=== PATIENT | male | born 1955 | race Caucasian/White ===

== ENCOUNTER 2017-03-23 17:24 | Emergency (ER) | payer MEDICARE, OTHER ==
[~2017-03-23] VITALS: Ht 172.7 cm; Wt 86.2 kg
[~2017-03-23 17:24] MED LIST: ACETAMINOPHEN-1 EAC1 PO; ASPIRIN EC325 MG PO; ASPIRIN EC81 MG; BENADRYL25 MG; CLONAZEPAM0.25 MG; CLONAZEPAM2 MG PO; ENOXAPARIN100 MG/1 M SUB-Q; FOLIC ACID1 MG PO; FUROSEMIDE40 MG PO; FUROSEMIDE40 MG/5 ML PO; GABAPENTIN300 MG PO; IBUPROFEN800 MG PO; KLOR-CON 1010 MEQ PO; LISINOPRIL10 MG PO; LISINOPRIL20 MG PO; LISINOPRIL40 MG PO; LISINOPRIL5 MG; NICORETTE2 MG MM; NICOTINE PATCH1 EAC1 TD; NORCO 5-325 TA1 EACH PO; OS CAL PO; OXYCODONE HCL15 MG PO; OXYCODONE HCL5 MG PO; POTASSIUM CHLO20 ME1 PO; PREDNISONE20 MG PO; PSEUDOEPHEDRIN120 MG; SENNA PLUS TAB1 EACH PO; TRAMADOL HCL50 MG PO; TYLENOL325 MG PO; VITAMIN B-1100 MG PO; VITAMIN D1000 UNI1 PO; WARFARIN SODIUM5 MG PO; XARELTO10 MG PO; [UNRECOGNIZED DRUG - OTHER] PO
== END 2017-03-23 20:15 | disposition home or self-care (01) ==
LOC: ED 17:24
DX: M54.5 Low back pain (principal); G89.29 Other chronic pain; M17.0 Bilateral primary osteoarthritis of knee; I10 Essential (primary) hypertension; F17.200 Nicotine dependence, unspecified, uncomplicated; Z79.899 Other long term (current) drug therapy
CPT/HCPCS: 99283

== ENCOUNTER → 2017-08-01 | Emergency (ER) | payer MEDICARE, OTHER ==
[~2017-08-01] VITALS: Ht 172.7 cm; Wt 86.1 kg
[~2017-08-01] MED LIST changes: +BACLOFEN10 MG PO; +LASIX40 MG PO; +METHYLPREDNISOLO4 M1 PO
--- OUTSIDE RECORDS SUMMARY | 2017-08-01 23:47 | XMS | Clinical Summary ---
Demographics + + + | Address | [address] | | | [place] [address] | + + + | Home Phone | | + + + | Preferred Language | Unknown | + + + | Marital Status | | + + + | Shinto Affiliation | PRO | + + + | Race | White | + + + | Ethnic Group | Not or | + + + Author + + + | Author | [facility] | + + + | Organization | [facility] | + + + | Address | Unknown | + + + | Phone | Unavailable | + + + Support + + + + + | Name | Relationship | Address | Phone | + + + + + | CARMELO MCINTOSH | ECON | [address] | | | | | [place] | | | | | [address] | | + + + + + Care Team Providers + +------+ + | Care Remelt Operator Name | Role | Phone | + +------+ + PP | Unavailable | + +------+ + Source Comments JOAO is fully live on both [facility] Ambulatory and [facility] InPatient.[facility] Allergies No Known Allergies Current Medications + + +---------+---------+------+------+-------+ | Prescription | Sig. | Disp. | Refills | Star | End | Statu | | | | | | t | Date | s | | | | | | Date | | | + + +---------+---------+------+------+-------+ | TRIAMCINOLONE | apply a thin film to | 1 lb | 1 | 01/0 | | Activ | | ACETONIDE 0.1 % | the affected skin | jar | | 5/20 | | e | | OINTMENT | areas by topical | | | 07 | | | | | route 2 timesper day | | | | | | + + +---------+---------+------+------+-------+ | acitretin 25 mg | Please have pt get | 0 | 0 | 05/0 | | Activ | | Oral Capsule | RX for acitretin | | | 5/20 | | e | | | through primary or | | | 08 | | | | | pt can schedule f/u | | | | | | | | appt with Dr. Vuong | | | | | | | | for refill | | | | | | + + +---------+---------+------+------+-------+ | rivaroxaban 10 mg | Take 10 mg by mouth | | | | | Activ | | oral tablet | once daily. | | | | | e | + + +---------+---------+------+------+-------+ | cyanocobalamin | Take 1,000 mcg by | | | | | Activ | | 1,000 mcg oral | mouth once daily. | | | | | e | | tablet | | | | | | | + + +---------+---------+------+------+-------+ | lisinopril 20 mg | Take 20 mg by mouth | | | | | Activ | | oral tablet | once daily. | | | | | e | + + +---------+---------+------+------+-------+ | clonazePAM 2 mg | Take 2 mg by mouth | | | | | Activ | | oral tablet | every six hours as | | | | | e | | | needed. | | | | | | + + +---------+---------+------+------+-------+ | folic acid 1 mg | Take 1 mg by mouth | | | | | Activ | | oral tablet | once daily. | | | | | e | + + +---------+---------+------+------+-------+ | OXYCODONE HCL | Take 1 tablet by | | | | | Activ | | (OXYCONTIN ORAL) | mouth every six | | | | | e | | | hours as needed. | | | | | | + + +---------+---------+------+------+-------+ Active Problems Not on file Social History + + + +--------+------+ | Tobacco Use | Types | Packs/Day | Years | Date | | | | | Used | | + + + +--------+------+ | Current Every Day | Cigarettes | 1 | | | | Smoker | | | | | + + + +--------+------+ + + + | Sex Assigned at | Date Recorded | | | | + + + | Not on file | | + + + Last Filed Vital Signs + + + + | Vital Sign | Reading | Time Taken | + + + + | Blood Pressure | 152/77 | 02/20/2015 10:40 AM PDT | + + + + | Pulse | 56 | 02/20/2015 10:40 AM PDT | + + + + | Temperature | - | - | + + + + | Respiratory Rate | 16 | 06/03/2006 10:01 AM PST | + + + + | Oxygen Saturation | - | - | + + + + | Inhaled Oxygen | - | - | | Concentration | | | + + + + | Weight | 74.8 kg (165 lb) | 02/20/2015 10:40 AM PDT | + + + + | Height | 170.2 cm (5' 7") | 02/20/2015 10:40 AM PDT | + + + + | Body Mass Index | 25.84 | 02/20/2015 10:40 AM PDT | + + + + Plan of Treatment + + + + + | Health Maintenance | Due Date | Last Done | Comments | + + + + + | INFLUENZA VACCINE | | | | | (FLU SHOT) | 7 | | | + + + + + Results Not on filefrom Last 3 Months
--- OUTSIDE RECORDS SUMMARY | 2017-08-01 23:47 | XMS | Clinical Summary ---
Demographics + + + | Address | [address] | | | [place] [address] | + + + | Home Phone | | + + + | Preferred Language | Unknown | + + + | Marital Status | | + + + | Latter-Day Affiliation | PRO | + + + [...] + | CARMELO MCINTOSH | ECON | [address] | | | | | [place] | | | | | [address] | | + + + + + Care Team Providers + +------+ + | Care Hoseman Name | Role | Phone | + +------+ + PP | Unavailable | + +------+ + Source Comments JOAO is fully live on both [facility] Amb[facility] and [facility] InPatient.[facility] [place] [facility] Allergies No Known Allergies Current Medications + [...]
== END ==
LOC: ED 22:36
DX: M54.6 Pain in thoracic spine (principal); M54.5 Low back pain; G89.29 Other chronic pain; I10 Essential (primary) hypertension; F17.200 Nicotine dependence, unspecified, uncomplicated; Z79.899 Other long term (current) drug therapy
CPT/HCPCS: 72070; 96372; 99283; J1885

== ENCOUNTER 2017-08-03 07:07 | Emergency (ER) | payer MEDICARE, OTHER ==
[~2017-08-03] VITALS: Ht 172.7 cm; Wt 86.2 kg
--- OUTSIDE RECORDS SUMMARY | ~2017-08-03 | XMS | Clinical Summary ---
Demographics + + + | Address | [address] | | | [place] [address] | + + + | Home Phone [...] + | CARMELO MCINTOSH | ECON | [address] | | | | | [place] | | | | | [phone] | | + + + + + Care Team Providers + +------+ + | Care Blind Teacher Name | Role | Phone | + +------+ + PP | Unavailable | + +------+ + Source Comments JOAO is fully live on both [facility] Ambulatory and [facility] InPatient.[facility] Allergies No Known Allergies Current Medications + [...]
--- OUTSIDE RECORDS SUMMARY | ~2017-08-03 | XMS | Clinical Summary ---
Demographics + + + | Address | [address] | | | [place] [address] | + + + | Home Phone [...] + | CARMELO MCINTOSH | ECON | [address] | | | | | [place] | | | | | [address] | | + + + + + Care Team Providers + +------+ + | Care Chief Building Inspector Name | Role | Phone | + +------+ + PP | Unavailable | + +------+ + Source Comments JOAO is fully live on both [facility] Ambulatory and [facility] InPatient.[facility] Allergies No Known Allergies Current Medications + [...]
[~2017-08-03 07:07] MED LIST changes: -BACLOFEN10 MG PO; -METHYLPREDNISOLO4 M1 PO
[2017-08-03] MEDS ORDERED: BACLOFEN10 MG PO (07:26)
[2017-08-03] MEDS ORDERED: METHYLPREDNISOLO4 M1 PO (07:26)
[2017-08-03] MEDS ORDERED: OXYCODONE HCL5 MG PO (07:39)
== END 2017-08-03 07:52 | disposition home or self-care (01) ==
LOC: ED 07:07
DX: G89.29 Other chronic pain (principal); M94.0 Chondrocostal junction syndrome [Tietze]; I10 Essential (primary) hypertension; F17.200 Nicotine dependence, unspecified, uncomplicated; Z79.899 Other long term (current) drug therapy
CPT/HCPCS: 96372; 99283; J1885

== ENCOUNTER 2017-09-30 18:20 | Emergency (ER) | payer MEDICARE ==
[~2017-09-30] VITALS: Ht 172.7 cm; Wt 86.1 kg
--- OUTSIDE RECORDS SUMMARY | ~2017-09-30 | XMS | Clinical Summary ---
Demographics + + + | Address | [address] | | | [place] [address] | + + + | Home Phone | | + + + | Preferred Language | Unknown | + + + | Marital Status | | + + + | Mu-Ism Affiliation | PRO | + + + [...] + | CARMELO MCINTOSH | ECON | [address] | | | | | [place] | | | | | [address] | | + + + + + Care Team Providers + +------+ + | Care Operator Maintainer Name | Role | Phone | + +------+ + PP | Unavailable | + +------+ + Source Comments JOAO is fully live on both [facility] Ambulatory and [facility] InPatient.[facility] Allergies No Known Allergies Current Medications [...] | | | | (FLU SHOT) | 8 | | | + + + + + Results Not on filefrom Last 3 Months
--- OUTSIDE RECORDS SUMMARY | ~2017-09-30 | XMS | Clinical Summary ---
Demographics + + + | Address | [address] | | | [place] [address] | + + + | Home Phone | | + + + | Preferred Language | Unknown | + + + | Marital Status | | + + + | Bahai Affiliation | 1013 | + + + | Race | Unknown | + + + | Ethnic Group | Unknown | + + + Author + + + | Author | [facility] | + + + | Organization | [facility] | + + + | Address | Unknown | + + + | Phone | Unavailable | + + + Support + + + + + | Name | Relationship | Address | Phone | + + + + + | Message,Detailed | ECON | Unknown | | + + + + + | Anika Mcintosh | ECON | [address] | | | | [place] | | | | | [phone] | | + + + + + | Hugo Mcintosh | ECON | Unknown | | + + + + + | Patricia Dailey | ECON | Unknown | | + + + + + Care Team Providers + +------+ + | Care Telephone Service Representative Name | Role | Phone | [...] | 2/20 | | e | | | | [...] Vaccine: | | | | | Pneumococcal 19-64 | 4 | | | | (PPSV23 only) Medium | | | | | Risk (1 of 1 - | | | | | PPSV23) | | | | + + + + + | Colon Cancer | | | | | Screening | 5 | | | | (Colonoscopy) | | | | + + + + + | Vaccine: Influenza | | | | | (Season Ended) | 8 | | | + + [...] +------+-------+ + | MEDICARE | MEDICA | xxxxxxxxxx | | | [address] | | | RE | | | | [place] [address] | | | IP-OP | | | | | + +--------+ +------+-------+ + | MEDICAID | [place]ER | xxxxxxxx | | | [address] | | | N | | | | [place], [place] | | | [place] | | | | [address] | | | MODELING DIRECTOR | | | | | + +--------+ [...] Self | [birth year] Home: | [address] | | [address] | al/Fam | | [phone] | [phone] | [place] | | | kim | | | [phone] | [phone] | + +--------+ +--------+ + +
--- OUTSIDE RECORDS SUMMARY | ~2017-09-30 | XMS | Clinical Summary ---
Demographics + + + | Address | [address] | | | [place] [address] | + + + | Home Phone | | + + + | Preferred Language | Unknown | + + + | Marital Status | | + + + | Mandaen Affiliation | 1013 | + + + | Race | Unknown | + + + | Ethnic Group | Unknown | + + + Author + + + | Author | [facility] | + + + | Organization | [facility] [employer] [employer] [facility] | + + + | Address [...] [place] | | | | | [address] | | + + + + + | Hugo Mcintosh | ECON | Unknown | | + + + + + | Patricia Dailey | ECON | Unknown | | + + + + + Care Team Providers + +------+ + | Care Medical Psychotherapist Name | Role | Phone | + [...] | xxxxxxxxxx | | | [address] | | | RE | | | | [place] [address] | | | IP-OP | | | | | + +--------+ +------+-------+ + | MEDICAID | [place]ER | xxxxxxxx | | | [address] | | | N | | | | [place], [place] | | | [place] | | | | [phone] | | | CHAIN LINK FENCE INSTALLER | | | | | + +--------+ [...] | [address] | | | [phone] | [phone] | + +--------+ +--------+ + +
--- OUTSIDE RECORDS SUMMARY | ~2017-09-30 | XMS | Clinical Summary ---
Demographics + + + | Address | [address] | | | [place] [address] | + + + | Home Phone [...] + | CARMELO MCINTOSH | ECON | [address] | | | | | [place] | | | | | [address] | | + + + + + Care Team Providers + +------+ + | Care Supplier Quality Name | Role | Phone | + +------+ + PP | Unavailable | + +------+ + Source Comments JOAO is fully live on both [facility] Ambulatory and [facility] InPatient.[facility] Allergies No Known Allergies Current Medications [...]
[~2017-09-30 18:20] MED LIST changes: +BACLOFEN10 MG PO; +METHYLPREDNISOLO4 M1 PO
== END 2017-09-30 19:52 | disposition home or self-care (01) ==
LOC: ED 18:20
DX: L40.9 Psoriasis, unspecified (principal); I10 Essential (primary) hypertension; F17.200 Nicotine dependence, unspecified, uncomplicated; Z79.899 Other long term (current) drug therapy
CPT/HCPCS: 99282

== ENCOUNTER 2017-12-22 17:59 | Emergency (ER) | payer MEDICARE ==
[~2017-12-22] VITALS: Ht 172.7 cm; Wt 86.1 kg
[2017-12-22] MEDS ORDERED: METHOTREXATE2.5 MG PO (18:40)
[2017-12-22] MEDS ORDERED: BACLOFEN10 MG PO (18:43)
[2017-12-22] MEDS ORDERED: METHYLPREDNISOLO4 M1 PO (18:43)
== END 2017-12-22 18:47 | disposition home or self-care (01) ==
LOC: ED 17:59
DX: G89.29 Other chronic pain (principal); M54.9 Dorsalgia, unspecified; I10 Essential (primary) hypertension; F17.200 Nicotine dependence, unspecified, uncomplicated; Z79.899 Other long term (current) drug therapy
CPT/HCPCS: 99283

== ENCOUNTER 2018-02-08 08:03 | Emergency (ER) | payer MEDICARE ==
[~2018-02-08] VITALS: Ht 172.7 cm; Wt 83.9 kg
[~2018-02-08 08:03] MED LIST changes: +METHOTREXATE2.5 MG PO
[2018-02-08] MEDS ORDERED: BACLOFEN10 MG PO (08:20)
[2018-02-08] MEDS ORDERED: METHYLPREDNISOLO4 M1 PO (08:20)
== END 2018-02-08 08:30 | disposition home or self-care (01) ==
LOC: ED 08:03
DX: M54.5 Low back pain (principal); I10 Essential (primary) hypertension; F17.200 Nicotine dependence, unspecified, uncomplicated; Z79.899 Other long term (current) drug therapy
CPT/HCPCS: 99283

== ENCOUNTER 2018-08-01 05:21 | Emergency (ER) | payer MEDICARE ==
[~2018-08-01] VITALS: Ht 172.7 cm; Wt 81.6 kg
--- OUTSIDE RECORDS SUMMARY | 2018-08-01 05:24 | XMS ---
PreManage Notification: ROBERTO MCINTOSH Security Learning And Development Manager Events No recent Security Events currently on file CRITERIA MET - Group Notification - [facility] - Has Care Guidelines - PDMP CARE PROVIDERS LOVELY RIVAS [facility] 02/09/2018-Current PHONE: Unknown Kale Alonso Current [place] PHONE: Unknown DR ADRIANE RIVAS Primary Care 08/06/2016-Current PHONE: [phone] Miryam has no Care Guidelines for this patient. Care History Substance Use/Overdose 12/29/2017 [facility] Patient PCP, Dr. Lovely Rivas, is no longer rx\T\#39;ing any opiate/ opioids or benzodiazepines for patient. 12/24/2017 [facility] PATIENT CAME TO ED FOR PAIN MEDS FOR BACK PAIN 12/22/17.\T\nbsp; STATED HE HAS RUN OUT OF PAIN MEDICATIONS.\T\nbsp; HE HAD FILLED SCRIPT FOR 185 OXYCODONE ON 12/05/17.\T\nbsp; PRIMARY CARE PHYSICIAN DR RIVAS WAS NOTIFIED.\T\nbsp; PLEASE USE CAUTION WITH PRESCRIBING ANY NARCOTICS WITHOUT CHECKING WITH PRIMARY CARE AT [phone]. Medical/Surgical 12/29/2017 [facility] Patient PCP, Dr. Lovely Rivas, is no longer rx\T\#39;ing any opiate/ opioids or benzodiazepines for patient. E.D. VISIT COUNT (12 MO.) 6 [facility]. TOTAL 6 NOTE: Visits indicate total known visits. ED/UCC VISIT TRACKING (12 MO.) 08/01/2018 05:22 [facility] [place] TYPE: Emergency COMPLAINT: - VOMITING, PAIN 02/08/2018 08:03 [facility] [place] TYPE: Emergency COMPLAINT: - BACK PAIN/INJURY DIAGNOSES: - Essential (primary) hypertension - Other superintendent marine oil terminal (current) drug therapy - Low back pain - Nicotine dependence, unspecified, uncomplicated 12/22/2017 18:[facility] [place] [place] TYPE: Emergency COMPLAINT: - BACK PAIN/NO INJURY DIAGNOSES: - Other custodial (current) drug therapy - Other chronic pain - Essential (primary) hypertension - Nicotine dependence, unspecified, uncomplicated - Dorsalgia, unspecified 09/30/2017 18:20 [facility] [place] TYPE: Emergency COMPLAINT: - ALTERED MENTAL DIAGNOSES: - Essential (primary) hypertension - Other custodial (current) drug therapy - Psoriasis, unspecified - Nicotine dependence, unspecified, uncomplicated 08/03/2017 07:07 [facility] [place] TYPE: Emergency COMPLAINT: - RIB PAIN DIAGNOSES: - Nicotine dependence, unspecified, uncomplicated - Pleurodynia - Other superintendent marine oil terminal (current) drug therapy - Essential (primary) hypertension - Chondrocostal junction syndrome [Tietze] - Other chronic pain 08/01/2017 22:36 [facility] [place] TYPE: Emergency COMPLAINT: - L AND R RIB PAIN DIAGNOSES: - Other chronic pain - Low back pain - Nicotine dependence, unspecified, uncomplicated - Essential (primary) hypertension - Other custodial (current) drug therapy - Dorsalgia, unspecified - Pain in thoracic spine INPATIENT VISIT TRACKING (12 MO.) No inpatient visits to display in this time frame [email or web address]
[2018-08-01] MEDS ORDERED: ETODOLAC500 MG PO (05:32)
[2018-08-01] MEDS ORDERED: BUSPIRONE HCL30 MG PO (05:33)
[2018-08-01] MEDS ORDERED: METHOTREXATE2.5 MG PO (05:33)
[2018-08-01] MEDS ORDERED: NORCO 5-325 TA1 EACH PO (06:20)
== END 2018-08-01 06:43 | disposition home or self-care (01) ==
LOC: ED 05:21
DX: L40.50 Arthropathic psoriasis, unspecified (principal); I10 Essential (primary) hypertension; F17.200 Nicotine dependence, unspecified, uncomplicated; Z79.899 Other long term (current) drug therapy
CPT/HCPCS: 99282

== ENCOUNTER 2019-02-07 07:45 | Emergency (ER) | payer MEDICARE ==
[~2019-02-07] VITALS: Ht 172.7 cm; Wt 82.0 kg
[~2019-02-07 07:45] MED LIST changes: +BUSPIRONE HCL30 MG PO; +ETODOLAC500 MG PO
--- OUTSIDE RECORDS SUMMARY | 2019-02-07 07:48 | XMS ---
PreManage Notification: ROBERTO MCINTOSH Security Manager Icu Events No recent Security Events currently on file CRITERIA MET - Group Notification - [facility] Care Guidelines CARE PROVIDERS LOVELY RIVAS [facility] 02/09/2018-Current PHONE: Unknown Kale Alonso Current [place] PHONE: Unknown DR ADRIANE RIVAS Primary Care 08/06/2016-Current PHONE: [phone] Miryam has no Care Guidelines for this patient. Care History Medical/Surgical 12/29/2017 [facility] Patient PCP, Dr. Lovely Rivas, is no longer rx\T\#39;ing any opiate/ opioids or benzodiazepines for patient. Substance Use/Overdose 12/29/2017 [facility] Patient PCP, Dr. Lovely Rivas, is no longer rx\T\#39;ing any opiate/ opioids or benzodiazepines for patient. 12/24/2017 [facility] PATIENT CAME TO ED FOR PAIN MEDS FOR BACK PAIN 12/22/17.\T\nbsp; STATED HE HAS RUN OUT OF PAIN MEDICATIONS.\T\nbsp; HE HAD FILLED SCRIPT FOR 185 OXYCODONE ON 12/05/17.\T\nbsp; PRIMARY CARE PHYSICIAN DR RIVAS WAS NOTIFIED.\T\nbsp; PLEASE USE CAUTION WITH PRESCRIBING ANY NARCOTICS WITHOUT CHECKING WITH PRIMARY CARE AT [phone]. E.D. VISIT COUNT (12 MO.) 3 [facility]. TOTAL 3 NOTE: Visits indicate total known visits. ED/UCC VISIT TRACKING (12 MO.) 02/07/2019 07:45 [facility] [place] TYPE: Emergency COMPLAINT: - SKIN PROBLEM 08/01/2018 05:22 [facility] [place] TYPE: Emergency COMPLAINT: - VOMITING, PAIN DIAGNOSES: - Arthropathic psoriasis, unspecified - Nicotine dependence, unspecified, uncomplicated - Other protection manager (current) drug therapy - Psoriasis, unspecified - Essential (primary) hypertension 02/08/2018 08:03 [facility] [place] TYPE: Emergency COMPLAINT: - BACK PAIN/INJURY DIAGNOSES: - Essential (primary) hypertension - Other protection manager (current) drug therapy - Low back pain - Nicotine dependence, unspecified, uncomplicated INPATIENT VISIT TRACKING (12 MO.) No inpatient visits to display in this time frame [email or web address]
[2019-02-07] MEDS ORDERED: BUSPIRONE HCL30 MG PO (08:14)
[2019-02-07] MEDS ORDERED: METHYLPREDNISOLO4 MG PO (08:15)
[2019-02-07] MEDS ORDERED: PREDNISONE20 MG PO (08:39)
== END 2019-02-07 08:55 | disposition home or self-care (01) ==
LOC: ED 07:45
DX: L40.9 Psoriasis, unspecified (principal); I10 Essential (primary) hypertension; F17.200 Nicotine dependence, unspecified, uncomplicated; Z79.899 Other long term (current) drug therapy; Z79.52 Long term (current) use of systemic steroids
CPT/HCPCS: 99282

== ENCOUNTER 2019-06-27 16:43 | Emergency (ER) | payer SELFPAY ==
[~2019-06-27] VITALS: Ht 172.7 cm; Wt 82.0 kg
[~2019-06-27 16:43] MED LIST changes: +METHYLPREDNISOLO4 MG PO
--- OUTSIDE RECORDS SUMMARY | 2019-06-27 16:46 | XMS ---
PreManage Notification: ROBERTO MCINTOSH Security Cutter Inspector Events No recent Security Events currently on file CRITERIA MET - Group Notification - [facility] Care Guidelines CARE PROVIDERS LOVELY RIVAS [facility] 02/09/2018-Current PHONE: [phone] Kale Alonso Current PHONE: Unknown DR ADRIANE RIVAS Primary Care 08/06/2016-Current PHONE: [phone] Miryam has no Care Guidelines for this patient. Care History Substance Use/Overdose 12/29/2017 [facility] Patient PCP, Dr. Lovely Rivas, is no longer rx\T\#39;ing any opiate/ opioids or benzodiazepines for patient. 12/24/2017 [facility] PATIENT CAME TO ED FOR PAIN MEDS FOR BACK PAIN 12/22/17.\T\nbsp; STATED HE HAS RUN OUT OF PAIN MEDICATIONS.\T\nbsp; HE HAD FILLED SCRIPT FOR 185 OXYCODONE ON 12/05/17.\T\nbsp; PRIMARY CARE PHYSICIAN DR RIVAS WAS NOTIFIED.\T\nbsp; PLEASE USE CAUTION WITH PRESCRIBING ANY NARCOTICS WITHOUT CHECKING WITH PRIMARY CARE AT [phone]. Medical/Surgical 12/29/2017 [facility] Patient PCP, Dr. Lovely Rivas, is no longer rx\T\#39;ing any opiate/ opioids or benzodiazepines for patient. E.D. VISIT COUNT (12 MO.) 3 [facility]. TOTAL 3 NOTE: Visits indicate total known visits. ED/UCC VISIT TRACKING (12 MO.) 06/27/2019 16:44 [facility] [place] TYPE: Emergency COMPLAINT: - SWOLLEN EXTREMETIES 02/07/2019 07:45 [facility] [place] TYPE: Emergency COMPLAINT: - SKIN PROBLEM DIAGNOSES: - Essential (primary) hypertension - Nicotine dependence, unspecified, uncomplicated - Psoriasis, unspecified - assisted (current) use of systemic steroids - Other senior care (current) drug therapy 08/01/2018 05:22 [facility] [place] TYPE: Emergency COMPLAINT: - VOMITING, PAIN DIAGNOSES: - Arthropathic psoriasis, unspecified - Nicotine dependence, unspecified, uncomplicated - Other senior care (current) drug therapy - Psoriasis, unspecified - Essential (primary) hypertension INPATIENT VISIT TRACKING (12 MO.) No inpatient visits to display in this time frame [id number]
[2019-06-27] MEDS ORDERED: PREDNISONE50 MG PO (18:29)
--- NOTE | 2019-06-28 13:03 | EKG ---
[facility] [address] [place], [place] [address] Signed Sinus tachycardia with occasional premature ventricular complexes and fusion complexes Nonspecific ST abnormality Abnormal ECG No previous ECGs available Confirmed by YONY VELIZ DO ([id number]) on 06/28/2019 1:03:04 PM Electronically Signed By: YONY VELIZ DO 06/28/19 1303 PATIENT NAME: ROBERTO MCINTOSH Electrocardiogram DATE OF : 53 PHYSICIAN: YONY VELIZ DO REPORT #: [id number] REPORT IS CONFIDENTIAL AND NOT TO BE RELEASED WITHOUT AUTHORIZATION
== END 2019-06-27 18:39 | disposition home or self-care (01) ==
LOC: ED 16:43
DX: L40.9 Psoriasis, unspecified (principal); I10 Essential (primary) hypertension; Z87.891 Personal history of nicotine dependence; Z79.52 Long term (current) use of systemic steroids; Z79.899 Other long term (current) drug therapy
CPT/HCPCS: 80048; 93005; 93010; 96372; 99283; J1885; J7512

== ENCOUNTER 2019-09-27 15:12 | Emergency (ER) | payer MEDICARE, OTHER ==
[~2019-09-27] VITALS: Ht 172.7 cm; Wt 105.6 kg
[~2019-09-27 15:12] MED LIST changes: +PREDNISONE50 MG PO
--- OUTSIDE RECORDS SUMMARY | 2019-09-27 15:14 | XMS ---
PreManage Notification: ROBERTO MCINTOSH Security Dry Cell Assembly Supervisor Events No recent Security Events currently on file CRITERIA MET - Group Notification CARE PROVIDERS LOVELY RIVAS [facility] 02/09/2018-Current PHONE: [phone] Miryam has no Care Guidelines for this patient. Care History Substance Use/Overdose 12/29/2017 [facility] Patient PCP, Dr. Lovely Rivas, is no longer rx\T\#39;ing any opiate/ opioids or benzodiazepines for patient. 12/24/2017 [facility] PATIENT CAME TO ED FOR PAIN MEDS FOR BACK PAIN 12/22/17.\T\nbsp; STATED HE HAS RUN OUT OF PAIN MEDICATIONS.\T\nbsp; HE HAD FILLED SCRIPT FOR 185 OXYCODONE ON 12/05/17.\T\nbsp; PRIMARY CARE PHYSICIAN DR RIVAS WAS NOTIFIED.\T\nbsp; PLEASE USE CAUTION WITH PRESCRIBING ANY NARCOTICS WITHOUT CHECKING WITH PRIMARY CARE AT [phone]. Medical/Surgical 12/29/2017 [facility] Patient PCP, Dr. Lovely Rivas, is no longer rx\T\#39;ing any opiate/ opioids or benzodiazepines for patient. E.D. VISIT COUNT (12 MO.) 3 [facility] TOTAL 3 NOTE: Visits indicate total known visits. ED/UCC VISIT TRACKING (12 MO.) 09/27/2019 15:12 [facility] [place] TYPE: Emergency COMPLAINT: - BLOATING 06/27/2019 16:44 [facility] [place] TYPE: Emergency COMPLAINT: - SWOLLEN EXTREMETIES DIAGNOSES: - Personal history of nicotine dependence - group home (current) use of systemic steroids - Other retirement (current) drug therapy - Psoriasis, unspecified - Essential (primary) hypertension 02/07/2019 07:[address] [facility] [place] TYPE: Emergency COMPLAINT: - SKIN PROBLEM DIAGNOSES: - Essential (primary) hypertension - Nicotine dependence, unspecified, uncomplicated - Psoriasis, unspecified - intermediate project manager (current) use of systemic steroids - Other lobsterman (current) drug therapy INPATIENT VISIT TRACKING (12 MO.) No inpatient visits to display in this time frame [email or web address]
== END 2019-09-27 18:32 | disposition home or self-care (01) ==
LOC: ED 15:12
DX: R14.0 Abdominal distension (gaseous) (principal); I10 Essential (primary) hypertension; F17.200 Nicotine dependence, unspecified, uncomplicated; Z79.899 Other long term (current) drug therapy
CPT/HCPCS: 74022; 99284-25

== ENCOUNTER 2019-10-12 12:53 | Emergency (ER) | payer MEDICARE ==
[~2019-10-12] VITALS: Ht 172.7 cm; Wt 105.2 kg
--- OUTSIDE RECORDS SUMMARY | ~2019-10-12 | XMS | Encounter Summary ---
Demographics + + + | Address | [address] | | | [place] [address] | + + + | Home Phone | | + + + | Preferred Language | Unknown | + + + | Marital Status | | + + + | Synagogue Affiliation | PRO | + + + | Race | White | + + + | Ethnic Group | Not or | + + + Author + + + | Author | [facility] | + + + | Organization | [facility] | + + + | Address | Unknown | + + + | Phone | Unavailable | + + + Support + + + + + | Name | Relationship | Address | Phone | + + + + + | Marnie Payne | ECON | [address] | | | | | [place] | | | | | [address] | | + + + + + Care Team Providers + +------+ + | Care Keno Writer / Runner Name | Role | Phone | + +------+ + | Julio Cesar Davis MD | PCP | | + +------+ + Encounter Details +--------+ + + + + | Date | Type | Department | Care Team | Description | +--------+ + + + + | 06/03/ | Orders Only | Dermatology | Ashia Vuong, | Other Psoriasis and | | 2005 | | Medical at [facility] [address] | MD | Similar Disorders; | | | | [address] | | Erythroderma | | | | Mailcode: CH16D | | | | | | [facility] | | | | | | and Healing, | | | | | | | | | | | | [place], [place] | | | | | | [address] | | | | | | [phone] | | | +--------+ + + + + Social History + +-------+ +--------+------+ | Tobacco Use | Types | Packs/Day | Years | Date | | | | | Used | | + +-------+ +--------+------+ | Never Assessed | | | | | + +-------+ +--------+------+ + + + | Sex Assigned at | Date Recorded | | | | + + + | Not on file | | + + + + + + + | Job Start Date | Occupation | Industry | + + + + | Not on file | Not on file | Not on file | + + + + + + + + | Travel History | Travel Start | Travel End | + + + + + + | No recent travel history available. | + + documented as of this encounter Plan of Treatment + +------+--------+ + + | Name | Type | Priori | Associated Diagnoses | Order Schedule | | | | ty | | | + +------+--------+ + + | [facility] - SPECIMEN | Lab | Routin | Other Psoriasis | Ordered: 06/03/2006 | | COLLECT, | | e | and Similar | | | VENIPUNCTURE | | | Disorders | | + +------+--------+ + + documented as of this encounter Procedures + +--------+ + + + | Procedure Name | Priori | Date/Time | Associated Diagnosis | Comments | | | ty | | | | + +--------+ + + + | DIFFERENTIAL | Routin | 06/03/2006 | | Results for this | | | e | 11:48 AM | | procedure are in the | | | | PST | | results section. | + +--------+ + + + | CBC, WITH | Routin | 06/03/2006 | Other Psoriasis | Results for this | | DIFFERENTIAL | e | 11:48 AM | and Similar | procedure are in the | | | | PST | Disorders | results section. | | | | | Erythroderma | | + +--------+ + + + | ALT, PLASMA | Routin | 06/03/2006 | Other Psoriasis | Results for this | | | e | 11:48 AM | and Similar | procedure are in the | | | | PST | Disorders | results section. | | | | | Erythroderma | | + +--------+ + + + | COMPLETE METABOLIC | Routin | 06/03/2006 | Other Psoriasis | Results for this | | SET | e | 11:48 AM | and Similar | procedure are in the | | (NA,K,CL,CO2,BUN,CRE | | PST | Disorders | results section. | | AT,GLUC,CA,AST,ALT,B | | | Erythroderma | | | YONATHAN TOTAL,ALK | | | | | | PHOS,ALB,PROT TOTAL) | | | | | + +--------+ + + + | AST, PLASMA | Routin | 06/03/2006 | Other Psoriasis | Results for this | | | e | 11:48 AM | and Similar | procedure are in the | | | | PST | Disorders | results section. | | | | | Erythroderma | | + +--------+ + + + | HEPATITIS B SURFACE | Routin | 06/03/2006 | Other Psoriasis | Results for this | | AB QUAL, SERUM | e | 11:48 AM | and Similar | procedure are in the | | | | PST | Disorders | results section. | | | | | Erythroderma | | + +--------+ + + + | HEPATITIS B SURFACE | Routin | 06/03/2006 | Other Psoriasis | Results for this | | AG, SERUM | e | 11:48 AM | and Similar | procedure are in the | | | | PST | Disorders | results section. | | | | | Erythroderma | | + +--------+ + + + | HEPATITIS B CORE AB, | Routin | 06/03/2006 | Other Psoriasis | Results for this | | SERUM | e | 11:48 AM | and Similar | procedure are in the | | | | PST | Disorders | results section. | | | | | Erythroderma | | + +--------+ + + + | HEPATITIS C VIRUS | Routin | 06/03/2006 | Other Psoriasis | Results for this | | W/CONFIRMATION | e | 11:48 AM | and Similar | procedure are in the | | | | PST | Disorders | results section. | | | | | Erythroderma | | + +--------+ + + + | LIPID SET (TRIG, T | Routin | 06/03/2006 | Other Psoriasis | Results for this | | CHOL, HDL, CALC LDL) | e | 11:48 AM | and Similar | procedure are in the | | | | PST | Disorders | results section. | | | | | Erythroderma | | + +--------+ + + + | URIC ACID, PLASMA | Routin | 06/03/2006 | Other Psoriasis | Results for this | | | e | 11:48 AM | and Similar | procedure are in the | | | | PST | Disorders | results section. | | | | | Erythroderma | | + +--------+ + + + | UREA NITROGEN, | Routin | 06/03/2006 | Other Psoriasis | Results for this | | PLASMA | e | 11:48 AM | and Similar | procedure are in the | | | | PST | Disorders | results section. | | | | | Erythroderma | | + +--------+ + + + | ALKALINE | Routin | 06/03/2006 | Other Psoriasis | Results for this | | PHOSPHATASE, PLASMA | e | 11:48 AM | and Similar | procedure are in the | | | | PST | Disorders | results section. | | | | | Erythroderma | | + +--------+ + + + | MAGNESIUM, PLASMA | Routin | 06/03/2006 | Other Psoriasis | Results for this | | | e | 11:48 AM | and Similar | procedure are in the | | | | PST | Disorders | results section. | | | | | Erythroderma | | + +--------+ + + + | CREATININE, PLASMA | Routin | 06/03/2006 | Other Psoriasis | Results for this | | | e | 11:48 AM | and Similar | procedure are in the | | | | PST | Disorders | results section. | | | | | Erythroderma | | + +--------+ + + + documented in this encounter Results DIFFERENTIAL (06/03/2006 11:48 AM PST) + +---------+ + + + | Component | Value | Ref Range | Performed | Pathologist | | | | | At | Signature | + +---------+ + + + | NEUTROPHIL | 66 | 50 - 70 % | [facility] | | | % | | | DEPARTMENT | | | | | | OF | | | | | | PATHOLOGY | | + +---------+ + + + | LYMPHOCYTE | 17 (L) | 18 - 42 % | [facility] | | | % | | | DEPARTMENT | | | | | | OF | | | | | | PATHOLOGY | | + +---------+ + + + | MONOCYTE % | 13 (H) | 2 - 8 % | [facility] | | | | | | DEPARTMENT | | | | | | OF | | | | | | PATHOLOGY | | + +---------+ + + + | EOS % | 3 | 1 - 3 % | [facility] | | | | | | DEPARTMENT | | | | | | OF | | | | | | PATHOLOGY | | + +---------+ + + + | BASO % | 1 | <3 % | [facility] | | | | | | DEPARTMENT | | | | | | OF | | | | | | PATHOLOGY | | + +---------+ + + + | NEUTROPHIL | 4.6 | 1.8 - 7.7 K/cu | [facility] | | | # | | mm | DEPARTMENT | | | | | | OF | | | | | | PATHOLOGY | | + +---------+ + + + | LYMPHOCYTE | 1.2 | 1.0 - 4.8 K/cu | [facility] | | | # | | mm | DEPARTMENT | | | | | | OF | | | | | | PATHOLOGY | | + +---------+ + + + | MONOCYTE # | 0.9 (H) | 0.1 - 0.6 K/cu | [facility] | | | | | mm | DEPARTMENT | | | | | | OF | | | | | | PATHOLOGY | | + +---------+ + + + | EOS # | 0.2 | <0.6 K/cu mm | [facility] | | | | | | DEPARTMENT | | | | | | OF | | | | | | PATHOLOGY | | + +---------+ + + + | BASO # | 0.1 | <0.2 | [facility] | | | | | | DEPARTMENT | | | | | | OF | | | | | | PATHOLOGY | | + +---------+ + + + + + | Specimen | + + | | + + + + + + + | Performing | Address | City/State/Zipcode | Phone Number | | Organization | | | | + + + + + | [facility] | [address] | [place] [address] | | | PATHOLOGY | [address] | | | + + + + + | [facility] | [address] | [place] [address] | | | PATHOLOGY | [address] | | | + + + + + URIC ACID, PLASMA (06/03/2006 11:48 AM PST) + +-------+ + + + | Component | Value | Ref Range | Performed | Pathologist | | | | | At | Signature | + +-------+ + + + | URIC ACID, | 5.9 | 3.7 - 8.0 mg/dL | [facility] | | | PLASMA | | | DEPARTMENT | | | (LAB) | | | OF | | | | | | PATHOLOGY | | + +-------+ + + + + + | Specimen | + + | | + + + + + | Narrative | Performed At | + + + | [id number] Estimated GFR > 60 mL/min/1.73 sq m if non- | [facility] | | [id number] Estimated GFR > 60 mL/min/1.73 sq m if GFR | DEPARTMENT OF | | is estimated using the MDRD equation recommended by the National | PATHOLOGY | | Kidney Disease Education Program. Estimated GFR Interpretive | | | Information: <60 mL/min/1.73 sq m Chronic Kidney Disease <15 | | | mL/mon/1.73 sq m Kidney Failure Estimated GFR greater than | | | 60mL/min/1.73 is of limited clinical Value. The MDRD equation is | | | not valid in the following situations: - Patients under 18 years of | | | age - Severe malnutrition or obesity - Vegetarian diet - Rapidly | | | changing kidney function | | + + + + + + + + | Performing | Address | City/State/[facility] | Phone Number | | Organization | | | | + + + + + | [facility] | [address] | [place] [address] | | | PATHOLOGY | [address] | | | + + + + + | [facility] DEPARTMENT OF | [address] | [place] [address] | | | PATHOLOGY | [address] | | | + + + + + MAGNESIUM, PLASMA (06/03/2006 11:48 AM PST) + +-------+ + + + | Component | Value | Ref Range | Performed | Pathologist | | | | | At | Signature | + +-------+ + + + | MAGNESIUM,P | 2.3 | 1.8 - 2.5 mg/dL | [facility] | | | LASMA | | | DEPARTMENT | | | | | | OF | | | | | | PATHOLOGY | | + +-------+ + + + + + | Specimen | + + | | + + + + + | Narrative | Performed At | + + + | [id number] Estimated GFR > 60 mL/min/1.73 sq m if non- | [facility] | | [id number] Estimated GFR > 60 mL/min/1.73 sq m if GFR | DEPARTMENT OF | | is estimated using the MDRD equation recommended by the National | PATHOLOGY | | Kidney Disease Education Program. Estimated GFR Interpretive | | | Information: <60 mL/min/1.73 sq m Chronic Kidney Disease <15 | | | mL/mon/1.73 sq m Kidney Failure Estimated GFR greater than | | | 60mL/min/1.73 is of limited clinical Value. The MDRD equation is | | | not valid in the following situations: - Patients under 18 years of | | | age - Severe malnutrition or obesity - Vegetarian diet - Rapidly | | | changing kidney function | | + + + + + + + + | Performing | Address | City/State/Zipcode | Phone Number | | Organization | | | | + + + + + | [facility] DEPARTMENT | [address] | [place] [address] | | | PATHOLOGY | [address] | | | + + + + + | [facility] | [address] | [place] [address] | | | PATHOLOGY | [address] | | | + + + + + LIPID SET (06/03/2006 11:48 AM PST) + + + + + + | Component | Value | Ref Range | Performed | Pathologist | | | | | At | Signature | + + + + + + | CHOLESTEROL | 187Comment: | <200 mg/dL | [facility] | | | (LAB) | Cholesterol Reference | | DEPARTMENT | | | | Range: | | OF | | | | Desirable: <200 | | PATHOLOGY | | | | Borderline | | | | | | High: 200 - 239 | | | | | | | | | | | | High: >=240 | | | | | | LDL Cholesterol | | | | | | Reference Range: | | | | | | | | | | | | Optimal: <100 | | | | | | Near Optimal: | | | | | | 100 - 129 | | | | | | Borderline High: | | | | | | 130 - 159 | | | | | | High: | | | | | | 160 - 189 | | | | | | Very High: | | | | | | >=190 | | | | + + + + + + | TRIGLYCERID | 169Comment: | <200 mg/dL | [facility] | | | ES | Triglyceride Reference | | DEPARTMENT | | | | Range: | | OF | | | | Normal: <150 | | PATHOLOGY | | | | Borderline | | | | | | High: 150 - 199 | | | | | | | | | | | | High: 200 - 499 | | | | | | | | | | | | Very High: >=500 | | | | + + + + + + | HDL | 47Comment: HDL | >40 mg/dL | [facility] | | | CHOLESTEROL | Reference Range: | | DEPARTMENT | | | | High | | OF | | | | Risk: <40 | | PATHOLOGY | | | | Desirable: | | | | | | >=60 | | | | + + + + + + | LDL | 106 | <130 mg/dL | [facility] | | | CHOLESTEROL | | | DEPARTMENT | | | , | | | OF | | | CALCULATED | | | PATHOLOGY | | + + + + + + | VLDL | 34 (H) | <31 mg/dL | [facility] | | | CHOLESTEROL | | | DEPARTMENT | | | , | | | OF | | | CALCULATED | | | PATHOLOGY | | + + + + + + + + | Specimen | + + | | + + + + + | Narrative | Performed At | + + + | [id number] Estimated GFR > 60 mL/min/1.73 sq m if non- | [facility] | | [id number] Estimated GFR > 60 mL/min/1.73 sq m if GFR | DEPARTMENT OF | | is estimated using the MDRD equation recommended by the National | PATHOLOGY | | Kidney Disease Education Program. Estimated GFR Interpretive | | | Information: <60 mL/min/1.73 sq m Chronic Kidney Disease <15 | | | mL/mon/1.73 sq m Kidney Failure Estimated GFR greater than | | | 60mL/min/1.73 is of limited clinical Value. The MDRD equation is | | | not valid in the following situations: - Patients under 18 years of | | | age - Severe malnutrition or obesity - Vegetarian diet - Rapidly | | | changing kidney function | | + + + + + + + + | Performing | Address | City/State/Zipcode | Phone Number | | Organization | | | | + + + + + | [facility] | [address] | [place] [address] | | | PATHOLOGY | [address] | | | + + + + + | [facility] | [address] | [place] [address] | | | PATHOLOGY | [address] | | | + + + + + COMP METABOLIC SET (06/03/2006 11:48 AM PST) + +--------+ + + + | Component | Value | Ref Range | Performed | Pathologist | | | | | At | Signature | + +--------+ + + + | GLUCOSE, | 95 | 65 - 110 mg/dL | [facility] | | | PLASMA | | | DEPARTMENT | | | (LAB) | | | OF | | | | | | PATHOLOGY | | + +--------+ + + + | BUN, PLASMA | 9 | 6 - 20 mg/dL | [facility] | | | (LAB) | | | DEPARTMENT | | | | | | OF | | | | | | PATHOLOGY | | + +--------+ + + + | CREATININE | 0.9 | 0.7 - 1.3 mg/dL | [facility] | | | PLASMA | | | DEPARTMENT | | | (LAB) | | | OF | | | | | | PATHOLOGY | | + +--------+ + + + | TOTAL | 7.0 | 6.1 - 7.9 g/dL | [facility] | | | PROTEIN, | | | DEPARTMENT | | | PLASMA | | | OF | | | (LAB) | | | PATHOLOGY | | + +--------+ + + + | ALBUMIN, | 3.5 | 3.5 - 4.7 g/dL | [facility] | | | PLASMA | | | DEPARTMENT | | | (LAB) | | | OF | | | | | | PATHOLOGY | | + +--------+ + + + | CALCIUM, | 9.1 | 8.5 - 10.5 | [facility] | | | PLASMA | | mg/dL | DEPARTMENT | | | (LAB) | | | OF | | | | | | PATHOLOGY | | + +--------+ + + + | BILIRUBIN | 0.6 | 0.3 - 1.2 mg/dL | [facility] | | | TOTAL | | | DEPARTMENT | | | | | | OF | | | | | | PATHOLOGY | | + +--------+ + + + | ALK PHOS | 73 | 53 - 128 U/L | [facility] | | | | | | DEPARTMENT | | | | | | OF | | | | | | PATHOLOGY | | + +--------+ + + + | AST(SGOT) | 28 | 15 - 41 U/L | [facility] | | | | | | DEPARTMENT | | | | | | OF | | | | | | PATHOLOGY | | + +--------+ + + + | SODIUM, | 141 | 136 - 145 | [facility] | | | PLASMA | | mmol/L | DEPARTMENT | | | (LAB) | | | OF | | | | | | PATHOLOGY | | + +--------+ + + + | POTASSIUM, | 3.5 | 3.5 - 5.1 | [facility] | | | PLASMA | | mmol/L | DEPARTMENT | | | (LAB) | | | OF | | | | | | PATHOLOGY | | + +--------+ + + + | CHLORIDE, | 100 | 98 - 107 mmol/L | [facility] | | | PLASMA | | | DEPARTMENT | | | (LAB) | | | OF | | | | | | PATHOLOGY | | + +--------+ + + + | TOTAL CO2, | 30 (H) | 23 - 29 mmol/L | [facility] | | | PLASMA | | | DEPARTMENT | | | (LAB) | | | OF | | | | | | PATHOLOGY | | + +--------+ + + + | ALT (SGPT) | 20 | 13 - 48 U/L | [facility] | | | | | | DEPARTMENT | | | | | | OF | | | | | | PATHOLOGY | | + +--------+ + + + + + | Specimen | + + | | + + + + + | Narrative | Performed At | + + + | [id number] Estimated GFR > 60 mL/min/1.73 sq m if non- | [facility] | | [id number] Estimated GFR > 60 mL/min/1.73 sq m if GFR | DEPARTMENT OF | | is estimated using the MDRD equation recommended by the National | PATHOLOGY | | Kidney Disease Education Program. Estimated GFR Interpretive | | | Information: <60 mL/min/1.73 sq m Chronic Kidney Disease <15 | | | mL/mon/1.73 sq m Kidney Failure Estimated GFR greater than | | | 60mL/min/1.73 is of limited clinical Value. The MDRD equation is | | | not valid in the following situations: - Patients under 18 years of | | | age - Severe malnutrition or obesity - Vegetarian diet - Rapidly | | | changing kidney function | | + + + + + + + + | Performing | Address | City/State/Zipcode | Phone Number | | Organization | | | | + + + + + | [facility] | [address] | [place] [address] | | | PATHOLOGY | [address] | | | + + + + + | [facility] | [address] | [place] [address] | | | PATHOLOGY | [address] | | | + + + + + CBC, WITH DIFFERENTIAL (06/03/2006 11:48 AM PST) + + + + + + | Component | Value | Ref Range | Performed | Pathologist | | | | | At | Signature | + + + + + + | WHITE CELL | 7.0 | 4.4 - 11.0 K/cu | [facility] | | | COUNT | | mm | DEPARTMENT | | | | | | OF | | | | | | PATHOLOGY | | + + + + + + | RED CELL | 4.04 (L) | 4.50 - 5.90 | [facility] | | | COUNT | | M/cu mm | DEPARTMENT | | | | | | OF | | | | | | PATHOLOGY | | + + + + + + | HEMOGLOBIN | 14.5 | 13.5 - 17.5 | [facility] | | | | | g/dL | DEPARTMENT | | | | | | OF | | | | | | PATHOLOGY | | + + + + + + | HEMATOCRIT | 41.9 | 41.0 - 53.0 % | [facility] | | | | | | DEPARTMENT | | | | | | OF | | | | | | PATHOLOGY | | + + + + + + | MCV | 103.7 (H) | 80.0 - 96.0 fL | [facility] | | | | | | DEPARTMENT | | | | | | OF | | | | | | PATHOLOGY | | + + + + + + | MCHC | 34.6 | 33.4 - 35.5 | [facility] | | | | | g/dL | DEPARTMENT | | | | | | OF | | | | | | PATHOLOGY | | + + + + + + | RDW | 13.8 | 11.5 - 15.0 % | [facility] | | | | | | DEPARTMENT | | | | | | OF | | | | | | PATHOLOGY | | + + + + + + | PLATELET | 307 | 150 - 400 K/cu | [facility] | | | COUNT | | mm | DEPARTMENT | | | | | | OF | | | | | | PATHOLOGY | | + + + + + + + + | Specimen | + + | | + + + + + + + | Performing | Address | City/State/Zipcode | Phone Number | | Organization | | | | + + + + + | [facility] DEPARTMENT OF | [address] | [place] [address] | | | PATHOLOGY | [address] | | | + + + + + | [facility] | [address] | [place] [address] | | | PATHOLOGY | [address] | | | + + + + + HEPATITIS C AB (06/03/2006 11:48 AM PST) + + + + + + | Component | Value | Ref Range | Performed | Pathologist | | | | | At | Signature | + + + + + + | HEPATITIS C | NegativeComment: | Negative | | | | AB | Test performed by [facility] | | | | | | [facility] | | | | | | [facility]. | | | | + + + + + + + + | Specimen | + + | | + + + + + + + | Performing | Address | City/State/Zipcode | Phone Number | | Organization | | | | + + + + + | [facility] | [address] | [place] [address] | | | LABORATORY | | | | + + + + + HEPATITIS B SURFACE AG (06/03/2006 11:48 AM PST) + + + + + + | Component | Value | Ref Range | Performed | Pathologist | | | | | At | Signature | + + + + + + | HEPATITIS B | NegativeComment: | Negative | | | | SURFACE | Test performed by [facility] | | | | | [facility], AM[facility] | [facility] | | | | | | Laboratories. | | | | + + + + + + + + | Specimen | + + | | + + + + + + + | Performing | Address | City/State/Zipcode | Phone Number | | Organization | | | | + + + + + | [facility] | [address] | [place] [address] | | | LABORATORY | | | | + + + + + HEPATITIS B SURFACE AB (06/03/2006 11:48 AM PST) + + + + + + | Component | Value | Ref Range | Performed | Pathologist | | | | | At | Signature | + + + + + + | HEP B | NegativeComment: | Negative | | | | SURFACE AB | Test performed by [facility] | | | | | QUAL, SERUM | [facility] | | | | | | Laboratories. | | | | + + + + + + + + | Specimen | + + | | + + + + + + + | Performing | Address | City/State/Zipcode | Phone Number | | Organization | | | | + + + + + | [facility] | [address] | [place] [address] | | | LABORATORY | | | | + + + + + HEPATITIS B CORE AB (06/03/2006 11:48 AM PST) + + + + + + | Component | Value | Ref Range | Performed | Pathologist | | | | | At | Signature | + + + + + + | HEPATITIS B | NegativeComment: | Negative | | | | CORE AB, | Test performed by [facility] | | | | | SERUM | [facility] | | | | | | Laboratories. | | | | + + + + + + + + | Specimen | + + | | + + + + + + + | Performing | Address | City/State/Zipcode | Phone Number | | Organization | | | | + + + + + | [facility] | [address] | [place] [address] | | | LABORATORY | | | | + + + + + CREATININE, PLASMA (06/03/2006 11:48 AM PST) + +-------+ + + + | Component | Value | Ref Range | Performed | Pathologist | | | | | At | Signature | + +-------+ + + + | CREATININE | 0.9 | 0.7 - 1.3 mg/dL | [facility] | | | PLASMA | | | DEPARTMENT | | | (LAB) | | | OF | | | | | | PATHOLOGY | | + +-------+ + + + + + | Specimen | + + | | + + + + + | Narrative | Performed At | + + + | [id number] Estimated GFR > 60 mL/min/1.73 sq m if non- | [facility] | | [id number] Estimated GFR > 60 mL/min/1.73 sq m if GFR | DEPARTMENT OF | | is estimated using the MDRD equation recommended by the National | PATHOLOGY | | Kidney Disease Education Program. Estimated GFR Interpretive | | | Information: <60 mL/min/1.73 sq m Chronic Kidney Disease <15 | | | mL/mon/1.73 sq m Kidney Failure Estimated GFR greater than | | | 60mL/min/1.73 is of limited clinical Value. The MDRD equation is | | | not valid in the following situations: - Patients under 18 years of | | | age - Severe malnutrition or obesity - Vegetarian diet - Rapidly | | | changing kidney function | | + + + + + + + + | Performing | Address | City/State/Zipcode | Phone Number | | Organization | | | | + + + + + | [facility] | [facility] | [place] [address] | | | PATHOLOGY | [address] | | | + + + + + | [facility] | [facility] | [place] [address] | | | PATHOLOGY | [address] | | | + + + + + UREA NITROGEN, PLASMA (06/03/2006 11:48 AM PST) + +-------+ + + + | Component | Value | Ref Range | Performed | Pathologist | | | | | At | Signature | + +-------+ + + + | BUN, PLASMA | 9 | 6 - 20 mg/dL | [facility] | | | (LAB) | | | DEPARTMENT | | | | | | OF | | | | | | PATHOLOGY | | + +-------+ + + + + + | Specimen | + + | | + + + + + | Narrative | Performed At | + + + | [id number] Estimated GFR > 60 mL/min/1.73 sq m if non- | [facility] | | [id number] Estimated GFR > 60 mL/min/1.73 sq m if GFR | DEPARTMENT OF | | is estimated using the MDRD equation recommended by the National | PATHOLOGY | | Kidney Disease Education Program. Estimated GFR Interpretive | | | Information: <60 mL/min/1.73 sq m Chronic Kidney Disease <15 | | | mL/mon/1.73 sq m Kidney Failure Estimated GFR greater than | | | 60mL/min/1.73 is of limited clinical Value. The MDRD equation is | | | not valid in the following situations: - Patients under 18 years of | | | age - Severe malnutrition or obesity - Vegetarian diet - Rapidly | | | changing kidney function | | + + + + + + + + | Performing | Address | City/State/Zipcode | Phone Number | | Organization | | | | + + + + + | [facility] | [address] | [place] [address] | | | PATHOLOGY | [address] | | | + + + + + | [facility] | [id number] | [place] [address] | | | PATHOLOGY | [address] | | | + + + + + AST (06/03/2006 11:48 AM PST) + +-------+ + + + | Component | Value | Ref Range | Performed | Pathologist | | | | | At | Signature | + +-------+ + + + | AST(SGOT) | 28 | 15 - 41 U/L | [facility] | | | | | | DEPARTMENT | | | | | | OF | | | | | | PATHOLOGY | | + +-------+ + + + + + | Specimen | + + | | + + + + + | Narrative | Performed At | + + + | [id number] Estimated GFR > 60 mL/min/1.73 sq m if non- | [facility] | | [id number] Estimated GFR > 60 mL/min/1.73 sq m if GFR | DEPARTMENT OF | | is estimated using the MDRD equation recommended by the National | PATHOLOGY | | Kidney Disease Education Program. Estimated GFR Interpretive | | | Information: <60 mL/min/1.73 sq m Chronic Kidney Disease <15 | | | mL/mon/1.73 sq m Kidney Failure Estimated GFR greater than | | | 60mL/min/1.73 is of limited clinical Value. The MDRD equation is | | | not valid in the following situations: - Patients under 18 years of | | | age - Severe malnutrition or obesity - Vegetarian diet - Rapidly | | | changing kidney function | | + + + + + + + + | Performing | Address | City/State/Zipcode | Phone Number | | Organization | | | | + + + + + | [facility] | [id number] | [place] [address] | | | PATHOLOGY | [address] | | | + + + + + | [facility] | [address] | [place] [address] | | | PATHOLOGY | [address] | | | + + + + + ALT (06/03/2006 11:48 AM PST) + +-------+ + + + | Component | Value | Ref Range | Performed | Pathologist | | | | | At | Signature | + +-------+ + + + | ALT (SGPT) | 20 | 13 - 48 U/L | [facility] | | | | | | DEPARTMENT | | | | | | OF | | | | | | PATHOLOGY | | + +-------+ + + + + + | Specimen | + + | | + + + + + | Narrative | Performed At | + + + | [id number] Estimated GFR > 60 mL/min/1.73 sq m if non- | [facility] | | [id number] Estimated GFR > 60 mL/min/1.73 sq m if GFR | DEPARTMENT OF | | is estimated using the MDRD equation recommended by the National | PATHOLOGY | | Kidney Disease Education Program. Estimated GFR Interpretive | | | Information: <60 mL/min/1.73 sq m Chronic Kidney Disease <15 | | | mL/mon/1.73 sq m Kidney Failure Estimated GFR greater than | | | 60mL/min/1.73 is of limited clinical Value. The MDRD equation is | | | not valid in the following situations: - Patients under 18 years of | | | age - Severe malnutrition or obesity - Vegetarian diet - Rapidly | | | changing kidney function | | + + + + + + + + | Performing | Address | City/State/Zipcode | Phone Number | | Organization | | | | + + + + + | [facility] | [address] | [place] [address] | | | PATHOLOGY | [address] | | | + + + + + | [facility] DEPARTMENT OF | [address] | [place] [address] | | | PATHOLOGY | [address] | | | + + + + + ALKALINE PHOSPHATASE (06/03/2006 11:48 AM PST) + +-------+ + + + | Component | Value | Ref Range | Performed | Pathologist | | | | | At | Signature | + +-------+ + + + | ALK PHOS | 73 | 53 - 128 U/L | [facility] | | | | | | DEPARTMENT | | | | | | OF | | | | | | PATHOLOGY | | + +-------+ + + + + + | Specimen | + + | | + + + + + | Narrative | Performed At | + + + | [id number] Estimated GFR > 60 mL/min/1.73 sq m if non- | [facility] | | [id number] Estimated GFR > 60 mL/min/1.73 sq m if GFR | DEPARTMENT OF | | is estimated using the MDRD equation recommended by the National | PATHOLOGY | | Kidney Disease Education Program. Estimated GFR Interpretive | | | Information: <60 mL/min/1.73 sq m Chronic Kidney Disease <15 | | | mL/mon/1.73 sq m Kidney Failure Estimated GFR greater than | | | 60mL/min/1.73 is of limited clinical Value. The MDRD equation is | | | not valid in the following situations: - Patients under 18 years of | | | age - Severe malnutrition or obesity - Vegetarian diet - Rapidly | | | changing kidney function | | + + + + + + + + | Performing | Address | City/State/Zipcode | Phone Number | | Organization | | | | + + + + + | [facility] | [address] | [place] [address] | | | PATHOLOGY | [address] | | | + + + + + | [facility] | [address] | [place] [address] | | | PATHOLOGY | [address] | | | + + + + + documented in this encounter Visit Diagnoses + + | Diagnosis | + + | Other psoriasis | + + | Erythroderma Unspecified erythematous condition | + + documented in this encounter"
--- OUTSIDE RECORDS SUMMARY | ~2019-10-12 | XMS | Encounter Summary ---
Demographics + + + | Address | [address] | | | [place] [address] | + + + | Home Phone | | + + + | Preferred Language | Unknown | + + + | Marital Status | | + + + | Advent Affiliation | PRO | + + + | Race | White | + + + | Ethnic Group | Not or | + + + Author + + + | Author | [facility] | + + + | Organization | [facility] | + + + | Address | Unknown | + + + | Phone | Unavailable | + + + Support + + + + + | Name | Relationship | Address | Phone | + + + + + | Marnie Payne | ECON | [address] | | | | | [place] | | | | | [address] | | + + + + + Care Team Providers + +------+ + | Care Dental Manager Name | Role | Phone | + [...] [id number] | | | | | | [place], [place] | | | | | | [address] | | | | | | [phone] | | | +--------+ + + + [...] | | + +---------+ + + | [facility] DEPARTMENT OF | | | | | RADIOLOGY | | | | + +---------+ + + documented in this encounter Visit Diagnoses Not on filedocumented in this encounter"
--- OUTSIDE RECORDS SUMMARY | ~2019-10-12 | XMS | Encounter Summary ---
Demographics + + + | Address | [address] | | | [place] [address] | + + + | Home Phone | | + + + | Preferred Language | Unknown | + + + | Marital Status | | + + + | Yazidi Affiliation | 1013 | + + + | Race | Unknown | + + + | Ethnic Group | Unknown | + + + Author + + + | Author | [facility] | | | and [place] | + + + | Organization | [facility] | | | and [place] [...] Team Providers + +------+ + | Care Brake Drum Lathe Operator Name | Role | Phone | + +------+ + PCP | Unavailable | + +------+ + Encounter Details +--------+ + + + + | Date | Type | Department | Care Team | Description | +--------+ + + + + | 07/18/ | Hospital | [facility] | Conversion | | | 2015 | Encounter | [facility] | Transaction, | | | | | [address] | Provider Unknown | | | | | [place] | | | | | | [address] | (Fax) | | | | | [phone] | | | +--------+ + + + [...] Not on filedocumented as of this encounter Visit Diagnoses Not on filedocumented in this encounter"
--- OUTSIDE RECORDS SUMMARY | ~2019-10-12 | XMS | Encounter Summary ---
Demographics + + + | Address | [address] | | | [place] [address] | + + + | Home Phone | | + + + | Preferred Language | Unknown | + + + | Marital Status | | + + + | Sikhism Affiliation | PRO | + + + [...] [place] | | | | | [address] | | + + + + + Care Team Providers + +------+ + | Care Contact Center Manager Name | Role | Phone | [...] | | 2007 | | Medical at [facility] [address] | | | | | | [address] | | | | | | Mailcode: CH16D | | | | | | [facility] | | | | | | and [address], | | | | | | Building | | | | | | Floor [place], [place] | | | | | | [address] | | | | | | [phone] | | | +--------+--------+ + + + [...]
--- OUTSIDE RECORDS SUMMARY | ~2019-10-12 | XMS | Encounter Summary ---
Demographics + + + | Address | [address] | | | [place] [address] | + + + | Home Phone [...] + + + | Author | [facility] | + + + | Organization | [facility] | + + + | Address | Unknown | + + + | Phone | Unavailable | + + + Support + + + + + | Name | Relationship | Address | Phone | + + + + + | Marnie Payne | ECON | [address] | | | | | [place] | | | | | [address] | | + + + + + Care Team Providers + +------+ + | Care Property Administrator Name | Role | Phone | + [...] Description | +--------+--------+ + + + | 06/26/ | Refill | Dermatology | Ashia Vuong, | Refill Request | | 2006 | | Medical at [facility] [address] | | | | | | [address] | | | | | | Mailcode: CH16D | | | | | | [facility] | | | | | | and [address], | | | | | | Building | | | | | | Floor [place], [place] | | | | | | [address] | | | | | | [phone] | | | +--------+--------+ + + + [...]
--- OUTSIDE RECORDS SUMMARY | ~2019-10-12 | XMS | Encounter Summary ---
Demographics + + + | Address | [address] | | | [place] [address] | + + + | Home Phone | | + + + | Preferred Language | Unknown | + + + | Marital Status | | + + + | Spiritism Affiliation | PRO | + + + | Race | White | + + + | Ethnic Group | Not or | + + + Author + + + | Author | [facility] | + + + | Organization | [facility] | + + + | Address | Unknown | + + + | Phone | Unavailable | + + + Support + + + + + | Name | Relationship | Address | Phone | + + + + + | Marnie Payne | ECON | [address] | | | | | [place] | | | | | [address] | | + + + + + Care Team Providers + +------+ + | Care Workforce Services Representative Name | Role | Phone | + +------+ + | Tod Rivas MD | PCP | | + +------+ + Reason for Visit +--------+ + | Reason | Comments | +--------+ + | Other | GENE report | +--------+ + Encounter Details +--------+ + + + + | Date | Type | Department | Care Team | Description | +--------+ + + + + | 09/15/ | Telephone | Dermatology | Ashia Vuong, | Other (GENE report ) | | 2006 | | Medical at [facility] [address] | | | | | | [address] | | | | | | Mailcode: CH16D | | | | | | [facility] | | | | | | and Healing, | | | | | | Building | | | | | | Floor [place], [place] | | | | | | [address] | | | | | | [phone] | | | +--------+ + + + [...]
--- OUTSIDE RECORDS SUMMARY | ~2019-10-12 | XMS | Encounter Summary ---
Demographics + + + | Address | [address] | | | [place] [address] | + + + | Home Phone | | + + + | Preferred Language | Unknown | + + + | Marital Status | | + + + | Christian Affiliation | PRO | + + + | Race | White | + + + | Ethnic Group | Not or | + + + Author + + + | Author | [facility] | + + + | Organization | [facility] | + + + | Address | Unknown | + + + | Phone | Unavailable | + + + Support + + + + + | Name | Relationship | Address | Phone | + + + + + | Marnie Payne | ECON | [address] | | | | | [place] | | | | | [address] | | + + + + + Care Team Providers + +------+ + | Care Lasting Machine Operator Hand Method Name | Role | Phone | + [...] + + + | Closed | | | Diagnoses | Alfonso | | | | | | | María | | | | | | Stacirosmarline | [address]75 | | | | | | s of both | [address] | | | | | | hips ([facility]) | [address] | | | | | | Procedures | [place], [place] | | | | | | CONSULT TO | [address] | | | | | | ORTHOPEDICS | Phone: | | | | | | AND | [phone] | | | | | | REHABILITATI | Fax: | | | | | | ON | [phone] | | +--------+--------+ + + + + Encounter Details +--------+ + + + + | Date | Type | Department | Care Team | Description | +--------+ + + + + | 02/22/ | Telephone | Rheumatology at | [place], | | | 2014 | | Physicians [address] | MD María [address] | | | | | [address] | [address] [facility] | | | | | Loop Physician's | [place], [place] | | | | | [address], [address]th Floor | [address] | | | | | [place], [place] | [phone] | | | | | [address] | | | | | | [phone] | | | +--------+ + + + [...] filedocumented as of this encounter Visit Diagnoses + + | Diagnosis | + + | Osteonecrosis of both hips (HCC) - Primary | + + documented in this encounter"
--- OUTSIDE RECORDS SUMMARY | ~2019-10-12 | XMS | Encounter Summary ---
Demographics + + + | Address | [address] | | | [place] [address] | + + + | Home Phone [...] + + + | Author | [facility] | + + + | Organization | [facility] | + + + | Address | Unknown | + + + | Phone | Unavailable | + + + Support + + + + + | Name | Relationship | Address | Phone | + + + + + | Marnie Payne | ECON | [address] | | | | | [place] | | | | | [address] | | + + + + + Care Team Providers + +------+ + | Care Industrial Renderer Name | Role | Phone | + [...] | | | | | | Sean, [address] [place] [address] | | | | | | [place], [place] | | | | | | [address] | | | | | | [phone] | | | +--------+------+ + + + [...] | + + + + + | [facility] | [address] | [place] [address] | | | SERVICES, CORE | [address] [...] + | [facility] | [address] | [place] [address] | | | SERVICES, CORE | [address] | | | + + + + + documented in this encounter Visit Diagnoses + + | Diagnosis | + + | Psoriasis Other psoriasis | + + | Arthritis Arthropathy, unspecified, site unspecified | + + documented in this encounter"
--- OUTSIDE RECORDS SUMMARY | ~2019-10-12 | XMS | Encounter Summary ---
Demographics + + + | Address | [address] | | | [place] [address] | + + + | Home Phone | | + + + | Preferred Language | Unknown | + + + | Marital Status | | + + + | Yazidi Affiliation | 1013 | + + + | Race | Unknown | + + + | Ethnic Group | Unknown | + + + Author + + + | Author | [facility] | | | and [place] | + + + | Organization | [facility] | | | and [place] [...] Providers + +------+ + | Care Sales Coordinator Name | Role | Phone | [...] [place] | | | | | | [address] | (Fax) | | | | | [phone] | | | +--------+ + + + [...]
--- OUTSIDE RECORDS SUMMARY | ~2019-10-12 | XMS | Clinical Summary ---
Demographics + + + | Address | [address] | | | [place] [address] | + + + | Home Phone | | + + + | Preferred Language | Unknown | + + + | Marital Status | | + + + | Nondenominational Affiliation | 1013 | + + + | Race | Unknown | + + + | Ethnic Group | Unknown | + + + Author + + + | Author | [facility] (Historical as of | | | 01-22-19) | + + + | Organization | [facility] (Historical as of | | | 01-22-19) | + + + | Address | Unknown | + + + | Phone | Unavailable | + + + Support + + + + + | Name | Relationship | Address | Phone | + + + + + | Basim Avalos | ECON | Unknown | | + + + + + | Anika Mcintosh | ECON | [address] | | | | [place] | | | | | [address] | | + + + + + | Hugo Mcintosh | ECON | Unknown | | + + + + + | Patricia Dailey | ECON | Unknown | | + + + + + Care Team Providers + +------+ + | Care Millwright Instructor Name | Role | Phone | + +------+ + | Tod Rivas MD | PP | | + +------+ + Allergies No Known Allergies Current Medications + + +---------+---------+------+------+-------+ | Prescription | Sig. | Disp. | Refills | Star | End | Statu | | | | | | t | Date | s | | | | | | Date | | | + + +---------+---------+------+------+-------+ | CLONAZEPAM PO | Take by mouth 3 | | | | | Activ | | | (three) times daily. | | | | | e | + + +---------+---------+------+------+-------+ | gabapentin | Take 1 capsule by | 60 | 3 | 01/0 | | Activ | | (NEURONTIN) 300 MG | mouth 2 (two) times | capsule | | 9/20 | | e | | capsuleIndications: | daily. | | | 15 | | | | Neuropathic pain | | | | | | | + + +---------+---------+------+------+-------+ | | Take by mouth. | | | | | Activ | | Oxycodone-Acetaminop | | | | | | e | | hen (PERCOCET PO) | | | | | | | + + +---------+---------+------+------+-------+ | folic acid | Take 1 tablet by | 30 | 0 | 06/0 | | Activ | | (FOLVITE) 1 MG | mouth daily. | tablet | | 2/20 | | e | | tablet | | | | 15 | | | + + +---------+---------+------+------+-------+ | warfarin | Take 1 tablet by | 30 | 0 | 06/0 | | Activ | | (COUMADIN) 5 MG | mouth Once | tablet | | 2/20 | | e | | tablet | daily-Coumadin. | | | 15 | | | + + +---------+---------+------+------+-------+ | thiamine (VITAMIN | Take 1 tablet by | 30 | 0 | 06/0 | | Activ | | B-1) 100 MG tablet | mouth daily. | tablet | | 07/28 | | e | | | | | | 15 | | | + + +---------+---------+------+------+-------+ Active Problems + + + | Problem | Noted Date | + + + | Dvt femoral (deep venous thrombosis) | 11/05/2014 | + + + | LOC (loss of consciousness) | 11/04/2014 | + + + | Dehydration | 11/04/2014 | + + + | Syncope and collapse | 11/04/2014 | + + + | ELVIA (acute kidney injury) | 11/04/2014 | + + + | Leg weakness, bilateral | 07/10/2014 | + + + | Lumbosacral plexopathy | 07/10/2014 | + + + Social History + +-------+ +--------+------+ | Tobacco Use | Types | Packs/Day | Years | Date | | | | | Used | | + +-------+ +--------+------+ | Current Every Day | | 1.5 | | | | Smoker | | | | | + +-------+ +--------+------+ + + | Tobacco Cessation: Ready to Quit: No; Counseling Given: Yes | + + + + +---------+ + | Alcohol Use | Drinks/We | oz/Week | Comments | | | ek | | | + + +---------+ + | Yes | | | | + + +---------+ + + + + | Sex Assigned at | Date Recorded | | | | + + + | Not on file | | + + + Last Filed Vital Signs + + + + | Vital Sign | Reading | Time Taken | + + + + | Blood Pressure | 127/80 | 04/12/2015 1:00 PM PST | + + + + | Pulse | 81 | 04/12/2015 1:00 PM PST | + + + + | Temperature | 36.9 C (98.4 F) | 11/07/2014 7:52 AM PDT | + + + + | Respiratory Rate | 18 | 11/07/2014 7:52 AM PDT | + + + + | Oxygen Saturation | 98% | 12/25/2014 1:56 PM PDT | + + + + | Inhaled Oxygen | - | - | | Concentration | | | + + + + | Weight | 77.1 kg (170 lb) | 04/12/2015 1:00 PM PST | + + + + | Height | 172.7 cm (5' 8") | 04/12/2015 1:00 PM PST | + + + + | Body Mass Index | 25.85 | 04/12/2015 1:00 PM PST | + + + + Plan of Treatment + + + + + | Health Maintenance | Due Date | Last Done | Comments | + + + + + | Vaccine: | | | | | Dtap/Tdap/Td (1 - | 4 | | | | Tdap) | | | | + + + + + | Vaccine: Zoster (1 | | | | | of 2) | 5 | | | + + + + + | Vaccine: | | | | | Pneumococcal 65+ | 0 | | | | Low/Medium Risk (1 | | | | | of 2 - PCV13) | | | | + + + + + | Vaccine: Influenza | | | | | (Season Ended) | 0 | | | + + + + + Results Not on filefrom Last 3 Months Insurance + +--------+ +------+-------+ + | Payer | Benefi | Subscriber | Type | Phone | Address | | | t Plan | ID | | | | | | / | | | | | | | Group | | | | | + +--------+ +------+-------+ + | MEDICARE | MEDICA | [id number] | | | [address] | | | [place] | | | | [place] [address] | | | IP-OP | | | | | + +--------+ +------+-------+ + | MEDICAID | [place] | [id number] | | | [address] | | | N | | | | [place], [place] | | | [place] | | | | [address] | | | FUR [place]ILER | | | | | + +--------+ +------+-------+ + + +--------+ +--------+ + + | Guarantor Name | Accoun | Relation to | Date | Phone | Billing Address | | | t Type | Patient | of | | | | | | | | | | + +--------+ +--------+ + + | KHAI MCINTOSH | Person | Self [birth year] | Home: | [address] | | [place] | [place] | | [phone] | [place] | | | [place] | | | [phone] | [address] | + +--------+ +--------+ + +
--- OUTSIDE RECORDS SUMMARY | ~2019-10-12 | XMS | Clinical Summary ---
Demographics + + + | Address | [address] | | | [place] [address] | + + + | Home Phone | | + + + | Preferred Language | Unknown | + + + | Marital Status | | + + + | Synagogue Affiliation | 1013 | + + + | Race | Unknown | + + + | Ethnic Group | Unknown | + + + Author + + + | Author | [facility] | | | and [place] | + + + | Organization | [facility] | | | and [place] [...] Team Providers + +------+ + | Care Landscape Gardener Name | Role | Phone | + [...] +--------+ +---------+--------+ | MEDICARE | MEDICA | [id number] | 01/07/20 | [phone] | | Medica [...] Yfn | al/Fam | | 1956 | [phone] | [place] [address] | | | [place] | | | 8 (Home) | | + +--------+ +--------+ + +"
--- OUTSIDE RECORDS SUMMARY | ~2019-10-12 | XMS | Encounter Summary ---
Demographics + + + | Address | [address] | | | [place] [address] | + + + | Home Phone | | + + + | Preferred Language | Unknown | + + + | Marital Status | | + + + | Scientologist Affiliation | 1013 | + + + | Race | Unknown | + + + | Ethnic Group | Unknown | + + + Author + + + | Author | [facility] | | | and [place] | + + + | Organization | [facility] | | | and [place] [...] Team Providers + +------+ + | Care Mixing Engineer Name | Role | Phone | + +------+ + PCP | Unavailable | + +------+ + Encounter Details +--------+ + + + + | Date | Type | Department | Care Team | Description | +--------+ + + + + | 06/20/ | Hospital | [facility] | Conversion | Pain | | 2014 | Encounter | CONVERSION DEP [address] | Transaction, | | | | | [address] | Provider Unknown | | | | | [place] | | | | | | [address] | (Fax) | | | | | [phone] | | | +--------+ + + + [...] Note | + + | Dwayne Gonzalez Alekasndr - 01/21/2019 6:29 AM PDT This is a non-reportable procedure | | without a radiologist report and isused for image storage only | + + documented in this encounter Visit Diagnoses + + | Diagnosis | + + | Pain Generalized pain | + + documented in this encounter"
--- OUTSIDE RECORDS SUMMARY | ~2019-10-12 | XMS | Encounter Summary ---
Demographics + + + | Address | [address] | | | [place] [address] | + + + | Home Phone | | + + + | Preferred Language | Unknown | + + + | Marital Status | | + + + | Advent Affiliation | PRO | + + + | Race | White | + + + | Ethnic Group | Not or | + + + Author + + + | Author | [facility] | + + + | Organization | [facility] | + + + | Address | Unknown | + + + | Phone | Unavailable | + + + Support + + + + + | Name | Relationship | Address | Phone | + + + + + | Marnie Payne | ECON | [address] | | | | | [place] | | | | | [address] | | + + + + + Care Team Providers + +------+ + | Care Naphthalene Operator Helper Name | Role | Phone | + [...] [facility] | | | | | | [address] | | | | | | Loop Physician's | | | | | | [address], [address] | | | | | | [place], [place] | | | | | | [address] | | | | | | [phone] | | | +--------+ + + + [...] + + | Performing | Address | City/State[facility] | Phone Number | | Organization | | | | + +---------+ + + | [facility] DEPARTMENT OF | | | | | RADIOLOGY | | | | + +---------+ + + documented in this encounter Visit Diagnoses + + | Diagnosis | + + | Psoriasis Other psoriasis | + + | Arthritis Arthropathy, unspecified, site unspecified | + + documented in this encounter"
--- OUTSIDE RECORDS SUMMARY | ~2019-10-12 | XMS | Encounter Summary ---
Demographics + + + | Address | [address] | | | [place] [address] | + + + | Home Phone | | + + + | Preferred Language | Unknown | + + + | Marital Status | | + + + | Buddhist Affiliation | PRO | + + + | Race | White | + + + | Ethnic Group | Not or | + + + Author + + + | Author | [facility] | + + + | Organization | [facility] | + + + | Address | Unknown | + + + | Phone | Unavailable | + + + Support + + + + + | Name | Relationship | Address | Phone | + + + + + | Marnie Payne | ECON | [address] | | | | | [place] | | | | | [address] | | + + + + + Care Team Providers + +------+ + | Care Reservations And Ticketing Agent Name | Role | Phone | + [...] [facility] | | | | | | [address] | | | | | | Loop Physician's | | | | | | [address], [address] | | | | | | [place], [place] | | | | | | [address] | | | | | | [phone] | | | +--------+ + + + [...] + +--------+ + + + | X-RAY FEET 2 VIEWS | Routin | 02/20/2015 | Psoriasis | Results for this | | BILATERAL | e | 12:34 PM | Arthritis | procedure are in the | | | | PDT | | results section. | + +--------+ + + + documented in this encounter Results X-RAY FEET 2 VIEWS BILATERAL (02/20/2015 12:34 [...] | | | | | | and [id number] | | | | | | alignment [...]
--- OUTSIDE RECORDS SUMMARY | ~2019-10-12 | XMS | Encounter Summary ---
Demographics + + + | Address | [address] | | | [place] [address] | + + + | Home Phone | | + + + | Preferred Language | Unknown | + + + | Marital Status | | + + + | Zoroastrianism Affiliation | PRO | + + + | Race | White | + + + | Ethnic Group | Not or | + + + Author + + + | Author | [facility] | + + + | Organization | [facility] | + + + | Address | Unknown | + + + | Phone | Unavailable | + + + Support + + + + + | Name | Relationship | Address | Phone | + + + + + | Marnie Payne | ECON | [address] | | | | | [place] | | | | | [address] | | + + + + + Care Team Providers + +------+ + | Care Tapeman Name | Role | Phone | + [...] | | 2006 | | Medical at [facility] [address] | | | | | | [address] | | | | | | Mailcode: CH16D | | | | | | [facility] | | | | | | and Healing, | | | | | | Building | | | | | | Floor [place], [place] | | | | | | [address] | | | | | | [phone] | | | +--------+ + + + [...]
--- OUTSIDE RECORDS SUMMARY | ~2019-10-12 | XMS | Clinical Summary ---
Demographics + + + | Address | [address] | | | [place] [address] | + + + | Home Phone | | + + + | Preferred Language | Unknown | + + + | Marital Status | | + + + | Sabianist Affiliation | PRO | + + + [...] [place] | | | | | [address] | | + + + + + Care Team Providers + +------+ + | Care Commercial Glazier Name | Role | Phone | + +------+ + PCP | Unavailable | + +------+ + Source Comments JOAO is fully live on both [facility] Ambulatory and [facility] InPatient.[facility] Allergies No Known Allergies Medications + + + +---------+------+------+-------+ | Medication | Sig | Dispensed | Refills | Star | End | Statu | | | | | | t | Date | s | | | | | | Date | | | + + + +---------+------+------+-------+ | TRIAMCINOLONE | apply a thin film [...] | | | | + + + +---------+------+------+-------+ | acitretin 25 mg | Please have [...] | | | | + + + +---------+------+------+-------+ | rivaroxaban 10 mg | Take 10 mg by mouth | | 0 | | | Activ | | oral tablet | once daily. | | | | | e | + + + +---------+------+------+-------+ | cyanocobalamin | Take 1,000 mcg by | | 0 | | | Activ | | 1,000 mcg oral | mouth once daily. | | | | | e | | tablet | | | | | | | + + + +---------+------+------+-------+ | lisinopril 20 mg | Take 20 mg by mouth | | 0 | | | Activ | | oral tablet | once daily. | | | | | e | + + + +---------+------+------+-------+ | clonazePAM 2 mg | Take 2 mg by mouth | | 0 | | | Activ | | oral tablet | every six hours as | | | | | e | | | needed. | | | | | | + + + +---------+------+------+-------+ | folic acid 1 mg | Take 1 mg by mouth | | 0 | | | Activ | | oral tablet | once daily. | | | | | e | + + + +---------+------+------+-------+ | OXYCODONE HCL | Take 1 tablet by | | 0 | | | Activ | | (OXYCONTIN ORAL) | mouth every six | | | | | e | | | hours as needed. | | | | | | + + + +---------+------+------+-------+ Active Problems Not on file Social History [...] | + + Last Filed Vital Signs + [...] Rate | 16 | 06/03/2006 10:01 AM | | | | | PST | | + + + + + [...] | | + + + + + Plan of Treatment + + + + + | Health Maintenance | Due Date | Last Done | Comments | + + + + + | Pneumococcal | | | | | vaccination (1 of 1 | 1 | | | | - PPSV23) | | | | + + + + + | Influenza (Flu) | | | | | vaccination (#1) | 9 | | | + + + + + Results Not on filefrom Last 3 Months Insurance + +--------+ +--------+ + +--------+ | Payer | Benefi | Subscriber | Effect | Phone | Address | Type | | | t Plan | ID | soniya | | | | | | / | | Dates | | | | | | Group | | | | | | + +--------+ +--------+ + +--------+ | WORKERS COMP OTHER | WORKER | [id number] | 05/04/ | | | Worker | | | S COMP | [id number] | 2005-P | | | s Comp | | | OTHER | | resent | | | | + +--------+ +--------+ + +--------+ | MEDICARE | MEDICA | xxxxxxxxxx | 01/07/20 | [phone] | [address] | Medica | | | RE A & | | 15-Pre | 1 | [id number] | [address] | | | B | | sent | | [place] | | | | | | | | [address] | | + +--------+ +--------+ + +--------+ | SUPERVISING APPRAISER MEDICAID | SUPERVISING APPRAISER | xxxxxxxx | | | | Medica | | | EAST[place] | | 014-Pr | | | id | | | [place] | | esent | | | | + +--------+ +--------+ + +--------+ + +--------+ +--------+ + + | Guarantor Name | Accoun | Relation to | Date | Phone | Billing Address | | | t Type | Patient | of | | | | | | | | | | + +--------+ +--------+ + + | Khai Payne | Person | Self | [birth year] | | [address] | | | al/Fam | | 5 | [phone] | [place] [address] | | | kim | | | 8 (Home) | | + +--------+ +--------+ + + | Khai Payne | Worker | Self | [birth year] | | [address] | | | s Comp | | [phone] | [phone] | [place] [address] | | | | | | 8 (Home) | | + +--------+ +--------+ + +
--- OUTSIDE RECORDS SUMMARY | ~2019-10-12 | XMS | Encounter Summary ---
Demographics + + + | Address | [address] | | | [place] [address] | + + + | Home Phone | | + + + | Preferred Language | Unknown | + + + | Marital Status | | + + + | Methodist Affiliation | PRO | + + + | Race | White | + + + | Ethnic Group | Not or | + + + Author + + + | Author | [facility] | + + + | Organization | [facility] | + + + | Address | Unknown | + + + | Phone | Unavailable | + + + Support + + + + + | Name | Relationship | Address | Phone | + + + + + | Marnie Payne | ECON | [address] | | | | | [place] | | | | | [address] | | + + + + + Care Team Providers + +------+ + | Care Trucksmith Name | Role | Phone | + [...] | | 2006 | | Medical at [facility] [address] | | | | | | [address] | | | | | | Mailcode: CH16D | | | | | | [facility] | | | | | | and Healing, | | | | | | Building | | | | | | Floor [place], [place] | | | | | | [address] | | | | | | [phone] | | | +--------+ + + + [...]
--- OUTSIDE RECORDS SUMMARY | ~2019-10-12 | XMS | Encounter Summary ---
Demographics + + + | Address | [address] | | | [place] [address] | + + + | Home Phone [...] + + + | Author | [facility] | + + + | Organization | [facility] | + + + | Address | Unknown | + + + | Phone | Unavailable | + + + Support + + + + + | Name | Relationship | Address | Phone | + + + + + | Marnie Payne | ECON | [address] | | | | | [place] | | | | | [address] | | + + + + + Care Team Providers + +------+ + | Care Computer Architect Name | Role | Phone | [...] [facility] | | | | | | [address] | | | | | | [address] Phys[address] | | | | | | [address], [address] | | | | | | [place], [place] | | | | | | [address] | | | | | | [phone] | | | +--------+ + + + [...]
--- OUTSIDE RECORDS SUMMARY | ~2019-10-12 | XMS | Encounter Summary ---
Demographics + + + | Address | [address] | | | [place] [address] | + + + | Home Phone | | + + + | Preferred Language | Unknown | + + + | Marital Status | | + + + | Cheondoism Affiliation | PRO | + + + | Race | White | + + + | Ethnic Group | Not or | + + + Author + + + | Author | [facility] | + + + | Organization | [facility] | + + + | Address | Unknown | + + + | Phone | Unavailable | + + + Support + + + + + | Name | Relationship | Address | Phone | + + + + + | Marnie Payne | ECON | [address] | | | | | [place] | | | | | [address] | | + + + + + Care Team Providers + +------+ + | Care Psychiatric Security Nurse Name | Role | Phone | + [...] | 2005 | Visit | Medical at [facility] [address] | MD | Similar Disorders; | | | | [address] | | Erythroderma | | | | Mailcode: CH16D | | | | | | [facility] | | | | | | and Healing, | | | | | | Building | | | | | | Floor [place], [place] | | | | | | [address] | | | | | | [phone] | | | +--------+---------+ + + + [...] y.o. male sent for consultation by Dr. Davis for evaluatio n of erythrodermic psoriasis. 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 [...] Performed At | + + + | [id number] Estimated GFR > 60 mL/min/1.73 sq m if non- | [facility] | | [id number] Estimated GFR > 60 mL/min/1.73 sq m [...] | + + + + + | [facility] DEPARTMENT OF | [address] | [place] [address] | | | PATHOLOGY | [address] | | | + + + + + | [facility] DEPARTMENT OF | [address] | [place] [address] | | | PATHOLOGY | [address] [...] Performed At | + + + | [id number] Estimated GFR > 60 mL/min/1.73 sq m if non- | [facility] | | [id number] Estimated GFR > 60 mL/min/1.73 sq m [...] | + + + + + | [facility] DEPARTMENT OF | [address] | [place] [address] | | | PATHOLOGY | [address] | | | + + + + + | [facility] DEPARTMENT OF | [address] | [place] [address] | | | PATHOLOGY | [address] | | | + + + + + LIPID SET (06/03/2006 11:48 AM PST) + + + + + + | Component | Value | Ref Range | Performed | Pathologist | | | | | At | Signature | + + + + + + | CHOLESTEROL | 187Comment: | <200 mg/dL | [facility] | | | (LAB) | Cholesterol Reference [...] Performed At | + + + | [id number] Estimated GFR > 60 mL/min/1.73 sq m if non- | [facility] | | [id number] Estimated GFR > 60 mL/min/1.73 sq m [...] | + + + + + | [facility] DEPARTMENT OF | [address] | [place] [address] | | | PATHOLOGY | [address] | | | + + + + + | [facility] DEPARTMENT | [address] | [place] [address] | | | PATHOLOGY | [address] [...] Performed At | + + + | [id number] Estimated GFR > 60 mL/min/1.73 sq m if non- | [facility] | | [id number] Estimated GFR > 60 mL/min/1.73 sq m [...] | + + + + + | [facility] | [address] | [place] [address] | | | PATHOLOGY | [address] | | | + + + + + | [facility] | [address] [place] [address] | [place] [address] | | | PATHOLOGY | [address] [...] | + + + + + | [facility] DEPARTMENT OF | [address] | [place] [address] | | | PATHOLOGY | [address] | | | + + + + + | [facility] DEPARTMENT OF | [address] | [place] [address] | | | PATHOLOGY | [address] [...] | + + + + + | [facility] | [address] | [place] [address] | | | LABORATORY | | | [...] | | | | AG, SERUM | [facility] | | | | | | Laboratories. | | | | + + + + + + + + | Specimen | + + | | + + + + + + + | Performing | Address | City/State/Zipcode | Phone Number | | Organization | | | | + + + + + | [facility] | [address] | [place] [address] | | | LABORATORY | | | [...] | | | | HOMER, SERUM | [facility] | | | | | | Laboratories. | | | | + + + + + + + + | Specimen | + + | | + + + + + + + | Performing | Address | City/State/Zipcode | Phone Number | | Organization | | | | + + + + + | [facility] | [address] | [place] [address] | | | LABORATORY | | | [...] | | | | | SERUM | [facility] | | | | | | Laboratories. | | | | + + + + + + + + | Specimen | + + | | + + + + + + + | Performing | Address | City/State/Zipcode | Phone Number | | Organization | | | | + + + + + | [facility] | [address] | [place] [address] | | | LABORATORY | | | [...] Performed At | + + + | [id number] Estimated GFR > 60 mL/min/1.73 sq m if non- | [place] | | [id number] Estimated GFR > 60 mL/min/1.73 sq m [...] | + + + + + | [facility] | [address] | [place] [address] | | | PATHOLOGY | [address] | | | + + + + + | [facility] | [address] | [place] [address] | | | PATHOLOGY | [address] [...] Performed At | + + + | [id number] Estimated GFR > 60 mL/min/1.73 sq m if non- | [facility] | | [id number] Estimated GFR > 60 mL/min/1.73 sq m [...] | + + + + + | [facility] DEPARTMENT | [address] [place] [address] | [place] [address] | | | PATHOLOGY | [address] | | | + + + + + | [facility] | [address] | [place] [address] | | | PATHOLOGY | [address] [...] Performed At | + + + | [id number] Estimated GFR > 60 mL/min/1.73 sq m if non- | [facility] | | [id number] Estimated GFR > 60 mL/min/1.73 sq m [...] + | [facility] DEPARTMENT OF | [address] | [place] [address] | | | PATHOLOGY | [address] | | | + + + + + | [facility] DEPARTMENT OF | [address] | [place] [address] | | | PATHOLOGY | [address] [...] Performed At | + + + | [id number] Estimated GFR > 60 mL/min/1.73 sq m if non- | [facility] | | [id number] Estimated GFR > 60 mL/min/1.73 sq m [...] | + + + + + | [facility] | [address] | [place] [address] | | | PATHOLOGY | [address] | | | + + + + + | [facility] | [facility] | [place] [address] | | | PATHOLOGY | [address] [...] Performed At | + + + | [id number] Estimated GFR > 60 mL/min/1.73 sq m if non- | [facility] | | [id number] Estimated GFR > 60 mL/min/1.73 sq m [...] | + + + + + | [facility] | [address] | [place] [address] | | | PATHOLOGY | [address] | | | + + + + + | [facility] | [address] | [place] [address] | | | PATHOLOGY | [address] | | | + + + + + documented in this encounter Visit Diagnoses + + | Diagnosis | + + | Other psoriasis | + + | Erythroderma Unspecified erythematous condition | + + documented in this encounter"
--- OUTSIDE RECORDS SUMMARY | ~2019-10-12 | XMS | Encounter Summary ---
Demographics + + + | Address | [address] | | | [place] [address] | + + + | Home Phone | | + + + | Preferred Language | Unknown | + + + | Marital Status | | + + + | Islam Affiliation | PRO | + + + | Race | White | + + + | Ethnic Group | Not or | + + + Author + + + | Author | [facility] | + + + | Organization | [facility] | + + + | Address | Unknown | + + + | Phone | Unavailable | + + + Support + + + + + | Name | Relationship | Address | Phone | + + + + + | Marnie Payne | ECON | [address] | | | | | [place] | | | | | [address] | | + + + + + Care Team Providers + +------+ + | Care Pyridine Recovery Operator Name | Role | Phone | + +------+ + | Julio Cesar Davis MD | PCP | | + +------+ + Reason for Visit +--------+ + | Reason | Comments | +--------+ + | Other | additional info he would like for you to add with work release | | | papers | +--------+ + Encounter Details +--------+ + + + + | Date | Type | Department | Care Team | Description | +--------+ + + + + | 06/29/ | Telephone | Dermatology | Ashia Vuong, | Other (additional | | 2006 | | Medical at [facility] [address] | MD | info he would like | | | | [address] | | for you to add with | | | | Mailcode: CH16D | | work release papers) | | | | [facility] | | | | | | and Healing, | | | | | | | | | | | | [place], [place] | | | | | | [address] | | | | | | [phone] | | | +--------+ + + + [...]
--- OUTSIDE RECORDS SUMMARY | ~2019-10-12 | XMS | Encounter Summary ---
Demographics + + + | Address | [address] | | | [place] [address] | + + + | Home Phone | | + + + | Preferred Language | Unknown | + + + | Marital Status | | + + + | Jain Affiliation | PRO | + + + | Race | White | + + + | Ethnic Group | Not or | + + + Author + + + | Author | [facility] | + + + | Organization | [facility] | + + + | Address | Unknown | + + + | Phone | Unavailable | + + + Support + + + + + | Name | Relationship | Address | Phone | + + + + + | Marnie Payne | ECON | [address] | | | | | [place] | | | | | [address] | | + + + + + Care Team Providers + +------+ + | Care Cattle Trader Name | Role | Phone | + [...] [facility] | | | | | | [address] | | | | | | [address] [facility] | | | | | | [address], [address] | | | | | | [place], [place] | | | | | | [address] | | | | | | [phone] | | | +--------+ + + + [...]
--- OUTSIDE RECORDS SUMMARY | ~2019-10-12 | XMS | Encounter Summary ---
Demographics + + + | Address | [address] | | | [place] [address] | + + + | Home Phone | | + + + | Preferred Language | Unknown | + + + | Marital Status | | + + + | Jainism Affiliation | 1013 | + + + | Race | Unknown | + + + | Ethnic Group | Unknown | + + + Author + + + | Author | [facility] | | | and [place] | + + + | Organization | [facility] | | | and [place] [...] Team Providers + +------+ + | Care Children'S Service Worker Name | Role | Phone | + +------+ + PCP | Unavailable | + +------+ + Encounter Details +--------+ + + + + | Date | Type | Department | Care Team | Description | +--------+ + + + + | 06/20/ | Hospital | [facility] | Conversion | Pain | | 2014 | Encounter | CONVERSION DEP 888 | Transaction, | | | | | VINNY QUAN | Provider Unknown | | | | | [place] | | | | | | [address] | (Fax) | | | | | [phone] | | | +--------+ + + + [...]
--- OUTSIDE RECORDS SUMMARY | ~2019-10-12 | XMS | Encounter Summary ---
Demographics + + + | Address | [address] | | | [place] [address] | + + + | Home Phone | | + + + | Preferred Language | Unknown | + + + | Marital Status | | + + + | Sabianist Affiliation | 1013 | + + + | Race | Unknown | + + + | Ethnic Group | Unknown | + + + Author + + + | Author | [facility] | | | and [place] | + + + | Organization | [facility] | | | and [place] | [...] Team Providers + +------+ + | Care Right Of Way Appraiser Name | Role | Phone | + +------+ + PCP | Unavailable | + +------+ + Encounter Details +--------+ + + + + | Date | Type | Department | Care Team | Description | +--------+ + + + + | 11/04/ | Hospital | [facility] | Terrence Bolaños MD | Dehydration | | 2015 - | Encounter | [facility] | [address] | | | | | CARE FLOOR [address] | [place] [address] | | | 11/07/ | | [address] | [phone] | | | 2015 | | [place], [place] | | | | | | [address] | | | | | | [phone] | | | +--------+ + + + [...] Date of Service: 11/07/14 0742 Status: Signed Defensive Line Coach: Saira Retana MD (Physician) Related Notes: Original Note by Saira Retana MD (Physician) filed at 11/07/14 0747 [facility] Service: Hospitalist Physician Discharge Summary Patient ID: Khai Payne 1955 59 y.o. Admit date: 11/04/2014 Discharge date: 11/07/2014 Admitting Physician: Terrence Bolaños MD Discharge Physician: Saira Retana MD Consultants: Treatment Team: Admitting Provider: Terrence Bolaños MD Primary Discharge Diagnoses: Syncope and collapse Secondary Discharge Diagnoses: Dehydration resolved ELVIA (acute kidney injury) (HCC) resolved Dvt femoral (deep venous thrombosis) ([facility]) HPI and Hospital Course: 59-year-old male with history of psoriatic arthritis who presented to [facility] after collapsing while watching a baseball game outside. The patient had been drinking 5 to 6 eight-ounce Margaritas and collapsed when he got out of the seat. He walked to his car and when he got home he collapsed again and was brought to the emergency department. He was hyp otensive requiring dopamine and transferred to [facility] intensive care unit. 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 You may get the following medications from [...] summary. This entry has been created using [employer] Speech Recognition software and [employer]. The entry has been reviewed and there may still exist sound alike word errors. documented in th is encounter Progress Notes Conversion Transaction, Provider Unknown - 11/07/2014 9:13 AM PDTFormatting of this note m ight be different from the original. Case Management by FABIANA Amato at 11/07/14912 Author: FABIANA Amato Service: (none) Author Type: Communications Tower Climber Filed: 11/07/14 1203 Date of Service: 11/07/14912 Status: Addendum Defensive Line Coach: FABIANA Amato (Communications Tower Climber) Related Notes: Original Note by FABIANA Amato (Communications Tower Climber) filed at 11/07/14 09 42 CM informed by Physician that Pt will dc today and that he will need an INR drawn this week . Appt with PCP changed to 11/08 @ 10:00 AM. Appt updated on AVS and Pt informed. Family to transport home. ETOH treatment resources in [facility] area provided to Pt and family. 1200 Referral from RN for HH RN to continue with teaching on Lovenox and Coumadin at home. CM spoke with Pt and family who are in agreement. Referral faxed to [facility] in [facility]. onver love Transaction, Provider Unknown - 11/06/2014 6:27 PM PDT Nurse Progress Note by Amara Stratton RN at 11/06/141826 Author: Amara Stratton RN Service: (none) Author Type: Registered Nurse Filed: 11/06/141829 Date of Service: 11/06/141826 Status: Signed Defensive Line Coach: Amara Stratton RN (Registered Nurse) Extensive visit [...] locations/Coumadin Clinics available. Pt requests f/u at [facility]. Pt stated next apt with Dr. Paula is November 14. Questions answered. Coumadin education b ooklet given to pt. onver love Transaction, Provider Unknown - 11/06/2014 4:45 PM PDT Nurse Progress Note by Kelechi Sweet RN at 11/06/14 1645 Author: Kelechi Sweet RN Service: (none) Author Type: Registered Nurse Filed: 11/06/14 1646 Date of Service: 11/06/14 1645 Status: Signed Defensive Line Coach: Kelechi Sweet RN (Registered Nurse) Patient ambulated 500 [address] hallway with front wheel walker and standby assist. Patient tolerated procedure well. onver love Transaction, Provider Unknown - 11/06/2014 4:02 PM PDT Case Management by FABIANA Amato at 11/06/14 1602 Author: FABIANA Amato Service: (none) Author Type: Communications Tower Climber Filed: 11/06/14 1606 Date of Service: 11/06/14 160 Status: Signed Defensive Line Coach: FABIANA Amato (Communications Tower Climber) PC to [facility] to make a referral for [...] an d given transportation resources for the [facility] area. Pt stated his Parents would be tra nsporting him home and to appts. No further dc needs identified. Michelle Garner MD - 11/06/2014 12:47 PM PDT Progress Notes by Michelle Barton MD at 11/06/14 0887 Author: Michelle Barton MD Service: Hospitalist Author Type: Physician Filed: 11/06/14 2076 Date of Service: 11/06/14 1247 Status: Signed Defensive Line Coach: Michelle Barton MD (Physician) Related Notes: Original Note by Michelle Barton MD (Physician) filed at 11/06/14 1254 [facility] Service: Hospitalist Progress Note Hospital Day: LOS: 2 days SUBJECTIVE Per ICU cytometry technologist: "The patient is a 59 y.o. male with PMHx of psoriatic arthritis, prese nted to [facility] after collapsing while watching a baseball game [...] recently but no other constitutional symptoms. At [facility] patient was found to be hypotensive with STT wave changes. Started on dop amine. Transferred to [facility] for further management. ICU Timeline: 11/04/14: admitted [...] a DVT. Therefore, appreciate i ntensivist ICU OFFICE MACHINES WIRER assisting with heparin orders. The patient has [...] Nov 05 2014 7:16AM Referring Provider Line: [phone] ID: [id number] Ultrasound Lower Extremity Venous Doppler [...] of consciousness) Dehydration ELVIA (acute kidney injury) ([facility]) Dvt femoral (deep venous thrombosis) ([facility]) ASSESSMENT & PLAN 1. Syncope and collapse [...] Date of Service: 11/06/14 1234 Status: Signed Defensive Line Coach: Berenice De Los Santos PT (Physical Therapist) 11/06/14 1100 PT Last Visit PT Received On 11/06/14 Reason for Treatment Deconditioning Requires PT Follow Up Yes Follow up PT Only? No Assistance Required 1 person Foundry Hand Needed No Other Comments Comments Pt mobilizing [...] Author: FABIANA Goldsmith Service: (none) Author Type: Communications Tower Climber Filed: 11/05/141914 Date of Service: 11/05/141911 Status: Signed Defensive Line Coach: FABIANA Goldsmith (Communications Tower Climber) 11/05/141909 Discharge Planning Evaluation Admitting Diagnosis syncope & collapse Readmission No Living Arrangements Spouse/significant other (Marnie Payne [phone]) Type of Residence Private residence House type House-1 story Independent with ADL's Yes Independent with Mobility No-comment (uses a walker) Home Care Services No Caregiver after Discharge Yes Relationship to Patient spouse Mental Status Oriented Prior functional status Pt reports he is worried he might slip in the shower. He had not d cong X3-4 mos. Power of Propeller Engineer No Anticipated Discharge Plan Post Acute Care [...] Date of Service: 11/05/14 1525 Status: Signed Defensive Line Coach: Mary Carmen Quesada RN (Registered Nurse) Pt transferred to [address] onver love Transaction, Provider Unknown - 11/05/2014 3:16 PM PDT Progress Notes by Mary Carmen Quesada RN at 11/05/14 1516 Author: Mary Carmen Quesada RN Service: (none) Author Type: Registered Nurse Filed: 11/05/14 1517 Date of Service: 11/05/14 1516 Status: Signed Defensive Line Coach: Mary Carmen Quesada RN (Registered Nurse) Report [...] 11/05/141814 Date of Service: 11/05/140 Status: Signed Defensive Line Coach: Jovan Antonio, PT (Physical Therapist) 11/05/14 1440 PT Last Visit PT Received On 11/05/14 Reason for Treatment Other (comment) (admitted for hypotension and syncopal episode) Requires PT Follow Up Awaiting tx order Follow up PT Only? No PT Eval/Reassessment Date 11/05/14 Assistance Required 1 person;2 person (for lines) Foundry Hand Needed No Home Environment Type of Home Home one story Home Exterior Layout 1-3 steps Home Interior Layout Lives on main level with bedroom/bathroom Home Equipment Walker front wheeled Prior Function Level of [place] Modified independent with functional mobility;Independent with ADLs; [...] Assistance Required 1 person;2 person (for lines) Foundry Hand Needed No Precautions Other Precautions fall risk [...] at 11/05/14 0825 Author: DURAN Juárez Service: Multimedia Specialist Author Type: Multimedia Specialist Filed: 11/05/14 0843 Date of Service: 11/05/14 0825 Status: Signed Defensive Line Coach: DURAN Juárez (Nurse Practitioner) [facility] Service: Multimedia Specialist Progress Note Date of Admission: 11/04/2014 Requesting Physician: Dr. Velazquez, Emergency Department Indication for ICU Admission: hypotension History Obtained From: patient CHIEF COMPLAINT: Syncope and collapse HISTORY OF PRESENT ILLNESS The patient is a 59 y.o. male with PMHx of psoriatic arthritis, presented to [facility] after collapsing while watching a baseball game [...] but no ot her constitutional symptoms. At [facility] patient was found to be hypotensive with STT wave changes. Started on dop amine. Transferred to [facility] for further management. ICU Timeline: 11/04/14: admitted [...] of consciousness) Dehydration ELVIA (acute kidney injury) ([facility]) ASSESSMENT & PLAN Neuro: Syncope: workup includes telemetry, 12 lead ECG, and ECHO ordered. Carotid duplex: no flow limiting stenosis. May simply be r/t dehydration. Unclear etiology. CV: R/O HI. Trend enzymes. Hypotension likely secondary to volume [...] 11/04/141806 Date of Service: 11/04/141806 Status: Signed Defensive Line Coach: Dion Lassiter RPH (Pharmacist) Clinical Pharmacy Note: [...] | | | | | performed at [facility] | | | | | | [address];[place], [place] | | | | | | [address] | | | | + + + [...] | | | | | [place] [address] | | | | + + +---- + + + | Red Blood | 2.86 (L)Comment: Testing | 4.2 0 - 5.70 | EXTERNAL | | | Cells | performed at [facility], [address] | M/u L | LAB | | | Counted | [address], | | | | | | [place] [address] | | | | + + +---- + + + | Hemoglobin | 11.7 (L)Comment: Testing | 13. 2 - 17.0 | EXTERNAL | | | | performed at [facility], [address] | g/d L | LAB | | | | [address], | | | | | | [place] [address] | | | | + + +---- + + + | Hematocrit, | 34.1 (L)Comment: Testing | 39. 0 - 50.0 % | EXTERNAL | | | POC | performed at [facility], [address] | | LAB | | | | [address], | | | | | | [place] [address] | | | | + + +---- + + + | MCV | 119.4 (H)Comment: | 80. 0 - 100.0 fl | EXTERNAL | | | | Testing performed at | | LAB | | | | [facility], [address] | | | | | | [place] | | | | | | [address] | | | | + + +---- + + + | MCH | 40.8 (H)Comment: Testing | 27. 0 - 34.0 pg | EXTERNAL | | | | performed at [facility], [address] | | LAB | | | | [address], | | | | | | [place] [address] | | | | + + +---- + + + | MCHC | 34.2Comment: Testing | 32. 0 - 35.5 | EXTERNAL | | | | performed at [facility], [address] | g/d L | LAB | | | | [address], | | | | | | [place] [address] | | | | + + +---- + + + | RDW-CV | 66.9 (H)Comment: Testing | 37 - 53 fl | EXTERNAL | | | | performed at [facility], [address] | | LAB | | | | [address], | | | | | | [place] [address] | | | | + + +---- + + + | Platelet | 191Comment: Testing | 150 - 400 K/uL | EXTERNAL | | | Count | performed at [facility], [address] | | LAB | | | Plasma | [address], | | | | | | [place] [address] | | | | + + +---- + + + | MPV | 8.2Comment: Testing | fl | EXTERNAL | | | | performed at [facility], [address] | | LAB | | | [address], | | | | | | [place] [address] | | | | + + +---- + + + | Differentia | AUTOMATEDComment: | | EXTERNAL | | | l Type | Testing performed at | | LAB | | | | [facility], [address] | | | | | | [place] | | | | | | [address] | | | | + + +---- + + + | % Segmented | 59.94Comment: Testing | % | EXTERNAL | | | | performed at [facility], [address] | | LAB | | | Neutrophils | [address], | | | | | | [place] [address] | | | | + + +---- + + + | % | 25.58Comment: Testing | % | EXTERNAL | | | Lymphocytes | performed at [facility], [address] | | LAB | | | | [address], | | | | | | [place] [address] | | | | + + +---- + + + | % Monocytes | 9.82Comment: Testing | % | EXTERNAL | | | | performed at [facility], [address] | | LAB | | | | [address], | | | | | | [place] [address] | | | | + + +---- + + + | % | 3.25Comment: Testing | % | EXTERNAL | | | Eosinophils | performed at [facility], [address] | | LAB | | | | [address], | | | | | | [place] [address] | | | | + + +---- + + + | % Basophils | 1.41Comment: Testing | % | EXTERNAL | | | | performed at [facility], [address] | | LAB | | | | [address], | | | | | | [place] [address] | | | | + + +---- + + + | Absolute | 3.79Comment: Testing | 1.9 0 - 7.40 | EXTERNAL | | | Segmented | performed at [facility], [address] | K/u L | LAB | | | Neutrophils | [address], | | | | | | [place] [address] | | | | + + +---- + + + | Absolute | 1.62Comment: Testing | 1.0 0 - 3.90 | EXTERNAL | | | Lymphocytes | performed at [facility], [address] | K/u L | LAB | | | | [address], | | | | | | [place] [address] | | | | + + +---- + + + | Absolute | 0.62Comment: Testing | 0.0 0 - 0.80 | EXTERNAL | | | Monocytes | performed at [facility], [address] | K/u L | LAB | | | | [address], | | | | | | [place] [address] | | | | + + +---- + + + | Absolute | 0.21Comment: Testing | 0.0 0 - 0.50 | EXTERNAL | | | Eosinophils | performed at [facility], [address] | K/u L | LAB | | | | [address], | | | | | | [place] [address] | | | | + + +---- + + + | Absolute | 0.09Comment: Testing | 0.0 0 - 0.10 | EXTERNAL | | | Basophils | performed at [facility], [address] | K/u L | LAB | | | | [facility], | | | | | | [place] [address] | | | | + + +---- + + + | RBC | 3+Comment: | | EXTERNAL | | | Morphology | ANISO3+MACRONORMAL PLT | | LAB | | | | MORPHTesting performed | | | | | | at [facility], [address] | | | | | | [employer] [facility], | | | | | | [place] [address] | | | | | |Testing performed at [facility], [address] [facility], [place] [address] | | | | | | | [...] | | | | | [place] [address] | | | | + + + [...] EXTERNAL | | | | performed at [facility], [address] | | LAB | | | | [address], | | | | | | [place] [address] | | | | + + + [...] | | | | | [place] [address] | | | | + + + + + + | K | 3.9Comment: Testing | 3.5 - 4.9 | EXTERNAL | | | | performed at [facility], [address] | mmol/L | LAB | | | | [address], | | | | | | [place] [address] | | | | + + + + + + | Cl | 109Comment: Testing | 99 - 109 mmol/L | EXTERNAL | | | | performed at [facility], [address] | | LAB | | | | [address], | | | | | | [place] [address] | | | | + + + + + + | CO2 | 23Comment: Testing | 23 - 32 mmol/L | EXTERNAL | | | | performed at [facility], [address] | | LAB | | | | [address], | | | | | | [place] [address] | | | | + + + + + + | Anion Gap | 9Comment: Testing | 5 - 20 mmol/L | EXTERNAL | | | | performed at [facility], [address] | | LAB | | | | [address], | | | | | | [place] [address] | | | | + + + + + + | Glucose, | 91Comment: Testing | 65 - 99 mg/dL | EXTERNAL | | | Fasting | performed at [facility], [address] | | LAB | | | | [address], | | | | | | [place] [address] | | | | + + + + + + | BUN | 12Comment: Testing | 8 - 25 mg/dL | EXTERNAL | | | | performed at [facility], [address] | | LAB | | | | [address], | | | | | | [place] [address] | | | | + + + + + + | Creatinine | 0.72Comment: Testing | 0.70 - 1.30 | EXTERNAL | | | | performed at [facility], [address] | mg/dL | LAB | | | | [address], | | | | | | [place] [address] | | | | + + + + + + | BUN/Creatin | 17Comment: Testing | | EXTERNAL | | | ine Ratio | performed at [facility], [address] | | LAB | | | | [address], | | | | | | [place] [address] | | | | + + + + + + | Calcium | 7.9 (L)Comment: Testing | 8.5 - 10.5 | EXTERNAL | | | | performed at [facility], [address] | mg/dL | LAB | | | | [address], | | | | | | [place] [address] | | | | + + + [...] | | | | | | at [facility], [address] | | | | | | [address], | | | | | | [place] [address] | | | | + + + [...] EXTERNAL | | | | performed at [facility], [address] | | LAB | | | | [address], | | | | | | [place] [address] | | | | + + + [...] EXTERNAL | | | | performed at [facility], [address] | | LAB | | | | [address], | | | | | | [place] [address] | | | | + + + [...] EXTERNAL | | | | performed at [facility];[address] | mmol/L | LAB | | | | [address];[place] | | | | | | [address] | | | | + + + + + + | K | 4.0Comment: Testing | 3.5 - 4.9 | EXTERNAL | | | | performed at [facility];[address] | mmol/L | LAB | | | | [address];[place] | | | | | | [address] | | | | + + + + + + | Cl | 110 (H)Comment: Testing | 99 - 109 mmol/L | EXTERNAL | | | | performed at [facility];[address] | | LAB | | | | [address];[place] | | | | | | [address] | | | | + + + + + + | CO2 | 22 (L)Comment: Testing | 23 - 32 mmol/L | EXTERNAL | | | | performed at [facility];[address] | | LAB | | | | [address];[place] | | | | | | [address] | | | | + + + + + + | Anion Gap | 12Comment: Testing | 5 - 20 mmol/L | EXTERNAL | | | | performed at [facility];[address] | | LAB | | | | [address];[place] | | | | | | [address] | | | | + + + + + + | Glucose, | 114 (H)Comment: Testing | 65 - 99 mg/dL | EXTERNAL | | | Fasting | performed at [facility];[address] | | LAB | | | | [address];[place] | | | | | | [address] | | | | + + + + + + | BUN | 14Comment: Testing | 8 - 25 mg/dL | EXTERNAL | | | | performed at [facility];[address] | | LAB | | | | [address];[place] | | | | | | [address] | | | | + + + + + + | Creatinine | 0.98Comment: Testing | 0.70 - 1.30 | EXTERNAL | | | | performed at [facility];[address] | mg/dL | LAB | | | | [address];[place] | | | | | | [address] | | | | + + + + + + | BUN/Creatin | 14Comment: Testing | | EXTERNAL | | | ine Ratio | performed at [facility];[address] | | LAB | | | | [address];[place] | | | | | | [address] | | | | + + + + + + | Calcium | 7.8 (L)Comment: Testing | 8.5 - 10.5 | EXTERNAL | | | | performed at [facility];[address] | mg/dL | LAB | | | | [address];[place] | | | | | | [address] | | | | + + + + + + | Protein, | 5.7 (L)Comment: Testing | 6.3 - 8.2 g/dL | EXTERNAL | | | Total | performed at [facility];[address] | | LAB | | | | [address];[place] | | | | | | [address] | | | | + + + + + + | Albumin | 2.1 (L)Comment: Testing | 3.3 - 4.8 g/dL | EXTERNAL | | | | performed at [facility];[address] | | LAB | | | | [address];[place] | | | | | | [address] | | | | + + + + + + | Globulin | 3.6Comment: Testing | 1.3 - 4.9 g/dL | EXTERNAL | | | | performed at [facility];[address] | | LAB | | | | [address];[place] | | | | | | [address] | | | | + + + + + + | A/G Ratio | 0.6 (L)Comment: Testing | 1.0 - 2.4 | EXTERNAL | | | | performed at [facility];[address] | | LAB | | | | [address];[place] | | | | | | [address] | | | | + + + + + + | Bilirubin | 0.2Comment: Testing | 0.1 - 1.5 mg/dL | EXTERNAL | | | Total | performed at [facility];[address] | | LAB | | | | [address];[place] | | | | | | [address] | | | | + + + + + + | ALP, | 92Comment: Testing | 35 - 115 U/L | EXTERNAL | | | External | performed at [facility];[address] | | LAB | | | | [address];[place] | | | | | | [address] | | | | + + + + + + | AST | 26Comment: Testing | 10 - 45 U/L | EXTERNAL | | | | performed at [facility];[address] | | LAB | | | | [address];[place] | | | | | | [address] | | | | + + + + + + | ALT | 15Comment: Testing | 10 - 65 U/L | EXTERNAL | | | | performed at [facility];[address] | | LAB | | | | [address];[place] | | | | | | [address] | | | | + + + [...] | | | | | | at [facility];[address] [place] [address] | | | | | | [facility];[place] [address] | | | | + + + [...] | | | Patient | performed at [facility];[address] | | LAB | | | | [address];[place], [place] | | | | | | [address] | | | | + + + [...] EXTERNAL | | | | performed at [facility], [address] | K/u L | LAB | | | | [address], | | | | | | [place] [address] | | | | + + +---- + + + | Red Blood | 2.78 (L)Comment: Testing | 4.2 0 - 5.70 | EXTERNAL | | | Cells | performed at [facility], [address] | M/u L | LAB | | | Counted | [address], | | | | | | [place] [address] | | | | + + +---- + + + | Hemoglobin | 11.2 (L)Comment: Testing | 13. 2 - 17.0 | EXTERNAL | | | | performed at [facility], [address] | g/d L | LAB | | | | [address], | | | | | | [place] [address] | | | | + + +---- + + + | Hematocrit, | 33.1 (L)Comment: Testing | 39. 0 - 50.0 % | EXTERNAL | | | POC | performed at [facility], [address] | | LAB | | | | [address], | | | | | | [place] [address] | | | | + + +---- + + + | MCV | 119.3 (H)Comment: | 80. 0 - 100.0 fl | EXTERNAL | | | | Testing performed at | | LAB | | | | [facility], [address] | | | | | | [place] | | | | | | [address] | | | | + + +---- + + + | MCH | 40.5 (H)Comment: Testing | 27. 0 - 34.0 pg | EXTERNAL | | | | performed at [facility], [address] | | LAB | | | | [address], | | | | | | [place] [address] | | | | + + +---- + + + | MCHC | 34.0Comment: Testing | 32. 0 - 35.5 | EXTERNAL | | | | performed at [facility], [address] | g/d L | LAB | | | | [address], | | | | | | [place] [address] | | | | + + +---- + + + | RDW-CV | 67.4 (H)Comment: Testing | 37 - 53 fl | EXTERNAL | | | | performed at [facility], [address] | | LAB | | | | [address], | | | | | | [place] [address] | | | | + + +---- + + + | Platelet | 169Comment: Testing | 150 - 400 K/uL | EXTERNAL | | | Count | performed at [facility], [address] | | LAB | | | Plasma | [address], | | | | | | [place] [address] | | | | + + +---- + + + | MPV | 8.9Comment: Testing | fl | EXTERNAL | | | | performed at [facility], [address] | | LAB | | | | [address], | | | | | | [place] [address] | | | | + + +---- + + + | Differentia | AUTOMATEDComment: | | EXTERNAL | | | l Type | Testing performed at | | LAB | | | | [facility], [address] | | [address], [place], [place] | | | | | | [address] | | | | + + +---- + + + | % Segmented | 58.36Comment: Testing | % | EXTERNAL | | | | performed at [facility], [address] | | LAB | | | Neutrophils | Sadaf [address], | | | | | | [place] [address] | | | | + + +---- + + + | % | 28.33Comment: Testing | % | EXTERNAL | | | Lymphocytes | performed at [facility], [address] | | LAB | | | | Sadaf Ayon, | | | | | | [place] [address] | | | | + + +---- + + + | % Monocytes | 8.15Comment: Testing | % | EXTERNAL | | | | performed at [facility], [address] | | LAB | | | | Sadaf Ayon, | | | | | | [place] [address] | | | | + + +---- + + + | % | 2.76Comment: Testing | % | EXTERNAL | | | Eosinophils | performed at [facility], [address] | | LAB | | | | Sadaf A[address], | | | | | | [place] [address] | | | | + + +---- + + + | % Basophils | 2.40Comment: Testing | % | EXTERNAL | | | | performed at [facility], [address] | | LAB | | | | Sadaf Ayon, | | | | | | [place] [address] | | | | + + +---- + + + | Absolute | 4.34Comment: Testing | 1.9 0 - 7.40 | EXTERNAL | | | Segmented | performed at [facility], [address] | K/u L | LAB | | | Neutrophils | Sadaf Ayon, | | | | | | [place] [address] | | | | + + +---- + + + | Absolute | 2.11Comment: Testing | 1.0 0 - 3.90 | EXTERNAL | | | Lymphocytes | performed at [facility], [address] | K/u L | LAB | | | | [address], | | | | | | [place] [address] | | | | + + +---- + + + | Absolute | 0.61Comment: Testing | 0.0 0 - 0.80 | EXTERNAL | | | Monocytes | performed at [facility], [address] | K/u L | LAB | | | | Sadaf Ayon, | | | | | | [place] [address] | | | | + + +---- + + + | Absolute | 0.21Comment: Testing | 0.0 0 - 0.50 | EXTERNAL | | | Eosinophils | performed at [facility], [address] | K/u L | LAB | | | | [address], | | | | | | [place] [address] | | | | + + +---- + + + | Absolute | 0.18 (H)Comment: Testing | 0.0 0 - 0.10 | EXTERNAL | | | Basophils | performed at [facility], [address] | [address] | LAB | | | | [address], | | | | | | [place] [address] | | | | + + +---- + + + | RBC | 3+Comment: | | EXTERNAL | | | Morphology | ANISO3+MACRONORMAL PLT | | LAB | | | | MORPHTesting performed | | | | | | at [facility], [address] | | | | | | [facility], | | | | | | [place] [address] | | | | | |Testing performed at [facility], [address] [facility] [place] [address] | | | | | | | [...] | | | | | [place] [address] | | | | + + + [...] EXTERNAL | | | | performed at [facility], [address] | | LAB | | | | Sadaf Ayon, | | | | | | [place] [address] | | | | + + + [...] [address] | | | | + + + + + + | K | 3.6Comment: Testing | 3.5 - 4.9 | EXTERNAL | | | | performed at [facility], [address] | mmol/L | LAB | | | | Sadaf Ayon, | | | | | | [place] [address] | | | | + + + + + + | Cl | 108Comment: Testing | 99 - 109 mmol/L | EXTERNAL | | | | performed at [facility], [address] | | LAB | | | [address], | | | | | | [place] [address] | | | | + + + + + + | CO2 | 24Comment: Testing | 23 - 32 mmol/L | EXTERNAL | | | | performed at [facility], [address] | | LAB | | | | [address], | | | | | | [place] [address] | | | | + + + + + + | Anion Gap | 8Comment: Testing | 5 - 20 mmol/L | EXTERNAL | | | | performed at [facility], [address] | | LAB | | | | [address], | | | | | | [place] [address] | | | | + + + + + + | Glucose, | 106 (H)Comment: Testing | 65 - 99 mg/dL | EXTERNAL | | | Fasting | performed at [facility], [address] | | LAB | | | | [address], | | | | | | [place] [address] | | | | + + + + + + | BUN | 18Comment: Testing | 8 - 25 mg/dL | EXTERNAL | | | | performed at [facility], [address] | | LAB | | | | [address], | | | | | | [place] [address] | | | | + + + + + + | Creatinine | 1.07Comment: Testing | 0.70 - 1.30 | EXTERNAL | | | | performed at [facility], [address] | mg/dL | LAB | | | | [address], | | | | | | [place] [address] | | | | + + + + + + | BUN/Creatin | 17Comment: Testing | | EXTERNAL | | | ine Ratio | performed at [facility], [address] | | LAB | | | | [address], | | | | | | [place] [address] | | | | + + + + + + | Calcium | 7.6 (L)Comment: Testing | 8.5 - 10.5 | EXTERNAL | | | | performed at [facility], [address] | mg/dL | LAB | | | | Sadaf A[address], | | | | | | [place] [address] | | | | + + + [...] | | | | | [place] [address] | | | | + + + [...] EVGENY | | | | [place]/6RP ON [id number] AT | | | | | | 2342, VAPTesting | | | | | | performed at [facility];[address] | | | | | | [address];[place], [place] | | | | | | [address] | | | | + + + [...] EXTERNAL | | | | performed at [facility] | | LAB | | | | [address];[place], [place] | | | | | | [address] | | | | + + + [...] | | | | | | ACUTE HI Testing | | | | | | performed at [facility];[address] | | | | | | [address];[place], [place] | | | | | | [address] | | | | + + + [...] ON | | | | | | [id number] | | | | | | performed at [facility] | | | | | | [address];[place], [place] | | | | | | [address] | | | | + + + [...] EXTERNAL | | | | performed at [facility];[address] | | LAB | | | | [facility];[place], [place] | | | | | | [address] | | | | + + + [...] EXTERNAL | | | | performed at [facility];[address] | | LAB | | | | [address];[place] | | | | | | [address] | | | | + + + [...] | | | Patient | performed at [facility];[address] | | LAB | | | | [address];[place], [place] | | | | | | [address] | | | | + + + [...] | | | | | performed at [facility] | | | | | | [address];[place], [place] | | | | | | [address] | | | | + + + [...] | | | Excursion: 2.32 cm E-F [place]: 0.05 m/s EPSS: 0.17 cm HR: | [...] 0.41 m/s | | | TV Dec [place]: 5.99 m/s2 TV Dec Time: 100.12 ms TV E Berhane: | | | 0.60 m/s TV E/A Ratio: 1.46 Supervisor Mapping: CATHY Authenticated by: | | | Robbin Main MD, FACC, FACP, FASWI Report Date/Time: 11-05-2014 | | | 16:23:42 | | + + + + + | Procedure Note | + + | Carlos, Rad Conversion - 01/21/2019 6:29 AM PDT Patient Name: Annette PAYNE of | | : 1955 Performing Physician: Robbin Main MD, [facility], | | FACP, | | FASNC INDICATIONS--------- [...] (A-L): 20.24 ml/m2LAAs A2C: | | 17.34 [id number] A-L A2C: 47.08 mlLAESV MOD A2C: 45.86 mlLALs A2C: 5.42 cmLAAs A4C: | | 13.53 [id number] A-L A4C: 31.42 mlLAESV MOD A4C: 28.69 mlLALs A4C: 4.97 cmAo Diam: | | 3.57 cmAV Cusp: 1.83 cmLA Diam: 3.74 cmLA/Ao: 1.04D-E Excursion: 2.32 cmE-F | | [place]: 0.05 m/sEPSS: 0.17 cmHR: 76.05 BPMAV maxP.47 mmHgAV meanP.19 | | mmHgAV Vmax: 1.53 m/Dae Vmean: 1.05 m/Dae VTI: 34.60 cmAVA Vmax: 2.08 cm2AVA | | (VTI): 1.98 fq1HXDI Dopp: 2.79 l/yowh6ITJQ Dopp: 5.53 l/minHR: 80.65 BPMLVOT | | [...] A | | Ber[place]ane: 0.41 m/sTV Dec [place]: 5.99 m/s2TV Dec Time: 100.12 msTV E [place]: 0.60 m/sTV | | E/A Ratio: 1.46 Supervisor Mapping: GDAuthenticated by: Robbin Main MD, FACC, FACP, [...] | |D-E Excursion: 2.32 cm | |E-F [place]: 0.05 m/s | |EPSS: 0.17 cm | [...] A [place]hane: 0.41 m/s | |TV Dec [place]: 5.99 m/s2 | |TV Dec Time: 100.12 ms | |TV E [place]: 0.60 m/s | |TV E/A Ratio: 1.46 | | | |Supervisor Mapping: GD | |Authenticated by: Robbin Main MD, FACC, FACP, FASWI | |Report Date/Time: 11-05-2014 16:23:42 | | [...] EXTERNAL | | | | performed at [facility];[address] | | LAB | | | | [address];[place], [place] | | | | | | [address] | | | | + + + [...] | | | | | | ACUTE HI Testing | | | | | | performed at [facility];[address] | | | | | | [address];[place], [place] | | | | | | [address] | | | | + + + [...] EXTERNAL | | | | performed at [facility];[address] | mmol/L | LAB | | | | [address];[place] | | | | | | [address] | | | | + + + [...] LAB | | | | performed at [facility];[address] | | | | | | [address];[place], [place] | | | | | | [address] | | | | + + + [...] EXTERNAL | | | | performed at [facility], [address] | | LAB | | | | [address] | | | | | | [place] [address] | | | | + + + + + + | T3, Total | 145Comment: Testing | 80 - 200 ng/dL | EXTERNAL | | | | performed at [facility], [address] | | LAB | | | | [place] | | | | | | [place] [address] | | | | + + + [...] EXTERNAL | | | | performed at [facility] | | LAB | | | | [address] A[address];[place] | | | | | | [address] | | | | + + + [...] | | | | | | at [facility];[address] [place] [address] | | | | | | [facility];[place] [address] | | | | + + + [...] EXTERNAL | | | | performed at [facility];[address] | | LAB | | | | [address];[place], [place] | | | | | | [address] | | | | + + + [...] | | | | | | ACUTE HI Testing | | | | | | performed at [facility];[address] | | | | | | [facility];[place], [place] | | | | | | [address] | | | | + + + [...] EXTERNAL | | | | performed at [facility];[address] | K/uL | LAB | | | | [address];[place] | | | | | | [address] | | | | + + + + + + | Red Blood | 3.17 (L)Comment: Testing | 4.20 - 5.70 | EXTERNAL | | | Cells | performed at [facility];[address] | M/uL | LAB | | | Counted | [address];[place] | | | | | | [address] | | | | + + + + + + | Hemoglobin | 12.9 (L)Comment: Testing | 13.2 - 17.0 | EXTERNAL | | | | performed at [facility];888 | g/dL | LAB | | | | [address];[place] | | | | | | [address] | | | | + + + + + + | Hematocrit, | 38.5 (L)Comment: Testing | 39.0 - 50.0 % | EXTERNAL | | | POC | performed at [facility];[address] | | LAB | | | | [address];[place] | | | | | | [address] | | | | + + + + + + | MCV | 121.4 (H)Comment: | 80.0 - 100.0 fl | EXTERNAL | | | | Testing performed at | | LAB | | | | [facility];[address];[place] [address] | | | | + + + + + + | MCH | 40.9 (H)Comment: Testing | 27.0 - 34.0 pg | EXTERNAL | | | | performed at [facility];[address] | | LAB | | | | [address];[place] | | | | | | [address] | | | | + + + + + + | MCHC | 33.7Comment: Testing | 32.0 - 35.5 | EXTERNAL | | | | performed at [facility];888 | g/dL | LAB | | | | [address];[place] | | | | | | [address] | | | | + + + + + + | RDW-CV | 70.0 (H)Comment: Testing | 37 - 53 fl | EXTERNAL | | | | performed at [facility];[address] | | LAB | | | | [address];[place] | | | | | | [address] | | | | + + + + + + | Platelet | 152Comment: Testing | 150 - 400 K/uL | EXTERNAL | | | Count | performed at [facility];[address] | | LAB | | | Plasma | [address];[place] | | | | | | [address] | | | | + + + + + + | MPV | 8.3Comment: Testing | fl | EXTERNAL | | | | performed at [facility];[address] | | LAB | | | | [address];[place] | | | | | | [address] | | | | + + + + + + | Differentia | MANUALComment: Testing | | EXTERNAL | | | l Type | performed at [facility];[address] | | LAB | | | | [address];[place] | | | | | | [address] | | | | + + + + + + | Segmented | 67Comment: Testing | % | EXTERNAL | | | Neutrophils | performed at [facility];[address] | | LAB | | | Manual | [address];[place] | | | | | | [address] | | | | + + + + + + | Lymphocytes | 26Comment: Testing | % | EXTERNAL | | | Manual | performed at [facility];[address] | | LAB | | | | [address];[place] | | | | | | [address] | | | | + + + + + + | Monocytes | 3Comment: Testing | % | EXTERNAL | | | Manual | performed at [facility];[address] | | LAB | | | | [address];[place] | | | | | | [address] | | | | + + + + + + | Eosinophils | 4Comment: Testing | % | EXTERNAL | | | Manual | performed at [facility];[address] | | LAB | | | | [address];[place] | | | | | | [address] | | | | + + + + + + | Absolute | 6.20Comment: Testing | 1.90 - 7.40 | EXTERNAL | | | Neutrophils | performed at [facility];[address] | K/uL | LAB | | | | [address];[place] | | | | | | [address] | | | | + + + + + + | Absolute | 2.41Comment: Testing | 1.00 - 3.90 | EXTERNAL | | | Lymphocytes | performed at [facility];[address] | K/uL | LAB | | | | [address];[place] | | | | | | [address] | | | | + + + + + + | Absolute | 0.28Comment: Testing | 0.00 - 0.80 | EXTERNAL | | | Monocytes | performed at [facility];[address] | K/uL | LAB | | | | [address];[place] | | | | | | [address] | | | | + + + + + + | Absolute | 0.37Comment: Testing | 0.00 - 0.50 | EXTERNAL | | | Eosinophils | performed at [facility];[address] | K/uL | LAB | | | | [address];[place] | | | | | | [address] | | | | + + + + + + | RBC | 3+Comment: | | EXTERNAL | | | Morphology | MACRO2+ANISO2+POIKNORMAL | | LAB | | | | PLT MORPHTesting | | | | | | performed at [facility];[address] | | | | | | [address];[place] | | | | | | [address] | | | | | |POIK | | | | | |NORMAL PLT MORPH | | | | | |Testing performed at [facility];[address] [facility];[place] [address] | | | | | | | [...] EXTERNAL | | | | performed at [facility];888 | uIU/mL | LAB | | | | Joel [address];[place] | | | | | | [address] | | | | + + + [...] | | | (REF) | performed at [facility], [address] | | LAB | | | | Sad[address], | | | | | | [place] [address] | | | | + + + [...] EXTERNAL | | | | performed at [facility], [address] | | LAB | | | | Sadaf [address]yon, | | | | | | [place] [address] | | | | + + + [...] EXTERNAL | | | | performed at [facility];[address] | | LAB | | | | [address];[place] | | | | | | [address] | | | | + + + [...] EXTERNAL | | | | performed at [facility], [address] | | LAB | | | | [address], | | | | | | [place] [address] | | | | + + + [...] + + | Hemoglobin | 5.0Comment: The Ivorian | 4.0 - 6.0 % | EXTERNAL [...] | | | | | performed at [facility], [address] | | | | | [address], | | | | | | [place] [address] | | | | + + + [...] | | | | | performed at [facility], [address] | | | | | | [facility], | | | | | | [place] [address] | | | | + + + [...] + + | Hemoglobin | 5.0Comment: The Ivorian | 4.0 - 6.0 % | EXTERNAL [...] | | | | | performed at [facility], [address] | | | | | [address], | | | | | | [place] [address] | | | | + + + [...] | | | | | performed at [facility], [address] | | | | | | [facility], | | | | | | [place] [address] | | | | + + + [...] EXTERNAL | | | | performed at [facility];[address] | | LAB | | | | [address];[place], [place] | | | | | | [address] | | | | + + + [...] EXTERNAL | | | | performed at [facility], [address] | | LAB | | | | Sadaf A[address], | | | | | | [place] [address] | | | | + + + + + + | Triglycerid | 101Comment: Testing | mg/dL | EXTERNAL | | | es | performed at [facility], [address] | | LAB | | | | [address], | | | | | | [place] [address] | | | | + + + + + + | HDL | 24 (L)Comment: Testing | mg/dL | EXTERNAL | | | | performed at [facility], [address] | | LAB | | | | [address], | | | | | | [place] [address] | | | | + + + + + + | LDL, | 52Comment: Testing | mg/dL | EXTERNAL | | | Calculated | performed at [facility], [address] | | LAB | | | | [address], | | | | | | [place] [address] | | | | + + + [...] | | | | | [place] [address] | | | | + + + + + + | K | 4.1Comment: Testing | 3.5 - 4.9 | EXTERNAL | | | | performed at [facility], [address] | mmol/L | LAB | | | | [address], | | | | | | [place] [address] | | | | + + + + + + | Cl | 108Comment: Testing | 99 - 109 mmol/L | EXTERNAL | | | | performed at [facility], [address] | | LAB | | | | [address], | | | | | | [place] [address] | | | | + + + + + + | CO2 | 22 (L)Comment: Testing | 23 - 32 mmol/L | EXTERNAL | | | | performed at [facility], [address] | | LAB | | | | [address], | | | | | | [place] [address] | | | | + + + + + + | Anion Gap | 11Comment: Testing | 5 - 20 mmol/L | EXTERNAL | | | | performed at [facility], [address] | | LAB | | | | [address], | | | | | | [place] [address] | | | | + + + + + + | Glucose, | 100 (H)Comment: Testing | 65 - 99 mg/dL | EXTERNAL | | | Fasting | performed at [facility], [address] | | LAB | | | | [address], | | | | | | [place] [address] | | | | + + + + + + | BUN | 25Comment: Testing | 8 - 25 mg/dL | EXTERNAL | | | | performed at [facility], [address] | | LAB | | | | [address], | | | | | | [place] [address] | | | | + + + + + + | Creatinine | 1.99 (H)Comment: Testing | 0.70 - 1.30 | EXTERNAL | | | | performed at [facility], [address] | mg/dL | LAB | | | | [address], | | | | | | [place] [address] | | | | + + + + + + | BUN/Creatin | 13Comment: Testing | | EXTERNAL | | | ine Ratio | performed at [facility], [address] | | LAB | | | | [address], | | | | | | [place] [address] | | | | + + + + + + | Calcium | 7.6 (L)Comment: Testing | 8.5 - 10.5 | EXTERNAL | | | | performed at [facility], [address] | mg/dL | LAB | | | | [address], | | | | | | [place] [address] | | | | + + + [...] [address], | | | | | | [place] [address] | | | | + + + [...] EXTERNAL | | | | performed at [facility] | | LAB | | | | [address];[place], [place] | | | | | | [address] | | | | + + + [...] | | | | | | ACUTE HI Testing | | | | | | performed at [facility];[address] | | | | | | [facility];[place], [place] | | | | | | [address] | | | | + + + [...] EXTERNAL | | | | performed at [facility] | | LAB | | | | [address] [facility];[place], [place] | | | | | | [address] | | | | + + + [...] 7:16AM Referring Provider Line: | | | [phone] ID: [id number] | | + + + + + + | Narrative | Performed At | + + + | EXAM: CAROTID DOPPLER ULTRASOUND EXAM DATE: 11/04/2014 11:37 PM. | | | CLINICAL HISTORY: Syncope. COMPARISON: None. TECHNIQUE: | | | Real-time sonographic vascular imaging was performed by the | | | transportation refrigeration technician through the carotid arterial system with a linear | | | transducer utilizing color-flow, Doppler flow and spectral analysis. | | | Multiple financial foundations representative static images were saved for review. [...] sonographic vascular imaging was performed by the transportation refrigeration technician through the | | carotid arterial system with a linear transducer utilizing color-flow, Doppler flow and | | spectral analysis. Multiple financial foundations representative static images were saved for review. [...] 2014 7:16AM Referring Provider Line: | | [phone] ID: [id number] | |ICA/CCA Ratio: 1.0, 1.7. [...] 05 2014 7:16AM Referring Provider Line: [phone] ID: [id number] | + + XR Chest [...] GROWTH | | | Testing performed at [facility], [address] | | | [place] [address] | | + + + + +---------+ [...] GROWTH | | | Testing performed at [facility], | | | [address] [facility] [place] [address] | | + + + + +---------+ [...] GROWTH | | | Testing performed at [facility], | | | [address] [place] [address] | | + + + + +---------+ [...] EXTERNAL | | | | performed at [facility];[address] | | LAB | | | | [address];[place], [place] | | | | | | [address] | | | | + + + [...] | | | | | | at [facility];[address] [place] [address] | | | | | | [facility];[place] [address] | | | | + + + [...] | | | Patient | performed at [facility];8 | | LAB | | | | [address];[place], [place] | | | | | | [address] | | | | + + + [...] | | | | | performed at [facility];[address] | | | | | | [address];[place], [place] | | | | | | [address] | | | | + + + [...] EXTERNAL | | | | performed at [facility];[address] | K/uL | LAB | | | | [address];[place] | | | | | | [address] | | | | + + + + + + | Red Blood | 3.13 (L)Comment: Testing | 4.20 - 5.70 | EXTERNAL | | | Cells | performed at [facility];[address] | M/uL | LAB | | | Counted | [address];[place] | | | | | | [address] | | | | + + + + + + | Hemoglobin | 13.1 (L)Comment: Testing | 13.2 - 17.0 | EXTERNAL | | | | performed at [facility];888 | g/dL | LAB | | | | [address];[place] | | | | | | [address] | | | | + + + + + + | Hematocrit, | 37.8 (L)Comment: Testing | 39.0 - 50.0 % | EXTERNAL | | | POC | performed at [facility];888 | | LAB | | | | [address];[place] | | | | | | [address] | | | | + + + + + + | MCV | 120.8 (H)Comment: | 80.0 - 100.0 fl | EXTERNAL | | | | Testing performed at | | LAB | | | | [facility];[address] | | | | | | [address];[place] [address] | | | | + + + + + + | MCH | 41.7 (H)Comment: Testing | 27.0 - 34.0 pg | EXTERNAL | | | | performed at [facility];888 | | LAB | | | | [address];[place] | | | | | | [address] | | | | + + + + + + | MCHC | 34.5Comment: Testing | 32.0 - 35.5 | EXTERNAL | | | | performed at [facility];888 | g/dL | LAB | | | | [address];[place] | | | | | | [address] | | | | + + + + + + | RDW-CV | 70.0 (H)Comment: Testing | 37 - 53 fl | EXTERNAL | | | | performed at [facility];888 | | LAB | | | | [address];[place] | | | | | | [address] | | | | + + + + + + | Platelet | 175Comment: Testing | 150 - 400 K/uL | EXTERNAL | | | Count | performed at [facility];888 | | LAB | | | Plasma | [address];[place] | | | | | | [address] | | | | + + + + + + | MPV | 8.5Comment: Testing | fl | EXTERNAL | | | | performed at [facility];888 | | LAB | | | | [address];[place] | | | | | | [address] | | | | + + + + + + | Differentia | AUTOMATEDComment: | | EXTERNAL | | | l Type | Testing performed at | | LAB | | | | [facility];[address];[place] [address] | | | | + + + + + + | % Segmented | 82.55Comment: Testing | % | EXTERNAL | | | | performed at [facility];888 | | LAB | | | Neutrophils | [address];[place] | | | | | | [address] | | | | + + + + + + | % | 9.73Comment: Testing | % | EXTERNAL | | | Lymphocytes | performed at [facility];888 | | LAB | | | | [address];[place] | | | | | | [address] | | | | + + + + + + | % Monocytes | 6.79Comment: Testing | % | EXTERNAL | | | | performed at [facility];888 | | LAB | | | | [address];[place] | | | | | | [address] | | | | + + + + + + | % | 0.33Comment: Testing | % | EXTERNAL | | | Eosinophils | performed at [facility];888 | | LAB | | | | [address];[place] | | | | | | [address] | | | | + + + + + + | % Basophils | 0.60Comment: Testing | % | EXTERNAL | | | | performed at [facility];888 | | LAB | | | | [address];[place] | | | | | | [address] | | | | + + + + + + | Absolute | 8.46 (H)Comment: Testing | 1.90 - 7.40 | EXTERNAL | | | Segmented | performed at [facility];888 | K/uL | LAB | | | Neutrophils | [address];[place] | | | | | | [address] | | | | + + + + + + | Absolute | 1.00Comment: Testing | 1.00 - 3.90 | EXTERNAL | | | Lymphocytes | performed at [facility];888 | K/uL | LAB | | | | [address];[place] | | | | | | [address] | | | | + + + + + + | Absolute | 0.70Comment: Testing | 0.00 - 0.80 | EXTERNAL | | | Monocytes | performed at [facility];888 | K/uL | LAB | | | | [address];[place] | | | | | | [address] | | | | + + + + + + | Absolute | 0.03Comment: Testing | 0.00 - 0.50 | EXTERNAL | | | Eosinophils | performed at [facility];888 | K/uL | LAB | | | | [address];[place] | | | | | | [address] | | | | + + + + + + | Absolute | 0.06Comment: Testing | 0.00 - 0.10 | EXTERNAL | | | Basophils | performed at [facility];888 | K/uL | LAB | | | | [address];[place] | | | | | | [address] | | | | + + + + + + | RBC | 3+Comment: | | EXTERNAL | | | Morphology | ANISO4+MACRO1+POIKTestin | | LAB | | | | g performed at [facility];888 | | | | | | [address];[place] | | | | | | [address] | | | | | |1+ | | | | | |POIK | | | | | |Testing performed at [facility];888 [facility];[place] [address] | | | | | | | [...] | | | Alcohol | performed at [facility];88 | | LAB | | | | [address];[place], [place] | | | | | | [address] | | | | + + + [...] | | | Total | performed at [facility];888 | | LAB | | | | [address];[place] | | | | | | [address] | | | | + + + + + + | Albumin | 2.3 (L)Comment: Testing | 3.3 - 4.8 g/dL | EXTERNAL | | | | performed at [facility];888 | | LAB | | | | [address];[place] | | | | | | [address] | | | | + + + + + + | Bilirubin | 0.4Comment: Testing | 0.1 - 1.5 mg/dL | EXTERNAL | | | Total | performed at [facility];888 | | LAB | | | | [address];[place] | | | | | | [address] | | | | + + + + + + | Bilirubin | 0.2Comment: Testing | 0.0 - 0.3 mg/dL | EXTERNAL | | | Direct | performed at [facility];888 | | LAB | | | | [address];[place] | | | | | | [address] | | | | + + + + + + | ALP, | 111Comment: Testing | 35 - 115 U/L | EXTERNAL | | | External | performed at [facility];888 | | LAB | | | | [address];[place] | | | | | | [address] | | | | + + + + + + | AST | 34Comment: Testing | 10 - 45 U/L | EXTERNAL | | | | performed at [facility];888 | | LAB | | | | [address];[place] | | | | | | [address] | | | | + + + + + + | ALT | 18Comment: Testing | 10 - 65 U/L | EXTERNAL | | | | performed at [facility];888 | | LAB | | | | [address];[place] | | | | | | [address] | | | | + + + [...] EXTERNAL | | | | performed at [facility];888 | mmol/L | LAB | | | | [address];[place] | | | | | | [address] | | | | + + + + + + | K | 4.1Comment: Testing | 3.5 - 4.9 | EXTERNAL | | | | performed at [facility];888 | mmol/L | LAB | | | | [address];[place] | | | | | | [address] | | | | + + + + + + | Cl | 106Comment: Testing | 99 - 109 mmol/L | EXTERNAL | | | | performed at [facility];888 | | LAB | | | | [address];[place] | | | | | | [address] | | | | + + + + + + | CO2 | 23Comment: Testing | 23 - 32 mmol/L | EXTERNAL | | | | performed at [facility];888 | | LAB | | | | [address];[place] | | | | | | [address] | | | | + + + + + + | Anion Gap | 15Comment: Testing | 5 - 20 mmol/L | EXTERNAL | | | | performed at [facility];888 | | LAB | | | | [address];[place] | | | | | | [address] | | | | + + + + + + | Glucose, | 117 (H)Comment: Testing | 65 - 99 mg/dL | EXTERNAL | | | Fasting | performed at [facility];888 | | LAB | | | | [address];[place] | | | | | | [address] | | | | + + + + + + | BUN | 24Comment: Testing | 8 - 25 mg/dL | EXTERNAL | | | | performed at [facility];888 | | LAB | | | | [address];[place] | | | | | | [address] | | | | + + + + + + | Creatinine | 2.90 (H)Comment: Testing | 0.70 - 1.30 | EXTERNAL | | | | performed at [facility];888 | mg/dL | LAB | | | | [address];[place] | | | | | | [address] | | | | + + + + + + | BUN/Creatin | 8Comment: Testing | | EXTERNAL | | | ine Ratio | performed at [facility];888 | | LAB | | | | [address];[place] | | | | | | [address] | | | | + + + + + + | Calcium | 7.6 (L)Comment: Testing | 8.5 - 10.5 | EXTERNAL | | | | performed at [facility];888 | mg/dL | LAB | | | | [address];[place] | | | | | | [address] | | | | + + + [...] | | | | | | at [facility];[address];[place] [address] | | | | + + + [...] | | | Screen, | performed at [facility];888 | | | | | UA, POC | [address];[place] | | | | | | [address] | | | | + + + + + + | Barbiturate | NEGATIVEComment: | | EXTERNAL | | | s Screen, | Positive cutoff for | | LAB | | | Urine | MEGAN = 200 ng/mLTesting | | | | | | performed at [facility];888 | | | | | | [address];[place] | | | | | | [address] | | | | + + + + + + | Benzodiazep | NEGATIVEComment: | | EXTERNAL | | | donald | Positive cutoff for | | LAB | | | Screen, | BENZO = 200 ng/mLTesting | | | | | Urine | performed at [facility];888 | | | | | | [address];[place] | | | | | | [address] | | | | + + + + + + | Cocaine | NEGATIVEComment: | | EXTERNAL | | | | Positive cutoff for | | LAB | | | | JOURDAN = 300 ng/mLTesting | | | | | | performed at [facility];888 | | | | | | [address];[place] | | | | | | [address] | | | | + + + + + + | Methadone | NEGATIVEComment: | | EXTERNAL | | | | Positive cutoff for | | LAB | | | | MTD = 300 ng/mLTesting | | | | | | performed at [facility];888 | | | | | | [address];[place] | | | | | | [address] | | | | + + + + + + | Opiates | POSITIVE (A)Comment: | | EXTERNAL | | | | Positive cutoff for | | LAB | | | | OPI = 300 ng/mLTesting | | | | | | performed at [facility];888 | | | | | | [address];[place] | | | | | | [address] | | | | + + + + + + | PCP | NEGATIVEComment: | | EXTERNAL | | | | Positive cutoff for PCP | | LAB | | | | = 25 ng/mLTesting | | | | | | performed at [facility];888 | | | | | | [address];[place] | | | | | | [address] | | | | + + + [...] | | | | | performed at [facility];88 | | | | | | [facility];[place], [place] | | | | | | [address] | | | | + + + [...] EXTERNAL | | | | performed at [facility];888 | | LAB | | | | [address];[place] | | | | | | [address] | | | | + + + + + + | RBC, UA | 1-5Comment: Testing | 0 - 2 /hpf | EXTERNAL | | | | performed at [facility];888 | | LAB | | | | [address];[place] | | | | | | [address] | | | | + + + + + + | Epithelial | 1-5Comment: Testing | /lpf | EXTERNAL | | | Cells | performed at [facility];888 | | LAB | | | | [address];[place] | | | | | | [address] | | | | + + + + + + | Bacteria, | TRACE (A)Comment: | | EXTERNAL | | | UA | Testing performed at | | LAB | | | | [facility];[address];[place] [address] | | | | + + + + + + | Urinalysis | LESS THAN 10 ML | | EXTERNAL | | | Comments | SPECIMENComment: Testing | | LAB | | | | performed at [facility];[address] | | | | | | [address];[place] | | | | | | [address] | | | | + + + [...] EXTERNAL | | | | performed at [facility] | | LAB | | | | [address];[place] | | | | | | [address] | | | | + + + + + + | Clarity | CLEARComment: Testing | | EXTERNAL | | | | performed at [facility];888 | | LAB | | | | [address];[place] | | | | | | [address] | | | | + + + + + + | Specific | 1.015Comment: Testing | 1.001 - 1.035 | EXTERNAL | | | [place], | performed at [facility];888 | | LAB | | | Urine | [address];[place] | | | | | | [address] | | | | + + + + + + | Leukocyte | NEGATIVEComment: Testing | | EXTERNAL | | | Esterase, | performed at [facility];888 | | LAB | | | Urine | [address];[place] | | | | | | [address] | | | | + + + + + + | Nitrite, | NEGATIVEComment: Testing | | EXTERNAL | | | Urine | performed at [facility];888 | | LAB | | | | [address];[place] | | | | | | [address] | | | | + + + + + + | Urobilinoge | 0.2Comment: Testing | mg/dL | EXTERNAL | | | n, Urine | performed at [facility];888 | | LAB | | | | [address];[place] | | | | | | [address] | | | | + + + + + + | Protein, | 100 (A)Comment: Testing | mg/dL | EXTERNAL | | | Urine | performed at [facility];888 | | LAB | | | | [address];[place] | | | | | | [address] | | | | + + + + + + | pH, Urine | 6.5Comment: Testing | 4.6 - 8.0 | EXTERNAL | | | | performed at [facility];888 | | LAB | | | | [address];[place] | | | | | | [address] | | | | + + + + + + | Blood, | SMALL (A)Comment: | | EXTERNAL | | | Urine | Testing performed at | | LAB | | | | [facility];[address];[place] [address] | | | | + + + + + + | Ketones | NEGATIVEComment: Testing | mg/dL | EXTERNAL | | | | performed at [facility];888 | | LAB | | | | [address];[place] | | | | | | [address] | | | | + + + + + + | Bilirubin, | NEGATIVEComment: Testing | | EXTERNAL | | | Urine | performed at [facility];888 | | LAB | | | | [address];[place] | | | | | | [address] | | | | + + + + + + | Glucose, | NEGATIVEComment: Testing | mg/dL | EXTERNAL | | | Urine | performed at [facility];888 | | LAB | | | | [address];[place], [place] | | | | | | [address] | | | | + + + [...] EXTERNAL LAB | | Testing performed at [address];[place] [address] MRSA PCR | | | NEGATIVE Testing performed at | | | [address];[place] [address] | | + + + + +---------+ [...]
--- OUTSIDE RECORDS SUMMARY | ~2019-10-12 | XMS | Encounter Summary ---
Demographics + + + | Address | [address] | | | [place] [address] | + + + | Home Phone [...] [place] | | | | | [address] | | + + + + + Care Team Providers + +------+ + | Care Hyster Driver Name | Role | Phone | [...] | | | | | | Mailcode: [facility] | | | | | | [facility] | | | | | | and Healing, | | | | | | Building | | | | | | Floor [place], [place] | | | | | | [address] | | | | | | [phone] | | | +--------+ + + + [...]
--- OUTSIDE RECORDS SUMMARY | ~2019-10-12 | XMS | Encounter Summary ---
Demographics + + + | Address | [address] | | | [place] [address] | + + + | Home Phone [...] [place] | | | | | [address] | | + + + + + Care Team Providers + +------+ + | Care Professor Of Visual Arts Name | Role | Phone | + [...] at [facility] [address] | | | | | | [address] | | | | | | Mailcode: CH16D | | | | | | [facility] | | | | | | and Healing, | | | | | | Building | | | | | | Floor [place], [place] | | | | | | [address] | | | | | | [phone] | | | +--------+ + + + [...]
--- OUTSIDE RECORDS SUMMARY | ~2019-10-12 | XMS | Encounter Summary ---
Demographics + + + | Address | [address] | | | [place] [address] | + + + | Home Phone | | + + + | Preferred Language | Unknown | + + + | Marital Status | | + + + | Muslim Affiliation | 1013 | + + + | Race | Unknown | + + + | Ethnic Group | Unknown | + + + Author + + + | Author | [facility] | | | and [place] | + + + | Organization | [facility] | | | and [place] | [...] Team Providers + +------+ + | Care Curber Name | Role | Phone | + [...] [place] | | | | | | [address] | (Fax) | | | | | [phone] | | | +--------+ + + + [...]
--- OUTSIDE RECORDS SUMMARY | ~2019-10-12 | XMS | Encounter Summary ---
Demographics + + + | Address | [address] | | | [place] [address] | + + + | Home Phone [...] [place] | | | | | [address] | | + + + + + Care Team Providers + +------+ + | Care Percolator Operator Name | Role | Phone | + +------+ + | Julio Cesar Davis MD | PCP | | + +------+ + Encounter Details +--------+ + + + + | Date | Type | Department | Care Team | Description | +--------+ + + + + | 06/12/ | Telephone | Dermatology | Ashia Vuong, | | | 2006 | | Medical at [facility] [address] | | | | | | [address] | | | | | | Mailcode: CH16D | | | | | | [facility] | | | | | | and Healing, | | | | | | Building | | | | | | Floor [place], [place] | | | | | | [address] | | | | | | [phone] | | | +--------+ + + + [...]
--- OUTSIDE RECORDS SUMMARY | ~2019-10-12 | XMS | Encounter Summary ---
Demographics + + + | Address | [address] | | | [place] [address] | + + + | Home Phone [...] [place] | | | | | [address] | | + + + + + Care Team Providers + +------+ + | Care Restoration Silversmith Name | Role | Phone | + [...] | | | | | Osteonecrosi | [address] | [address] | | | | | s ([facility]) | [address] | Evelia | | | | | Procedures | [address] | [place], [place] | | | | | CONSULT TO | [facility], [place] | [address] | | | | | ORTHOPEDICS | [address] | Phone: | | | | | AND | Phone: | [phone] | | | | | REHABILITATI | [phone] | Fax: | | | | | ON | Fax: | [phone] | | | | | | [phone] | | +--------+--------+ + + + + [...] | | | | FAMILY | Rd [place], | | | | | | MEDICINE | [place] | | | | | | [address] | [address] | | | | | | [address] [place] | Phone: | | | | | | [place], | [phone] | | | | | | [place] [address] | Fax: | | | | | | Phone: | [phone] | | | | | | [phone] | | | | | | | Fax: | | | | | | | [phone] | | +--------+--------+ + + + + Encounter Details +--------+---------+ + + + | Date | Type | Department | Care Team | Description | +--------+---------+ + + + | 02/20/ | Office | Rheumatology at | Al[place], | Psoriasis (Primary | | 2014 | Visit | Physicians [facility] | MD Mar[address] | Dx); Arthritis; | | | | [address] | [address] | Osteonecrosis (HCC) | | | | [address] | [address] [place], [place] | | | | | [place], [address]th Floor | [address] | | | | | [place], [place] | [phone] | | | | | [address] | | | | | | [phone] | | | +--------+---------+ + + + [...] care. DOMINICK MALHOTRA MD (ATUL) RHEUMATOLOGY FACULTY [address] [place] [address] María Carney MD - 02/20/2015 10:53 AM PDT RHEUMATOLOGY NEW PATIENT CONSULT This consultation was requested by: Tod Rivas MD [address] [address] fax: [phone] CC: Chief Complaint Patient presents with New [...] a history of dactylitis, plantar fasciitis, and Springfield's tendon pain. The patient does have a [...] joint line tenderness, no effusion or warmth. Springfield's tendon without pain at insertion site. MTP [...] any history of dactylitis, plantar fascittis, or Springfield's tendon pain (enthesitis). 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 [...] d plan. MARÍA HAMILTON MD RHEUMATOLOGY AT [address] Mailcode: [address] [place] [address] documented in thi s encounter [...] [facility] | [address] | [place] [address] | | | SERVICES, CORE | PARK [...] | + + + + + | [facility] | [address] | [place] [address] | | | SERVICES, CORE | CASTRO [...] | | | | | | and [id number] | | | | | | alignment [...] | | + +---------+ + + | [facility] | | | | | [...] | | + +---------+ + + | [facility] | | | | | [...]
--- OUTSIDE RECORDS SUMMARY | ~2019-10-12 | XMS | Encounter Summary ---
Demographics + + + | Address | [address] | | | [place] [address] | + + + | Home Phone [...] [place] | | | | | [address] | | + + + + + Care Team Providers + +------+ + | Care Installment Loan Collector Name | Role | Phone | + [...] | | 2006 | | Medical at [facility] [address] | | | | | | [address] | | | | | | Mailcode: CH16D | | | | | | [facility] | | | | | | and Healing, | | | | | | Building | | | | | | Floor [place], [place] | | | | | | [address] | | | | | | [phone] | | | +--------+ + + + [...]
--- OUTSIDE RECORDS SUMMARY | 2019-10-12 12:56 | XMS ---
PreManage Notification: ROBERTO MCINTOSH Security Doggy Daycare Activities Director Events No recent Security Events currently on file CRITERIA MET - Group Notification - [facility] - 2 Visits in 30 Days CARE PROVIDERS LOVELY RIVAS [facility] 02/09/2018-Current PHONE: [phone] Miryam has no Care Guidelines for this patient. Care History [facility] PCP, Dr. Lovely Rivas, is no longer rx\T\#39;ing any opiate/ opioids or benzodiazepines for patient. Substance Use/Overdose 12/29/2017 [facility] Patient PCP, Dr. Lovely Rivas, is no longer rx\T\#39;ing any opiate/ opioids or benzodiazepines for patient. 12/24/2017 [facility] PATIENT CAME TO ED FOR PAIN MEDS FOR BACK PAIN 12/22/17.\T\nbsp; STATED HE HAS RUN OUT OF PAIN MEDICATIONS.\T\nbsp; HE HAD FILLED SCRIPT FOR 185 OXYCODONE ON 12/05/17.\T\nbsp; PRIMARY CARE PHYSICIAN DR RIVAS WAS NOTIFIED.\T\nbsp; PLEASE USE CAUTION WITH PRESCRIBING ANY NARCOTICS WITHOUT CHECKING WITH PRIMARY CARE AT [phone]. E.D. VISIT COUNT (12 MO.) [address] [facility] TOTAL 4 NOTE: Visits indicate total known visits. ED/UCC VISIT TRACKING (12 MO.) 10/12/2019 12:54 [facility] [place] TYPE: Emergency COMPLAINT: - COUGH/BRUISED RIBS 09/27/2019 15:12 [facility] [place] TYPE: Emergency COMPLAINT: - BLOATING DIAGNOSES: - Other custodial (current) drug therapy - Essential (primary) hypertension - Nicotine dependence, unspecified, uncomplicated - Abdominal distension (gaseous) 06/27/2019 16:44 [facility] [place] TYPE: Emergency COMPLAINT: - SWOLLEN EXTREMETIES DIAGNOSES: - Personal history of nicotine dependence - senior care (current) use of systemic steroids - Other computer terminal operator (current) drug therapy - Psoriasis, unspecified - Essential (primary) hypertension 02/07/2019 07:45 [facility] [place] TYPE: Emergency COMPLAINT: - SKIN PROBLEM DIAGNOSES: - Essential (primary) hypertension - Nicotine dependence, unspecified, uncomplicated - Psoriasis, unspecified - senior care (current) use of systemic steroids - Other custodial (current) drug therapy INPATIENT VISIT TRACKING (12 MO.) No inpatient visits to display in this time frame [email or web address]
[2019-10-12] MEDS ORDERED: NORCO 10-325 T1 EACH PO (14:41)
== END 2019-10-12 15:04 | disposition home or self-care (01) ==
LOC: ED 12:53
DX: S22.32XA Fracture of one rib, left side, initial encounter for closed fracture (principal); I10 Essential (primary) hypertension; F17.200 Nicotine dependence, unspecified, uncomplicated; Z71.6 Tobacco abuse counseling; Z79.899 Other long term (current) drug therapy; W19.XXXA Unspecified fall, initial encounter
CPT/HCPCS: 71101; 99283-25; 99406

== ENCOUNTER 2019-11-15 16:37 | Emergency (ER) | payer MEDICARE ==
[~2019-11-15] VITALS: Ht 172.7 cm; Wt 105.6 kg
--- OUTSIDE RECORDS SUMMARY | ~2019-11-15 | XMS | Encounter Summary ---
Demographics + + + | Address | [address] | | | [place] [address] | + + + | Home Phone | | + + + | Preferred Language | Unknown | + + + | Marital Status | | + + + | Hindu Affiliation | 1013 | + + + | Race | Unknown | + + + | Ethnic Group | Unknown | + + + Author + + + | Author | [facility] | | | and [place] | + + + | Organization | [facility] | | | and [place] | + + + | Address | Unknown | + + + | Phone | Unavailable | + + + Support + + +---------+ + | Name | Relationship | Address | Phone | + + +---------+ + | Detailed Message | ECON | Unknown | | + + +---------+ + Care Team Providers + +------+ + | Care Client Account Assistant Name | Role | Phone | + +------+ + PCP | Unavailable | + +------+ + Encounter Details +--------+ + + + + | Date | Type | Department | Care Team | Description | +--------+ + + + + | 12/06/ | Hospital | [facility] GENERIC IP | Conversion | Pain | | 2014 | Encounter | CONVERSION DEP [address] | Transaction, | | | | | VINNY QUAN | Provider Unknown | | | | | [place] | | | | | | [address] | (Fax) | | | | | [phone] | | | +--------+ + + + + Social History + +-------+ +--------+------+ | Tobacco Use | Types | Packs/Day | Years | Date | | | | | Used | | + +-------+ +--------+------+ | Current Every Day | | 1.5 | | | | Smoker | | | | | + +-------+ [...] | + +--------+ + + + | MRI CERVICAL SPINE | Routin | 11/13/2014 | | Results for this | | WO CONTRAST | e | 2:56 AM | | procedure are in the | | | | PDT | | results section. | + +--------+ + + + documented in this encounter Results MRI Cervical Spine wo Contrast (11/13/2014 2:56 AM PDT) + + | Specimen | + + | | + + + + + | Narrative | Performed At | + + + | This is a non-reportable procedure without a radiologist report and | | | is used for image storage only | | + + + + + | Procedure Note | + + | Dwayne Gonzalez Aleksandr - 01/21/2019 6:29 AM PDT This is a non-reportable procedure | | without a radiologist report and isused for image storage only | + + documented in this encounter Visit Diagnoses + + | Diagnosis | + + | Pain Generalized pain | + + documented in this encounter"
--- OUTSIDE RECORDS SUMMARY | ~2019-11-15 | XMS | Clinical Summary ---
Demographics + + + | Address | [address] | | | [place] [address] | + + + | Home Phone | | + + + | Preferred Language | Unknown | + + + | Marital Status | | + + + | Holiness Affiliation | 1013 | + + + | Race | Unknown | + + + | Ethnic Group | Unknown | + + + Author + + + | Author | [facility] | | | and [place] | + + + | Organization | [facility] | | | and [place] | [...] Team Providers + +------+ + | Care Full Fashioned Garment Knitter Name | Role | Phone | + +------+ + | Tod Rivas | PCP | | | MD | | | + +------+ + Allergies Not on File Medications Not on file Active Problems Not on file Social History + +-------+ +--------+------+ | Tobacco [...] recent travel history available. | + + Last Filed Vital Signs Not on file Plan of Treatment + + + + + | Health Maintenance | Due Date | Last Done | Comments | + + + + + | Vaccine: | | | | | Dtap/Tdap/Td (1 - | 6 | | | | Tdap) | | | | + + + + + | Vaccine: Zoster (1 | | | | | of 2) | 5 | | | + + + + + | Vaccine: | | | | | Pneumococcal 65+ (1 | 0 | | | | of 2 - PCV13) | | | | + + + + + | Vaccine: Influenza | | | | | (Season Ended) | 0 | | | + + + + + Results Not on filefrom Last 3 Months Insurance + +--------+ +--------+ +---------+--------+ | Payer | Benefi | Subscriber | Effect | Phone | Address | Type | | | t Plan | ID | soniya | | | | | | / | | Dates | | | | | | Group | | | | | | + +--------+ +--------+ +---------+--------+ | MEDICARE | MEDICA | [id number] | 01/07/20 | [phone] | | Medica | | | RE | | 15-Pre | 5 | | re | | | PART A | | sent | | | | | | AND B | | | | | | + +--------+ +--------+ +---------+--------+ + +--------+ +--------+ + + | Guarantor Name | Accoun | Relation to | Date | Phone | Billing Address | | | t Type | Patient | of | | | | | | | | | | + +--------+ +--------+ + + | Khai Payne | Person | Self [birth year] | | Y[address] | al/Fam | | 1956 | [phone] | [place] [address] | | | kim | | | 8 (Home) | | + +--------+ +--------+ + +"
--- OUTSIDE RECORDS SUMMARY | ~2019-11-15 | XMS | Encounter Summary ---
Demographics + + + | Address | [address] | | | [place] [address] | + + + | Home Phone | | + + + | Preferred Language | Unknown | + + + | Marital Status | | + + + | Nondenominational Affiliation | PRO | + + + | Race | White | + + + | Ethnic Group | Not or | + + + Author + + + | Author | [facility] | + + + | Organization | [facility] | + + + | Address | Unknown | + + + | Phone | Unavailable | + + + Support + + + + + | Name | Relationship | Address | Phone | + + + + + | Marnie Payne | ECON | [address] | | | | | [place] | | | | | [address] | | + + + + + Care Team Providers + +------+ + | Care Industrial Ecology Technician Name | Role | Phone | + +------+ + | Julio Cesar Davis MD | PCP | | + +------+ + Reason for Visit + + + | Reason | Comments | + + + | Refill Request | | + + + Encounter Details +--------+--------+ + + + | Date | Type | Department | Care Team | Description | +--------+--------+ + + + | 10/10/ | Refill | Dermatology | Ashia Vuong, | Refill Request | | 2007 | | Medical at [facility] [address] | | | | | | [address] | | | | | | Mailcode: [id number] | | | | | | [facility] | | | | | | and [address], | | | | | | Building | | | | | | Floor [place], [place] | | | | | | [address] | | | | | | [phone] | | | +--------+--------+ + + + Social History + +-------+ [...]
--- OUTSIDE RECORDS SUMMARY | ~2019-11-15 | XMS | Encounter Summary ---
Demographics + + + | Address | [address] | | | [place] [address] | + + + | Home Phone | | + + + | Preferred Language | Unknown | + + + | Marital Status | | + + + | Confucianist Affiliation | 1013 | + + + | Race | Unknown | + + + | Ethnic Group | Unknown | + + + Author + + + | Author | [facility] | | | and [place] | + + + | Organization | [facility] | | [...] Team Providers + +------+ + | Care Attic Blower Name | Role | Phone | + +------+ + PCP | Unavailable | + +------+ + Encounter Details +--------+ + + + + | Date | Type | Department | Care Team | Description | +--------+ + + + + | 06/16/ | Hospital | [facility] | Conversion | Pain | | 2014 | Encounter | CONVERSION DEP [address] | Transaction, | | | | | [address] | Provider Unknown | | | | | [place] | | | | | | [phone] | (Fax) | | | | | [phone] | | | +--------+ + + + [...] | + +--------+ + + + | CT HEAD WO CONTRAST | Routin | 05/29/2014 | | Results for this | | | e | 1:39 PM | | procedure are in the | | | | PST | | results section. | + +--------+ + + + documented in this encounter Results CT Head wo Contrast (05/29/2014 1:39 PM PST) + + | Specimen | + [...]
--- OUTSIDE RECORDS SUMMARY | ~2019-11-15 | XMS | Encounter Summary ---
Demographics + + + | Address | [address] | | | [place] [address] | + + + | Home Phone | | + + + | Preferred Language | Unknown | + + + | Marital Status | | + + + | Mosque Affiliation | 1013 | + + + | Race | Unknown | + + + | Ethnic Group | Unknown | + + + Author + + + | Author | [facility] | | | and [place] | + + + | Organization | [facility] | | | and [place] | [...] Team Providers + +------+ + | Care Yarn Weight And Strength Tester Name | Role | Phone | + [...] [place] | | | | | | [address] | (Fax) | | | | | [phone] | | | +--------+ + + + [...]
--- OUTSIDE RECORDS SUMMARY | ~2019-11-15 | XMS | Encounter Summary ---
Demographics + + + | Address | [address] | | | [place] [address] | + + + | Home Phone | | + + + | Preferred Language | Unknown | + + + | Marital Status | | + + + | Mosque Affiliation | PRO | + + + | Race | White | + + + | Ethnic Group | Not or | + + + Author + + + | Author | [facility] | + + + | Organization | [facility] | + + + | Address | Unknown | + + + | Phone | Unavailable | + + + Support + + + + + | Name | Relationship | Address | Phone | + + + + + | Marnie Payne | ECON | [address] | | | | | [place] | | | | | [address] | | + + + + + Care Team Providers + +------+ + | Care Internal Audit Consultant Name | Role | Phone | + +------+ + | Julio Cesar Davis MD | PCP | | + +------+ + Reason for Visit + + + | Reason | Comments | + + + | Medication requested | | + + + Encounter Details +--------+ + + + + | Date | Type | Department | Care Team | Description | +--------+ + + + + | 06/11/ | Telephone | Dermatology | Ashia Vuong, | Medication requested | | 2006 | | Medical at [facility] [address] | MD | | | | | [address] | | | | | | Mailcode: [facility] | | | | | | [facility] | | | | | | and Healing, | | | | | | Building | | | | | | Floor [place], [place] | | | | | | [address] | | | | | | [phone] | | | +--------+ + + + [...]
--- OUTSIDE RECORDS SUMMARY | ~2019-11-15 | XMS | Encounter Summary ---
Demographics + + + | Address | [address] | | | [place] [address] | + + + | Home Phone | | + + + | Preferred Language | Unknown | + + + | Marital Status | | + + + | Caodaism Affiliation | 1013 | + + + | Race | Unknown | + + + | Ethnic Group | Unknown | + + + Author + + + | Author | [facility] | | | and [place] | + + + | Organization | [facility] | | | and [place] [...] Team Providers + +------+ + | Care Sand Plant Attendant Name | Role | Phone | + +------+ + PCP | Unavailable | + +------+ + Encounter Details +--------+ + + + + | Date | Type | Department | Care Team | Description | +--------+ + + + + | 07/18/ | Hospital | [facility] | Conversion | | | 2015 | Encounter | [facility] | Transaction, | | | | | [address] | Provider Unknown | | | | | [place] | | | | | | [address] | (Fax) | | | | | [phone] | | | +--------+ + + + [...]
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
--- OUTSIDE RECORDS SUMMARY | ~2019-11-15 | XMS | Encounter Summary ---
Demographics + + + | Address | [address] | | | [place] [address] | + + + | Home Phone | | + + + | Preferred Language | Unknown | + + + | Marital Status | | + + + | Yarsanism Affiliation | PRO | + + + | Race | White | + + + | Ethnic Group | Not or | + + + Author + + + | Author | [facility] | + + + | Organization | [facility] | + + + | Address | Unknown | + + + | Phone | Unavailable | + + + Support + + + + + | Name | Relationship | Address | Phone | + + + + + | Marnie Payne | ECON | [address] | | | | | [place] | | | | | [address] | | + + + + + Care Team Providers + +------+ + | Care Reproduction Specialist Name | Role | Phone | + +------+ + | Julio Cesar Davis MD | PCP | | + +------+ + Reason for Visit +--------+ + | Reason | Comments | +--------+ + | Other | | +--------+ + Encounter Details +--------+ + + + + | Date | Type | Department | Care Team | Description | +--------+ + + + + | 08/04/ | Telephone | Dermatology | Ashia Vuong, | Other | | 2006 | | Medical at [facility] [address] | | | | | | [address] | | | | | | Mailcode: [id number] | | | | | | [facility] | | | | | | and Healing, | | | | | | Building | | | | | | Floor [place], [place] | | | | | | [address] | | | | | | [phone] | | | +--------+ + + + [...]
--- OUTSIDE RECORDS SUMMARY | ~2019-11-15 | XMS | Encounter Summary ---
Demographics + + + | Address | [address] | | | [place] [address] | + + + | Home Phone [...] + + + | Author | [facility] | + + + | Organization | [facility] | + + + | Address | Unknown | + + + | Phone | Unavailable | + + + Support + + + + + | Name | Relationship | Address | Phone | + + + + + | Marnie Payne | ECON | [address] | | | | | [place] | | | | | [address] | | + + + + + Care Team Providers + +------+ + | Care Taxi Driver Supervisor Name | Role | Phone | + [...] | | 2006 | | Medical at [facility] [address] | | | | | | [address] | | | | | | Mailcode: [id number] | | | | | | [facility] | | | | | | and Healing, | | | | | | Building | | | | | | Floor [place], [place] | | | | | | [address] | | | | | | [phone] | | | +--------+ + + + [...]
--- OUTSIDE RECORDS SUMMARY | ~2019-11-15 | XMS | Encounter Summary ---
Demographics + + + | Address | [address] | | | [place] [address] | + + + | Home Phone | | + + + | Preferred Language | Unknown | + + + | Marital Status | | + + + | Scientology Affiliation | [id number] | + + + | Race | Unknown | + + + | Ethnic Group | Unknown | + + + Author + + + | Author | [facility] | | | and [place] | + + + | Organization | [facility] | | | and [place] [...] Team Providers + +------+ + | Care Nail Tech Name | Role | Phone | + +------+ + PCP | Unavailable | + +------+ + Encounter Details +--------+ + + + + | Date | Type | Department | Care Team | Description | +--------+ + + + + | 06/20/ | Hospital | [facility] | Conversion | Pain | | 2014 | Encounter | CONVERSION DEP [address] | Transaction, | | | | | VINNY QUAN | Provider Unknown | | | | | [place] | | | | | | [address] | (Fax) | | | | | [phone] | | | +--------+ + + + [...] + +--------+ + + + | MRI BRAIN WO | Routin | 05/29/2014 | | Results for this | | CONTRAST | e | 6:21 AM | | procedure are in the | | | | PST | | results section. | + +--------+ + + + documented in this encounter Results MRI Brain wo Contrast (05/29/2014 6:21 AM PST) + + | Specimen [...]
--- OUTSIDE RECORDS SUMMARY | ~2019-11-15 | XMS | Encounter Summary ---
Demographics + + + | Address | [address] | | | [place] [address] | + + + | Home Phone | | + + + | Preferred Language | Unknown | + + + | Marital Status | | + + + | Holiness Affiliation | PRO | + + + | Race | White | + + + | Ethnic Group | Not or | + + + Author + + + | Author | [facility] | + + + | Organization | [facility] | + + + | Address | Unknown | + + + | Phone | Unavailable | + + + Support + + + + + | Name | Relationship | Address | Phone | + + + + + | Marnie Payne | ECON | [address] | | | | | [place] | | | | | [address] | | + + + + + Care Team Providers + +------+ + | Care Adhesive Bonding Machine Operator Name | Role | Phone | [...] | | 2006 | | Medical at [facility] [address] | | | | | | [address] | | | | | | Mailcode: [id number] | | | | | | [facility] | | | | | | and Healing, | | | | | | Building | | | | | | Floor [place], [place] | | | | | | [address] | | | | | | [phone] | | | +--------+ + + + [...]
--- OUTSIDE RECORDS SUMMARY | ~2019-11-15 | XMS | Encounter Summary ---
Demographics + + + | Address | [address] | | | [place] [address] | + + + | Home Phone | | + + + | Preferred Language | Unknown | + + + | Marital Status | | + + + | Restorationist Affiliation | PRO | + + + | Race | White | + + + | Ethnic Group | Not or | + + + Author + + + | Author | [facility] | + + + | Organization | [facility] | + + + | Address | Unknown | + + + | Phone | Unavailable | + + + Support + + + + + | Name | Relationship | Address | Phone | + + + + + | Marnie Payne | ECON | [address] | | | | | [place] | | | | | [address] | | + + + + + Care Team Providers + +------+ + | Care Crusher Loader Equipment Operator Name | Role | Phone | + +------+ + | Jluio Cesar Davis MD | PCP | | + +------+ + Reason for Visit +--------+ + | Reason | Comments | +--------+ + | Other | | +--------+ + Encounter Details +--------+ + + + + | Date | Type | Department | Care Team | Description | +--------+ + + + + | 07/28/ | Telephone | Dermatology | Ashia Vuong, | Other | | 2006 | | Medical at [facility] [address] | | | | | | [address] | | | | | | Mailcode: CH16D | | | | | | [facility] | | | | | | and Healing, | | | | | | Building | | | | | | Floor [place], [place] | | | | | | [address] | | | | | | [phone] | | | +--------+ + + + [...]
--- OUTSIDE RECORDS SUMMARY | ~2019-11-15 | XMS | Encounter Summary ---
Demographics + + + | Address | [address] | | | [place] [address] | + + + | Home Phone | | + + + | Preferred Language | Unknown | + + + | Marital Status | | + + + | Yarsani Affiliation | PRO | + + + | Race | White | + + + | Ethnic Group | Not or | + + + Author + + + | Author | [facility] | + + + | Organization | [facility] | + + + | Address | Unknown | + + + | Phone | Unavailable | + + + Support + + + + + | Name | Relationship | Address | Phone | + + + + + | Marnie Payne | ECON | [address] | | | | | [place] | | | | | [address] | | + + + + + Care Team Providers + +------+ + | Care Film Coater Name | Role | Phone | + +------+ + | Julio Cesar Davis MD | PCP | | + +------+ + Reason for Visit + + + | Reason | Comments | + + + | Skin problem | | + + + Encounter Details +--------+ + + + + | Date | Type | Department | Care Team | Description | +--------+ + + + + | 06/11/ | Telephone | Dermatology | Ashia Vuong, | Skin problem | | 2006 | | Medical at [facility] [address] | | | | | | [address] | | | | | | Mailcode: [id number] | | | | | | [facility] | | | | | | and Healing, | | | | | | Building | | | | | | Floor [place], [place] | | | | | | [address] | | | | | | [phone] | | | +--------+ + + + [...]
--- OUTSIDE RECORDS SUMMARY | ~2019-11-15 | XMS | Encounter Summary ---
Demographics + + + | Address | [address] | | | [place] [address] | + + + | Home Phone | | + + + | Preferred Language | Unknown | + + + | Marital Status | | + + + | Zoroastrian Affiliation | PRO | + + + [...] [place] | | | | | [address] | | + + + + + Care Team Providers + +------+ + | Care Firmware Architect Name | Role | Phone | + [...] | | | | | | [place], [address] [place] [address] | | | | | | [place], [place] | | | | | | [address] | | | | | | [phone] | | | +--------+------+ + + + [...] | + + + + + | [facility] | [address] | [place] [address] | | | SERVICES, CORE | CASTRO [...] [facility] | [address] | [place] [address] | | | SERVICES, CORE | [address] | | | + + + + + documented in this encounter Visit Diagnoses + + | Diagnosis | + + | Psoriasis Other psoriasis | + + | Arthritis Arthropathy, unspecified, site unspecified | + + documented in this encounter"
--- OUTSIDE RECORDS SUMMARY | ~2019-11-15 | XMS | Encounter Summary ---
Demographics + + + | Address | [address] | | | [place] [address] | + + + | Home Phone | | + + + | Preferred Language | Unknown | + + + | Marital Status | | + + + | Scientologist Affiliation | PRO | + + + | Race | White | + + + | Ethnic Group | Not or | + + + Author + + + | Author | [facility] | + + + | Organization | [facility] | + + + | Address | Unknown | + + + | Phone | Unavailable | + + + Support + + + + + | Name | Relationship | Address | Phone | + + + + + | Marnie Payne | ECON | [address] | | | | | [place] | | | | | [address] | | + + + + + Care Team Providers + +------+ + | Care Blood Bank Laboratory Technician Name | Role | Phone | [...] [facility] | | | | | | [address] | | | | | | [facility] | | | | | | [place], [address] Floor | | | | | | [place], [place] | | | | | | [address] | | | | | | [phone] | | | +--------+ + + + [...] pt get | 0 | 0 | 10/11/19 | | | Oral Capsule | RX [...] | | | | signed / AYESHA VALADEZ | | | | | | 02/20/2015 [...]
--- OUTSIDE RECORDS SUMMARY | ~2019-11-15 | XMS | Encounter Summary ---
Demographics + + + | Address | [address] | | | [place] [address] | + + + | Home Phone [...] [place] | | | | | [address] | | + + + + + Care Team Providers + +------+ + | Care Health Safety Specialist Name | Role | Phone | + +------+ + | Julio Cesar Davis MD | PCP | | + +------+ + Encounter Details +--------+ + + + + | Date | Type | Department | Care Team | Description | +--------+ + + + + | 06/12/ | Telephone | Dermatology | Ashia Vuong, | | | 2006 | | Medical at [facility] [address] | | | | | | [address] | | | | | | Mailcode: [id number] | | | | | | [facility] | | | | | | and Healing, | | | | | | Building | | | | | | Floor [place], [place] | | | | | | [address] | | | | | | [phone] | | | +--------+ + + + [...]
--- OUTSIDE RECORDS SUMMARY | ~2019-11-15 | XMS | Encounter Summary ---
Demographics + + + | Address | [address] | | | [place] [address] | + + + | Home Phone | | + + + | Preferred Language | Unknown | + + + | Marital Status | | + + + | Restorationism Affiliation | PRO | + + + | Race | White | + + + | Ethnic Group | Not or | + + + Author + + + | Author | [facility] | + + + | Organization | [facility] | + + + | Address | Unknown | + + + | Phone | Unavailable | + + + Support + + + + + | Name | Relationship | Address | Phone | + + + + + | Marnie Payne | ECON | [address] | | | | | [place] | | | | | [address] | | + + + + + Care Team Providers + +------+ + | Care Supervisor Prop Making Name | Role | Phone | + +------+ + | Julio Cesar Davis MD | PCP | | + +------+ + Encounter Details +--------+ + + + + | Date | Type | Department | Care Team | Description | +--------+ + + + + | 06/12/ | Telephone | Dermatology | Ashia Vuong, | | | 2006 | | Medical at [facility] [address] | | | | | | [address] | | | | | | Mailcode: CH16D | | | | | | [facility] | | | | | | and Healing, | | | | | | Building | | | | | | Floor [place], [place] | | | | | | [address] | | | | | | [phone] | | | +--------+ + + + [...]
--- OUTSIDE RECORDS SUMMARY | ~2019-11-15 | XMS | Encounter Summary ---
Demographics + + + | Address | [address] | | | [place] [address] | + + + | Home Phone | | + + + | Preferred Language | Unknown | + + + | Marital Status | | + + + | Scientology Affiliation | 1013 | + + + | Race | Unknown | + + + | Ethnic Group | Unknown | + + + Author + + + | Author | [facility] | | | and [place] | + + + | Organization | [facility] | | | and [place] [...] Team Providers + +------+ + | Care Church History Professor Name | Role | Phone | + +------+ + PCP | Unavailable | + +------+ + Encounter Details +--------+ + + + + | Date | Type | Department | Care Team | Description | +--------+ + + + + | 06/20/ | Hospital | [facility] | Conversion | Pain | | 2014 | Encounter | CONVERSION DEP [address] | Transaction, | | | | | VINNY QUAN | Provider Unknown | | | | | [place] | | | | | | [phone] | (Fax) | | | | | [phone] | | | +--------+ + + + [...]
--- OUTSIDE RECORDS SUMMARY | ~2019-11-15 | XMS | Encounter Summary ---
Demographics + + + | Address | [address] | | | [place] [address] | + + + | Home Phone | | + + + | Preferred Language | Unknown | + + + | Marital Status | | + + + | Mormonism Affiliation | 1013 | + + + | Race | Unknown | + + + | Ethnic Group | Unknown | + + + Author + + + | Author | [facility] | | | and [place] | + + + | Organization | [facility] | | | and [place] [...] Team Providers + +------+ + | Care Bulb Grader Name | Role | Phone | + +------+ + PCP | Unavailable | + +------+ + Encounter Details +--------+ + + + + | Date | Type | Department | Care Team | Description | +--------+ + + + + | 06/20/ | Hospital | [facility] | Conversion | Pain | | 2014 | Encounter | CONVERSION DEP [address] | Transaction, | | | | | VINNY QUAN | Provider Unknown | | | | | [place] | | | | | | [phone] | (Fax) | | | | | [phone] | | | +--------+ + + + [...]
--- OUTSIDE RECORDS SUMMARY | ~2019-11-15 | XMS | Encounter Summary ---
Demographics + + + | Address | [address] | | | [place] [address] | + + + | Home Phone | | + + + | Preferred Language | Unknown | + + + | Marital Status | | + + + | Samaritan Affiliation | 1013 | + + + | Race | Unknown | + + + | Ethnic Group | Unknown | + + + Author + + + | Author | [facility] | | | and [place] | + + + | Organization | [facility] | | | and [...] Team Providers + +------+ + | Care Braille Transcriber Name | Role | Phone | + +------+ + PCP | Unavailable | + +------+ + Encounter Details +--------+ + + + + | Date | Type | Department | Care Team | Description | +--------+ + + + + | 06/20/ | Hospital | [facility] | Conversion | Pain | | 2014 | Encounter | CONVERSION DEP 888 | Transaction, | | | | | VINNY QUAN | Provider Unknown | | | | | [place] | | | | | | [phone] | (Fax) | | | | | [phone] | | | +--------+ + + + [...]
--- OUTSIDE RECORDS SUMMARY | ~2019-11-15 | XMS | Encounter Summary ---
Demographics + + + | Address | [address] | | | [place] [address] | + + + | Home Phone | | + + + | Preferred Language | Unknown | + + + | Marital Status | | + + + | Restorationist Affiliation | 1013 | + + + | Race | Unknown | + + + | Ethnic Group | Unknown | + + + Author + + + | Author | [facility] | | | and Rmoeana | + + + | Organization | [facility] | | | and [...] Team Providers + +------+ + | Care Multifocal Button Inspector Name | Role | Phone | + +------+ + PCP | Unavailable | + +------+ + Encounter Details +--------+ + + + + | Date | Type | Department | Care Team | Description | +--------+ + + + + | 11/04/ | Hospital | [facility] | Terrence Bolaños MD | Dehydration | | 2015 - | Encounter | [facility] | [address] | | | | | CARE FLOOR [address] | [place] [address] | | | 11/07/ | | [address] | [phone] | | | 2015 | | [place], [place] | | | | | | [address] | | | | | | [phone] | | | +--------+ + + + [...] Discharge Summaries by Saira Retana MD at 11/07/14 0742 Author: Saira Retana MD Service: (none) Author Type: Physician Filed: 11/07/14 1713 Date of Service: 11/07/14 0742 Status: Signed Sap Solutions Architect: Saira Retana MD (Physician) Related Notes: Original [...] (HCC) resolved Dvt femoral (deep venous thrombosis) ([facility]) HPI and Hospital Course: 59-year-old male with history of psoriatic arthritis who presented to [facility] after collapsing while watching a baseball game [...] Nov 05 2014 7:16AM Referring Provider Line: [phone] ID: [id number] Ultrasound Lower Extremity Venous Doppler [...] Motor grossly intact. LABS: Recent Labs Lab 11/07/1431411/06/1455111/05/14412 WBC 6.32 7.43 9.26 RBC 2.86* 2.78* 3.17* HGB 11.7* 11.2* 12.9* HCT 34.1* 33.1* 38.5* MCV 119.4* 119.3* 121.4* MCH 40.8* 40.5* 40.9* MCHC 34.2 34.0 33.7 RDW 66.9* 67.4* 70.0* PLT 191 169 152 MPV 8.2 8.9 8.3 DIFFTYPE AUTOMATED AUTOMATED MANUAL Recent Labs Lab 11/07/1431411/06/14171911/06/1452 11/04/14 1800 NA 137 141 136 < [...] interval not displayed. 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 You may get the following medications [...] summary. This entry has been created using DrAvailable Speech Recognition software and Tindie. The entry has been reviewed and there may still exist sound alike word errors. documented in th is encounter Progress Notes Conversion Transaction, Provider Unknown - 11/07/2014 9:13 AM PDTFormatting of this note m ight be different from the original. Case Management by FABIANA Amato at 11/07/14912 Author: FABIANA Amato Service: (none) Author Type: Snuff Container Inspector Filed: 11/07/14 1203 Date of Service: 11/07/14912 Status: Addendum Sap Solutions Architect: FABIANA Amato (Snuff Container Inspector) Related Notes: Original Note by FABIANA Amato (Snuff Container Inspector) filed at 11/07/14 09 42 CM informed by Physician that Pt will dc today and that he will need an INR drawn this week . Appt with PCP changed to 11/08 @ 10:00 AM. Appt updated on AVS and Pt informed. Family to transport home. ETOH treatment resources in [facility] area provided to Pt and family. 1200 Referral from RN for HH RN to continue with teaching on Lovenox and Coumadin at home. CM spoke with Pt and family who are in agreement. Referral faxed to [facility] in [facility]. onver love Transaction, Provider Unknown - 11/06/2014 6:27 PM PDT Nurse Progress Note by Amara Stratton RN at 11/06/141826 Author: Amara Stratton RN Service: (none) Author Type: Registered Nurse Filed: 11/06/141829 Date of Service: 11/06/141826 Status: Signed Sap Solutions Architect: Amara Stratton RN (Registered Nurse) Extensive visit [...] locations/Coumadin Clinics available. Pt requests f/u at [facility]. Pt stated next apt with Dr. Paula is November 14. Questions answered. Coumadin education b ooklet given to pt. onver love Transaction, Provider Unknown - 11/06/2014 4:45 PM PDT Nurse Progress Note by Kelechi Sweet RN at 11/06/14 1645 Author: Kelechi Sweet RN Service: (none) Author Type: Registered Nurse Filed: 11/06/14 1646 Date of Service: 11/06/14 1645 Status: Signed Sap Solutions Architect: Kelechi Sweet RN (Registered Nurse) Patient ambulated 500 [address] hallway with front wheel walker and standby assist. Patient tolerated procedure well. onver love Transaction, Provider Unknown - 11/06/2014 4:02 PM PDT Case Management by FABIANA Amato at 11/06/14 1602 Author: FABIANA Amato Service: (none) Author Type: Snuff Container Inspector Filed: 11/06/14 1606 Date of Service: 11/06/14 160 Status: Signed Sap Solutions Architect: FABIANA Amato (Snuff Container Inspector) PC to [facility] to make a referral [...] an d given transportation resources for the [facility] area. Pt stated his Parents would be tra nsporting him home and to appts. No further dc needs identified. 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 male with PMHx of psoriatic arthritis, prese nted to [facility] after collapsing while watching a baseball [...] recently but no other constitutional symptoms. At [facility] patient was found to be hypotensive with STT wave changes. Started on dop amine. Transferred to [facility] for further management. ICU Timeline: 11/04/14: admitted [...] a DVT. Therefore, appreciate i ntensivist ICU PHOTOVOLTAIC INSTALLATION TECHNICIAN assisting with heparin orders. The patient has [...] and vitals reviewed. DATA Recent Labs Lab 11/06/1455111/05/1441211/04/14 1800 WBC 7.43 9.26 10.25 RBC 2.78* 3.17* 3.13* HGB 11.2* 12.9* 13.1* HCT 33.1* 38.5* 37.8* MCV 119.3* 121.4* 120.8* MCH 40.5* 40.9* 41.7* MCHC 34.0 33.7 34.5 RDW 67.4* 70.0* 70.0* PLT 169 152 175 MPV 8.9 8.3 8.5 DIFFTYPE AUTOMATED MANUAL AUTOMATED Recent Labs Lab 11/06/1455111/05/1441211/04/14 1800 NA 136 137 140 K 3.6 4.1 4.1 CL 108 108 106 CO2 24 22* 23 BUN 18 25 24 CREATININE 1.07 1.99* 2.90* PROT -- -- 6.0* BILITOT -- -- 0.4 ALT -- -- 18 AST -- -- 34 GLUF 106* 100* 117* Recent Labs Lab 11/05/14165811/05/14 0807 11/05/14412 CKTOTAL 299 258 300 TROPONINI 0.022 0.023 0.027 CKMBINDEX 0.6 0.6 0.6 Recent Labs Lab 11/06/1455111/05/143 PHOS 2.1* 4.0 Recent Labs Lab 11/06/1455111/05/14165811/05/14412 MG 1.6* 2.0 1.4* Invalid input(s): ABG [...] Nov 05 2014 7:16AM Referring Provider Line: [phone] ID: [id number] Ultrasound Lower Extremity Venous Doppler [...] of consciousness) Dehydration ELVIA (acute kidney injury) ([facility]) Dvt femoral (deep venous thrombosis) ([facility]) ASSESSMENT & PLAN 1. Syncope and collapse [...] Berenice De Los Santos PT at 11/06/14 1234 Author: Berenice De Los Santos PT Service: (none) Author Type: Physical Therapist Filed: 11/06/14 1234 Date of Service: 11/06/14 1234 Status: Signed Sap Solutions Architect: Berenice De Los Santos PT (Physical Therapist) 11/06/14 1100 PT Last Visit PT Received On 11/06/14 Reason for Treatment Deconditioning Requires PT Follow Up Yes Follow up PT Only? No Assistance Required 1 person Manager Program Needed No Other Comments Comments Pt mobilizing [...] mob ilization and c/s exercises. onver love Garcia, Provider Unknown - 11/05/2014 7:12 PM PDT Case Management by FABIANA Goldsmith at 11/05/141911 Author: FABIANA Goldsmith Service: (none) Author Type: Snuff Container Inspector Filed: 11/05/141914 Date of Service: 11/05/141911 Status: Signed Sap Solutions Architect: FABIANA Goldsmith (Snuff Container Inspector) 11/05/141909 Discharge Planning Evaluation Admitting Diagnosis syncope & collapse Readmission No Living Arrangements Spouse/significant other (Marnie Payne [phone]) Type of Residence Private residence House type House-1 story Independent with ADL's Yes Independent with Mobility No-comment (uses a walker) Home Care Services No Caregiver after Discharge Yes Relationship to Patient spouse Mental Status Oriented Prior functional status Pt reports he is worried he might slip in the shower. He had not d cong X3-4 mos. Power of Fermentation Manager No Anticipated Discharge Plan Post Acute Care Needs Other (comment) (pt would like contact information for public transportation for disabled people in [place]) Resources Transportation issues Yes Name of [...] Anticipated DCP: home w/ parents to transport. Satya Carey Khalillevy Gandhi onver love Transaction, Provider Unknown - 11/05/2014 3:25 PM PDT Progress Notes by Mary Carmen Quesada RN at 11/05/14 1525 Author: Mary Carmen Quesada RN Service: (none) Author Type: Registered Nurse Filed: 11/05/14 1525 Date of Service: 11/05/14 1525 Status: Signed Sap Solutions Architect: Mary Carmen Quesada RN (Registered Nurse) Pt transferred to [address] onver love Transaction, Provider Unknown - 11/05/2014 3:16 PM PDT Progress Notes by Mary Carmen Quesada RN at 11/05/14 1516 Author: Mary Carmen Quesada RN Service: (none) Author Type: Registered Nurse Filed: 11/05/14 1517 Date of Service: 11/05/14 1516 Status: Signed Sap Solutions Architect: Mary Carmen Quesada RN (Registered Nurse) Report given to Kelechi FRANK, states understands without further questions. Pt to be transferr ed to [address] onver love Transaction, Provider Unknown - 11/05/2014 2:40 PM PDT Therapy Progress Note by Jovan Antonio PT at 11/05/14 1440 Author: Jovan Antonio PT Service: Physical Medicine and Rehab Author Type: Physical Therapist Filed: 11/05/141814 Date of Service: 11/05/140 Status: Signed Sap Solutions Architect: Jovan Antonio, PT (Physical Therapist) 11/05/14 1440 PT Last Visit PT Received On 11/05/14 Reason for Treatment Other (comment) (admitted for hypotension and syncopal episode) Requires PT Follow Up Awaiting tx order Follow up PT Only? No PT Eval/Reassessment Date 11/05/14 Assistance Required 1 person;2 person (for lines) Manager Program Needed No Home Environment Type of Home Home one story Home Exterior Layout 1-3 steps Home Interior Layout Lives on main level with bedroom/bathroom Home Equipment Walker front wheeled Prior Function Level of [place] Modified independent with functional mobility;Independent with ADLs; [...] Assistance Required 1 person;2 person (for lines) Manager Program Needed No Precautions Other Precautions fall risk [...] original. Progress Notes by DURAN Juárez at 11/05/14 0825 Author: DURAN Juárez Service: Managing Cognitive Engineer Author Type: Managing Cognitive Engineer Filed: 11/05/14 0843 Date of Service: 11/05/14 0825 Status: Signed Sap Solutions Architect: DURAN Juárez (Nurse Practitioner) [facility] Service: Managing Cognitive Engineer Progress Note Date of Admission: 11/04/2014 Requesting Physician: Dr. Velazquez, Emergency Department Indication for ICU Admission: hypotension History Obtained From: patient CHIEF COMPLAINT: Syncope and collapse HISTORY OF PRESENT ILLNESS The patient is a 59 y.o. male with PMHx of psoriatic arthritis, presented to [facility] after collapsing while watching a baseball [...] but no ot her constitutional symptoms. At [facility] patient was found to be hypotensive with STT wave changes. Started on dop amine. Transferred to [facility] for further management. ICU Timeline: 11/04/14: admitted [...] with venous stasis. DATA Recent Labs Lab 11/05/14 0413 11/04/14 1800 WBC 9.26 10.25 HGB 12.9* 13.1* HCT 38.5* 37.8* PLT 152 175 Recent Labs Lab 11/05/14 0413 11/04/14 1800 NA 137 140 K 4.1 4.1 CL 108 106 CO2 22* 23 BUN 25 24 CREATININE 1.99* 2.90* PROT -- 6.0* BILITOT -- 0.4 ALT -- 18 AST -- 34 Recent Labs Lab 11/04/14 1800 APTT 28 INR 1.1 Recent Labs Lab 11/05/14 0413 11/05/14 0025 CKTOTAL 300 338 TROPONINI 0.027 0.026 CKMBINDEX 0.6 0.7 U/A: Lab Results Component Value Date CLARITYU CLEAR 11/04/2014 LEUKOCYTESUR NEGATIVE 11/04/2014 NITRITE NEGATIVE 11/04/2014 UROBILINOGEN 0.2 11/04/2014 PHUR 6.5 11/04/2014 BLOODU SMALL* 11/04/2014 KETONES NEGATIVE 11/04/2014 BILIRUBINUR NEGATIVE 11/04/2014 GLUCOSEU NEGATIVE 11/04/2014 PROBLEM LIST Principal Problem: Syncope and collapse Active Problems: LOC (loss of consciousness) Dehydration ELVIA (acute kidney injury) ([facility]) ASSESSMENT & PLAN Neuro: Syncope: workup includes telemetry, 12 lead ECG, and ECHO ordered. Carotid duplex: no flow limiting stenosis. May simply be r/t dehydration. Unclear etiology. CV: R/O [place]. Trend enzymes. Hypotension likely secondary to volume [...] 11/04/141806 Date of Service: 11/04/141806 Status: Signed Sap Solutions Architect: Dion Lassiter RPH (Pharmacist) Clinical Pharmacy Note: [...] 6:07 PM docume nted in this encounter Plan of Treatment Not [...] | | | | | performed at [facility] | | | | | | [address];[place], [place] | | | | | | [address] | | | | + + + [...] | | | | | [place] [address] | | | | + + +---- + + + | Red Blood | 2.86 (L)Comment: Testing | 4.2 0 - 5.70 | EXTERNAL | | | Cells | performed at [facility], [address] | M/u L | LAB | | | Counted | [address], | | | | | | [place] [address] | | | | + + +---- + + + | Hemoglobin | 11.7 (L)Comment: Testing | 13. 2 - 17.0 | EXTERNAL | | | | performed at [facility], [address] | g/d L | LAB | | | | [address], | | | | | | [place] [address] | | | | + + +---- + + + | Hematocrit, | 34.1 (L)Comment: Testing | 39. 0 - 50.0 % | EXTERNAL | | | POC | performed at [facility], [address] | | LAB | | | | [address], | | | | | | [place] [address] | | | | + + +---- + + + | MCV | 119.4 (H)Comment: | 80. 0 - 100.0 fl | EXTERNAL | | | | Testing performed at | | LAB | | | | [facility], [address] | | | | | | [place] | | | | | | [address] | | | | + + +---- + + + | MCH | 40.8 (H)Comment: Testing | 27. 0 - 34.0 pg | EXTERNAL | | | | performed at [facility], [address] | | LAB | | | | [address], | | | | | | [place] [address] | | | | + + +---- + + + | MCHC | 34.2Comment: Testing | 32. 0 - 35.5 | EXTERNAL | | | | performed at [facility], [address] | g/d L | LAB | | | | [address], | | | | | | [place] [address] | | | | + + +---- + + + | RDW-CV | 66.9 (H)Comment: Testing | 37 - 53 fl | EXTERNAL | | | | performed at [facility], [address] | | LAB | | | | [address], | | | | | | [place] [address] | | | | + + +---- + + + | Platelet | 191Comment: Testing | 150 - 400 K/uL | EXTERNAL | | | Count | performed at [facility], [address] | | LAB | | | Plasma | [address], | | | | | | [place] [address] | | | | + + +---- + + + | MPV | 8.2Comment: Testing | fl | EXTERNAL | | | | performed at [facility], [address] | | LAB | | | [address], | | | | | | [place] [address] | | | | + + +---- + + + | Differentia | AUTOMATEDComment: | | EXTERNAL | | | l Type | Testing performed at | | LAB | | | | [facility], [address] | | | | | | [place] | | | | | | [address] | | | | + + +---- + + + | % Segmented | 59.94Comment: Testing | % | EXTERNAL | | | | performed at [facility], [address] | | LAB | | | Neutrophils | [address], | | | | | | [place] [address] | | | | + + +---- + + + | % | 25.58Comment: Testing | % | EXTERNAL | | | Lymphocytes | performed at [facility], [address] | | LAB | | | | [address], | | | | | | [place] [address] | | | | + + +---- + + + | % Monocytes | 9.82Comment: Testing | % | EXTERNAL | | | | performed at [facility], [address] | | LAB | | | | [address], | | | | | | [place] [address] | | | | + + +---- + + + | % | 3.25Comment: Testing | % | EXTERNAL | | | Eosinophils | performed at [facility], [address] | | LAB | | | | [address], | | | | | | [place] [address] | | | | + + +---- + + + | % Basophils | 1.41Comment: Testing | % | EXTERNAL | | | | performed at [facility], [address] | | LAB | | | | [address], | | | | | | [place] [address] | | | | + + +---- + + + | Absolute | 3.79Comment: Testing | 1.9 0 - 7.40 | EXTERNAL | | | Segmented | performed at [facility], [address] | K/u L | LAB | | | Neutrophils | [address], | | | | | | [place] [address] | | | | + + +---- + + + | Absolute | 1.62Comment: Testing | 1.0 0 - 3.90 | EXTERNAL | | | Lymphocytes | performed at [facility], [address] | K/u L | LAB | | | | [address], | | | | | | [place] [address] | | | | + + +---- + + + | Absolute | 0.62Comment: Testing | 0.0 0 - 0.80 | EXTERNAL | | | Monocytes | performed at [facility], [address] | K/u L | LAB | | | | [address], | | | | | | [place] [address] | | | | + + +---- + + + | Absolute | 0.21Comment: Testing | 0.0 0 - 0.50 | EXTERNAL | | | Eosinophils | performed at [facility], [address] | K/u L | LAB | | | | [address], | | | | | | [place] [address] | | | | + + +---- + + + | Absolute | 0.09Comment: Testing | 0.0 0 - 0.10 | EXTERNAL | | | Basophils | performed at [facility], [address] | K/u L | LAB | | | | [facility], | | | | | | [place] [address] | | | | + + +---- + + + | RBC | 3+Comment: | | EXTERNAL | | | Morphology | ANISO3+MACRONORMAL PLT | | LAB | | | | MORPHTesting performed | | | | | | at [facility], [address] | | | | | | [place] [employer], | | | | | | [place] [address] | | | | | |Testing performed at [facility], [address] [facility], [place] [address] | | | | | | | [...] | LAB | | | | [address], | | | | | | [place] [address] | | | | + + + [...] EXTERNAL | | | | performed at [facility], [address] | | LAB | | | | [address], | | | | | | [place] [address] | | | | + + + [...] | | | | | [place] [address] | | | | + + + + + + | K | 3.9Comment: Testing | 3.5 - 4.9 | EXTERNAL | | | | performed at [facility], [address] | mmol/L | LAB | | | | [address], | | | | | | [place] [address] | | | | + + + + + + | Cl | 109Comment: Testing | 99 - 109 mmol/L | EXTERNAL | | | | performed at [facility], [address] | | LAB | | | | [address], | | | | | | [place] [address] | | | | + + + + + + | CO2 | 23Comment: Testing | 23 - 32 mmol/L | EXTERNAL | | | | performed at [facility], [address] | | LAB | | | | [address], | | | | | | [place] [address] | | | | + + + + + + | Anion Gap | 9Comment: Testing | 5 - 20 mmol/L | EXTERNAL | | | | performed at [facility], [address] | | LAB | | | | [address], | | | | | | [place] [address] | | | | + + + + + + | Glucose, | 91Comment: Testing | 65 - 99 mg/dL | EXTERNAL | | | Fasting | performed at [facility], [address] | | LAB | | | | [address], | | | | | | [place] [address] | | | | + + + + + + | BUN | 12Comment: Testing | 8 - 25 mg/dL | EXTERNAL | | | | performed at [facility], [address] | | LAB | | | | [address], | | | | | | [place] [address] | | | | + + + + + + | Creatinine | 0.72Comment: Testing | 0.70 - 1.30 | EXTERNAL | | | | performed at [facility], [address] | mg/dL | LAB | | | | [address], | | | | | | [place] [address] | | | | + + + + + + | BUN/Creatin | 17Comment: Testing | | EXTERNAL | | | ine Ratio | performed at [facility], [address] | | LAB | | | | [address], | | | | | | [place] [address] | | | | + + + + + + | Calcium | 7.9 (L)Comment: Testing | 8.5 - 10.5 | EXTERNAL | | | | performed at [facility], [address] | mg/dL | LAB | | | | [address], | | | | | | [place] [address] | | | | + + + [...] | | | | | | at [facility], [address] | | | | | | [address], | | | | | | [place] [address] | | | | + + + [...] EXTERNAL | | | | performed at [facility], [address] | | LAB | | | | [address], | | | | | | [place] [address] | | | | + + + [...] EXTERNAL | | | | performed at [facility], [address] | | LAB | | | | [address], | | | | | | [place] [address] | | | | + + + [...] EXTERNAL | | | | performed at [facility];[address] | mmol/L | LAB | | | | [address];[place] | | | | | | [address] | | | | + + + + + + | K | 4.0Comment: Testing | 3.5 - 4.9 | EXTERNAL | | | | performed at [facility];[address] | mmol/L | LAB | | | | [address];[place] | | | | | | [address] | | | | + + + + + + | Cl | 110 (H)Comment: Testing | 99 - 109 mmol/L | EXTERNAL | | | | performed at [facility];[address] | | LAB | | | | [address];[place] | | | | | | [address] | | | | + + + + + + | CO2 | 22 (L)Comment: Testing | 23 - 32 mmol/L | EXTERNAL | | | | performed at [facility];[address] | | LAB | | | | [address];[place] | | | | | | [address] | | | | + + + + + + | Anion Gap | 12Comment: Testing | 5 - 20 mmol/L | EXTERNAL | | | | performed at [facility];[address] | | LAB | | | | [address];[place] | | | | | | [address] | | | | + + + + + + | Glucose, | 114 (H)Comment: Testing | 65 - 99 mg/dL | EXTERNAL | | | Fasting | performed at [facility];[address] | | LAB | | | | [address];[place] | | | | | | [address] | | | | + + + + + + | BUN | 14Comment: Testing | 8 - 25 mg/dL | EXTERNAL | | | | performed at [facility];[address] | | LAB | | | | [address];[place] | | | | | | [address] | | | | + + + + + + | Creatinine | 0.98Comment: Testing | 0.70 - 1.30 | EXTERNAL | | | | performed at [facility];[address] | mg/dL | LAB | | | | [address];[place] | | | | | | [address] | | | | + + + + + + | BUN/Creatin | 14Comment: Testing | | EXTERNAL | | | ine Ratio | performed at [facility];[address] | | LAB | | | | [address];[place] | | | | | | [address] | | | | + + + + + + | Calcium | 7.8 (L)Comment: Testing | 8.5 - 10.5 | EXTERNAL | | | | performed at [facility];[address] | mg/dL | LAB | | | | [address];[place] | | | | | | [address] | | | | + + + + + + | Protein, | 5.7 (L)Comment: Testing | 6.3 - 8.2 g/dL | EXTERNAL | | | Total | performed at [facility];[address] | | LAB | | | | [address];[place] | | | | | | [address] | | | | + + + + + + | Albumin | 2.1 (L)Comment: Testing | 3.3 - 4.8 g/dL | EXTERNAL | | | | performed at [facility];[address] | | LAB | | | | [address];[place] | | | | | | [address] | | | | + + + + + + | Globulin | 3.6Comment: Testing | 1.3 - 4.9 g/dL | EXTERNAL | | | | performed at [facility];[address] | | LAB | | | | [address];[place] | | | | | | [address] | | | | + + + + + + | A/G Ratio | 0.6 (L)Comment: Testing | 1.0 - 2.4 | EXTERNAL | | | | performed at [facility];[address] | | LAB | | | | [address];[place] | | | | | | [address] | | | | + + + + + + | Bilirubin | 0.2Comment: Testing | 0.1 - 1.5 mg/dL | EXTERNAL | | | Total | performed at [facility];[address] | | LAB | | | | [address];[place] | | | | | | [address] | | | | + + + + + + | ALP, | 92Comment: Testing | 35 - 115 U/L | EXTERNAL | | | External | performed at [facility];[address] | | LAB | | | | [address];[place] | | | | | | [address] | | | | + + + + + + | AST | 26Comment: Testing | 10 - 45 U/L | EXTERNAL | | | | performed at [facility];[address] | | LAB | | | | [address];[place] | | | | | | [address] | | | | + + + + + + | ALT | 15Comment: Testing | 10 - 65 U/L | EXTERNAL | | | | performed at [facility];[address] | | LAB | | | | [address];[place] | | | | | | [address] | | | | + + + [...] | | | | | | at [facility];[address] [place] [address] | | | | | | [facility];[place] [address] | | | | + + + [...] | | | Patient | performed at [facility];[address] | | LAB | | | | [address];[place], [place] | | | | | | [address] | | | | + + + [...] + +---------+ + + External Lab: CBC (11/06/2014 5:52 AM PDT) + + +---- + + + | Component | Value | Ref Range | Performed | Pathologist | | | | | At | Signature | + + +---- + + + | WBC | 7.43Comment: Testing | 3.8 0 - 11.00 | EXTERNAL | | | | performed at [facility], [address] | K/u L | LAB | | | | [address], | | | | | | [place] [address] | | | | + + +---- + + + | Red Blood | 2.78 (L)Comment: Testing | 4.2 0 - 5.70 | EXTERNAL | | | Cells | performed at [facility], [address] | M/u L | LAB | | | Counted | [address], | | | | | | [place] [address] | | | | + + +---- + + + | Hemoglobin | 11.2 (L)Comment: Testing | 13. 2 - 17.0 | EXTERNAL | | | | performed at [facility], [address] | g/d L | LAB | | | | [address], | | | | | | [place] [address] | | | | + + +---- + + + | Hematocrit, | 33.1 (L)Comment: Testing | 39. 0 - 50.0 % | EXTERNAL | | | POC | performed at [facility], [address] | | LAB | | | | [address], | | | | | | [place] [address] | | | | + + +---- + + + | MCV | 119.3 (H)Comment: | 80. 0 - 100.0 fl | EXTERNAL | | | | Testing performed at | | LAB | | | | [facility], [address] | | | | | | [place] | | | | | | [address] | | | | + + +---- + + + | MCH | 40.5 (H)Comment: Testing | 27. 0 - 34.0 pg | EXTERNAL | | | | performed at [facility], [address] | | LAB | | | | [address], | | | | | | [place] [address] | | | | + + +---- + + + | MCHC | 34.0Comment: Testing | 32. 0 - 35.5 | EXTERNAL | | | | performed at [facility], [address] | g/d L | LAB | | | | [address], | | | | | | [place] [address] | | | | + + +---- + + + | RDW-CV | 67.4 (H)Comment: Testing | 37 - 53 fl | EXTERNAL | | | | performed at [facility], [address] | | LAB | | | | [address], | | | | | | [place] [address] | | | | + + +---- + + + | Platelet | 169Comment: Testing | 150 - 400 K/uL | EXTERNAL | | | Count | performed at [facility], [address] | | LAB | | | Plasma | [address], | | | | | | [place] [address] | | | | + + +---- + + + | MPV | 8.9Comment: Testing | fl | EXTERNAL | | | | performed at [facility], [address] | | LAB | | | | [address], | | | | | | [place] [address] | | | | + + +---- + + + | Differentia | AUTOMATEDComment: | | EXTERNAL | | | l Type | Testing performed at | | LAB | | | | [facility], [address], [place], [place] | | | | | | [address] | | | | + + +---- + + + | % Segmented | 58.36Comment: Testing | % | EXTERNAL | | | | performed at [facility], [address] | | LAB | | | Neutrophils | [address], | | | | | | [place] [address] | | | | + + +---- + + + | % | 28.33Comment: Testing | % | EXTERNAL | | | Lymphocytes | performed at [facility], [address] | | LAB | | | | [address], | | | | | | [place] [address] | | | | + + +---- + + + | % Monocytes | 8.15Comment: Testing | % | EXTERNAL | | | | performed at [facility], [address] | | LAB | | | | [address], | | | | | | [place] [address] | | | | + + +---- + + + | % | 2.76Comment: Testing | % | EXTERNAL | | | Eosinophils | performed at [facility], [address] | | LAB | | | | [address], | | | | | | [place] [address] | | | | + + +---- + + + | % Basophils | 2.40Comment: Testing | % | EXTERNAL | | | | performed at [facility], [address] | | LAB | | | | [address], | | | | | | [place] [address] | | | | + + +---- + + + | Absolute | 4.34Comment: Testing | 1.9 0 - 7.40 | EXTERNAL | | | Segmented | performed at [facility], [address] | K/u L | LAB | | | Neutrophils | [address], | | | | | | [place] [address] | | | | + + +---- + + + | Absolute | 2.11Comment: Testing | 1.0 0 - 3.90 | EXTERNAL | | | Lymphocytes | performed at [facility], [address] | K/u L | LAB | | | | [address], | | | | | | [place] [address] | | | | + + +---- + + + | Absolute | 0.61Comment: Testing | 0.0 0 - 0.80 | EXTERNAL | | | Monocytes | performed at [facility], [address] | K/u L | LAB | | | | [address], | | | | | | [place] [address] | | | | + + +---- + + + | Absolute | 0.21Comment: Testing | 0.0 0 - 0.50 | EXTERNAL | | | Eosinophils | performed at [facility], [address] | K/u L | LAB | | | | [address], | | | | | | [place] [address] | | | | + + +---- + + + | Absolute | 0.18 (H)Comment: Testing | 0.0 0 - 0.10 | EXTERNAL | | | Basophils | performed at [facility], [address] | K/u L | LAB | | | | [address], | | | | | | [place] [address] | | | | + + +---- + + + | RBC | 3+Comment: | | EXTERNAL | | | Morphology | ANISO3+MACRONORMAL PLT | | LAB | | | | MORPHTesting performed | | | | | | at [facility], [address] | | | | | | [facility], | | | | | | [place] [address] | | | | | |Testing performed at [facility], [address] [facility] [place] [address] | | | | | | | [...] | | | | | [place] [address] | | | | + + + [...] EXTERNAL | | | | performed at [facility], [address] | | LAB | | | | [address], | | | | | | [place] [address] | | | | + + + [...] | | | | | [place] [address] | | | | + + + + + + | K | 3.6Comment: Testing | 3.5 - 4.9 | EXTERNAL | | | | performed at [facility], [address] | mmol/L | LAB | | | | [address], | | | | | | [place] [address] | | | | + + + + + + | Cl | 108Comment: Testing | 99 - 109 mmol/L | EXTERNAL | | | | performed at [facility], [address] | | LAB | | | | [address], | | | | | | [place] [address] | | | | + + + + + + | CO2 | 24Comment: Testing | 23 - 32 mmol/L | EXTERNAL | | | | performed at [facility], [address] | | LAB | | | | [address], | | | | | | [place] [address] | | | | + + + + + + | Anion Gap | 8Comment: Testing | 5 - 20 mmol/L | EXTERNAL | | | | performed at [facility], [address] | | LAB | | | | [address], | | | | | | [place] [address] | | | | + + + + + + | Glucose, | 106 (H)Comment: Testing | 65 - 99 mg/dL | EXTERNAL | | | Fasting | performed at [facility], [address] | | LAB | | | | [address], | | | | | | [place] [address] | | | | + + + + + + | BUN | 18Comment: Testing | 8 - 25 mg/dL | EXTERNAL | | | | performed at [facility], [address] | | LAB | | | | [address], | | | | | | [place] [address] | | | | + + + + + + | Creatinine | 1.07Comment: Testing | 0.70 - 1.30 | EXTERNAL | | | | performed at [facility], [address] | mg/dL | LAB | | | | [address], | | | | | | [place] [address] | | | | + + + + + + | BUN/Creatin | 17Comment: Testing | | EXTERNAL | | | ine Ratio | performed at [facility], [address] | | LAB | | | | [address], | | | | | | [place] [address] | | | | + + + + + + | Calcium | 7.6 (L)Comment: Testing | 8.5 - 10.5 | EXTERNAL | | | | performed at [facility], [address] | mg/dL | LAB | | | | [address], | | | | | | [place] [address] | | | | + + + [...] | | | | | [place] [address] | | | | + + + [...] | | Patient | READ BACK BY:ROSELINE | | EVGENY | | | | [place]/6RP ON [id number] AT | | | | | | 2342, VAPTesting | | | | | | performed at [facility];[address] | | | | | | [address];[place], [place] | | | | | | [address] | | | | + + + [...] EXTERNAL | | | | performed at [facility] | | LAB | | | | [address];[place], [place] | | | | | | [address] | | | | + + + [...] | | | | | | ACUTE [place] Testing | | | | | | performed at [facility];[address] | | | | | | [address];[place], [place] | | | | | | [address] | | | | + + + [...] ON | | | | | | [id number] | | | | | | performed at [facility] | | | | | | [address];[place], [place] | | | | | | [address] | | | | + + + [...] EXTERNAL | | | | performed at [facility];[address] | | LAB | | | | [facility];[place], [place] | | | | | | [address] | | | | + + + [...] EXTERNAL | | | | performed at [facility];[address] | | LAB | | | | [address];[place] | | | | | | [address] | | | | + + + [...] | | | Patient | performed at [facility];[address] | | LAB | | | | [address];[place], [place] | | | | | | [address] | | | | + + + [...] | | | | | performed at [facility] | | | | | | [address];[place], [place] | | | | | | [address] | | | | + + + [...] | Procedure Note | + + | Carlos Dwayne Conversion - 01/21/2019 6:29 AM PDT HISTORY: [...] via telephone. Electronically | | signed by Garirck Nance MD on 11/05/2014 11:05 AM | [...] | | | Excursion: 2.32 cm E-F Furnas: 0.05 m/s EPSS: 0.17 cm HR: | [...] 0.41 m/s | | | TV Dec Furnas: 5.99 m/s2 TV Dec Time: 100.12 ms TV E Berhane: | | | 0.60 m/s TV E/A Ratio: 1.46 Employee Counselor: CATHY Authenticated by: | | | Robbin Main MD, FACC, FACP, FASTN Report Date/Time: 11-05-2014 | | | 16:23:42 | | + + + + + | Procedure Note | + + | Carlos, Rad Conversion - 01/21/2019 6:29 AM PDT Patient Name: Annette PAYNE of | | : 1955 Performing Physician: Robbin Main MD, [facility], | | FACP, | | FASNC INDICATIONS--------- [...] (A-L): 20.24 ml/m2LAAs A2C: | | 17.34 [id number] A-L A2C: 47.08 mlLAESV MOD A2C: 45.86 mlLALs A2C: 5.42 cmLAAs A4C: | | 13.53 cy6PECSL A-L A4C: 31.42 mlLAESV MOD A4C: 28.69 mlLALs A4C: 4.97 cmAo Diam: | | 3.57 cmAV Cusp: 1.83 cmLA Diam: 3.74 cmLA/Ao: 1.04D-E Excursion: 2.32 cmE-F | | Furnas: 0.05 m/sEPSS: 0.17 cmHR: 76.05 BPMAV maxP.47 mmHgAV meanP.19 | | mmHgAV Vmax: 1.53 m/Dae Vmean: 1.05 m/Dae VTI: 34.60 cmAVA Vmax: 2.08 cm2AVA | | (VTI): 1.98 ge1TYQR Dopp: 2.79 l/kbci1WSZD Dopp: 5.53 l/minHR: 80.65 BPMLVOT | | [...] A | | Berhane: 0.41 m/sTV Dec Furnas: 5.99 m/s2TV Dec Time: 100.12 msTV E [place]: 0.60 m/sTV | | E/A Ratio: 1.46 Employee Counselor: GDAuthenticated by: Robbin Main MD, FACC, FACP, [...] | |D-E Excursion: 2.32 cm | |E-F Furnas: 0.05 m/s | |EPSS: 0.17 cm | [...] A Berhane: 0.41 m/s | |TV Dec Furnas: 5.99 m/s2 | |TV Dec Time: 100.12 ms | |TV E Berhane: 0.60 m/s | |TV E/A Ratio: 1.46 | | | |Employee Counselor: GD | |Authenticated by: Robbin Main MD, FACC, FACP, FASTN | |Report Date/Time: 11-05-2014 16:23:42 | | [...] EXTERNAL | | | | performed at [facility];[address] | | LAB | | | | [address];[place], [place] | | | | | | [address] | | | | + + + [...] | | | | | | ACUTE [place] Testing | | | | | | performed at [facility];[address] | | | | | | [address];[place], [place] | | | | | | [address] | | | | + + + [...] EXTERNAL | | | | performed at [facility];[address] | mmol/L | LAB | | | | [address];[place] | | | | | | [address] | | | | + + + [...] LAB | | | | performed at [facility];[address] | | | | | | [address];[place], [place] | | | | | | [address] | | | | + + + [...] Gonzalez Conversion - 01/21/2019 6:29 AM PDT HISTORY: [...] EXTERNAL | | | | performed at [facility], [address] | | LAB | | | | [address] [place] | | | | | | [place] [address] | | | | + + + + + + | T3, Total | 145Comment: Testing | 80 - 200 ng/dL | EXTERNAL | | | | performed at [facility], [address] | | LAB | | | | [address] | | | | | | [place] [address] | | | | + + + [...] EXTERNAL | | | | performed at [facility] | | LAB | | | | [address];[place] | | | | | | [address] | | | | + + + [...] | | | | | | at [facility];[address] [place] [address] | | | | | | [facility];[place] [address] | | | | + + + [...] EXTERNAL | | | | performed at [facility];[address] | | LAB | | | | [address];[place], [place] | | | | | | [address] | | | | + + + [...] | | | | | | ACUTE [place] Testing | | | | | | performed at [facility];[address] | | | | | | [facility];[place], [place] | | | | | | [address] | | | | + + + [...] EXTERNAL | | | | performed at [facility];[address] | K/uL | LAB | | | | [address];[place] | | | | | | [address] | | | | + + + + + + | Red Blood | 3.17 (L)Comment: Testing | 4.20 - 5.70 | EXTERNAL | | | Cells | performed at [facility];[address] | M/uL | LAB | | | Counted | [address];[place] | | | | | | [address] | | | | + + + + + + | Hemoglobin | 12.9 (L)Comment: Testing | 13.2 - 17.0 | EXTERNAL | | | | performed at [facility];[address] | g/dL | LAB | | | | [address];[place] | | | | | | [address] | | | | + + + + + + | Hematocrit, | 38.5 (L)Comment: Testing | 39.0 - 50.0 % | EXTERNAL | | | POC | performed at [facility];[address] | | LAB | | | | [address];[place] | | | | | | [address] | | | | + + + + + + | MCV | 121.4 (H)Comment: | 80.0 - 100.0 fl | EXTERNAL | | | | Testing performed at | | LAB | | | | [facility];[address];[place] [address] | | | | + + + + + + | MCH | 40.9 (H)Comment: Testing | 27.0 - 34.0 pg | EXTERNAL | | | | performed at [facility];[address] | | LAB | | | | [address];[place] | | | | | | [address] | | | | + + + + + + | MCHC | 33.7Comment: Testing | 32.0 - 35.5 | EXTERNAL | | | | performed at [facility];[address] | g/dL | LAB | | | | [address];[place] | | | | | | [address] | | | | + + + + + + | RDW-CV | 70.0 (H)Comment: Testing | 37 - 53 fl | EXTERNAL | | | | performed at [facility];[address] | | LAB | | | | [address];[place] | | | | | | [address] | | | | + + + + + + | Platelet | 152Comment: Testing | 150 - 400 K/uL | EXTERNAL | | | Count | performed at [facility];[address] | | LAB | | | Plasma | [address];[place] | | | | | | [address] | | | | + + + + + + | MPV | 8.3Comment: Testing | fl | EXTERNAL | | | | performed at [facility];[address] | | LAB | | | | [address];[place] | | | | | | [address] | | | | + + + + + + | Differentia | MANUALComment: Testing | | EXTERNAL | | | l Type | performed at [facility];[address] | | LAB | | | | [address];[place] | | | | | | [address] | | | | + + + + + + | Segmented | 67Comment: Testing | % | EXTERNAL | | | Neutrophils | performed at [facility];[address] | | LAB | | | Manual | [address];[place] | | | | | | [address] | | | | + + + + + + | Lymphocytes | 26Comment: Testing | % | EXTERNAL | | | Manual | performed at [facility];[address] | | LAB | | | | [address];[place] | | | | | | [address] | | | | + + + + + + | Monocytes | 3Comment: Testing | % | EXTERNAL | | | Manual | performed at [facility];[address] | | LAB | | | | [address];[place] | | | | | | [address] | | | | + + + + + + | Eosinophils | 4Comment: Testing | % | EXTERNAL | | | Manual | performed at [facility];[address] | | LAB | | | | [address];[place] | | | | | | [address] | | | | + + + + + + | Absolute | 6.20Comment: Testing | 1.90 - 7.40 | EXTERNAL | | | Neutrophils | performed at [facility];[address] | K/uL | LAB | | | | [address];[place] | | | | | | [address] | | | | + + + + + + | Absolute | 2.41Comment: Testing | 1.00 - 3.90 | EXTERNAL | | | Lymphocytes | performed at [facility];[address] | K/uL | LAB | | | | [address];[place] | | | | | | [address] | | | | + + + + + + | Absolute | 0.28Comment: Testing | 0.00 - 0.80 | EXTERNAL | | | Monocytes | performed at [facility];[address] | K/uL | LAB | | | | [address];[place] | | | | | | [address] | | | | + + + + + + | Absolute | 0.37Comment: Testing | 0.00 - 0.50 | EXTERNAL | | | Eosinophils | performed at [facility];[address] | K/uL | LAB | | | | [address];[place] | | | | | | [address] | | | | + + + + + + | RBC | 3+Comment: | | EXTERNAL | | | Morphology | MACRO2+ANISO2+POIKNORMAL | | LAB | | | | PLT MORPHTesting | | | | | | performed at [facility];[address] | | | | | | [address];[place] | | | | | | [address] | | | | | |POIK | | | | | |NORMAL PLT MORPH | | | | | |Testing performed at [facility];[address] [facility];[place] [address] | | | | | | | [...] EXTERNAL | | | | performed at [facility];[address] | uIU/mL | LAB | | | | [address];[place] | | | | | | [address] | | | | + + + [...] | | | (REF) | performed at [facility], [address] | | LAB | | | | [address], | | | | | | [place] [address] | | | | + + + [...] EXTERNAL | | | | performed at [facility], [address] | | LAB | | | | [address], | | | | | | [place] [address] | | | | + + + [...] EXTERNAL | | | | performed at [facility];[address] | | LAB | | | | [address];[place] | | | | | | [address] | | | | + + + [...] EXTERNAL | | | | performed at [facility], [address] | | LAB | | | | [address], | | | | | | [place] [address] | | | | + + + [...] + + | Hemoglobin | 5.0Comment: The [place] | 4.0 - 6.0 % | EXTERNAL [...] | | | | | performed at [facility], [address] | | | | | [address], | | | | | | [place] [address] | | | | + + + [...] | | | | | performed at [facility], [address] | | | | | | [facility], | | | | | | [place] [address] | | | | + + + [...] + + | Hemoglobin | 5.0Comment: The [place] | 4.0 - 6.0 % | EXTERNAL [...] | | | | | performed at [facility], [address] | | | | | | [address], | | | | | | [place] [address] | | | | + + + [...] | | | | | performed at [facility], [address] | | | | | | [facility], | | | | | | [place] [address] | | | | + + + [...] EXTERNAL | | | | performed at [facility];[address] | | LAB | | | | [address];[place], [place] | | | | | | [address] | | | | + + + [...] EXTERNAL | | | | performed at [facility], [address] | | LAB | | | | [address], | | | | | | [place] [address] | | | | + + + + + + | Triglycerid | 101Comment: Testing | mg/dL | EXTERNAL | | | es | performed at [facility], [address] | | LAB | | | | [address], | | | | | | [place] [address] | | | | + + + + + + | HDL | 24 (L)Comment: Testing | mg/dL | EXTERNAL | | | | performed at [facility], [address] | | LAB | | | | [address], | | | | | | [place] [address] | | | | + + + + + + | LDL, | 52Comment: Testing | mg/dL | EXTERNAL | | | Calculated | performed at [facility], [address] | | LAB | | | | [address], | | | | | | [place] [address] | | | | + + + [...] | | | | | [place] [address] | | | | + + + + + + | K | 4.1Comment: Testing | 3.5 - 4.9 | EXTERNAL | | | | performed at [facility], [address] | mmol/L | LAB | | | | [address], | | | | | | [place] [address] | | | | + + + + + + | Cl | 108Comment: Testing | 99 - 109 mmol/L | EXTERNAL | | | | performed at [facility], [address] | | LAB | | | | [address], | | | | | | [place] [address] | | | | + + + + + + | CO2 | 22 (L)Comment: Testing | 23 - 32 mmol/L | EXTERNAL | | | | performed at [facility], [address] | | LAB | | | | [address], | | | | | | [place] [address] | | | | + + + + + + | Anion Gap | 11Comment: Testing | 5 - 20 mmol/L | EXTERNAL | | | | performed at [facility], [address] | | LAB | | | | [address], | | | | | | [place] [address] | | | | + + + + + + | Glucose, | 100 (H)Comment: Testing | 65 - 99 mg/dL | EXTERNAL | | | Fasting | performed at [facility], [address] | | LAB | | | | [address], | | | | | | [place] [address] | | | | + + + + + + | BUN | 25Comment: Testing | 8 - 25 mg/dL | EXTERNAL | | | | performed at [facility], [address] | | LAB | | | | [address], | | | | | | [place] [address] | | | | + + + + + + | Creatinine | 1.99 (H)Comment: Testing | 0.70 - 1.30 | EXTERNAL | | | | performed at [facility], [address] | mg/dL | LAB | | | | [address], | | | | | | [place] [address] | | | | + + + + + + | BUN/Creatin | 13Comment: Testing | | EXTERNAL | | | ine Ratio | performed at [facility], [address] | | LAB | | | | [address], | | | | | | [place] [address] | | | | + + + + + + | Calcium | 7.6 (L)Comment: Testing | 8.5 - 10.5 | EXTERNAL | | | | performed at [facility], [address] | mg/dL | LAB | | | | [address], | | | | | | [place] [address] | | | | + + + [...] [address], | | | | | | [place] [address] | | | | + + + [...] EXTERNAL | | | | performed at [facility] | | LAB | | | | Joel Ayon;[place], [place] | | | | | | [address] | | | | + + + [...] | | | | | | ACUTE [place] Testing | | | | | | performed at [facility];[address] | | | | | | [facility];[place], [place] | | | | | | [address] | | | | + + + [...] EXTERNAL | | | | performed at [facility] | | LAB | | | | [address] [facility];[place], [place] | | | | | | [address] | | | | + + + [...] 7:16AM Referring Provider Line: | | | [phone] ID: [id number] | | + + + + + + | Narrative | Performed At | + + + | EXAM: CAROTID DOPPLER ULTRASOUND EXAM DATE: 11/04/2014 11:37 PM. | | | CLINICAL HISTORY: Syncope. COMPARISON: None. TECHNIQUE: | | | Real-time sonographic vascular imaging was performed by the | | | event specialist food demonstrator through the carotid arterial system with a linear | | | transducer utilizing color-flow, Doppler flow and spectral analysis. | | | Multiple technical sales representative static images were saved for review. [...] Gonzalez Conversion - 01/21/2019 6:29 AM PDT EXAM:CAROTID DOPPLER ULTRASOUND EXAM | | DATE: 11/04/2014 11:37 PM. CLINICAL HISTORY: Syncope. COMPARISON: None. TECHNIQUE: | | Real-time sonographic vascular imaging was performed by the event specialist food demonstrator through the | | carotid arterial system with a linear transducer utilizing color-flow, Doppler flow and | | spectral analysis. Multiple technical sales representative static images were saved for review. [...] 2014 7:16AM Referring Provider Line: | | [phone] ID: [id number] | |ICA/CCA Ratio: 1.0, 1.7. [...] 05 2014 7:16AM Referring Provider Line: [phone] ID: [id number] | + + XR Chest [...] GROWTH | | | Testing performed at [facility], [address] | | | [place] [address] | | + + + + +---------+ [...] GROWTH | | | Testing performed at [facility], | | | [address] [facility] [place] [address] | | + + + + +---------+ [...] GROWTH | | | Testing performed at [facility], | | | [address] [place] [address] | | + + + + +---------+ [...] EXTERNAL | | | | performed at [facility];[address] | | LAB | | | | Joel Ayon;[place], [place] | | | | | | [address] | | | | + + + [...] | | | | | | at [facility];[address] [place] [address] | | | | | | [facility];[place] [address] | | | | + + + [...] | | | Patient | performed at [facility];[address] | | LAB | | | | Joel Ayon;[place], [place] | | | | | | [address] | | | | + + + [...] | | | | | performed at [facility];[address] | | | | | | [address];[place], [place] | | | | | | [address] | | | | + + + [...] EXTERNAL | | | | performed at [facility];[address] | [address] | LAB | | | | Joel Ayon;[place] | | | | | | [address] | | | | + + + + + + | Red Blood | 3.13 (L)Comment: Testing | 4.20 - 5.70 | EXTERNAL | | | Cells | performed at [facility] [facility];888 | M/uL | LAB | | | Counted | [address];[place] | | | | | | [address] | | | | + + + + + + | Hemoglobin | 13.1 (L)Comment: Testing | 13.2 - 17.0 | EXTERNAL | | | | performed at [facility]888 | g/dL | LAB | | | | [address];[place] | | | | | | [address] | | | | + + + + + + | Hematocrit, | 37.8 (L)Comment: Testing | 39.0 - 50.0 % | EXTERNAL | | | POC | performed at [facility];888 | | LAB | | | | [address];[place] | | | | | | [address] | | | | + + + + + + | MCV | 120.8 (H)Comment: | 80.0 - 100.0 fl | EXTERNAL | | | | Testing performed at | | LAB | | | | [facility] | | | | | | [address]any;[place] [address] | | | | + + + + + + | MCH | 41.7 (H)Comment: Testing | 27.0 - 34.0 pg | EXTERNAL | | | | performed at [facility];888 | | LAB | | | | [address];[place] | | | | | | [address] | | | | + + + + + + | MCHC | 34.5Comment: Testing | 32.0 - 35.5 | EXTERNAL | | | | performed at [facility];888 | g/dL | LAB | | | | [address];[place] | | | | | | [address] | | | | + + + + + + | RDW-CV | 70.0 (H)Comment: Testing | 37 - 53 fl | EXTERNAL | | | | performed at [facility] | | LAB | | | | [address];[place] | | | | | | [address] | | | | + + + + + + | Platelet | 175Comment: Testing | 150 - 400 K/uL | EXTERNAL | | | Count | performed at [facility];888 | | LAB | | | Plasma | [address];[place] | | | | | | [address] | | | | + + + + + + | MPV | 8.5Comment: Testing | fl | EXTERNAL | | | | performed at [facility];888 | | LAB | | | | [address];[place] | | | | | | [address] | | | | + + + + + + | Differentia | AUTOMATEDComment: | | EXTERNAL | | | l Type | Testing performed at | | LAB | | | | [facility];[address] | | [address];[place] [address] | | | | + + + + + + | % Segmented | 82.55Comment: Testing | % | EXTERNAL | | | | performed at [facility];888 | | LAB | | | Neutrophils | [address];[place] | | | | | | [address] | | | | + + + + + + | % | 9.73Comment: Testing | % | EXTERNAL | | | Lymphocytes | performed at [facility];888 | | LAB | | | | [address];[place] | | | | | | [address] | | | | + + + + + + | % Monocytes | 6.79Comment: Testing | % | EXTERNAL | | | | performed at [facility];888 | | LAB | | | | [address];[place] | | | | | | [address] | | | | + + + + + + | % | 0.33Comment: Testing | % | EXTERNAL | | | Eosinophils | performed at [facility];888 | | LAB | | | | [address];[place] | | | | | | [address] | | | | + + + + + + | % Basophils | 0.60Comment: Testing | % | EXTERNAL | | | | performed at [facility];888 | | LAB | | | | [address];[place] | | | | | | [address] | | | | + + + + + + | Absolute | 8.46 (H)Comment: Testing | 1.90 - 7.40 | EXTERNAL | | | Segmented | performed at [facility];888 | K/uL | LAB | | | Neutrophils | [address];[place] | | | | | | [address] | | | | + + + + + + | Absolute | 1.00Comment: Testing | 1.00 - 3.90 | EXTERNAL | | | Lymphocytes | performed at [facility];888 | K/uL | LAB | | | | [address];[place] | | | | | | [address] | | | | + + + + + + | Absolute | 0.70Comment: Testing | 0.00 - 0.80 | EXTERNAL | | | Monocytes | performed at [facility];888 | K/uL | LAB | | | | [address];[place] | | | | | | [address] | | | | + + + + + + | Absolute | 0.03Comment: Testing | 0.00 - 0.50 | EXTERNAL | | | Eosinophils | performed at [facility];888 | K/uL | LAB | | | | [address];[place] | | | | | | [address] | | | | + + + + + + | Absolute | 0.06Comment: Testing | 0.00 - 0.10 | EXTERNAL | | | Basophils | performed at [facility];888 | K/uL | LAB | | | | [address];[place] | | | | | | [address] | | | | + + + + + + | RBC | 3+Comment: | | EXTERNAL | | | Morphology | ANISO4+MACRO1+POIKTestin | | LAB | | | | g performed at [facility];[address] | | | | | | [address];[place] | | | | | | [address] | | | | | |1+ | | | | | |POIK | | | | | |Testing performed at [facility];[address] [facility];[place] [address] | | | | | | | [...] | | | Alcohol | performed at [facility];88 | | LAB | | | | [address];[place], [place] | | | | | | [address] | | | | + + + [...] | | | Total | performed at [facility];888 | | LAB | | | | [address];[place] | | | | | | [address] | | | | + + + + + + | Albumin | 2.3 (L)Comment: Testing | 3.3 - 4.8 g/dL | EXTERNAL | | | | performed at [facility];888 | | LAB | | | | [address];[place] | | | | | | [address] | | | | + + + + + + | Bilirubin | 0.4Comment: Testing | 0.1 - 1.5 mg/dL | EXTERNAL | | | Total | performed at [facility];888 | | LAB | | | | [address];[place] | | | | | | [address] | | | | + + + + + + | Bilirubin | 0.2Comment: Testing | 0.0 - 0.3 mg/dL | EXTERNAL | | | Direct | performed at [facility];888 | | LAB | | | | [address];[place] | | | | | | [address] | | | | + + + + + + | ALP, | 111Comment: Testing | 35 - 115 U/L | EXTERNAL | | | External | performed at [facility];888 | | LAB | | | | [address];[place] | | | | | | [address] | | | | + + + + + + | AST | 34Comment: Testing | 10 - 45 U/L | EXTERNAL | | | | performed at [facility];888 | | LAB | | | | [address];[place] | | | | | | [address] | | | | + + + + + + | ALT | 18Comment: Testing | 10 - 65 U/L | EXTERNAL | | | | performed at [facility];888 | | LAB | | | | [address];[place] | | | | | | [address] | | | | + + + [...] EXTERNAL | | | | performed at [facility];888 | mmol/L | LAB | | | | [address];[place] | | | | | | [address] | | | | + + + + + + | K | 4.1Comment: Testing | 3.5 - 4.9 | EXTERNAL | | | | performed at [facility];888 | mmol/L | LAB | | | | [address];[place] | | | | | | [address] | | | | + + + + + + | Cl | 106Comment: Testing | 99 - 109 mmol/L | EXTERNAL | | | | performed at [facility];888 | | LAB | | | | [address];[place] | | | | | | [address] | | | | + + + + + + | CO2 | 23Comment: Testing | 23 - 32 mmol/L | EXTERNAL | | | | performed at [facility];888 | | LAB | | | | [address];[place] | | | | | | [address] | | | | + + + + + + | Anion Gap | 15Comment: Testing | 5 - 20 mmol/L | EXTERNAL | | | | performed at [facility];888 | | LAB | | | | [address];[place] | | | | | | [address] | | | | + + + + + + | Glucose, | 117 (H)Comment: Testing | 65 - 99 mg/dL | EXTERNAL | | | Fasting | performed at [facility];888 | | LAB | | | | [address];[place] | | | | | | [address] | | | | + + + + + + | BUN | 24Comment: Testing | 8 - 25 mg/dL | EXTERNAL | | | | performed at [facility];888 | | LAB | | | | [address];[place] | | | | | | [address] | | | | + + + + + + | Creatinine | 2.90 (H)Comment: Testing | 0.70 - 1.30 | EXTERNAL | | | | performed at [facility];888 | mg/dL | LAB | | | | [address];[place] | | | | | | [address] | | | | + + + + + + | BUN/Creatin | 8Comment: Testing | | EXTERNAL | | | ine Ratio | performed at [facility];888 | | LAB | | | | [address];[place] | | | | | | [address] | | | | + + + + + + | Calcium | 7.6 (L)Comment: Testing | 8.5 - 10.5 | EXTERNAL | | | | performed at [facility];888 | mg/dL | LAB | | | | [address];[place] | | | | | | [address] | | | | + + + [...] | | | | | | at [facility];[address];[place] [address] | | | | + + + [...] | | | Screen, | performed at [facility];888 | | | | | UA, POC | [address];[place] | | | | | | [address] | | | | + + + + + + | Barbiturate | NEGATIVEComment: | | EXTERNAL | | | s Screen, | Positive cutoff for | | LAB | | | Urine | MEGAN = 200 ng/mLTesting | | | | | | performed at [facility];888 | | | | | | [address];[place] | | | | | | [address] | | | | + + + + + + | Benzodiazep | NEGATIVEComment: | | EXTERNAL | | | donald | Positive cutoff for | | LAB | | | Screen, | BENZO = 200 ng/mLTesting | | | | | Urine | performed at [facility];888 | | | | | | [address];[place] | | | | | | [address] | | | | + + + + + + | Cocaine | NEGATIVEComment: | | EXTERNAL | | | | Positive cutoff for | | LAB | | | | JOURDAN = 300 ng/mLTesting | | | | | | performed at [facility];888 | | | | | | [address];[place] | | | | | | [address] | | | | + + + + + + | Methadone | NEGATIVEComment: | | EXTERNAL | | | | Positive cutoff for | | LAB | | | | MTD = 300 ng/mLTesting | | | | | | performed at [facility];888 | | | | | | [address];[place] | | | | | | [address] | | | | + + + + + + | Opiates | POSITIVE (A)Comment: | | EXTERNAL | | | | Positive cutoff for | | LAB | | | | OPI = 300 ng/mLTesting | | | | | | performed at [facility];888 | | | | | | [address];[place] | | | | | | [address] | | | | + + + + + + | PCP | NEGATIVEComment: | | EXTERNAL | | | | Positive cutoff for PCP | | LAB | | | | = 25 ng/mLTesting | | | | | | performed at [facility];888 | | | | | | [address];[place] | | | | | | [address] | | | | + + + [...] | | | | | performed at [facility];88 | | | | | | [facility];[place], [place] | | | | | | [address] | | | | + + + [...] EXTERNAL | | | | performed at [facility];888 | | LAB | | | | [address];[place] | | | | | | [address] | | | | + + + + + + | RBC, UA | 1-5Comment: Testing | 0 - 2 /hpf | EXTERNAL | | | | performed at [facility];888 | | LAB | | | | [address];[place] | | | | | | [address] | | | | + + + + + + | Epithelial | 1-5Comment: Testing | /lpf | EXTERNAL | | | Cells | performed at [facility];888 | | LAB | | | | [address];[place] | | | | | | [address] | | | | + + + + + + | Bacteria, | TRACE (A)Comment: | | EXTERNAL | | | UA | Testing performed at | | LAB | | | | [facility];[address];[place] [address] | | | | + + + + + + | Urinalysis | LESS THAN 10 ML | | EXTERNAL | | | Comments | SPECIMENComment: Testing | | LAB | | | | performed at [facility];[address] | | | | | | [address];[place] | | | | | | [address] | | | | + + + [...] EXTERNAL | | | | performed at [facility] | | LAB | | | | [address];[place] | | | | | | [address] | | | | + + + + + + | Clarity | CLEARComment: Testing | | EXTERNAL | | | | performed at [facility];888 | | LAB | | | | [address];[place] | | | | | | [address] | | | | + + + + + + | Specific | 1.015Comment: Testing | 1.001 - 1.035 | EXTERNAL | | | [place], | performed at [facility];888 | | LAB | | | Urine | [address];[place] | | | | | | [address] | | | | + + + + + + | Leukocyte | NEGATIVEComment: Testing | | EXTERNAL | | | Esterase, | performed at [facility];888 | | LAB | | | Urine | [address];[place] | | | | | | [address] | | | | + + + + + + | Nitrite, | NEGATIVEComment: Testing | | EXTERNAL | | | Urine | performed at [facility];888 | | LAB | | | | [address];[place] | | | | | | [address] | | | | + + + + + + | Urobilinoge | 0.2Comment: Testing | mg/dL | EXTERNAL | | | n, Urine | performed at [facility];888 | | LAB | | | | [address];[place] | | | | | | [address] | | | | + + + + + + | Protein, | 100 (A)Comment: Testing | mg/dL | EXTERNAL | | | Urine | performed at [facility];888 | | LAB | | | | [address];[place] | | | | | | [address] | | | | + + + + + + | pH, Urine | 6.5Comment: Testing | 4.6 - 8.0 | EXTERNAL | | | | performed at [facility];888 | | LAB | | | | [address];[place] | | | | | | [address] | | | | + + + + + + | Blood, | SMALL (A)Comment: | | EXTERNAL | | | Urine | Testing performed at | | LAB | | | | [facility];[address];[place] [address] | | | | + + + + + + | Ketones | NEGATIVEComment: Testing | mg/dL | EXTERNAL | | | | performed at [facility];888 | | LAB | | | | [address];[place] | | | | | | [address] | | | | + + + + + + | Bilirubin, | NEGATIVEComment: Testing | | EXTERNAL | | | Urine | performed at [facility];888 | | LAB | | | | [address];[place] | | | | | | [address] | | | | + + + + + + | Glucose, | NEGATIVEComment: Testing | mg/dL | EXTERNAL | | | Urine | performed at [facility];888 | | LAB | | | | [address];[place], [place] | | | | | | [address] | | | | + + + [...] EXTERNAL LAB | | Testing performed at [address];[place] [address] MRSA PCR | | | NEGATIVE Testing performed at | | | [address];[place] [address] | | + + + + +---------+ [...]
--- OUTSIDE RECORDS SUMMARY | ~2019-11-15 | XMS | Encounter Summary ---
Demographics + + + | Address | [address] | | | [place] [address] | + + + | Home Phone [...] [place] | | | | | [address] | | + + + + + Care Team Providers + +------+ + | Care Child Development Consultant Name | Role | Phone | [...] | | | | | | [place], [address] [place] [address] | | | | | | [place], [place] | | | | | | [address] | | | | | | [phone] | | | +--------+------+ + + + [...] | + + + + + | [facility] | [address] | [place] [address] | | | SERVICES, CORE | CASTRO [...] [facility] | [address] | [place] [address] | | | SERVICES, CORE | [address] | | | + + + + + documented in this encounter Visit Diagnoses + + | Diagnosis | + + | Psoriasis Other psoriasis | + + | Arthritis Arthropathy, unspecified, site unspecified | + + documented in this encounter"
--- OUTSIDE RECORDS SUMMARY | ~2019-11-15 | XMS | Encounter Summary ---
Demographics + + + | Address | [address] | | | [place] [address] | + + + | Home Phone | | + + + | Preferred Language | Unknown | + + + | Marital Status | | + + + | Tenriism Affiliation | PRO | + + + [...] [place] | | | | | [address] | | + + + + + Care Team Providers + +------+ + | Care Perinatal Specialist Name | Role | Phone | + +------+ + | Tod Rivas MD | PCP | | + +------+ + Encounter Details +--------+ + + + + | Date | Type | Department | Care Team | Description | +--------+ + + + + | 06/03/ | Hospital | Registration [address] | [address], | | | 2005 | Activity | [address] MD | | | | | [address] Mailcode: [id number] | | | | | | [place], [place] | | | | | | [address] | | | | | | [phone] | | | +--------+ + + + [...] | + +---------+ + + | [facility] DEPARTMENT OF | | | | | RADIOLOGY | | | | + +---------+ + + documented in this encounter Visit Diagnoses Not on filedocumented in this encounter"
--- OUTSIDE RECORDS SUMMARY | ~2019-11-15 | XMS | Encounter Summary ---
Demographics + + + | Address | [address] | | | [place] [address] | + + + | Home Phone | | + + + | Preferred Language | Unknown | + + + | Marital Status | | + + + | Muslim Affiliation | PRO | + + + [...] [place] | | | | | [address] | | + + + + + Care Team Providers + +------+ + | Care Armature Repairer Name | Role | Phone | + [...] [facility] | | | | | | [address] | | | | | | [address] [facility] | | | | | | [place], [address] | | | | | | [place], [place] | | | | | | [address] | | | | | | [phone] | | | +--------+ + + + [...] | | | | | | and uoj-fanejc-shesrol | | | | | | alignment [...]
--- OUTSIDE RECORDS SUMMARY | ~2019-11-15 | XMS | Encounter Summary ---
Demographics + + + | Address | [address] | | | [place] [address] | + + + | Home Phone | | + + + | Preferred Language | Unknown | + + + | Marital Status | | + + + | Latter-Day Affiliation | PRO | + + + | Race | White | + + + | Ethnic Group | Not or | + + + Author + + + | Author | [facility] | + + + | Organization | [facility] | + + + | Address | Unknown | + + + | Phone | Unavailable | + + + Support + + + + + | Name | Relationship | Address | Phone | + + + + + | Marnie Payne | ECON | [address] | | | | | [place] | | | | | [address] | | + + + + + Care Team Providers + +------+ + | Care Senior Informatica Developer Name | Role | Phone | + +------+ + PCP | Unavailable | + +------+ + Reason for Visit + + + | Reason | Comments | + + + | Psoriasis | New psoriasis pt. (Dr Davis) | + + + Encounter Details +--------+---------+ + + + | Date | Type | Department | Care Team | Description | +--------+---------+ + + + | 06/03/ | Office | Dermatology | Carolann, Ashia, | Other Psoriasis and | | 2005 | Visit | Medical at [facility] [address] | MD | Similar Disorders; | | | | [address] | | Erythroderma | | | | Mailcode: CH16D | | | | | | [facility] | | | | | | and Healing, | | | | | | Building | | | | | | Floor [place], [place] | | | | | | [address] | | | | | | [phone] | | | +--------+---------+ + + + Social History + +-------+ [...] this encounter Last Filed Vital Signs + +---------+ + + | Vital Sign | Reading | Time Taken | Comments | + +---------+ + + | Blood Pressure | 146/82 | 06/03/2006 10:01 AM | | | | | PST | | + +---------+ + + | Pulse | 84 | 06/03/2006 10:01 AM | | | | | PST | | + +---------+ + + | Temperature | - | - | | + +---------+ + + | Respiratory Rate | 16 | 06/03/2006 10:01 AM | | | | | PST | | + +---------+ + + | Oxygen Saturation | - | - | | + +---------+ + + | Inhaled Oxygen | - | - | | | Concentration | | | | + +---------+ + + | Weight | - | - | | + +---------+ + + | Height | - | - | | + +---------+ + + | Body Mass Index | - | - | | + +---------+ + + documented in this encounter Progress Ashia Pinon - 06/03/2006 11:59 AM PSTATTENDING PHYSICIAN ATTESTATION I personally interviewed the patient, duplicated the pertinent parts of the physical examin ation and personally formulated the plan with the resident. I have reviewed the residents note, agree with their documentation and have edited their no te to add my findings and comments. This is first episode of erythroderma for this pt. No prior h/o severe flares, no arthritis , no pustules or hand/foot involvement in past. Possibly related to Aluminum toxicity. His job has changed over the past few months where he has had direct exposure to Aluminum - inha lation. Will admit for whirlpool therapy and start systemic therapy based on his baseline bloodwork and CXR. Ubaldo Gibbons, Filomena Adler - 06/03/2006 10:45 AM PSTChief complaint: flaring erythrodermic psoriasis S: Khai Payne is a 50 y.o. male sent for consultation by Dr. Davsi for evaluatio n of erythrodermic psoriasis. He has history of psoriasis since adolescence with scaling on his scalp. Over the past 30-40 years he has had mild plaque psoriasis limited to his elbows, knees, upper thighs. His psoriasis seems to get worse in the winter when he does not get as much sunlight. He skin is almost normal during the summer time. He typically treats his pso riasis with vaseline. He has never had arthritis. He is healthy with a history of anxiety wh ich began with a panic attack 15 years ago. He has been on alprazolam since then. 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 He has been taking oral medications to treat the aluminum toxicity pre scribed by a specialist in toxicology (Dr. Khai Sotomayor). He has been treating his skin for the past week with showers twice daily and Triamcinolone 0.1% ointment to his entire body 4 times a day. He thinks his skin has improved, especially over the past 3 days. His ankle swe lling has decreased. His skin is mildly itchy. He is feeling well without complaints. The patient's intake form was reviewed, signed, and dated. Relevant past family and social history, medications, and ROS include: ROS: no fevers, chills, joint pain, shortness of breath, abdominal pain, wt. 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 male who is alert interactive and in no acute distress A full body skin examination was performed of the scalp, face, eyelids, lips, neck, chest, abdomen, back, bilateral arms, buttocks, and bilateral legs. Findings were within normal l imits except as follows: -generalized erythroderma with diffuse scaling from scalp to feet, 95% BSA. Mild edema of b ilateral ankles. -fingernails thickened with distal onycholysis -soles with thick scale -oral mucosa clear -eyes clear -no HSM -lungs CTA Assesment: Flaring erythrodermic psoriasis Plan: -Admit to dermatology service -whirlpool therapy BID followed by Triamcinolone 0.1% ointment BID to entire body (neck to feet). -pt to wear sauna suit qd and qhs -check basline labs: CMP, LFTs, hep serologies, Mg, CBC with diff -check CXR to r/o Tb exposure in event we need to use biologics for his tx (cannot get PPD because the patient is erythrodermic) -continue alprazolam 0.25mg qam, then q8 PRN anxiety; follow vitals -atarax 25mg PO q6 hours PRN pruritus -Nicorette patch 22mg/24 hr qd -clobetasol ariel to scalp BID -plan to start soriatane 50 mg daily if labs wnl. Filomena Ramirez MD Resident in Dermatology d ocumented in this encounter Plan of Treatment Not on filedocumented as of this encounter Results URIC ACID, PLASMA (06/03/2006 11:48 AM PST) [...] Performed At | + + + | [id number] Estimated GFR > 60 mL/min/1.73 sq m if non- | [facility] | | [id number] Estimated GFR > 60 mL/min/1.73 sq m [...] | + + + + + | [facility] DEPARTMENT OF | [address] | [place] [address] | | | PATHOLOGY | [address] | | | + + + + + | [facility] DEPARTMENT OF | [address] | [place] [address] | | | PATHOLOGY | [address] | | | + + + + + MAGNESIUM, PLASMA (06/03/2006 11:48 AM PST) + +-------+ + + + | Component | Value | Ref Range | Performed | Pathologist | | | | | At | Signature | + +-------+ + + + | MAGNESIUM,P | 2.3 | 1.8 - 2.5 mg/dL | [facility] | | | LASMA | | | DEPARTMENT | | | | | | OF | | | | | | PATHOLOGY | | + +-------+ + + + + + | Specimen | + + | | + + + + + | Narrative | Performed At | + + + | [id number] Estimated GFR > 60 mL/min/1.73 sq m if non- | [facility] | | [id number] Estimated GFR > 60 mL/min/1.73 sq m [...] | + + + + + | [facility] DEPARTMENT OF | [address] | [place] [address] | | | PATHOLOGY | [address] | | | + + + + + | [facility] DEPARTMENT OF | [address] | [place] [address] | | | PATHOLOGY | [address] | | | + + + + + LIPID SET (06/03/2006 11:48 AM PST) + + + + + + | Component | Value | Ref Range | Performed | Pathologist | | | | | At | Signature | + + + + + + | CHOLESTEROL | 187Comment: | <200 mg/dL | [facility] | | | (LAB) | Cholesterol Reference [...] Performed At | + + + | [id number] Estimated GFR > 60 mL/min/1.73 sq m if non- | [facility] | | [id number] Estimated GFR > 60 mL/min/1.73 sq m [...] | + + + + + | [facility] DEPARTMENT OF | [address] [facility] | [place] [address] | | | PATHOLOGY | [address] | | | + + + + + | [facility] DEPARTMENT | [address] | [place] [address] | | | PATHOLOGY | [address] [...] Performed At | + + + | [id number] Estimated GFR > 60 mL/min/1.73 sq m if non- | [facility] | | [id number] Estimated GFR > 60 mL/min/1.73 sq m [...] | + + + + + | [facility] | [address] [facility] | [place] [address] | | | PATHOLOGY | [address] | | | + + + + + | [facility] | [address] [place] [address] | [place] [address] | | | PATHOLOGY | [address] [...] | + + + + + | [facility] DEPARTMENT OF | [address] | [place] [address] | | | PATHOLOGY | [address] | | | + + + + + | [facility] DEPARTMENT OF | [address] | [place] [address] | | | PATHOLOGY | [address] [...] | | | | | | [facility] | | | | | | Laboratories. | | | | + + + + + + + + | Specimen | + + | | + + + + + + + | Performing | Address | City/State/Zipcode | Phone Number | | Organization | | | | + + + + + | [facility] | [address] | [place] [address] | | | LABORATORY | | | [...] | | SURFACE | Test performed by Marquez | | | | | AG, SERUM | [facility] | | | | | | Laboratories. | | | | + + + + + + + + | Specimen | + + | | + + + + + + + | Performing | Address | City/State/Zipcode | Phone Number | | Organization | | | | + + + + + | [facility] | [address] | [place] [address] | | | LABORATORY | | | [...] by Baljeet | | | | | HOMER, SERUM | [facility] | | | | | | Laboratories. | | | | + + + + + + + + | Specimen | + + | | + + + + + + + | Performing | Address | City/State/Zipcode | Phone Number | | Organization | | | | + + + + + | [facility] | [address] | [place] [address] | | | LABORATORY | | | [...] | CORE AB, | Test performed by Marquez | | | | | SERUM | [facility] | | | | | | Laboratories. | | | | + + + + + + + + | Specimen | + + | | + + + + + + + | Performing | Address | City/State/Zipcode | Phone Number | | Organization | | | | + + + + + | [facility] | [address] | [place] [address] | | | LABORATORY | | | [...] Performed At | + + + | [id number] Estimated GFR > 60 mL/min/1.73 sq m if non- | [facility] | | [id number] Estimated GFR > 60 mL/min/1.73 sq m [...] | + + + + + | [facility] | [address] | [place] [address] | | | PATHOLOGY | [address] | | | + + + + + | [facility] | [address] | [place] [address] | | | PATHOLOGY | [address] [...] Performed At | + + + | [id number] Estimated GFR > 60 mL/min/1.73 sq m if non- | [facility] | | [id number] Estimated GFR > 60 mL/min/1.73 sq m [...] | + + + + + | [facility] DEPARTMENT | [address] [place] [address] | [place] [address] | | | PATHOLOGY | [address] | | | + + + + + | [facility] | [address] [facility] | [place] [address] | | | PATHOLOGY | [address] [...] Performed At | + + + | [id number] Estimated GFR > 60 mL/min/1.73 sq m if non- | [facility] | | [id number] Estimated GFR > 60 mL/min/1.73 sq m [...] + | [facility] DEPARTMENT OF | [address] [facility] | [place] [address] | | | PATHOLOGY | [address] | | | + + + + + | [facility] DEPARTMENT OF | [address] [facility] | [place] [address] | | | PATHOLOGY | [address] [...] Performed At | + + + | [id number] Estimated GFR > 60 mL/min/1.73 sq m if non- | [facility] | | [id number] Estimated GFR > 60 mL/min/1.73 sq m [...] | + + + + + | [facility] | [address] [facility] | [place] [address] | | | PATHOLOGY | [address] | | | + + + + + | [facility] | [facility] | [place] [address] | | | PATHOLOGY | [address] [...] Performed At | + + + | [id number] Estimated GFR > 60 mL/min/1.73 sq m if non- | [facility] | | [id number] Estimated GFR > 60 mL/min/1.73 sq m [...] | + + + + + | [facility] | [address] | [place] [address] | | | PATHOLOGY | [address] | | | + + + + + | [facility] | [address] | [place] [address] | | | PATHOLOGY | [address] | | | + + + + + documented in this encounter Visit Diagnoses + + | Diagnosis | + + | Other psoriasis | + + | Erythroderma Unspecified erythematous condition | + + documented in this encounter"
--- OUTSIDE RECORDS SUMMARY | ~2019-11-15 | XMS | Clinical Summary ---
Demographics + + + | Address | [address] | | | [place] [address] | + + + | Home Phone | | + + + | Preferred Language | Unknown | + + + | Marital Status | | + + + | Jehovah'S Witness Affiliation | PRO | + + + [...] [place] | | | | | [address] | | + + + + + Care Team Providers + +------+ + | Care Gis Geographer Name | Role | Phone | + +------+ + PCP | Unavailable | + +------+ + Source Comments JOAO is fully live on both [facility] Ambulatory and [facility] InPatient.[facility] Allergies No Known Allergies Medications + + [...] | | | | | | | [address] | | + +--------+ +--------+ + +--------+ | [employer] MEDICAID | CAKE MIXER | xxxxxxxx | | | | Medica [...] | | al/Fam | | 5 | [phone] | [place] [address] | | | kim | | | 8 (Home) | | + +--------+ +--------+ + + | Khai Payne | Worker | Self | [birth year] | | [address] | | | s Comp | | 1955 | [phone] | [place] [address] | | | | | | 8 (Home) | | + +--------+ +--------+ + +
--- OUTSIDE RECORDS SUMMARY | ~2019-11-15 | XMS | Encounter Summary ---
Demographics + + + | Address | [address] | | | [place] [address] | + + + | Home Phone | | + + + | Preferred Language | Unknown | + + + | Marital Status | | + + + | Oriental Orthodox Affiliation | PRO | + + + | Race | White | + + + | Ethnic Group | Not or | + + + Author + + + | Author | [facility] | + + + | Organization | [facility] | + + + [...] [place] | | | | | [address] | | + + + + + Care Team Providers + +------+ + | Care Horticulture Teacher Name | Role | Phone | + [...] [facility] | | | | | | [address] | | | | | | [address] | | | | | | [place], [address] | | | | | | [place], [place] | | | | | | [address] | | | | | | [phone] | | | +--------+ + + + [...]
--- OUTSIDE RECORDS SUMMARY | ~2019-11-15 | XMS | Clinical Summary ---
Demographics + + + | Address | [address] | | | [place] [address] | + + + | Home Phone | | + + + | Preferred Language | Unknown | + + + | Marital Status | | + + + | Confucianist Affiliation | PRO | + + + [...] [place] | | | | | [address] | | + + + + + Care Team Providers + +------+ + | Care Oversize Load Pilot Escort Name | Role | Phone | + +------+ + PCP | Unavailable | + +------+ + Source Comments JOAO is fully live on both [facility] Ambulatory and [facility] InPatient.[facility] Allergies No Known Allergies Medications + + [...] | | | | | | | [address] | | + +--------+ +--------+ + +--------+ | SUPER[employer]OR DITCHING MEDICAID | SUPERVISOR DITCHING | xxxxxxxx | | | | Medica [...] | | al/Fam | | 5 | [phone] | [place] [address] | | | kim | | | 8 (Home) | | + +--------+ +--------+ + + | Khai Payne | Worker | Self | [birth year] | | [address] | | | s Comp | | 1955 | [phone] | [place] [address] | | | | | | 8 (Home) | | + +--------+ +--------+ + +
--- OUTSIDE RECORDS SUMMARY | ~2019-11-15 | XMS | Encounter Summary ---
Demographics + + + | Address | [address] | | | [place] [address] | + + + | Home Phone | | + + + | Preferred Language | Unknown | + + + | Marital Status | | + + + | Church Affiliation | PRO | + + + | Race | White | + + + | Ethnic Group | Not or | + + + Author + + + | Author | [facility] | + + + | Organization | [facility] | + + + | Address | Unknown | + + + | Phone | Unavailable | + + + Support + + + + + | Name | Relationship | Address | Phone | + + + + + | Marnie Payne | ECON | [address] | | | | | [place] | | | | | [address] | | + + + + + Care Team Providers + +------+ + | Care Rack Puller Name | Role | Phone | + [...] [facility] | | | | | | [address] | | | | | | [address] | | | | | | [address], [address] Floor | | | | | | [place], [place] | | | | | | [address] | | | | | | [phone] | | | +--------+ + + + [...] + + | Performing | Address | City/State[facility] | Phone Number | | Organization | | | | + +---------+ + + | [facility] DEPARTMENT OF | | | | | RADIOLOGY | | | | + +---------+ + + documented in this encounter Visit Diagnoses + + | Diagnosis | + + | Psoriasis Other psoriasis | + + | Arthritis Arthropathy, unspecified, site unspecified | + + documented in this encounter"
--- OUTSIDE RECORDS SUMMARY | ~2019-11-15 | XMS | Encounter Summary ---
Demographics + + + | Address | [address] | | | [place] [address] | + + + | Home Phone | | + + + | Preferred Language | Unknown | + + + | Marital Status | | + + + | Yazdanism Affiliation | PRO | + + + | Race | White | + + + | Ethnic Group | Not or | + + + Author + + + | Author | [facility] | + + + | Organization | [facility] | + + + | Address | Unknown | + + + | Phone | Unavailable | + + + Support + + + + + | Name | Relationship | Address | Phone | + + + + + | Mranie Payne | ECON | [address] | | | | | [place] | | | | | [address] | | + + + + + Care Team Providers + +------+ + | Care Personalization Specialist Name | Role | Phone | [...] | | 2005 | | Medical at [facility] 1964 | MD | Similar Disorders; | | | | [address] | | Erythroderma | | | | Mailcode: CH16D | | | | | | [facility] | | | | | | and Healing, | | | | | | | | | | | | [place], [place] | | | | | | [address] | | | | | | [phone] | | | +--------+ + + + [...] | + + + + + | [facility] | [address] | [place] [address] | | | PATHOLOGY | [address] | | | + + + + + | [facility] | [address] | [place] [address] | | | PATHOLOGY | [address] [...] Performed At | + + + | [id number] Estimated GFR > 60 mL/min/1.73 sq m if non- | [facility] | | [id number] Estimated GFR > 60 mL/min/1.73 sq m [...] + + | Performing | Address | City[facility]State[facility] | Phone Number | | Organization | | | | + + + + + | [facility] | [address] | [place] [address] | | | PATHOLOGY | [address] | | | + + + + + | [facility] DEPARTMENT OF | [address] | [place] [address] | | | PATHOLOGY | [address] | | | + + + + + MAGNESIUM, PLASMA (06/03/2006 11:48 AM PST) + +-------+ + + + | Component | Value | Ref Range | Performed | Pathologist | | | | | At | Signature | + +-------+ + + + | MAGNESIUM,P | 2.3 | 1.8 - 2.5 mg/dL | [facility] | | | LASMA | | | DEPARTMENT | | | | | | OF | | | | | | PATHOLOGY | | + +-------+ + + + + + | Specimen | + + | | + + + + + | Narrative | Performed At | + + + | [id number] Estimated GFR > 60 mL/min/1.73 sq m if non- | [facility] | | [id number] Estimated GFR > 60 mL/min/1.73 sq m [...] | + + + + + | [facility] DEPARTMENT | [address] | [place] [address] | | | PATHOLOGY | [address] | | | + + + + + | [facility] | [address] | [place] [address] | | | PATHOLOGY | [address] [...] Performed At | + + + | [id number] Estimated GFR > 60 mL/min/1.73 sq m if non- | [facility] | | [id number] Estimated GFR > 60 mL/min/1.73 sq m [...] | + + + + + | [facility] | [address] [facility] | [place] [address] | | | PATHOLOGY | [address] | | | + + + + + | [facility] | [address] [facility] | [place] [address] | | | PATHOLOGY | [address] [...] Performed At | + + + | [id number] Estimated GFR > 60 mL/min/1.73 sq m if non- | [facility] | | [id number] Estimated GFR > 60 mL/min/1.73 sq m [...] | + + + + + | [facility] | [address] [facility] [address] | [place] [address] | | | PATHOLOGY | [address] | | | + + + + + | [facility] | [address] [facility] | [place] [address] | | | PATHOLOGY | [address] [...] | [address] | [place] [address] | | | PATHOLOGY | [address] | | | + + + + + | [facility] | [address] | [place] [address] | | | PATHOLOGY | [address] [...] | | AB | Test performed by [place] | | | | | | [facility] | | | | | | [employer]. | | | | + + + + + + + + | Specimen | + + | | + + + + + + + | Performing | Address | City/State/Zipcode | Phone Number | | Organization | | | | + + + + + | [facility] | [address] | [place] [address] | | | LABORATORY | | | [...] | | SURFACE | Test performed by [employer] | | | | | HOA, AMRIK | [facility] | | | | | | Laboratories. | | | | + + + + + + + + | Specimen | + + | | + + + + + + + | Performing | Address | City/State/Zipcode | Phone Number | | Organization | | | | + + + + + | [facility] | [address] | [place] [address] | | | LABORATORY | | | [...] | + + + + + | [facility] | [address] | [place] [address] | | | LABORATORY | | | [...] | CORE AB, | Test performed by [place] | | | | | SERUM | [facility] | | | | | | Laboratories. | | | | + + + + + + + + | Specimen | + + | | + + + + + + + | Performing | Address | City/State/Zipcode | Phone Number | | Organization | | | | + + + + + | [facility] | [address] | [place] [address] | | | LABORATORY | | | [...] Performed At | + + + | [id number] Estimated GFR > 60 mL/min/1.73 sq m if non- | [facility] | | [id number] Estimated GFR > 60 mL/min/1.73 sq m [...] | + + + + + | [facility] | [facility] | [place] [address] | | | PATHOLOGY | [address] | | | + + + + + | [facility] | [facility] | [place] [address] | | | PATHOLOGY | [address] [...] Performed At | + + + | [id number] Estimated GFR > 60 mL/min/1.73 sq m if non- | [facility] | | [id number] Estimated GFR > 60 mL/min/1.73 sq m [...] DEPARTMENT OF | [address] | [place] [address] | | | PATHOLOGY | [address] | | | + + + + + | [facility] DEPARTMENT OF | [address] | [place] [address] | | | PATHOLOGY | [address] [...] Performed At | + + + | [id number] Estimated GFR > 60 mL/min/1.73 sq m if non- | [facility] | | [id number] Estimated GFR > 60 mL/min/1.73 sq m [...] | + + + + + | [facility] | [address] | [place] [address] | | | PATHOLOGY | [address] | | | + + + + + | [facility] | [address] | [place] [address] | | | PATHOLOGY | [address] [...] Performed At | + + + | [id number] Estimated GFR > 60 mL/min/1.73 sq m if non- | [facility] | | [id number] Estimated GFR > 60 mL/min/1.73 sq m [...] | + + + + + | [facility] | [address] [facility] | [place] [address] | | | PATHOLOGY | [address] | | | + + + + + | [facility] DEPARTMENT OF | [address] | [place] [address] | | | PATHOLOGY | [address] [...] Performed At | + + + | [id number] Estimated GFR > 60 mL/min/1.73 sq m if non- | [facility] | | [id number] Estimated GFR > 60 mL/min/1.73 sq m [...] | + + + + + | [facility] | [address] [facility] | [place] [address] | | | PATHOLOGY | [address] | | | + + + + + | [facility] | [address] [facility] | [place] [address] | | | PATHOLOGY | [address] | | | + + + + + documented in this encounter Visit Diagnoses + + | Diagnosis | + + | Other psoriasis | + + | Erythroderma Unspecified erythematous condition | + + documented in this encounter"
--- OUTSIDE RECORDS SUMMARY | ~2019-11-15 | XMS | Encounter Summary ---
Demographics + + + | Address | [address] | | | [place] [address] | + + + | Home Phone | | + + + | Preferred Language | Unknown | + + + | Marital Status | | + + + | Mandaen Affiliation | PRO | + + + [...] [place] | | | | | [address] | | + + + + + Care Team Providers + +------+ + | Care Mail Order Biller Name | Role | Phone | + [...] | | 2006 | | Medical at [facility] [address] | | | | | | [address] | | | | | | Mailcode: CH16D | | | | | | [facility] | | | | | | and [address], | | | | | | Building | | | | | | Floor [place], [place] | | | | | | [address] | | | | | | [phone] | | | +--------+--------+ + + + [...]
--- OUTSIDE RECORDS SUMMARY | ~2019-11-15 | XMS | Encounter Summary ---
Demographics + + + | Address | [address] | | | [place] [address] | + + + | Home Phone [...] [place] | | | | | [address] | | + + + + + Care Team Providers + +------+ + | Care Metal Sander Name | Role | Phone | + [...] [facility] | | | | | | [address] | | | | | | [address] Phys[facility] | | | | | | [address], [address] Floor | | | | | | [place], [place] | | | | | | [address] | | | | | | [phone] | | | +--------+ + + + [...] + + | Performing | Address | City[facility] | Phone Number | | Organization | | | | + +---------+ + + | [facility] DEPARTMENT OF | | | | | RADIOLOGY | | | | + +---------+ + + documented in this encounter Visit Diagnoses + + | Diagnosis | + + | Psoriasis Other psoriasis | + + | Arthritis Arthropathy, unspecified, site unspecified | + + documented in this encounter"
--- OUTSIDE RECORDS SUMMARY | ~2019-11-15 | XMS | Encounter Summary ---
Demographics + + + | Address | [address] | | | [place] [address] | + + + | Home Phone | | + + + | Preferred Language | Unknown | + + + | Marital Status | | + + + | Druze Affiliation | PRO | + + + | Race | White | + + + | Ethnic Group | Not or | + + + Author + + + | Author | [facility] | + + + | Organization | [facility] | + + + | Address | Unknown | + + + | Phone | Unavailable | + + + Support + + + + + | Name | Relationship | Address | Phone | + + + + + | Marnie Payne | ECON | [address] | | | | | [place] | | | | | [address] | | + + + + + Care Team Providers + +------+ + | Care Switchman Name | Role | Phone | + [...] | 2005 | Visit | Medical at [facility] [address] | MD | Similar Disorders; | | | | [address] | | Erythroderma | | | | Mailcode: [id number] | | | | | | [facility] | | | | | | and Healing, | | | | | | Building | | | | | | Floor [place], [place] | | | | | | [address] | | | | | | [phone] | | | +--------+---------+ + + + [...] -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 [facility] O: Khai Payne is a [...] Performed At | + + + | [id number] Estimated GFR > 60 mL/min/1.73 sq m if non- | [facility] | | [id number] Estimated GFR > 60 mL/min/1.73 sq m [...] | + + + + + | [facility] DEPARTMENT OF | [address] | [place] [address] | | | PATHOLOGY | [address] | | | + + + + + | [place] DEPARTMENT OF | [address] | [place] [address] | | | PATHOLOGY | [address] [...] Performed At | + + + | [id number] Estimated GFR > 60 mL/min/1.73 sq m if non- | [facility] | | [id number] Estimated GFR > 60 mL/min/1.73 sq m [...] | + + + + + | [facility] DEPARTMENT OF | [address] | [place] [address] | | | PATHOLOGY | [address] | | | + + + + + | [facility] DEPARTMENT OF | [address] | [place] [address] | | | PATHOLOGY | [address] | | | + + + + + LIPID SET (06/03/2006 11:48 AM PST) + + + + + + | Component | Value | Ref Range | Performed | Pathologist | | | | | At | Signature | + + + + + + | CHOLESTEROL | 187Comment: | <200 mg/dL | [facility] | | | (LAB) | Cholesterol Reference [...] Performed At | + + + | [id number] Estimated GFR > 60 mL/min/1.73 sq m if non- | [facility] | | [id number] Estimated GFR > 60 mL/min/1.73 sq m [...] | + + + + + | [facility] DEPARTMENT OF | [address] [facility] | [place] [address] | | | PATHOLOGY | [address] | | | + + + + + | [facility] DEPARTMENT | [address] | [place] [address] | | | PATHOLOGY | [address] [...] Performed At | + + + | [id number] Estimated GFR > 60 mL/min/1.73 sq m if non- | [facility] | | [id number] Estimated GFR > 60 mL/min/1.73 sq m [...] | + + + + + | [facility] | [address] [facility] | [place] [address] | | | PATHOLOGY | [address] | | | + + + + + | [facility] | [address] [place] [address] | [place] [address] | | | PATHOLOGY | [address] [...] | + + + + + | [facility] DEPARTMENT OF | [address] | [place] [address] | | | PATHOLOGY | [address] | | | + + + + + | [facility] DEPARTMENT OF | [address] | [place] [address] | | | PATHOLOGY | [address] [...] | + + + + + | [facility] | [address] | [place] [address] | | | LABORATORY | | | [...] | | | | AG, SERUM | [facility] | | | | | | Laboratories. | | | | + + + + + + + + | Specimen | + + | | + + + + + + + | Performing | Address | City/State/Zipcode | Phone Number | | Organization | | | | + + + + + | [facility] | [address] | [place] [address] | | | LABORATORY | | | [...] | | | | HOMER, SERUM | [facility] | | | | | | Laboratories. | | | | + + + + + + + + | Specimen | + + | | + + + + + + + | Performing | Address | City/State/Zipcode | Phone Number | | Organization | | | | + + + + + | [facility] | [address] | [place] [address] | | | LABORATORY | | | [...] | | | | | SERUM | [facility] | | | | | | Laboratories. | | | | + + + + + + + + | Specimen | + + | | + + + + + + + | Performing | Address | City/State/Zipcode | Phone Number | | Organization | | | | + + + + + | [facility] | [address] | [place] [address] | | | LABORATORY | | | [...] Performed At | + + + | [id number] Estimated GFR > 60 mL/min/1.73 sq m if non- | [place] | | [id number] Estimated GFR > 60 mL/min/1.73 sq m [...] | + + + + + | [facility] | [address] | [place] [address] | | | PATHOLOGY | [address] | | | + + + + + | [facility] | [address] | [place] [address] | | | PATHOLOGY | [address] [...] Performed At | + + + | [id number] Estimated GFR > 60 mL/min/1.73 sq m if non- | [facility] | | [id number] Estimated GFR > 60 mL/min/1.73 sq m [...] | + + + + + | [facility] DEPARTMENT | [address] [place] [address] | [place] [address] | | | PATHOLOGY | [address] | | | + + + + + | [facility] | [address] [facility] | [place] [address] | | | PATHOLOGY | [address] [...] Performed At | + + + | [id number] Estimated GFR > 60 mL/min/1.73 sq m if non- | [facility] | | [id number] Estimated GFR > 60 mL/min/1.73 sq m [...] [place] DEPARTMENT OF | [address] [facility] | [place] [address] | | | PATHOLOGY | [address] | | | + + + + + | [facility] DEPARTMENT OF | [address] [facility] | [place] [address] | | | PATHOLOGY | [address] [...] Performed At | + + + | [id number] Estimated GFR > 60 mL/min/1.73 sq m if non- | [facility] | | [id number] Estimated GFR > 60 mL/min/1.73 sq m [...] | + + + + + | [facility] | [address] [facility] | [place] [address] | | | PATHOLOGY | [address] | | | + + + + + | [facility] | [facility] | [place] [address] | | | PATHOLOGY | [address] [...] Performed At | + + + | [id number] Estimated GFR > 60 mL/min/1.73 sq m if non- | [facility] | | [id number] Estimated GFR > 60 mL/min/1.73 sq m [...] | + + + + + | [facility] | [address] | [place] [address] | | | PATHOLOGY | [address] | | | + + + + + | [facility] | [address] | [place] [address] | | | PATHOLOGY | [address] | | | + + + + + documented in this encounter Visit Diagnoses + + | Diagnosis | + + | Other psoriasis | + + | Erythroderma Unspecified erythematous condition | + + documented in this encounter"
--- OUTSIDE RECORDS SUMMARY | ~2019-11-15 | XMS | Encounter Summary ---
Demographics + + + | Address | [address] | | | [place] [address] | + + + | Home Phone | | + + + | Preferred Language | Unknown | + + + | Marital Status | | + + + | Scientologist Affiliation | 1013 | + + + | Race | Unknown | + + + | Ethnic Group | Unknown | + + + Author + + + | Author | [facility] | | | and [place] | + + + | Organization | [facility] | | | and [...] Team Providers + +------+ + | Care Powder Loader Name | Role | Phone | + [...] [place] | | | | | | [address] | (Fax) | | | | | [phone] | | | +--------+ + + + [...]
--- OUTSIDE RECORDS SUMMARY | ~2019-11-15 | XMS | Encounter Summary ---
Demographics + + + | Address | [address] | | | [place] [address] | + + + | Home Phone [...] + + + | Author | [facility] | + + + | Organization | [facility] | + + + | Address | Unknown | + + + | Phone | Unavailable | + + + Support + + + + + | Name | Relationship | Address | Phone | + + + + + | Marnie Payne | ECON | [address] | | | | | [place] | | | | | [address] | | + + + + + Care Team Providers + +------+ + | Care Front Load Trash Truck Driver Name | Role | Phone | + [...] | | 2007 | | Medical at [facility] [address] | | | | | | [address] | | | | | | Mailcode: [id number] | | | | | | [facility] | | | | | | and [address], | | | | | | Building | | | | | | Floor [place], [place] | | | | | | [address] | | | | | | [phone] | | | +--------+--------+ + + + [...]
--- OUTSIDE RECORDS SUMMARY | ~2019-11-15 | XMS | Encounter Summary ---
Demographics + + + | Address | [address] | | | [place] [address] | + + + | Home Phone | | + + + | Preferred Language | Unknown | + + + | Marital Status | | + + + | Samaritan Affiliation | PRO | + + + [...] [place] | | | | | [address] | | + + + + + Care Team Providers + +------+ + | Care Immigration Specialist Name | Role | Phone | [...] 2006 | | Medical at [facility] [address] | MD | info he would like | | | | [address] | | for you to add with | | | | Mailcode: [id number] | | work release papers) | | | | [facility] | | | | | | and Healing, | | | | | | | | | | | | [place], [place] | | | | | | [address] | | | | | | [phone] | | | +--------+ + + + [...]
--- OUTSIDE RECORDS SUMMARY | ~2019-11-15 | XMS | Encounter Summary ---
Demographics + + + | Address | [address] | | | [place] [address] | + + + | Home Phone | | + + + | Preferred Language | Unknown | + + + | Marital Status | | + + + | Yazidism Affiliation | 1013 | + + + | Race | Unknown | + + + | Ethnic Group | Unknown | + + + Author + + + | Author | [facility] | | | and Romeana | + + + | Organization | [facility] | | | and [...] Team Providers + +------+ + | Care Lugger Name | Role | Phone | + +------+ + PCP | Unavailable | + +------+ + Encounter Details +--------+ + + + + | Date | Type | Department | Care Team | Description | +--------+ + + + + | 11/04/ | Hospital | [facility] | Terrence Bolaños MD | Dehydration | | 2015 - | Encounter | [facility] | [address] | | | | | CARE FLOOR [address] | [place] [address] | | | 11/07/ | | [address] | [phone] | | | 2015 | | [place], [place] | | | | | | [address] | | | | | | [phone] | | | +--------+ + + + [...] Date of Service: 11/07/14 0742 Status: Signed Auditor In Charge: Saira Retana MD (Physician) Related Notes: Original Note by Saira Retana MD (Physician) filed at 11/07/14 0747 [facility] Service: Hospitalist Physician Discharge Summary Patient ID: Khai Payne 1955 59 y.o. Admit date: 11/04/2014 Discharge date: 11/07/2014 Admitting Physician: Terrence Bolaños MD Discharge Physician: Saira Retana MD Consultants: Treatment Team: Admitting Provider: Terrence Bolaños MD Primary Discharge Diagnoses: Syncope and collapse Secondary Discharge Diagnoses: Dehydration resolved ELVIA (acute kidney injury) (HCC) resolved Dvt femoral (deep venous thrombosis) ([facility]) HPI and Hospital Course: 59-year-old male with history of psoriatic arthritis who presented to [facility] after collapsing while watching a baseball game outside. The patient had been drinking 5 to 6 eight-ounce Margaritas and collapsed when he got out of the seat. He walked to his car and when he got home he collapsed again and was brought to the emergency department. He was hyp otensive requiring dopamine and transferred to [facility] intensive care unit. The patient was [...] Nov 05 2014 7:16AM Referring Provider Line: [phone] ID: [id number] Ultrasound Lower Extremity Venous Doppler [...] Invalid input(s): ABG Disposition: Home Follow up: [facility] [address] [place] [id number] On 11/07/2014 Appointment Time: 3:00 PM with [...] are the prescriptions that you need to pickling grader. You may get the following medications from [...] summary. This entry has been created using [employer] Speech Recognition software and [email or web address]. The entry has been reviewed and there may still exist sound alike word errors. documented in th is encounter Progress Notes Conversion Transaction, Provider Unknown - 11/07/2014 9:13 AM PDTFormatting of this note m ight be different from the original. Case Management by FABIANA Amato at 11/07/14912 Author: FABIANA Amato Service: (none) Author Type: Bobbin Cleaning Machine Operator Filed: 11/07/14 1203 Date of Service: 11/07/14912 Status: Addendum Auditor In Charge: FABIANA Amato (Bobbin Cleaning Machine Operator) Related Notes: Original Note by FABIANA Amato (Bobbin Cleaning Machine Operator) filed at 11/07/14 09 42 CM informed by Physician that Pt will dc today and that he will need an INR drawn this week . Appt with PCP changed to 11/08 @ 10:00 AM. Appt updated on AVS and Pt informed. Family to transport home. ETOH treatment resources in [facility] area provided to Pt and family. 1200 Referral from RN for HH RN to continue with teaching on Lovenox and Coumadin at home. CM spoke with Pt and family who are in agreement. Referral faxed to [facility] in [place]. onver love Transaction, Provider Unknown - 11/06/2014 6:27 PM PDT Nurse Progress Note by Amara Stratton RN at 11/06/141826 Author: Amara Stratton RN Service: (none) Author Type: Registered Nurse Filed: 11/06/141829 Date of Service: 11/06/141826 Status: Signed Auditor In Charge: Amara Stratton RN (Registered Nurse) Extensive visit [...] locations/Coumadin Clinics available. Pt requests f/u at [facility] ic. Pt stated [...] Date of Service: 11/06/14 1645 Status: Signed Auditor In Charge: Kelechi Sweet RN (Registered Nurse) Patient ambulated 500 feet in hallway with front wheel walker and standby assist. Patient tolerated procedure well. onver love Transaction, Provider Unknown - 11/06/2014 4:02 PM PDT Case Management by FABIANA Amato at 11/06/14 1602 Author: FABIANA Amato Service: (none) Author Type: Bobbin Cleaning Machine Operator Filed: 11/06/14 1606 Date of Service: 11/06/14 160 Status: Signed Auditor In Charge: FABIANA Amato (Bobbin Cleaning Machine Operator) PC to [facility] to make a referral for [...] an d given transportation resources for the [facility] area. Pt stated his Parents would be tra nsporting him home and to appts. No further dc needs identified. Michelle Garner MD - 11/06/2014 12:47 PM PDT Progress Notes by Michelle Barton MD at 11/06/14 8197 Author: Michelle Barton MD Service: Hospitalist Author Type: Physician Filed: 11/06/14 7486 Date of Service: 11/06/14 1247 Status: Signed Auditor In Charge: Michelle Barton MD (Physician) Related Notes: Original Note by Michelle Barton MD (Physician) filed at 11/06/14 1254 [facility] Service: Hospitalist Progress Note Hospital Day: LOS: 2 days SUBJECTIVE Per ICU tanbark peeler: "The patient is a 59 y.o. male with PMHx of psoriatic arthritis, prese nted to [facility] after collapsing while watching a [...] recently but no other constitutional symptoms. At [facility] patient was found to be hypotensive with STT wave changes. Started on dop amine. Transferred to [facility] for further management. ICU Timeline: 11/04/14: admitted [...] a DVT. Therefore, appreciate i ntensivist ICU BRICK UNLOADER TENDER assisting with heparin orders. The patient has [...] Nov 05 2014 7:16AM Referring Provider Line: [phone] ID: [id number] Ultrasound Lower Extremity Venous Doppler [...] consciousness) Dehydration ELVIA (acute kidney injury) ([facility]) Dvt femoral (deep venous thrombosis) ([facility]) ASSESSMENT & PLAN 1. Syncope and collapse [...] Date of Service: 11/06/14 1234 Status: Signed Auditor In Charge: Berenice De Los Santos PT (Physical Therapist) 11/06/14 1100 PT Last Visit PT Received On 11/06/14 Reason for Treatment Deconditioning Requires PT Follow Up Yes Follow up PT Only? No Assistance Required 1 person Social Service Coordinator Needed No Other Comments Comments Pt mobilizing [...] Author: FABIANA Goldsmith Service: (none) Author Type: Bobbin Cleaning Machine Operator Filed: 11/05/141914 Date of Service: 11/05/141911 Status: Signed Auditor In Charge: FABIANA Goldsmith (Bobbin Cleaning Machine Operator) 11/05/141909 Discharge Planning Evaluation Admitting Diagnosis syncope & collapse Readmission No Living Arrangements Spouse/significant other (Marnie Payne [phone]) Type of Residence Private residence House type House-1 story Independent with ADL's Yes Independent with Mobility No-comment (uses a walker) Home Care Services No Caregiver after Discharge Yes Relationship to Patient spouse Mental Status Oriented Prior functional status Pt reports he is worried he might slip in the shower. He had not d cong X3-4 mos. Power of Email Marketing Executive No Anticipated Discharge Plan Post Acute Care [...] Date of Service: 11/05/14 1525 Status: Signed Auditor In Charge: Mary Carmen Quesada RN (Registered Nurse) Pt transferred to [address] Transaction, Provider Unknown - 11/05/2014 3:16 PM PDT Progress Notes by Mary Carmen Quesada RN at 11/05/14 1516 Author: Mary Carmen Quesada RN Service: (none) Author Type: Registered Nurse Filed: 11/05/14 1517 Date of Service: 11/05/14 1516 Status: Signed Auditor In Charge: Mary Carmen Quesada RN (Registered Nurse) Report [...] 11/05/141814 Date of Service: 11/05/140 Status: Signed Auditor In Charge: Jovan Antonio, PT (Physical Therapist) 11/05/14 1440 PT Last Visit PT Received On 11/05/14 Reason for Treatment Other (comment) (admitted for hypotension and syncopal episode) Requires PT Follow Up Awaiting tx order Follow up PT Only? No PT Eval/Reassessment Date 11/05/14 Assistance Required 1 person;2 person (for lines) Social Service Coordinator Needed No Home Environment Type of Home Home one story Home Exterior Layout 1-3 steps Home Interior Layout Lives on main level with bedroom/bathroom Home Equipment Walker front wheeled Prior Function Level of Woods Modified independent with functional mobility;Independent with ADLs; [...] Assistance Required 1 person;2 person (for lines) Social Service Coordinator Needed No Precautions Other Precautions fall risk [...] at 11/05/14 0825 Author: DURAN Juárez Service: Enlisted Aircrew/Aerial Observer/Gunner Author Type: Enlisted Aircrew/Aerial Observer/Gunner Filed: 11/05/14 0843 Date of Service: 11/05/14 0825 Status: Signed Auditor In Charge: DURAN Juárez (Nurse Practitioner) [facility] Service: Enlisted Aircrew/Aerial Observer/Gunner Progress Note Date of Admission: 11/04/2014 Requesting Physician: Dr. Velazquez, Emergency Department Indication for ICU Admission: hypotension History Obtained From: patient CHIEF COMPLAINT: Syncope and collapse HISTORY OF PRESENT ILLNESS The patient is a 59 y.o. male with PMHx of psoriatic arthritis, presented to [facility] after collapsing while watching a [...] but no ot her constitutional symptoms. At [facility] patient was found to be hypotensive with STT wave changes. Started on dop amine. Transferred to [facility] for further management. ICU Timeline: 11/04/14: admitted [...] consciousness) Dehydration ELVIA (acute kidney injury) ([facility]) ASSESSMENT & PLAN Neuro: Syncope: workup includes telemetry, 12 lead ECG, and ECHO ordered. Carotid duplex: no flow limiting stenosis. May simply be r/t dehydration. Unclear etiology. CV: R/O MN. Trend enzymes. Hypotension likely secondary to volume [...] 11/04/141806 Date of Service: 11/04/141806 Status: Signed Auditor In Charge: Dion Lassiter RPH (Pharmacist) Clinical Pharmacy Note: [...] | | | | | performed at [facility] | | | | | | [address];[place], [place] | | | | | | [address] | | | | + + + [...] | | | | | [place] [address] | | | | + + +---- + + + | Red Blood | 2.86 (L)Comment: Testing | 4.2 0 - 5.70 | EXTERNAL | | | Cells | performed at [facility], [address] | M/u L | LAB | | | Counted | [address], | | | | | | [place] [address] | | | | + + +---- + + + | Hemoglobin | 11.7 (L)Comment: Testing | 13. 2 - 17.0 | EXTERNAL | | | | performed at [facility], [address] | g/d L | LAB | | | | [address], | | | | | | [place] [address] | | | | + + +---- + + + | Hematocrit, | 34.1 (L)Comment: Testing | 39. 0 - 50.0 % | EXTERNAL | | | POC | performed at [facility], [address] | | LAB | | | | [address], | | | | | | [place] [address] | | | | + + +---- + + + | MCV | 119.4 (H)Comment: | 80. 0 - 100.0 fl | EXTERNAL | | | | Testing performed at | | LAB | | | | [facility], [address] | | | | | | [place] | | | | | | [address] | | | | + + +---- + + + | MCH | 40.8 (H)Comment: Testing | 27. 0 - 34.0 pg | EXTERNAL | | | | performed at [facility], [address] | | LAB | | | | [address], | | | | | | [place] [address] | | | | + + +---- + + + | MCHC | 34.2Comment: Testing | 32. 0 - 35.5 | EXTERNAL | | | | performed at [facility], [address] | g/d L | LAB | | | | [address], | | | | | | [place] [address] | | | | + + +---- + + + | RDW-CV | 66.9 (H)Comment: Testing | 37 - 53 fl | EXTERNAL | | | | performed at [facility], [address] | | LAB | | | | [address], | | | | | | [place] [address] | | | | + + +---- + + + | Platelet | 191Comment: Testing | 150 - 400 K/uL | EXTERNAL | | | Count | performed at [facility], [address] | | LAB | | | Plasma | [address], | | | | | | [place] [address] | | | | + + +---- + + + | MPV | 8.2Comment: Testing | fl | EXTERNAL | | | | performed at [facility], [address] | | LAB | | | [address], | | | | | | [place] [address] | | | | + + +---- + + + | Differentia | AUTOMATEDComment: | | EXTERNAL | | | l Type | Testing performed at | | LAB | | | | [facility], [address] | | | | | | [place] | | | | | | [address] | | | | + + +---- + + + | % Segmented | 59.94Comment: Testing | % | EXTERNAL | | | | performed at [facility], [address] | | LAB | | | Neutrophils | [address], | | | | | | [place] [address] | | | | + + +---- + + + | % | 25.58Comment: Testing | % | EXTERNAL | | | Lymphocytes | performed at [facility], [address] | | LAB | | | | [address], | | | | | | [place] [address] | | | | + + +---- + + + | % Monocytes | 9.82Comment: Testing | % | EXTERNAL | | | | performed at [facility], [address] | | LAB | | | | [address], | | | | | | [place] [address] | | | | + + +---- + + + | % | 3.25Comment: Testing | % | EXTERNAL | | | Eosinophils | performed at [facility], [address] | | LAB | | | | [address], | | | | | | [place] [address] | | | | + + +---- + + + | % Basophils | 1.41Comment: Testing | % | EXTERNAL | | | | performed at [facility], [address] | | LAB | | | | [address], | | | | | | [place] [address] | | | | + + +---- + + + | Absolute | 3.79Comment: Testing | 1.9 0 - 7.40 | EXTERNAL | | | Segmented | performed at [facility], [address] | K/u L | LAB | | | Neutrophils | [address], | | | | | | [place] [address] | | | | + + +---- + + + | Absolute | 1.62Comment: Testing | 1.0 0 - 3.90 | EXTERNAL | | | Lymphocytes | performed at [facility], [address] | K/u L | LAB | | | | [address], | | | | | | [place] [address] | | | | + + +---- + + + | Absolute | 0.62Comment: Testing | 0.0 0 - 0.80 | EXTERNAL | | | Monocytes | performed at [facility], [address] | K/u L | LAB | | | | [address], | | | | | | [place] [address] | | | | + + +---- + + + | Absolute | 0.21Comment: Testing | 0.0 0 - 0.50 | EXTERNAL | | | Eosinophils | performed at [facility], [address] | K/u L | LAB | | | | [address], | | | | | | [place] [address] | | | | + + +---- + + + | Absolute | 0.09Comment: Testing | 0.0 0 - 0.10 | EXTERNAL | | | Basophils | performed at [facility], [address] | K/u L | LAB | | | | [facility], | | | | | | [place] [address] | | | | + + +---- + + + | RBC | 3+Comment: | | EXTERNAL | | | Morphology | ANISO3+MACRONORMAL PLT | | LAB | | | | MORPHTesting performed | | | | | | at [facility], [address] | | | | | | [employer] [facility], | | | | | | [place] [address] | | | | | |Testing performed at [facility], [address] [facility], [place] [address] | | | | | | | [...] | | | | | [place] [address] | | | | + + + [...] EXTERNAL | | | | performed at [facility], [address] | | LAB | | | | [address], | | | | | | [place] [address] | | | | + + + [...] | | | | | [place] [address] | | | | + + + + + + | K | 3.9Comment: Testing | 3.5 - 4.9 | EXTERNAL | | | | performed at [facility], [address] | mmol/L | LAB | | | | [address], | | | | | | [place] [address] | | | | + + + + + + | Cl | 109Comment: Testing | 99 - 109 mmol/L | EXTERNAL | | | | performed at [facility], [address] | | LAB | | | | [address], | | | | | | [place] [address] | | | | + + + + + + | CO2 | 23Comment: Testing | 23 - 32 mmol/L | EXTERNAL | | | | performed at [facility], [address] | | LAB | | | | [address], | | | | | | [place] [address] | | | | + + + + + + | Anion Gap | 9Comment: Testing | 5 - 20 mmol/L | EXTERNAL | | | | performed at [facility], [address] | | LAB | | | | [address], | | | | | | [place] [address] | | | | + + + + + + | Glucose, | 91Comment: Testing | 65 - 99 mg/dL | EXTERNAL | | | Fasting | performed at [facility], [address] | | LAB | | | | [address], | | | | | | [place] [address] | | | | + + + + + + | BUN | 12Comment: Testing | 8 - 25 mg/dL | EXTERNAL | | | | performed at [facility], [address] | | LAB | | | | [address], | | | | | | [place] [address] | | | | + + + + + + | Creatinine | 0.72Comment: Testing | 0.70 - 1.30 | EXTERNAL | | | | performed at [facility], [address] | mg/dL | LAB | | | | [address], | | | | | | [place] [address] | | | | + + + + + + | BUN/Creatin | 17Comment: Testing | | EXTERNAL | | | ine Ratio | performed at [facility], [address] | | LAB | | | | [address], | | | | | | [place] [address] | | | | + + + + + + | Calcium | 7.9 (L)Comment: Testing | 8.5 - 10.5 | EXTERNAL | | | | performed at [facility], [address] | mg/dL | LAB | | | | [address], | | | | | | [place] [address] | | | | + + + [...] | | | | | | at [facility], [address] | | | | | | [address], | | | | | | [place] [address] | | | | + + + [...] EXTERNAL | | | | performed at [facility], [address] | | LAB | | | | [address], | | | | | | [place] [address] | | | | + + + [...] EXTERNAL | | | | performed at [facility], [address] | | LAB | | | | [address], | | | | | | [place] [address] | | | | + + + [...] EXTERNAL | | | | performed at [facility];[address] | mmol/L | LAB | | | | [address];[place] | | | | | | [address] | | | | + + + + + + | K | 4.0Comment: Testing | 3.5 - 4.9 | EXTERNAL | | | | performed at [facility];[address] | mmol/L | LAB | | | | [address];[place] | | | | | | [address] | | | | + + + + + + | Cl | 110 (H)Comment: Testing | 99 - 109 mmol/L | EXTERNAL | | | | performed at [facility];[address] | | LAB | | | | [address];[place] | | | | | | [address] | | | | + + + + + + | CO2 | 22 (L)Comment: Testing | 23 - 32 mmol/L | EXTERNAL | | | | performed at [facility];[address] | | LAB | | | | [address];[place] | | | | | | [address] | | | | + + + + + + | Anion Gap | 12Comment: Testing | 5 - 20 mmol/L | EXTERNAL | | | | performed at [facility];[address] | | LAB | | | | [address];[place] | | | | | | [address] | | | | + + + + + + | Glucose, | 114 (H)Comment: Testing | 65 - 99 mg/dL | EXTERNAL | | | Fasting | performed at [facility];[address] | | LAB | | | | [address];[place] | | | | | | [address] | | | | + + + + + + | BUN | 14Comment: Testing | 8 - 25 mg/dL | EXTERNAL | | | | performed at [facility];[address] | | LAB | | | | [address];[place] | | | | | | [address] | | | | + + + + + + | Creatinine | 0.98Comment: Testing | 0.70 - 1.30 | EXTERNAL | | | | performed at [facility];[address] | mg/dL | LAB | | | | [address];[place] | | | | | | [address] | | | | + + + + + + | BUN/Creatin | 14Comment: Testing | | EXTERNAL | | | ine Ratio | performed at [facility];[address] | | LAB | | | | [address];[place] | | | | | | [address] | | | | + + + + + + | Calcium | 7.8 (L)Comment: Testing | 8.5 - 10.5 | EXTERNAL | | | | performed at [facility];888 | mg/dL | LAB | | | | [address];[place] | | | | | | [address] | | | | + + + + + + | Protein, | 5.7 (L)Comment: Testing | 6.3 - 8.2 g/dL | EXTERNAL | | | Total | performed at [facility];[address] | | LAB | | | | [address];[place] | | | | | | [address] | | | | + + + + + + | Albumin | 2.1 (L)Comment: Testing | 3.3 - 4.8 g/dL | EXTERNAL | | | | performed at [facility];[address] | | LAB | | | | [address];[place] | | | | | | [address] | | | | + + + + + + | Globulin | 3.6Comment: Testing | 1.3 - 4.9 g/dL | EXTERNAL | | | | performed at [facility];[address] | | LAB | | | | [address];[place] | | | | | | [address] | | | | + + + + + + | A/G Ratio | 0.6 (L)Comment: Testing | 1.0 - 2.4 | EXTERNAL | | | | performed at [facility];[address] | | LAB | | | | [address];[place] | | | | | | [address] | | | | + + + + + + | Bilirubin | 0.2Comment: Testing | 0.1 - 1.5 mg/dL | EXTERNAL | | | Total | performed at [facility];[address] | | LAB | | | | [address];[place] | | | | | | [address] | | | | + + + + + + | ALP, | 92Comment: Testing | 35 - 115 U/L | EXTERNAL | | | External | performed at [facility];[address] | | LAB | | | | [address];[place] | | | | | | [address] | | | | + + + + + + | AST | 26Comment: Testing | 10 - 45 U/L | EXTERNAL | | | | performed at [facility];[address] | | LAB | | | | [address];[place] | | | | | | [address] | | | | + + + + + + | ALT | 15Comment: Testing | 10 - 65 U/L | EXTERNAL | | | | performed at [facility];[address] | | LAB | | | | [address];[place] | | | | | | [address] | | | | + + + [...] | | | | | | at [facility];[address] [place] [address] | | | | | | [facility];[place] [address] | | | | + + + [...] | | | Patient | performed at [facility];[address] | | LAB | | | | [address];[place], [place] | | | | | | [address] | | | | + + + [...] EXTERNAL | | | | performed at [facility], [address] | K/u L | LAB | | | | [address], | | | | | | [place] [address] | | | | + + +---- + + + | Red Blood | 2.78 (L)Comment: Testing | 4.2 0 - 5.70 | EXTERNAL | | | Cells | performed at [facility], [address] | M/u L | LAB | | | Counted | [address], | | | | | | [place] [address] | | | | + + +---- + + + | Hemoglobin | 11.2 (L)Comment: Testing | 13. 2 - 17.0 | EXTERNAL | | | | performed at [facility], [address] | g/d L | LAB | | | | [address], | | | | | | [place] [address] | | | | + + +---- + + + | Hematocrit, | 33.1 (L)Comment: Testing | 39. 0 - 50.0 % | EXTERNAL | | | POC | performed at [facility], [address] | | LAB | | | | [address], | | | | | | [place] [address] | | | | + + +---- + + + | MCV | 119.3 (H)Comment: | 80. 0 - 100.0 fl | EXTERNAL | | | | Testing performed at | | LAB | | | | [facility], [address] | | | | | | [place] | | | | | | [address] | | | | + + +---- + + + | MCH | 40.5 (H)Comment: Testing | 27. 0 - 34.0 pg | EXTERNAL | | | | performed at [facility], [address] | | LAB | | | | [address], | | | | | | [place] [address] | | | | + + +---- + + + | MCHC | 34.0Comment: Testing | 32. 0 - 35.5 | EXTERNAL | | | | performed at [facility], [address] | g/d L | LAB | | | | [address], | | | | | | [place] [address] | | | | + + +---- + + + | RDW-CV | 67.4 (H)Comment: Testing | 37 - 53 fl | EXTERNAL | | | | performed at [facility], [address] | | LAB | | | | [address], | | | | | | [place] [address] | | | | + + +---- + + + | Platelet | 169Comment: Testing | 150 - 400 K/uL | EXTERNAL | | | Count | performed at [facility], [address] | | LAB | | | Plasma | [address], | | | | | | [place] [address] | | | | + + +---- + + + | MPV | 8.9Comment: Testing | fl | EXTERNAL | | | | performed at [facility], [address] | | LAB | | | | [address], | | | | | | [place] [address] | | | | + + +---- + + + | Differentia | AUTOMATEDComment: | | EXTERNAL | | | l Type | Testing performed at | | LAB | | | | [facility], [address] | | | [address], [place], [place] | | | | | | [address] | | | | + + +---- + + + | % Segmented | 58.36Comment: Testing | % | EXTERNAL | | | | performed at [facility], [address] | | LAB | | | Neutrophils | [address], | | | | | | [place] [address] | | | | + + +---- + + + | % | 28.33Comment: Testing | % | EXTERNAL | | | Lymphocytes | performed at [facility], [address] | | LAB | | | | [address], | | | | | | [place] [address] | | | | + + +---- + + + | % Monocytes | 8.15Comment: Testing | % | EXTERNAL | | | | performed at [facility], [address] | | LAB | | | | [address], | | | | | | [place] [address] | | | | + + +---- + + + | % | 2.76Comment: Testing | % | EXTERNAL | | | Eosinophils | performed at [facility], [address] | | LAB | | | | [address], | | | | | | [place] [address] | | | | + + +---- + + + | % Basophils | 2.40Comment: Testing | % | EXTERNAL | | | | performed at [facility], [address] | | LAB | | | | [address], | | | | | | [place] [address] | | | | + + +---- + + + | Absolute | 4.34Comment: Testing | 1.9 0 - 7.40 | EXTERNAL | | | Segmented | performed at [facility], [address] | K/u L | LAB | | | Neutrophils | [address], | | | | | | [place] [address] | | | | + + +---- + + + | Absolute | 2.11Comment: Testing | 1.0 0 - 3.90 | EXTERNAL | | | Lymphocytes | performed at [facility], [address] | K/u L | LAB | | | | [address], | | | | | | [place] [address] | | | | + + +---- + + + | Absolute | 0.61Comment: Testing | 0.0 0 - 0.80 | EXTERNAL | | | Monocytes | performed at [facility], [address] | K/u L | LAB | | | | [address], | | | | | | [place] [address] | | | | + + +---- + + + | Absolute | 0.21Comment: Testing | 0.0 0 - 0.50 | EXTERNAL | | | Eosinophils | performed at [facility], [address] | K/u L | LAB | | | | [address], | | | | | | [place] [address] | | | | + + +---- + + + | Absolute | 0.18 (H)Comment: Testing | 0.0 0 - 0.10 | EXTERNAL | | | Basophils | performed at [facility], [address] | [address] | LAB | | | | [address], | | | | | | [place] [address] | | | | + + +---- + + + | RBC | 3+Comment: | | EXTERNAL | | | Morphology | ANISO3+MACRONORMAL PLT | | LAB | | | | MORPHTesting performed | | | | | | at [facility], [address] | | | | | | [facility], | | | | | | [place] [address] | | | | | |Testing performed at [facility], [address] [facility] [place] [place] [address] | | | | | | | [...] | | | | | [place] [address] | | | | + + + [...] EXTERNAL | | | | performed at [facility], [address] | | LAB | | | | [address], | | | | | | [place] [address] | | | | + + + [...] | | | | | [place] [address] | | | | + + + + + + | K | 3.6Comment: Testing | 3.5 - 4.9 | EXTERNAL | | | | performed at [facility], [address] | mmol/L | LAB | | | | [address], | | | | | | [place] [address] | | | | + + + + + + | Cl | 108Comment: Testing | 99 - 109 mmol/L | EXTERNAL | | | | performed at [facility], [address] | | LAB | | | | [address], | | | | | | [place] [address] | | | | + + + + + + | CO2 | 24Comment: Testing | 23 - 32 mmol/L | EXTERNAL | | | | performed at [facility], [address] | | LAB | | | | [address], | | | | | | [place] [address] | | | | + + + + + + | Anion Gap | 8Comment: Testing | 5 - 20 mmol/L | EXTERNAL | | | | performed at [facility], [address] | | LAB | | | | [address], | | | | | | [place] [address] | | | | + + + + + + | Glucose, | 106 (H)Comment: Testing | 65 - 99 mg/dL | EXTERNAL | | | Fasting | performed at [facility], [address] | | LAB | | | | [address], | | | | | | [place] [address] | | | | + + + + + + | BUN | 18Comment: Testing | 8 - 25 mg/dL | EXTERNAL | | | | performed at [facility], [address] | | LAB | | | | [address], | | | | | | [place] [address] | | | | + + + + + + | Creatinine | 1.07Comment: Testing | 0.70 - 1.30 | EXTERNAL | | | | performed at [facility], [address] | mg/dL | LAB | | | | [address], | | | | | | [place] [address] | | | | + + + + + + | BUN/Creatin | 17Comment: Testing | | EXTERNAL | | | ine Ratio | performed at [facility], [address] | | LAB | | | | [address], | | | | | | [place] [address] | | | | + + + + + + | Calcium | 7.6 (L)Comment: Testing | 8.5 - 10.5 | EXTERNAL | | | | performed at [facility], [address] | mg/dL | LAB | | | | [address], | | | | | | [place] [address] | | | | + + + [...] | | | | | [place] [address] | | | | + + + [...] EVGENY | | | | [place]/6RP ON [id number] AT | | | | | | 2342, VAPTesting | | | | | | performed at [facility];[address] | | | | | | [address];[place], [place] | | | | | | [address] | | | | + + + [...] EXTERNAL | | | | performed at [facility] | | LAB | | | | [address];[place], [place] | | | | | | [address] | | | | + + + [...] | | | | | | ACUTE MN Testing | | | | | | performed at [facility];[address] | | | | | | [address];[place], [place] | | | | | | [address] | | | | + + + [...] ON | | | | | | [id number] | | | | | | performed at [facility] | | | | | | [address];[place], [place] | | | | | | [address] | | | | + + + [...] EXTERNAL | | | | performed at [facility];[address] | | LAB | | | | [facility];[place], [place] | | | | | | [address] | | | | + + + [...] EXTERNAL | | | | performed at [facility];[address] | | LAB | | | | [address];[place] | | | | | | [address] | | | | + + + [...] | | | Patient | performed at [facility];[address] | | LAB | | | | [address];[place], [place] | | | | | | [address] | | | | + + + [...] | | | | | performed at [facility] | | | | | | [address];[place], [place] | | | | | | [address] | | | | + + + [...] | | | Excursion: 2.32 cm E-F Sweet Grass: 0.05 m/s EPSS: 0.17 cm HR: | [...] 0.41 m/s | | | TV Dec Sweet [place]: 5.99 m/s2 TV Dec Time: 100.12 ms TV E Berhane: | | | 0.60 m/s TV E/A Ratio: 1.46 Tunnel Elastic Operator Lockstitch: CATHY Authenticated by: | | | Robbin Main MD, FACC, FACP, FASUT Report Date/Time: 11-05-2014 | | | 16:23:42 | | + + + + + | Procedure Note | + + | Carlos, Rad Conversion - 01/21/2019 6:29 AM PDT Patient Name: Annette PAYNE of | | : 1955 Performing Physician: Robbin Main MD, [facility], | | FACP, | | FASNC INDICATIONS--------- [...] (A-L): 20.24 ml/m2LAAs A2C: | | 17.34 [id number] A-L A2C: 47.08 mlLAESV MOD A2C: 45.86 mlLALs A2C: 5.42 cmLAAs A4C: | | 13.53 la1RWXXM A-L A4C: 31.42 mlLAESV MOD A4C: 28.69 mlLALs A4C: 4.97 cmAo Diam: | | 3.57 cmAV Cusp: 1.83 cmLA Diam: 3.74 cmLA/Ao: 1.04D-E Excursion: 2.32 cmE-F | | Sweet Grass: 0.05 m/sEPSS: 0.17 cmHR: 76.05 BPMAV maxP.47 mmHgAV meanP.19 | | mmHgAV Vmax: 1.53 m/Dae Vmean: 1.05 m/Dae VTI: 34.60 cmAVA Vmax: 2.08 cm2AVA | | (VTI): 1.98 [id number] Dopp: 2.79 l/laur6TTRW Dopp: 5.53 l/minHR: 80.65 BPMLVOT | | [...] A | | Berhane: 0.41 m/sTV Dec Sweet Grass: 5.99 m/s2TV Dec Time: 100.12 msTV E [place]: 0.60 m/sTV | | E/A Ratio: 1.46 Tunnel Elastic Operator Lockstitch: GDAuthenticated by: Robbin Main MD, FACC, FACP, [...] | |D-E Excursion: 2.32 cm | |E-F Sweet Grass: 0.05 m/s | |EPSS: 0.17 cm | [...] A Berhane: 0.41 m/s | |TV Dec Sweet [place]: 5.99 m/s2 | |TV Dec Time: 100.12 ms | |TV E [place]: 0.60 m/s | |TV E/A Ratio: 1.46 | | | |Tunnel Elastic Operator Lockstitch: GD | |Authenticated by: Robbin Main MD, FACC, FACP, FASUT | |Report Date/Time: 11-05-2014 16:23:42 | | [...] EXTERNAL | | | | performed at [facility];[address] | | LAB | | | | [address];[place], [place] | | | | | | [address] | | | | + + + [...] | | | | | | ACUTE MN Testing | | | | | | performed at [facility];[address] | | | | | | [address];[place], [place] | | | | | | [address] | | | | + + + [...] EXTERNAL | | | | performed at [facility];[address] | mmol/L | LAB | | | | [address];[place] | | | | | | [address] | | | | + + + [...] LAB | | | | performed at [facility];[address] | | | | | | [address];[place], [place] | | | | | | [address] | | | | + + + [...] EXTERNAL | | | | performed at [facility], [address] | | LAB | | | | [address] | | | | | | [place] [address] | | | | + + + + + + | T3, Total | 145Comment: Testing | 80 - 200 ng/dL | EXTERNAL | | | | performed at [facility], [address] | | LAB | | | | [address] | | | | | | [place] [address] | | | | + + + [...] EXTERNAL | | | | performed at [facility] | | LAB | | | | [address];[place] | | | | | | [address] | | | | + + + [...] | | | | | | at [facility];[address] [place] [address] | | | | | | [facility];[place] [address] | | | | + + + [...] EXTERNAL | | | | performed at [facility];[address] | | LAB | | | | [address];[place], [place] | | | | | | [address] | | | | + + + [...] | | | | | | ACUTE MN Testing | | | | | | performed at [facility];[address] | | | | | | [facility];[place], [place] | | | | | | [address] | | | | + + + [...] EXTERNAL | | | | performed at [facility];[address] | K/uL | LAB | | | | [address];[place] | | | | | | [address] | | | | + + + + + + | Red Blood | 3.17 (L)Comment: Testing | 4.20 - 5.70 | EXTERNAL | | | Cells | performed at [facility];[address] | M/uL | LAB | | | Counted | [address];[place] | | | | | | [address] | | | | + + + + + + | Hemoglobin | 12.9 (L)Comment: Testing | 13.2 - 17.0 | EXTERNAL | | | | performed at [facility];[address] | g/dL | LAB | | | | [address];[place] | | | | | | [address] | | | | + + + + + + | Hematocrit, | 38.5 (L)Comment: Testing | 39.0 - 50.0 % | EXTERNAL | | | POC | performed at [facility];[address] | | LAB | | | | [address];[place] | | | | | | [address] | | | | + + + + + + | MCV | 121.4 (H)Comment: | 80.0 - 100.0 fl | EXTERNAL | | | | Testing performed at | | LAB | | | | [facility];[address];[place] [address] | | | | + + + + + + | MCH | 40.9 (H)Comment: Testing | 27.0 - 34.0 pg | EXTERNAL | | | | performed at [facility];[address] | | LAB | | | | [address];[place] | | | | | | [address] | | | | + + + + + + | MCHC | 33.7Comment: Testing | 32.0 - 35.5 | EXTERNAL | | | | performed at [facility];[address] | g/dL | LAB | | | | [address];[place] | | | | | | [address] | | | | + + + + + + | RDW-CV | 70.0 (H)Comment: Testing | 37 - 53 fl | EXTERNAL | | | | performed at [facility];[address] | | LAB | | | | [address];[place] | | | | | | [address] | | | | + + + + + + | Platelet | 152Comment: Testing | 150 - 400 K/uL | EXTERNAL | | | Count | performed at [facility];[address] | | LAB | | | Plasma | [address];[place] | | | | | | [address] | | | | + + + + + + | MPV | 8.3Comment: Testing | fl | EXTERNAL | | | | performed at [facility];[address] | | LAB | | | | [address];[place] | | | | | | [address] | | | | + + + + + + | Differentia | MANUALComment: Testing | | EXTERNAL | | | l Type | performed at [facility];[address] | | LAB | | | | [address];[place] | | | | | | [address] | | | | + + + + + + | Segmented | 67Comment: Testing | % | EXTERNAL | | | Neutrophils | performed at [facility];[address] | | LAB | | | Manual | [address];[place] | | | | | | [address] | | | | + + + + + + | Lymphocytes | 26Comment: Testing | % | EXTERNAL | | | Manual | performed at [facility];[address] | | LAB | | | | [address];[place] | | | | | | [address] | | | | + + + + + + | Monocytes | 3Comment: Testing | % | EXTERNAL | | | Manual | performed at [facility];[address] | | LAB | | | | [address];[place] | | | | | | [address] | | | | + + + + + + | Eosinophils | 4Comment: Testing | % | EXTERNAL | | | Manual | performed at [facility];[address] | | LAB | | | | [address];[place] | | | | | | [address] | | | | + + + + + + | Absolute | 6.20Comment: Testing | 1.90 - 7.40 | EXTERNAL | | | Neutrophils | performed at [facility];[address] | K/uL | LAB | | | | [address];[place] | | | | | | [address] | | | | + + + + + + | Absolute | 2.41Comment: Testing | 1.00 - 3.90 | EXTERNAL | | | Lymphocytes | performed at [facility];[address] | K/uL | LAB | | | | [address];[place] | | | | | | [address] | | | | + + + + + + | Absolute | 0.28Comment: Testing | 0.00 - 0.80 | EXTERNAL | | | Monocytes | performed at [facility];[address] | K/uL | LAB | | | | [address];[place] | | | | | | [address] | | | | + + + + + + | Absolute | 0.37Comment: Testing | 0.00 - 0.50 | EXTERNAL | | | Eosinophils | performed at [facility];[address] | K/uL | LAB | | | | [address];[place] | | | | | | [address] | | | | + + + + + + | RBC | 3+Comment: | | EXTERNAL | | | Morphology | MACRO2+ANISO2+POIKNORMAL | | LAB | | | | PLT MORPHTesting | | | | | | performed at [facility];[address] | | | | | | [address];[place] | | | | | | [address] | | | | | |POIK | | | | | |NORMAL PLT MORPH | | | | | |Testing performed at [facility];[address] [facility];[place] [address] | | | | | | | [...] EXTERNAL | | | | performed at [facility];[address] | uIU/mL | LAB | | | | [address];[place] | | | | | | [address] | | | | + + + [...] | | | (REF) | performed at [facility], [address] | | LAB | | | | [address], | | | | | | [place] [address] | | | | + + + [...] EXTERNAL | | | | performed at [facility], [address] | | LAB | | | | [address], | | | | | | [place] [address] | | | | + + + [...] EXTERNAL | | | | performed at [facility];[address] | | LAB | | | | [address];[place] | | | | | | [address] | | | | + + + [...] EXTERNAL | | | | performed at [facility], [address] | | LAB | | | | [address], | | | | | | [place] [address] | | | | + + + [...] + + | Hemoglobin | 5.0Comment: The Nauruan | 4.0 - 6.0 % | EXTERNAL [...] | | | | | performed at [facility], [address] | | | | | [address], | | | | | | [place] [address] | | | | + + + [...] | | | | | performed at [facility], [address] | | | | | | [facility], | | | | | | [place] [address] | | | | + + + [...] + + | Hemoglobin | 5.0Comment: The Nauruan | 4.0 - 6.0 % | EXTERNAL [...] | | | | | performed at [facility], [address] | | | | | | [address], | | | | | | [place] [address] | | | | + + + [...] | | | | | performed at [facility], [address] | | | | | | [facility], | | | | | | [place] [address] | | | | + + + [...] EXTERNAL | | | | performed at [facility];[address] | | LAB | | | | [address];[place], [place] | | | | | | [address] | | | | + + + [...] EXTERNAL | | | | performed at [facility], [address] | | LAB | | | | [address], | | | | | | [place] [address] | | | | + + + + + + | Triglycerid | 101Comment: Testing | mg/dL | EXTERNAL | | | es | performed at [facility], [address] | | LAB | | | | [address], | | | | | | [place] [address] | | | | + + + + + + | HDL | 24 (L)Comment: Testing | mg/dL | EXTERNAL | | | | performed at [facility], [address] | | LAB | | | | [address], | | | | | | [place] [address] | | | | + + + + + + | LDL, | 52Comment: Testing | mg/dL | EXTERNAL | | | Calculated | performed at [facility], [address] | | LAB | | | | [address], | | | | | | [place] [address] | | | | + + + [...] | | | | | [place] [address] | | | | + + + + + + | K | 4.1Comment: Testing | 3.5 - 4.9 | EXTERNAL | | | | performed at [facility], [address] | mmol/L | LAB | | | | [address], | | | | | | [place] [address] | | | | + + + + + + | Cl | 108Comment: Testing | 99 - 109 mmol/L | EXTERNAL | | | | performed at [facility], [address] | | LAB | | | | [address], | | | | | | [place] [address] | | | | + + + + + + | CO2 | 22 (L)Comment: Testing | 23 - 32 mmol/L | EXTERNAL | | | | performed at [facility], [address] | | LAB | | | | [address], | | | | | | [place] [address] | | | | + + + + + + | Anion Gap | 11Comment: Testing | 5 - 20 mmol/L | EXTERNAL | | | | performed at [facility], [address] | | LAB | | | | [address], | | | | | | [place] [address] | | | | + + + + + + | Glucose, | 100 (H)Comment: Testing | 65 - 99 mg/dL | EXTERNAL | | | Fasting | performed at [facility], [address] | | LAB | | | | [address], | | | | | | [place] [address] | | | | + + + + + + | BUN | 25Comment: Testing | 8 - 25 mg/dL | EXTERNAL | | | | performed at [facility], [address] | | LAB | | | | [address], | | | | | | [place] [address] | | | | + + + + + + | Creatinine | 1.99 (H)Comment: Testing | 0.70 - 1.30 | EXTERNAL | | | | performed at [facility], [address] | mg/dL | LAB | | | | [address], | | | | | | [place] [address] | | | | + + + + + + | BUN/Creatin | 13Comment: Testing | | EXTERNAL | | | ine Ratio | performed at [facility], [address] | | LAB | | | | [address], | | | | | | [place] [address] | | | | + + + + + + | Calcium | 7.6 (L)Comment: Testing | 8.5 - 10.5 | EXTERNAL | | | | performed at [facility], [address] | mg/dL | LAB | | | | [address], | | | | | | [place] [address] | | | | + + + [...] [address], | | | | | | [place] [address] | | | | + + + [...] EXTERNAL | | | | performed at [facility] | | LAB | | | | [address];[place], [place] | | | | | | [address] | | | | + + + [...] | | | | | | ACUTE MN Testing | | | | | | performed at [facility];[address] | | | | | | [facility];[place], [place] | | | | | | [address] | | | | + + + [...] EXTERNAL | | | | performed at [facility] | | LAB | | | | [address] [facility];[place], [place] | | | | | | [address] | | | | + + + [...] 7:16AM Referring Provider Line: | | | [phone] ID: [id number] | | + + + + + + | Narrative | Performed At | + + + | EXAM: CAROTID DOPPLER ULTRASOUND EXAM DATE: 11/04/2014 11:37 PM. | | | CLINICAL HISTORY: Syncope. COMPARISON: None. TECHNIQUE: | | | Real-time sonographic vascular imaging was performed by the | | | sheet mill supervisor through the carotid arterial system with a linear | | | transducer utilizing color-flow, Doppler flow and spectral analysis. | | | Multiple customer development representative static images were saved for review. [...] sonographic vascular imaging was performed by the sheet mill supervisor through the | | carotid arterial system with a linear transducer utilizing color-flow, Doppler flow and | | spectral analysis. Multiple customer development representative static images were saved for review. [...] 2014 7:16AM Referring Provider Line: | | [phone] ID: [id number] | |ICA/CCA Ratio: 1.0, 1.7. [...] 05 2014 7:16AM Referring Provider Line: [phone] ID: [id number] | + + XR Chest [...] GROWTH | | | Testing performed at [facility], [address] | | | [place] [address] | | + + + + +---------+ [...] GROWTH | | | Testing performed at [facility], | | | [address] [place] [place] [address] | | + + + + +---------+ [...] GROWTH | | | Testing performed at [facility], | | | [address] [place] [address] | | + + + + +---------+ [...] EXTERNAL | | | | performed at [facility];[address] | | LAB | | | | [address];[place], [place] | | | | | | [address] | | | | + + + [...] | | | | | | at [facility];[address] [place] [address] | | | | | | [facility];[place] [address] | | | | + + + [...] | | | Patient | performed at [facility];[address] | | LAB | | | | Joel Ayon;[place], [place] | | | | | | [address] | | | | + + + [...] | | | | | performed at [facility];88 | | | | | | Joel Charles;[place], [place] | | | | | | [address] | | | | + + + [...] EXTERNAL | | | | performed at [facility];888 | K/uL | LAB | | | | Joel Ayon;[place] | | | | | | [address] | | | | + + + + + + | Red Blood | 3.13 (L)Comment: Testing | 4.20 - 5.70 | EXTERNAL | | | Cells | performed at [facility];888 | M/uL | LAB | | | Counted | Joel Ayon;[place] | | | | | | [address] | | | | + + + + + + | Hemoglobin | 13.1 (L)Comment: Testing | 13.2 - 17.0 | EXTERNAL | | | | performed at [facility];888 | g/dL | LAB | | | | Joel Ayon;[place] | | | | | | [address] | | | | + + + + + + | Hematocrit, | 37.8 (L)Comment: Testing | 39.0 - 50.0 % | EXTERNAL | | | POC | performed at [facility];888 | | LAB | | | | [address];[place] | | | | | | [address] | | | | + + + + + + | MCV | 120.8 (H)Comment: | 80.0 - 100.0 fl | EXTERNAL | | | | Testing performed at | | LAB | | | | [facility];[address] | | | | | | [address];[place] [address] | | | | + + + + + + | MCH | 41.7 (H)Comment: Testing | 27.0 - 34.0 pg | EXTERNAL | | | | performed at [facility];[address] | | LAB | | | | [address];[place] | | | | | | [address] | | | | + + + + + + | MCHC | 34.5Comment: Testing | 32.0 - 35.5 | EXTERNAL | | | | performed at [facility];888 | g/dL | LAB | | | | [address];[place] | | | | | | [address] | | | | + + + + + + | RDW-CV | 70.0 (H)Comment: Testing | 37 - 53 fl | EXTERNAL | | | | performed at [facility];[address] | | LAB | | | | [address];[place] | | | | | | [address] | | | | + + + + + + | Platelet | 175Comment: Testing | 150 - 400 K/uL | EXTERNAL | | | Count | performed at [facility];888 | | LAB | | | Plasma | [address];[place] | | | | | | [address] | | | | + + + + + + | MPV | 8.5Comment: Testing | fl | EXTERNAL | | | | performed at [facility];[address] | | LAB | | | | [address];[place] | | | | | | [address] | | | | + + + + + + | Differentia | AUTOMATEDComment: | | EXTERNAL | | | l Type | Testing performed at | | LAB | | | | [facility];[address];[place] [address] | | | | + + + + + + | % Segmented | 82.55Comment: Testing | % | EXTERNAL | | | | performed at [facility];888 | | LAB | | | Neutrophils | [address];[place] | | | | | | [address] | | | | + + + + + + | % | 9.73Comment: Testing | % | EXTERNAL | | | Lymphocytes | performed at [facility];[address] | | LAB | | | | [address];[place] | | | | | | [address] | | | | + + + + + + | % Monocytes | 6.79Comment: Testing | % | EXTERNAL | | | | performed at [facility];888 | | LAB | | | | [address];[place] | | | | | | [address] | | | | + + + + + + | % | 0.33Comment: Testing | % | EXTERNAL | | | Eosinophils | performed at [facility];888 | | LAB | | | | [address];[place] | | | | | | [address] | | | | + + + + + + | % Basophils | 0.60Comment: Testing | % | EXTERNAL | | | | performed at [facility];888 | | LAB | | | | [address];[place] | | | | | | [address] | | | | + + + + + + | Absolute | 8.46 (H)Comment: Testing | 1.90 - 7.40 | EXTERNAL | | | Segmented | performed at [facility];888 | K/uL | LAB | | | Neutrophils | [address];[place] | | | | | | [address] | | | | + + + + + + | Absolute | 1.00Comment: Testing | 1.00 - 3.90 | EXTERNAL | | | Lymphocytes | performed at [facility];888 | K/uL | LAB | | | | [address];[place] | | | | | | [address] | | | | + + + + + + | Absolute | 0.70Comment: Testing | 0.00 - 0.80 | EXTERNAL | | | Monocytes | performed at [facility];888 | K/uL | LAB | | | | [address];[place] | | | | | | [address] | | | | + + + + + + | Absolute | 0.03Comment: Testing | 0.00 - 0.50 | EXTERNAL | | | Eosinophils | performed at [facility];888 | K/uL | LAB | | | | [address];[place] | | | | | | [address] | | | | + + + + + + | Absolute | 0.06Comment: Testing | 0.00 - 0.10 | EXTERNAL | | | Basophils | performed at [facility];888 | K/uL | LAB | | | | [address];[place] | | | | | | [address] | | | | + + + + + + | RBC | 3+Comment: | | EXTERNAL | | | Morphology | ANISO4+MACRO1+POIKTestin | | LAB | | | | g performed at [facility];888 | | | | | | [address];[place] | | | | | | [address] | | | | | |1+ | | | | | |POIK | | | | | |Testing performed at [facility];888 [facility];[place] [address] | | | | | | | [...] | | | Alcohol | performed at [facility];88 | | LAB | | | | [address];[place], [place] | | | | | | [address] | | | | + + + [...] | | | Total | performed at [facility];888 | | LAB | | | | [address];[place] | | | | | | [address] | | | | + + + + + + | Albumin | 2.3 (L)Comment: Testing | 3.3 - 4.8 g/dL | EXTERNAL | | | | performed at [facility];888 | | LAB | | | | [address];[place] | | | | | | [address] | | | | + + + + + + | Bilirubin | 0.4Comment: Testing | 0.1 - 1.5 mg/dL | EXTERNAL | | | Total | performed at [facility];888 | | LAB | | | | [address];[place] | | | | | | [address] | | | | + + + + + + | Bilirubin | 0.2Comment: Testing | 0.0 - 0.3 mg/dL | EXTERNAL | | | Direct | performed at [facility];888 | | LAB | | | | [address];[place] | | | | | | [address] | | | | + + + + + + | ALP, | 111Comment: Testing | 35 - 115 U/L | EXTERNAL | | | External | performed at [facility];888 | | LAB | | | | [address];[place] | | | | | | [address] | | | | + + + + + + | AST | 34Comment: Testing | 10 - 45 U/L | EXTERNAL | | | | performed at [facility];888 | | LAB | | | | [address];[place] | | | | | | [address] | | | | + + + + + + | ALT | 18Comment: Testing | 10 - 65 U/L | EXTERNAL | | | | performed at [facility];888 | | LAB | | | | [address];[place] | | | | | | [address] | | | | + + + [...] EXTERNAL | | | | performed at [facility];888 | mmol/L | LAB | | | | [address];[place] | | | | | | [address] | | | | + + + + + + | K | 4.1Comment: Testing | 3.5 - 4.9 | EXTERNAL | | | | performed at [facility];888 | mmol/L | LAB | | | | [address];[place] | | | | | | [address] | | | | + + + + + + | Cl | 106Comment: Testing | 99 - 109 mmol/L | EXTERNAL | | | | performed at [facility];888 | | LAB | | | | [address];[place] | | | | | | [address] | | | | + + + + + + | CO2 | 23Comment: Testing | 23 - 32 mmol/L | EXTERNAL | | | | performed at [facility];888 | | LAB | | | | [address];[place] | | | | | | [address] | | | | + + + + + + | Anion Gap | 15Comment: Testing | 5 - 20 mmol/L | EXTERNAL | | | | performed at [facility];888 | | LAB | | | | [address];[place] | | | | | | [address] | | | | + + + + + + | Glucose, | 117 (H)Comment: Testing | 65 - 99 mg/dL | EXTERNAL | | | Fasting | performed at [facility];888 | | LAB | | | | [address];[place] | | | | | | [address] | | | | + + + + + + | BUN | 24Comment: Testing | 8 - 25 mg/dL | EXTERNAL | | | | performed at [facility];888 | | LAB | | | | [address];[place] | | | | | | [address] | | | | + + + + + + | Creatinine | 2.90 (H)Comment: Testing | 0.70 - 1.30 | EXTERNAL | | | | performed at [facility];888 | mg/dL | LAB | | | | [address];[place] | | | | | | [address] | | | | + + + + + + | BUN/Creatin | 8Comment: Testing | | EXTERNAL | | | ine Ratio | performed at [facility];888 | | LAB | | | | [address];[place] | | | | | | [address] | | | | + + + + + + | Calcium | 7.6 (L)Comment: Testing | 8.5 - 10.5 | EXTERNAL | | | | performed at [facility];888 | mg/dL | LAB | | | | [address];[place] | | | | | | [address] | | | | + + + [...] | | | | | | at [facility];[address];[place] [address] | | | | + + + [...] | | | Screen, | performed at [facility];888 | | | | | UA, POC | [address];[place] | | | | | | [address] | | | | + + + + + + | Barbiturate | NEGATIVEComment: | | EXTERNAL | | | s Screen, | Positive cutoff for | | LAB | | | Urine | MEGAN = 200 ng/mLTesting | | | | | | performed at [facility];888 | | | | | | [address];[place] | | | | | | [address] | | | | + + + + + + | Benzodiazep | NEGATIVEComment: | | EXTERNAL | | | donald | Positive cutoff for | | LAB | | | Screen, | BENZO = 200 ng/mLTesting | | | | | Urine | performed at [facility];888 | | | | | | [address];[place] | | | | | | [address] | | | | + + + + + + | Cocaine | NEGATIVEComment: | | EXTERNAL | | | | Positive cutoff for | | LAB | | | | JOURDAN = 300 ng/mLTesting | | | | | | performed at [facility];888 | | | | | | [address];[place] | | | | | | [address] | | | | + + + + + + | Methadone | NEGATIVEComment: | | EXTERNAL | | | | Positive cutoff for | | LAB | | | | MTD = 300 ng/mLTesting | | | | | | performed at [facility];888 | | | | | | [address];[place] | | | | | | [address] | | | | + + + + + + | Opiates | POSITIVE (A)Comment: | | EXTERNAL | | | | Positive cutoff for | | LAB | | | | OPI = 300 ng/mLTesting | | | | | | performed at [facility];888 | | | | | | [address];[place] | | | | | | [address] | | | | + + + + + + | PCP | NEGATIVEComment: | | EXTERNAL | | | | Positive cutoff for PCP | | LAB | | | | = 25 ng/mLTesting | | | | | | performed at [facility];888 | | | | | | [address];[place] | | | | | | [address] | | | | + + + [...] | | | | | performed at [facility];88 | | | | | | [facility];[place], [place] | | | | | | [address] | | | | + + + [...] EXTERNAL | | | | performed at [facility];888 | | LAB | | | | [address];[place] | | | | | | [address] | | | | + + + + + + | RBC, UA | 1-5Comment: Testing | 0 - 2 /hpf | EXTERNAL | | | | performed at [facility];888 | | LAB | | | | [address];[place] | | | | | | [address] | | | | + + + + + + | Epithelial | 1-5Comment: Testing | /lpf | EXTERNAL | | | Cells | performed at [facility];888 | | LAB | | | | [address];[place] | | | | | | [address] | | | | + + + + + + | Bacteria, | TRACE (A)Comment: | | EXTERNAL | | | UA | Testing performed at | | LAB | | | | [facility];[address];[place] [address] | | | | + + + + + + | Urinalysis | LESS THAN 10 ML | | EXTERNAL | | | Comments | SPECIMENComment: Testing | | LAB | | | | performed at [facility];[address] | | | | | | [address];[place] | | | | | | [address] | | | | + + + [...] EXTERNAL | | | | performed at [facility] | | LAB | | | | [address];[place] | | | | | | [address] | | | | + + + + + + | Clarity | CLEARComment: Testing | | EXTERNAL | | | | performed at [facility];[address] | | LAB | | | | [address];[place] | | | | | | [address] | | | | + + + + + + | Specific | 1.015Comment: Testing | 1.001 - 1.035 | EXTERNAL | | | [place], | performed at [facility];888 | | LAB | | | Urine | [address];[place] | | | | | | [address] | | | | + + + + + + | Leukocyte | NEGATIVEComment: Testing | | EXTERNAL | | | Esterase, | performed at [facility];888 | | LAB | | | Urine | [address];[place] | | | | | | [address] | | | | + + + + + + | Nitrite, | NEGATIVEComment: Testing | | EXTERNAL | | | Urine | performed at [facility];888 | | LAB | | | | [address];[place] | | | | | | [address] | | | | + + + + + + | Urobilinoge | 0.2Comment: Testing | mg/dL | EXTERNAL | | | n, Urine | performed at [facility];888 | | LAB | | | | [address];[place] | | | | | | [address] | | | | + + + + + + | Protein, | 100 (A)Comment: Testing | mg/dL | EXTERNAL | | | Urine | performed at [facility];888 | | LAB | | | | [address];[place] | | | | | | [address] | | | | + + + + + + | pH, Urine | 6.5Comment: Testing | 4.6 - 8.0 | EXTERNAL | | | | performed at [facility];888 | | LAB | | | | [address];[place] | | | | | | [address] | | | | + + + + + + | Blood, | SMALL (A)Comment: | | EXTERNAL | | | Urine | Testing performed at | | LAB | | | | [facility];[address];[place] [address] | | | | + + + + + + | Ketones | NEGATIVEComment: Testing | mg/dL | EXTERNAL | | | | performed at [facility];[address] | | LAB | | | | [address];[place] | | | | | | [address] | | | | + + + + + + | Bilirubin, | NEGATIVEComment: Testing | | EXTERNAL | | | Urine | performed at [facility];[address] | | LAB | | | | [address];[place] | | | | | | [address] | | | | + + + + + + | Glucose, | NEGATIVEComment: Testing | mg/dL | EXTERNAL | | | Urine | performed at [facility];888 | | LAB | | | | [address];[place], [place] | | | | | | [address] | | | | + + + [...] EXTERNAL LAB | | Testing performed at [address];[place] [address] MRSA PCR | | | NEGATIVE Testing performed at | | | [address];[place] [address] | | + + + + +---------+ [...]
--- OUTSIDE RECORDS SUMMARY | ~2019-11-15 | XMS | Encounter Summary ---
Demographics + + + | Address | [address] | | | [place] [address] | + + + | Home Phone | | + + + | Preferred Language | Unknown | + + + | Marital Status | | + + + | Buddhism Affiliation | PRO | + + + | Race | White | + + + | Ethnic Group | Not or | + + + Author + + + | Author | [facility] | + + + | Organization | [facility] | + + + | Address | Unknown | + + + | Phone | Unavailable | + + + Support + + + + + | Name | Relationship | Address | Phone | + + + + + | Marnie Payne | ECON | [address] | | | | | [place] | | | | | [address] | | + + + + + Care Team Providers + +------+ + | Care Blackener Name | Role | Phone | + [...] | | 2006 | | Medical at [facility] [address] | | | | | | [address] | | | | | | Mailcode: CH16D | | | | | | [facility] | | | | | | and Healing, | | | | | | Building | | | | | | Floor [place], [place] | | | | | | [address] | | | | | | [phone] | | | +--------+ + + + [...]
--- OUTSIDE RECORDS SUMMARY | ~2019-11-15 | XMS | Encounter Summary ---
Demographics + + + | Address | [address] | | | [place] [address] | + + + | Home Phone | | + + + | Preferred Language | Unknown | + + + | Marital Status | | + + + | Moravian Affiliation | PRO | + + + | Race | White | + + + | Ethnic Group | Not or | + + + Author + + + | Author | [facility] | + + + | Organization | [facility] | + + + | Address | Unknown | + + + | Phone | Unavailable | + + + Support + + + + + | Name | Relationship | Address | Phone | + + + + + | Marnie Payne | ECON | [address] | | | | | [place] | | | | | [address] | | + + + + + Care Team Providers + +------+ + | Care Credit Coordinator Name | Role | Phone | [...] [facility] | | | | | | [address] | | | | | | [address] | | | | | | [address], [address] | | | | | | [place], [place] | | | | | | [address] | | | | | | [phone] | | | +--------+ + + + [...]
--- OUTSIDE RECORDS SUMMARY | ~2019-11-15 | XMS | Encounter Summary ---
Demographics + + + | Address | [address] | | | [place] [address] | + + + | Home Phone | | + + + | Preferred Language | Unknown | + + + | Marital Status | | + + + | Religion Affiliation | PRO | + + + [...] [place] | | | | | [address] | | + + + + + Care Team Providers + +------+ + | Care Drill Rig Operator Name | Role | Phone | [...] | | | | | Osteonecrosi | [address] | [address] | | | | | s ([facility]) | [address] | Evelia | | | | | Procedures | [address] | [place], [place] | | | | | CONSULT TO | [facility] | [address] | | | | | ORTHOPEDICS | [address] | Phone: | | | | | AND | Phone: | [phone] | | | | | REHABILITATI | [phone] | Fax: | | | | | ON | Fax: | [phone] | | | | | | [phone] | | +--------+--------+ + + + + [...] | | | | FAMILY | Rd [place], | | | | | | MEDICINE | [place] | | | | | | [address] | [address] | | | | | | [address] | Phone: | | | | | | [place], | [phone] | | | | | | [place] [address] | Fax: | | | | | | Phone: | [phone] | | | | | | [phone] | | | | | | | Fax: | | | | | | | [phone] | | +--------+--------+ + + + + Encounter Details +--------+---------+ + + + | Date | Type | Department | Care Team | Description | +--------+---------+ + + + | 02/20/ | Office | Rheumatology at | [place], | Psoriasis (Primary | | 2014 | Visit | [address] | MD Mar[address] | Dx); Arthritis; | | | | [address] | [address] | Osteonecrosis (HCC) | | | | [address] | [address] [place], [place] | | | | | [address], [address] Floor | [address] | | | | | [place], [place] | [phone] | | | | | [address] | | | | | | [phone] | | | +--------+---------+ + + + [...] care. DOMINICK MALHOTRA MD (ATUL) RHEUMATOLOGY FACULTY [address] [place] [address] María Carney MD - 02/20/2015 10:53 AM PDT RHEUMATOLOGY NEW PATIENT CONSULT This consultation was requested by: Tod Rivas MD [address] [address] fax: [phone] CC: Chief Complaint Patient presents with New [...] a history of dactylitis, plantar fasciitis, and Mahaska's tendon pain. The patient does have a [...] joint line tenderness, no effusion or warmth. Mahaska's tendon without pain at insertion site. MTP [...] any history of dactylitis, plantar fascittis, or Mahaska's tendon pain (enthesitis). 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 [...] d plan. MARÍA HAMILTON MD RHEUMATOLOGY AT [address] Mailcode: [address] [place] [address] documented in thi s encounter [...] [facility] | [address] | [place] [address] | | | SERVICES, CORE | PARK [...] | + + + + + | [employer] [facility] | [address] | [place] [address] | | | SERVICES, CORE | CASTRO [...] | | | | | | and [id number] | | | | | | alignment [...] | | + +---------+ + + | [facility] | | | | | [...] | | + +---------+ + + | [facility] | | | | | [...]
--- OUTSIDE RECORDS SUMMARY | ~2019-11-15 | XMS | Encounter Summary ---
Demographics + + + | Address | [address] | | | [place] [address] | + + + | Home Phone [...] + + + + + | Marnie Pyane | ECON | [address] | | | | | [place] | | | | | [address] | | + + + + + Care Team Providers + +------+ + | Care Senior Sql Dba Name | Role | Phone | + [...] | | | | | Stacirosmarline | [address] | | | | | | s of both | [address] | | | | | | hips ([facility]) | [address] | | | | | | Procedures | [place], [place] | | | | | | CONSULT TO | [address] | | | | | | ORTHOPEDICS | Phone: | | | | | | AND | [phone] | | | | | | REHABILITATI | Fax: | | | | | | ON | [phone] | | +--------+--------+ + + + + Encounter Details +--------+ + + + + | Date | Type | Department | Care Team | Description | +--------+ + + + + | 02/22/ | Telephone | Rheumatology at | [place], | | | 2014 | | [address] | MD [address] | | | | | [address] | [address] [facility] | | | | | Loop Physician[address] | [place], [place] | | | | | [address], [address] Floor | [address] | | | | | [place], [place] | [phone] | | | | | [address] | | | | | | [phone] | | | +--------+ + + + [...]
--- OUTSIDE RECORDS SUMMARY | ~2019-11-15 | XMS | Encounter Summary ---
Demographics + + + | Address | [address] | | | [place] [address] | + + + | Home Phone [...] [place] | | | | | [address] | | + + + + + Care Team Providers + +------+ + | Care Staffing Operations Manager Name | Role | Phone | [...] | | 2006 | | Medical at [facility] [address] | | | | | | [address] | | | | | | Mailcode: CH16D | | | | | | [facility] | | | | | | and [address]ar, | | | | | | Building | | | | | | Floor [place], [place] | | | | | | [address] | | | | | | [phone] | | | +--------+--------+ + + + [...]
--- OUTSIDE RECORDS SUMMARY | ~2019-11-15 | XMS | Encounter Summary ---
Demographics + + + | Address | [address] | | | [place] [address] | + + + | Home Phone | | + + + | Preferred Language | Unknown | + + + | Marital Status | | + + + | Yazidism Affiliation | 1013 | + + + | Race | Unknown | + + + | Ethnic Group | Unknown | + + + Author + + + | Author | [facility] | | | and [place] | + + + | Organization | [facility] | | | and [...] Team Providers + +------+ + | Care Upholsterer Outside Name | Role | Phone | + +------+ + PCP | Unavailable | + +------+ + Encounter Details +--------+ + + + + | Date | Type | Department | Care Team | Description | +--------+ + + + + | 07/18/ | Hospital | [facility] | Conversion | | | 2015 | Encounter | [facility] | Transaction, | | | | | [address] | Provider Unknown | | | | | [place] | | | | | | [address] | (Fax) | | | | | [phone] | | | +--------+ + + + [...]
--- OUTSIDE RECORDS SUMMARY | ~2019-11-15 | XMS | Encounter Summary ---
Demographics + + + | Address | [address] | | | [place] [address] | + + + | Home Phone | | + + + | Preferred Language | Unknown | + + + | Marital Status | | + + + | Catholic Affiliation | PRO | + + + [...] [place] | | | | | [address] | | + + + + + Care Team Providers + +------+ + | Care Vegetable Inspector Name | Role | Phone | [...] | | 2005 | | Medical at [facility] [address] | MD | Similar Disorders; | | | | [address] | | Erythroderma | | | | Mailcode: CH16D | | | | | | [facility] | | | | | | and Healing, | | | | | | | | | | | | [place], [place] | | | | | | [address] | | | | | | [phone] | | | +--------+ + + + [...] | + + + + + | [facility] | [address] | [place] [address] | | | PATHOLOGY | [address] | | | + + + + + | [facility] | [address] | [place] [address] | | | PATHOLOGY | [address] [...] Performed At | + + + | [id number] Estimated GFR > 60 mL/min/1.73 sq m if non- | [facility] | | [id number] Estimated GFR > 60 mL/min/1.73 sq m [...] + | Performing | Address | City/State[facility] | Phone Number | | Organization | | | | + + + + + | [facility] | [address] | [place] [address] | | | PATHOLOGY | [address] | | | + + + + + | [facility] DEPARTMENT OF | [address] | [place] [address] | | | PATHOLOGY | [address] | | | + + + + + MAGNESIUM, PLASMA (06/03/2006 11:48 AM PST) + +-------+ + + + | Component | Value | Ref Range | Performed | Pathologist | | | | | At | Signature | + +-------+ + + + | MAGNESIUM,P | 2.3 | 1.8 - 2.5 mg/dL | [facility] | | | LASMA | | | DEPARTMENT | | | | | | OF | | | | | | PATHOLOGY | | + +-------+ + + + + + | Specimen | + + | | + + + + + | Narrative | Performed At | + + + | [id number] Estimated GFR > 60 mL/min/1.73 sq m if non- | [facility] | | [id number] Estimated GFR > 60 mL/min/1.73 sq m [...] | + + + + + | [facility] DEPARTMENT | [address] | [place] [address] | | | PATHOLOGY | [address] | | | + + + + + | [facility] | [address] | [place] [address] | | | PATHOLOGY | [address] [...] Performed At | + + + | [id number] Estimated GFR > 60 mL/min/1.73 sq m if non- | [facility] | | [id number] Estimated GFR > 60 mL/min/1.73 sq m [...] | + + + + + | [facility] | [address] [facility] | [place] [address] | | | PATHOLOGY | [address] | | | + + + + + | [facility] | [address] [facility] | [place] [address] | | | PATHOLOGY | [address] [...] Performed At | + + + | [id number] Estimated GFR > 60 mL/min/1.73 sq m if non- | [facility] | | [id number] Estimated GFR > 60 mL/min/1.73 sq m [...] | + + + + + | [facility] | [address] [facility] | [place] [address] | | | PATHOLOGY | [address] | | | + + + + + | [facility] | [address] [facility] | [place] [address] | | | PATHOLOGY | [address] [...] | [address] | [place] [address] | | | PATHOLOGY | [address] | | | + + + + + | [facility] | [address] | [place] [address] | | | PATHOLOGY | [address] [...] | | AB | Test performed by Stevenson | | | | | | [facility] | | | | | | Boxer. | | | | + + + + + + + + | Specimen | + + | | + + + + + + + | Performing | Address | City/State/Zipcode | Phone Number | | Organization | | | | + + + + + | [facility] | [address] | [place] [address] | | | LABORATORY | | | [...] | | | | HOA, AMRIK | [facility] | | | | | | Laboratories. | | | | + + + + + + + + | Specimen | + + | | + + + + + + + | Performing | Address | City/State/Zipcode | Phone Number | | Organization | | | | + + + + + | [facility] | [address] | [place] [address] | | | LABORATORY | | | [...] | + + + + + | [facility] | [address] | [place] [address] | | | LABORATORY | | | [...] | CORE AB, | Test performed by Stevenson | | | | | SERUM | [facility] | | | | | | Laboratories. | | | | + + + + + + + + | Specimen | + + | | + + + + + + + | Performing | Address | City/State/Zipcode | Phone Number | | Organization | | | | + + + + + | [facility] | [address] | [place] [address] | | | LABORATORY | | | [...] Performed At | + + + | [id number] Estimated GFR > 60 mL/min/1.73 sq m if non- | [facility] | | [id number] Estimated GFR > 60 mL/min/1.73 sq m [...] | + + + + + | [facility] | [facility] | [place] [address] | | | PATHOLOGY | [address] | | | + + + + + | [facility] | [facility] | [place] [address] | | | PATHOLOGY | [address] [...] Performed At | + + + | [id number] Estimated GFR > 60 mL/min/1.73 sq m if non- | [facility] | | [id number] Estimated GFR > 60 mL/min/1.73 sq m [...] DEPARTMENT OF | [address] | [place] [address] | | | PATHOLOGY | [address] | | | + + + + + | [facility] DEPARTMENT OF | [address] | [place] [address] | | | PATHOLOGY | [address] [...] Performed At | + + + | [id number] Estimated GFR > 60 mL/min/1.73 sq m if non- | [facility] | | [id number] Estimated GFR > 60 mL/min/1.73 sq m [...] | + + + + + | [facility] | [address] | [place] [address] | | | PATHOLOGY | [address] | | | + + + + + | [facility] | [address] | [place] [address] | | | PATHOLOGY | [address] [...] Performed At | + + + | [id number] Estimated GFR > 60 mL/min/1.73 sq m if non- | [facility] | | [id number] Estimated GFR > 60 mL/min/1.73 sq m [...] | + + + + + | [facility] | [address] [facility] | [place] [address] | | | PATHOLOGY | [address] | | | + + + + + | [facility] DEPARTMENT OF | [address] | [place] [address] | | | PATHOLOGY | [address] [...] Performed At | + + + | [id number] Estimated GFR > 60 mL/min/1.73 sq m if non- | [facility] | | [id number] Estimated GFR > 60 mL/min/1.73 sq m [...] | + + + + + | [facility] | [address] [facility] | [place] [address] | | | PATHOLOGY | [address] | | | + + + + + | [facility] | [address] [facility] | [place] [address] | | | PATHOLOGY | [address] | | | + + + + + documented in this encounter Visit Diagnoses + + | Diagnosis | + + | Other psoriasis | + + | Erythroderma Unspecified erythematous condition | + + documented in this encounter"
--- OUTSIDE RECORDS SUMMARY | ~2019-11-15 | XMS | Encounter Summary ---
Demographics + + + | Address | [address] | | | [place] [address] | + + + | Home Phone | | + + + | Preferred Language | Unknown | + + + | Marital Status | | + + + | Restoration Affiliation | PRO | + + + | Race | White | + + + | Ethnic Group | Not or | + + + Author + + + | Author | [facility] | + + + | Organization | [facility] | + + + | Address | Unknown | + + + | Phone | Unavailable | + + + Support + + + + + | Name | Relationship | Address | Phone | + + + + + | Marnie Payne | ECON | [address] | | | | | [place] | | | | | [address] | | + + + + + Care Team Providers + +------+ + | Care Tooth Polisher Name | Role | Phone | + [...] [facility] | | | | | | [address] | | | | | | Loop [facility] | | | | | | [address], [address] Floor | | | | | | [place], [place] | | | | | | [address] | | | | | | [phone] | | | +--------+ + + + [...] | | | | | | and [id number] | | | | | | alignment [...]
--- OUTSIDE RECORDS SUMMARY | ~2019-11-15 | XMS | Encounter Summary ---
Demographics + + + | Address | [address] | | | [place] [address] | + + + | Home Phone [...] + + + | Author | [facility] | + + + | Organization | [facility] | + + + | Address | Unknown | + + + | Phone | Unavailable | + + + Support + + + + + | Name | Relationship | Address | Phone | + + + + + | Marnie Payne | ECON | [address] | | | | | [place] | | | | | [address] | | + + + + + Care Team Providers + +------+ + | Care Superintendent Local Name | Role | Phone | + [...] [facility] | | | | | | [address] | | | | | | [address] [facility] | | | | | | [address], [address] Floor | | | | | | [place], [place] | | | | | | [address] | | | | | | [phone] | | | +--------+ + + + [...]
--- OUTSIDE RECORDS SUMMARY | ~2019-11-15 | XMS | Encounter Summary ---
Demographics + + + | Address | [address] | | | [place] [address] | + + + | Home Phone [...] [place] | | | | | [address] | | + + + + + Care Team Providers + +------+ + | Care Staining Machine Operator Name | Role | Phone | + +------+ + | Juilo Cesar Davis MD | PCP | | [...] | | 2006 | | Medical at [facility] [address] | | | | | | [address] | | | | | | Mailcode: CH16D | | | | | | [facility] | | | | | | and Healing, | | | | | | Building | | | | | | Floor [place], [place] | | | | | | [address] | | | | | | [phone] | | | +--------+ + + + [...]
--- OUTSIDE RECORDS SUMMARY | ~2019-11-15 | XMS | Encounter Summary ---
Demographics + + + | Address | [address] | | | [place] [address] | + + + | Home Phone | | + + + | Preferred Language | Unknown | + + + | Marital Status | | + + + | Evangelical Affiliation | PRO | + + + [...] [place] | | | | | [address] | | + + + + + Care Team Providers + +------+ + | Care Flask Fitter Name | Role | Phone | + [...] | | 2006 | | Medical at [facility] [address] | MD | info he would like | | | | [address] | | for you to add with | | | | Mailcode: CH16D | | work release papers) | | | | [facility] | | | | | | and Healing, | | | | | | | | | | | | [place], [place] | | | | | | [address] | | | | | | [phone] | | | +--------+ + + + [...]
--- OUTSIDE RECORDS SUMMARY | ~2019-11-15 | XMS | Encounter Summary ---
Demographics + + + | Address | [address] | | | [place] [address] | + + + | Home Phone | | + + + | Preferred Language | Unknown | + + + | Marital Status | | + + + | Zoroastrian Affiliation | PRO | + + + | Race | White | + + + | Ethnic Group | Not or | + + + Author + + + | Author | [facility] | + + + | Organization | [facility] | + + + | Address | Unknown | + + + | Phone | Unavailable | + + + Support + + + + + | Name | Relationship | Address | Phone | + + + + + | Marnie Payne | ECON | [address] | | | | | [place] | | | | | [address] | | + + + + + Care Team Providers + +------+ + | Care Sous Chef Name | Role | Phone | + [...] | 2006 | | Medical at [facility] [address] | | | | | | [address] | | | | | | Mailcode: CH16D | | | | | | [facility] | | | | | | and Healing, | | | | | | Building | | | | | | Floor [place], [place] | | | | | | [address] | | | | | | [phone] | | | +--------+ + + + [...]
--- OUTSIDE RECORDS SUMMARY | ~2019-11-15 | XMS | Clinical Summary ---
Demographics + + + | Address | [address] | | | [place] [address] | + + + | Home Phone | | + + + | Preferred Language | Unknown | + + + | Marital Status | | + + + | Church Affiliation | 1013 | + + + | Race | Unknown | + + + | Ethnic Group | Unknown | + + + Author + + + | Author | [facility] | | | and [place] | + + + | Organization | [facility] | | | and [...] Team Providers + +------+ + | Care Friction Welding Machine Operator Name | Role | Phone [...] +--------+ +---------+--------+ | MEDICARE | MEDICA | [id number] | 01/07/20 | [phone] | | Medica [...] Yfn | al/Fam | | 1956 | [phone] | [place] [address] | | | kim | | | 8 (Home) | | + +--------+ +--------+ + +"
--- OUTSIDE RECORDS SUMMARY | ~2019-11-15 | XMS | Encounter Summary ---
Demographics + + + | Address | [address] | | | [place] [address] | + + + | Home Phone | | + + + | Preferred Language | Unknown | + + + | Marital Status | | + + + | Orthodoxy Affiliation | PRO | + + + | Race | White | + + + | Ethnic Group | Not or | + + + Author + + + | Author | [facility] | + + + | Organization | [facility] | + + + | Address | Unknown | + + + | Phone | Unavailable | + + + Support + + + + + | Name | Relationship | Address | Phone | + + + + + | Marnie Payne | ECON | [address] | | | | | [place] | | | | | [address] | | + + + + + Care Team Providers + +------+ + | Care Head Of Marketing Analytics Name | Role | Phone | + [...] | | 2006 | | Medical at [facility] [address] | | | | | | [address] | | | | | | Mailcode: CH16D | | | | | | [facility] | | | | | | and Healing, | | | | | | Building | | | | | | Floor [place], [place] | | | | | | [address] | | | | | | [phone] | | | +--------+ + + + [...]
--- OUTSIDE RECORDS SUMMARY | ~2019-11-15 | XMS | Encounter Summary ---
Demographics + + + | Address | [address] | | | [place] [address] | + + + | Home Phone [...] [place] | | | | | [address] | | + + + + + Care Team Providers + +------+ + | Care Dining Car Waiter/Waitress Name | Role | Phone | + [...] [id number] | | | | | | [place], [place] | | | | | | [address] | | | | | | [phone] | | | +--------+ + + + [...] | | + +---------+ + + | [facility] DEPARTMENT OF | | | | | RADIOLOGY | | | | + +---------+ + + documented in this encounter Visit Diagnoses Not on filedocumented in this encounter"
--- OUTSIDE RECORDS SUMMARY | ~2019-11-15 | XMS | Encounter Summary ---
Demographics + + + | Address | [address] | | | [place] [address] | + + + | Home Phone [...] [place] | | | | | [address] | | + + + + + Care Team Providers + +------+ + | Care Clinical Support Manager Name | Role | Phone | [...] | 2006 | | Medical at [facility] [address] | MD | | | | | [address] | | | | | | [facility] | | | | | [facility] | | | | | | and Healing, | | | | | | Building | | | | | | Floor [place], [place] | | | | | | [address] | | | | | | [phone] | | | +--------+ + + + [...]
--- OUTSIDE RECORDS SUMMARY | ~2019-11-15 | XMS | Encounter Summary ---
Demographics + + + | Address | [address] | | | [place] [address] | + + + | Home Phone [...] [place] | | | | | [address] | | + + + + + Care Team Providers + +------+ + | Care Distillery Manager Name | Role | Phone | [...] | | | | | Stacirosmarline | [address] | | | | | | s of both | [address] | | | | | | hips ([facility]) | [address] | | | | | | Procedures | [place], [place] | | | | | | CONSULT TO | [address] | | | | | | ORTHOPEDICS | Phone: | | | | | | AND | [phone] | | | | | | REHABILITATI | Fax: | | | | | | ON | [phone] | | +--------+--------+ + + + + Encounter Details +--------+ + + + + | Date | Type | Department | Care Team | Description | +--------+ + + + + | 02/22/ | Telephone | Rheumatology at | [place], | | | 2014 | | [address] | MD [address] | | | | | [address] | [address] [facility] | | | | | Loop Physician's | [place], [place] | | | | | [address], [address] Floor | [address] | | | | | [place], [place] | [phone] | | | | | [address] | | | | | | [phone] | | | +--------+ + + + [...]
--- OUTSIDE RECORDS SUMMARY | ~2019-11-15 | XMS | Encounter Summary ---
Demographics + + + | Address | [address] | | | [place] [address] | + + + | Home Phone [...] [place] | | | | | [address] | | + + + + + Care Team Providers + +------+ + | Care Electronic Device Repairer Name | Role | Phone | [...] | | 2006 | | Medical at [facility] [address] | | | | | | [address] | | | | | | Mailcode: CH16D | | | | | | [facility] | | | | | | and Healing, | | | | | | Building | | | | | | Floor [place], [place] | | | | | | [address] | | | | | | [phone] | | | +--------+ + + + [...]
[~2019-11-15 16:37] MED LIST changes: +NORCO 10-325 T1 EACH PO
--- OUTSIDE RECORDS SUMMARY | 2019-11-15 16:40 | XMS ---
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 Care History Substance Use/[facility]dose [facility] PCP, Dr. Lovely Rivas, is no longer rx\T\#39;ing any opiate/ opioids or benzodiazepines for patient. 12/24/2017 [facility] PATIENT CAME TO ED FOR PAIN MEDS FOR BACK PAIN 12/22/17.\T\nbsp; STATED HE HAS RUN OUT OF PAIN MEDICATIONS.\T\nbsp; HE HAD FILLED SCRIPT FOR 185 OXYCODONE ON 12/05/17.\T\nbsp; PRIMARY CARE PHYSICIAN DR RIVAS WAS NOTIFIED.\T\nbsp; PLEASE USE CAUTION WITH PRESCRIBING ANY NARCOTICS WITHOUT CHECKING WITH PRIMARY CARE AT [phone]. Medical/Surgical 12/29/2017 [facility] Patient PCP, Dr. Lovely Rivas, is no longer rx\T\#39;ing any opiate/ opioids or benzodiazepines for patient. E.D. VISIT COUNT (12 MO.) 5 [facility] [place] TOTAL 5 NOTE: Visits indicate total known visits. ED/UCC VISIT TRACKING (12 MO.) 11/15/2019 16:38 [place] [place] TYPE: Emergency COMPLAINT: - SWELLING/BLOATING 10/12/2019 12:54 [place] [place] TYPE: Emergency COMPLAINT: - COUGH DIAGNOSES: - Other prison (current) drug therapy - Cough - Nicotine dependence, unspecified, uncomplicated - Essential (primary) hypertension - Nicotine dependence, cigarettes, uncomplicated - Unspecified fall, initial encounter - Tobacco abuse counseling - Fracture of one rib, left side, initial encounter for closed 09/27/2019 15:12 [facility] [place] TYPE: Emergency COMPLAINT: - BLOATING DIAGNOSES: - Other intermission coordinator (current) drug therapy - Essential (primary) hypertension - Nicotine dependence, unspecified, uncomplicated - Abdominal distension (gaseous) 06/27/2019 16:44 [facility] [place] TYPE: Emergency COMPLAINT: - SWOLLEN EXTREMETIES DIAGNOSES: - Personal history of nicotine dependence - skilled nursing (current) use of systemic steroids - Other prison (current) drug therapy - Psoriasis, unspecified - Essential (primary) hypertension 02/07/2019 07:45 [facility] [place] TYPE: Emergency COMPLAINT: - SKIN PROBLEM DIAGNOSES: - Essential (primary) hypertension - Nicotine dependence, unspecified, uncomplicated - Psoriasis, unspecified - skilled nursing (current) use of systemic steroids - Other prison (current) drug therapy INPATIENT VISIT TRACKING (12 MO.) No inpatient visits to display in this time frame [email or web address]
[2019-11-15] MEDS ORDERED: TRAMADOL HCL50 MG PO (17:03)
[2019-11-15] MEDS ORDERED: LACTULOSE20 GM/30 M (17:04)
[2019-11-15] MEDS ORDERED: PREDNISONE20 MG PO (19:22)
== END 2019-11-15 19:35 | disposition home or self-care (01) ==
LOC: ED 16:37
DX: L40.50 Arthropathic psoriasis, unspecified (principal); K74.60 Unspecified cirrhosis of liver; I10 Essential (primary) hypertension; F17.200 Nicotine dependence, unspecified, uncomplicated; Z79.899 Other long term (current) drug therapy
CPT/HCPCS: 80053; 85025; 85610; 85730; 96374; 96375; 99283-25; J2930; J3010; J7040

== ENCOUNTER 2020-03-14 09:52 | Inpatient (IN) | payer MEDICARE, OTHER ==
[~2020-03-14] VITALS: Ht 172.7 cm; Wt 100.7 kg
--- OUTSIDE RECORDS SUMMARY | ~2020-03-14 | XMS | Encounter Summary ---
Demographics + + + | Address | [address] | | | [place] [address] | + + + | Home Phone | | + + + | Preferred Language | Unknown | + + + | Marital Status | | + + + | Gnosticist Affiliation | PRO | + + + | Race | White | + + + | Ethnic Group | Not or | + + + Author + + + | Author | [facility] | + + + | Organization | [facility] | + + + | Address | Unknown | + + + | Phone | Unavailable | + + + Support + + + + + | Name | Relationship | Address | Phone | + + + + + | Marnie Payne | ECON | [address] | | | | | [place] | | | | | [address] | | + + + + + Care Team Providers + +------+ + | Care Ear Flap Binder Name | Role | Phone | + +------+ + | Tod Rivas MD | PCP | | + +------+ + Encounter Details +--------+ + + + + | Date | Type | Department | Care Team | Description | +--------+ + + + + | 06/03/ | Hospital | Registration [address] | [address], | | | [address] | Activity | [address] MD | | | | | [address] Mailcode: RPB07 | | | | | | [place], [place] | | | | | | [address] | | | | | | [phone] | | | +--------+ + + + [...] on file | | + + + documented as of this encounter Plan of Treatment Not on filedocumented as of this encounter Procedures + +--------+ + + + | Procedure Name | Priori | Date/Time | Associated Diagnosis | Comments | | | ty | | | | + +--------+ + + + | X-RAY CHEST 2 VIEW | Routin | 06/03/2006 | | Results for this | | | e | 8:09 PM | | procedure are in the | | | | PST | | results section. | + +--------+ + + + documented in this encounter Results CHEST 2 VIEW (06/03/2006 8:09 PM PST) + + + + + + | Component | Value | Ref Range | Performed | Pathologist | | | | | At | Signature | + + + + + + | CHEST, 2 | Radiologist 1: KERRY, | | | | | [place] | MALI YatesEXAM: PA and | | | | | STEREO | lateral chest. | | | | | | INDICATION: Evaluate for | | | | | | tuberculosis. | | | | | | positive PPD | | | | | | COMPARISON: None. | | | | | | FINDINGS: The cardiac | | | | | | and mediastinal contours | | | | | | are normal. Thelungs | | | | | | do not demonstrate any | | | | | | focal areas of | | | | | | consolidation orcalcific | | | | | | granulomas. Moderate | | | | | | airway thickening is | | | | | | seen centrallyand may | | | | | | relate to chronic | | | | | | bronchitis or reactive | | | | | | airways disease.No | | | | | | hyperinflation of the | | | | | | lungs are present. | | | | | | There is no | | | | | | pleuraleffusion or | | | | | | pneumothorax. Osseous | | | | | | structures are | | | | | | unremarkable. | | | | | | IMPRESSION: 1. | | | | | | Moderate central | | | | | | airway thickening, most | | | | | | consistent withchronic | | | | | | bronchitis or reactive | | | | | | airways disease. No | | | | | | radiographicevidence for | | | | | | active tuberculosis. | | | | + + + + + + + + | Specimen | + + | | + + + +---------+ + + | Performing | Address | City/State/Zipcode | Phone Number | | Organization | | | | + +---------+ + + | [facility] DEPARTMENT OF | | | | | RADIOLOGY | | | | + +---------+ + + documented in this encounter Visit Diagnoses Not on filedocumented in this encounter"
--- OUTSIDE RECORDS SUMMARY | ~2020-03-14 | XMS | Encounter Summary ---
Demographics + + + | Address | [address] | | | [place] [address] | + + + | Home Phone | | + + + | Preferred Language | Unknown | + + + | Marital Status | | + + + | Lutheran Affiliation | 1013 | + + + | Race | White | + + + | Ethnic Group | Not or | + + + Author + + + | Author | [facility] | | | and [place] | + + + | Organization | [facility] | | | and [place] | [...] Team Providers + +------+ + | Care Manufacturing Project Engineer Name | Role | Phone | + +------+ + PCP | Unavailable | + +------+ + Encounter Details +--------+ + + + + | Date | Type | Department | Care Team | Description | +--------+ + + + + | 11/04/ | Hospital | [facility] | Terrence Bolaños MD | Dehydration | | 2015 - | Encounter | [facility] | [address] | | | | | CARE FLO[address] | [place] [address] | | | 11/07/ | | [address] | [phone] | | | 2015 | | [place], [place] | | | | | | [address] | | | | | | [phone] | | | +--------+ + + + [...] + + documented as of this encounter Discharge Summaries Saira Retana MD - 11/07/2014 7:42 AM PDT Discharge Summaries by Saira Retana MD at 11/07/14741 Author: Saira Retana MD Service: (none) Author Type: Physician Filed: 11/07/14 1713 Date of Service: 11/07/14741 Status: Signed Heating Systems Installer: Saira Retana MD (Physician) Related Notes: Original Note by Saira Retana MD (Physician) filed at 11/07/14 0747 [facility] Service: Hospitalist Physician Discharge Summary Patient ID: Khai Payne 1955 59 y.o. Admit date: 11/04/2014 Discharge date: 11/07/2014 Admitting Physician: Terrence Bolaños MD Discharge Physician: Saira Retana MD Consultants: Treatment Team: Admitting Provider: Terrence Bolaños MD Primary Discharge Diagnoses: Syncope and collapse Secondary Discharge Diagnoses: Dehydration resolved ELVIA (acute kidney injury) (HCC) resolved Dvt femoral (deep venous thrombosis) ([facility]) HPI and Hospital Course: 59-year-old male with history of psoriatic arthritis who presented to [facility] after collapsing while watching a baseball game outside. The patient had been drinking 5 to 6 eight-ounce Margaritas and collapsed when he got out of the seat. He walked to his car and when he got home he collapsed again and was brought to the emergency department. He was hyp otensive requiring dopamine and transferred to [facility] intensive care unit. The patient was hydrated with IV fluids. He also had acute kidney injury and dehydrat ion which resolved after IV hydration. The patient had ultrasound of the lower extremities w hich showed DVT and was started on Lovenox and Coumadin. He also had a 2D echocardiogram wh ich showed EF of over 70%. The patient has been ambulating with physical therapy. He states he will quit alcohol and tobacco abuse. His acute renal insufficiency has resolved. His bloo d pressure controlled. The patient is on lisinopril as an outpatient. He will be required to follow up with his primary care physician before restarting lisinopril. His INR is subthera peutic. He will be instructed on Lovenox prior to discharge. The patient will follow up with his primary care provider for Coumadin management. The plan has been explained in detail to the patient, all questions answered, all data reviewed with him. Past Medical History: Past Medical History Diagnosis Date Alcohol abuse per patient Anxiety Arthritis High blood pressure Psoriasis Arthritis associated with another disorder Past Surgical History Procedure Laterality Date Knee cartilage surgery Left Discharged Condition: Stable for discharge as stated above. Significant Diagnostic Studies: X-ray Chest 1 View 11/05/2014 1. Mild progression of interstitial edema favored, otherwise stable exam, with COPD X-ray Chest 1 View 11/04/2014 1. Suggestion of flattening of the hemidiaphragms may represent radiographic e vidence of emphysematous change/COPD, correlate clinically. 2. No evidence of acute infiltr ate. 3. Blunting of the left costophrenic angle may represent a minimal effusion or pleural scarring. Ultrasound Carotid Bilateral 11/05/2014 1. Calcified plaque in the right common carotid artery and left internal carot id artery. 2. No significant carotid stenosis bilaterally. 3. Antegrade flow in both vertebr al arteries. Validated velocity measurements with angiographic measurements and velocity cr iteria are extrapolated from diameter data as defined by the Society of Radiologists in Ultr asound Consensus Conference Radiology 2003; 229;340-346. RADIA Electronically signed by Leticia Elizondo MD on Nov 05 2014 7:16AM Referring Provider Line: [phone] ID: [id number] Ultrasound Lower Extremity Venous Doppler Bilateral 11/05/2014 Extensive clot burden, positive for deep venous thrombosis from the right commo n femoral vein through to the popliteal vein Critical result. Discussed with nurse via tele phone. Echo Cardiac Adult Complete 11/05/2014 1. Left ventricular systolic function is hyperdynamic with an estimated EF of > 70%. 2. There is a trivial pericardial effusion present. Discharge Vitals: Filed Vitals: 11/06/14 1614 11/06/14 1908 11/06/14 2321 11/07/14 0323 BP: 138/97 165/99 152/89 142/88 Pulse: 81 77 73 74 Temp: 98.2 F (36.8 C) 98.3 F (36.8 C) 98.6 F (37 C) 98.2 F (36.8 C) TempSrc: Oral Oral Oral Oral Resp: 18 18 18 18 Height: Weight: 85 kg (187 lb 6.3 oz) SpO2: 100% 98% 98% 100% Discharge Exam: General: Well nourished. Psych: Alert and oriented x 3. Calm, cooperative. Cardiovascular: Regular rate and rhythm, no murmurs, no thrills. Normal PMI. Respiratory: Clear to auscultation, no wheezing or crackles, breathing non labored. Gastrointestinal: Soft, non-tender, non-distended, positive bowel sounds. No HSM. Musculoskeletal: Bilateral 1+ pedal edema Skin: Warm and dry, bilateral scaly skin present in lower extremities Neck: No JVD, Trachea midline. Neurological: Non focal. Motor grossly intact. LABS: Recent Labs Lab 11/07/1431411/06/14 0552 11/05/14 0413 WBC 6.32 7.43 9.26 RBC 2.86* 2.78* 3.17* HGB 11.7* 11.2* 12.9* HCT 34.1* 33.1* 38.5* MCV 119.4* 119.3* 121.4* MCH 40.8* 40.5* 40.9* MCHC 34.2 34.0 33.7 RDW 66.9* 67.4* 70.0* PLT 191 169 152 MPV 8.2 8.9 8.3 DIFFTYPE AUTOMATED AUTOMATED MANUAL Recent Labs Lab 11/07/1431411/06/14 1720 11/06/14 0552 11/04/14 1800 NA 137 141 136 < > 140 K 3.9 4.0 3.6 < > 4.1 CL 109 110* 108 < > 106 CO2 23 22* 24 < > 23 BUN 12 14 18 < > 24 CREATININE 0.72 0.98 1.07 < > 2.90* PROT -- 5.7* -- -- 6.0* BILITOT -- 0.2 -- -- 0.4 ALT -- 15 -- -- 18 AST -- 26 -- -- 34 GLUF 91 114* 106* < > 117* < > = values in this interval not displayed. Recent Labs Lab 11/05/14 1659 11/05/14 0807 11/05/14 0413 CKTOTAL 299 258 300 TROPONINI 0.022 0.023 0.027 CKMBINDEX 0.6 0.6 0.6 Recent Labs Lab 11/07/145 11/06/14 1720 11/06/14 0552 PHOS 2.7 1.8* 2.1* Recent Labs Lab 11/07/1431411/06/14 1720 11/06/14 0552 MG 1.8 1.9 1.6* Invalid input(s): ABG Disposition: Home Follow up: [facility] [address] [place] [id number] On 11/07/2014 Appointment Time: 3:[address] Paula for Coumadin Management Medication List START taking these medications enoxaparin 100 MG/ML Soln QTY: 12.6 mL Refills: 0 Commonly known as: LOVENOX Inject 0.9 mLs into the skin every 12 (twelve) hours. To stop Lovenox when INR over 2 for 2 4 hours folic acid 1 MG tablet QTY: 30 tablet Refills: 0 Commonly known as: FOLVITE Take 1 tablet by mouth daily. nicotine 21 MG/24HR QTY: 28 patch Refills: 0 Commonly known as: NICODERM CQ Place 1 patch onto the skin daily. thiamine 100 MG tablet QTY: 30 tablet Refills: 0 Commonly known as: VITAMIN B-1 Take 1 tablet by mouth daily. warfarin 5 MG tablet QTY: 30 tablet Refills: 0 Commonly known as: COUMADIN Take 1 tablet by mouth Once daily-Coumadin. CONTINUE taking these medications CLONAZEPAM PO Refills: 0 gabapentin 300 MG capsule QTY: 60 capsule Refills: 3 Doctor's comments: Start 300 mg daily for three days then increase to twice a day For diagnoses: Neuropathic Pain Commonly known as: NEURONTIN Take 1 capsule by mouth 2 (two) times daily. PERCOCET PO Refills: 0 STOP taking these medications IBUPROFEN PO LISINOPRIL PO TYLENOL PO Where to Get Your Medications These are the prescriptions that you need to slate picker. You may get the following medications from any pharmacy - enoxaparin 100 MG/ML Soln - folic acid 1 MG tablet - nicotine 21 MG/24HR - thiamine 100 MG tablet - warfarin 5 MG tablet Saira Retana MD 11/07/2014 7:42 AM Discharge took 40 minutes, to include final examination, discussion of admission, and prepa ration of prescriptions, instructions for ongoing care, follow up and dictation of summary. This entry has been created using [employer] Speech Recognition software and [employer]. The entry has been reviewed and there may still exist sound alike word errors. documented in th is encounter Progress Notes Conversion Transaction, Provider Unknown - 11/07/2014 9:13 AM PDTFormatting of this note m ight be different from the original. Case Management by FABIANA Amato at 11/07/14912 Author: FABIANA Amato Service: (none) Author Type: Order Department Supervisor Filed: 11/07/14 1203 Date of Service: 11/07/14912 Status: Addendum Heating Systems Installer: FABIANA Amato (Order Department Supervisor) Related Notes: Original Note by FABIANA Amato (Order Department Supervisor) filed at 11/07/14 09 42 CM informed by Physician that Pt will dc today and that he will need an INR drawn this week . Appt with PCP changed to 11/08 @ 10:00 AM. Appt updated on AVS and Pt informed. Family to transport home. ETOH treatment resources in [facility] provided to Pt and family. 1200 Referral from RN for HH RN to continue with teaching on Lovenox and Coumadin at home. CM spoke with Pt and family who are in agreement. Referral faxed to [facility] in [facility]. onver love Transaction, Provider Unknown - 11/06/2014 6:27 PM PDT Nurse Progress Note by Amara Stratton RN at 11/06/141826 Author: Amaar Stratton RN Service: (none) Author Type: Registered Nurse Filed: 11/06/141829 Date of Service: 11/06/141826 Status: Signed Heating Systems Installer: Amara Stratton RN (Registered Nurse) Extensive visit with pt, sister, mother & father for coumadin education. Discussed their in dications for coumadin and need for compliance. Discussed coumadin interaction with alcohol and the necessity of not drinking any alcohol. Pt admitted to being an alcoholic as well as abused pain meds. Identified supportive resources for pt. After extensive discussion, pt a greed to quit alcohol and smoking as of date of admission. Discussed potential food/medica tion interactions. Emphasized importance of INR monitoring within 3 days after discharge a nd lab locations/Coumadin Clinics available. Pt requests f/u at [facility]. Pt stated next apt with Dr. Paula is November 14. Questions answered. Coumadin education b ooklet given to pt. onver love Transaction, Provider Unknown - 11/06/2014 4:45 PM PDT Nurse Progress Note by Kelechi Sweet RN at 11/06/141644 Author: Kelechi Sweet RN Service: (none) Author Type: Registered Nurse Filed: 11/06/141645 Date of Service: 11/06/141644 Status: Signed Heating Systems Installer: Kelechi Sweet RN (Registered Nurse) Patient ambulated 500 [address] in hallway with front wheel walker and standby assist. Patient tolerated procedure well. onver love Transaction, Provider Unknown - 11/06/2014 4:02 PM PDT Case Management by FABIANA Amato at 11/06/14 1602 Author: FABIANA Amato Service: (none) Author Type: Order Department Supervisor Filed: 11/06/141605 Date of Service: 11/06/14 160 Status: Signed Heating Systems Installer: FABIANA Amato (Order Department Supervisor) PC to [facility] to make a referral for Coumadin management. Cm informed that referral will need to be made by Dr Paula as he often prefers to follow his own Pts for Coumadin. CM contacted Dr Paula's office and made an appointment for Pt to follow up on November 14 @ 3:00 PM. Appt entered on AVS. CM met with Pt and is Father for follow up dc planning. Pt informed of appt on November 14 an d given transportation resources for the [place] area. Pt stated his Parents would be tra nsporting him home and to appts. No further dc needs identified. Michelle Garner MD - 11/06/2014 12:47 PM PDT Progress Notes by Michelle Barton MD at 11/06/14 8342 Author: Michelle Barton MD Service: Hospitalist Author Type: Physician Filed: 11/06/14 1013 Date of Service: 11/06/14 7956 Status: Signed Heating Systems Installer: Michelle Barton MD (Physician) Related Notes: Original Note by Michelle Barton MD (Physician) filed at 11/06/14 1733 [facility] Service: Hospitalist Progress Note Hospital Day: LOS: 2 days SUBJECTIVE Per ICU model and mold maker plaster: "The patient is a 59 y.o. male with PMHx of psoriatic arthritis, prese nted to [facility] after collapsing while watching a baseball game outdoors. Pt had been drinking margaritas (5-6 8 ounce drinks), reportedly nearly collapsed when trying to get out of his seat. His family decided to take him home. He walked to his car with some assistanc e, stayed awake throughout the drive home and collapsed when he got home. EMS was called at that time. Never lost a pulse, no CPR needed. He denies CP, SOB, ART. He has had some chi lls recently but no other constitutional symptoms. At [facility] patient was found to be hypotensive with STT wave changes. Started on dop amine. Transferred to [facility] for further management. ICU Timeline: 11/04/14: admitted to ICU with hypotension and tachycardia. Fluid volume resuscitation fina nued. Carotid US neg. ECG, CE, ECHO ordered. Syncope workup." November 06, 2014 The patient was ready to be transferred out of the ICU on November 05, 2014. However, it was not ed on an ultrasound ordered on admission that the patient has a DVT. Therefore, appreciate i ntensivist ICU ENGINEERING TEACHER assisting with heparin orders. The patient has remained stable overnight , although he is uncertain whether or not he wants to stay. He does realize the severity of his condition. He denies all nausea or vomiting. No shortness of breath. There is no increas ed pain in his right lower extremity. He does have significant venous stasis in his lower ex tremity, and ambulation has been a chronic problem. His mother is concerned about his drinki ng and smoking status. Scheduled Medications clonazePAM 0.5 mg Oral TID docusate sodium 100 mg Oral BID Or docusate 100 mg Per OG Tube BID enoxaparin 1 mg/kg Subcutaneous Q12H folic acid 1 mg Oral Daily gabapentin 300 mg Oral BID nicotine 1 patch Transdermal Daily thiamine 100 mg Oral Daily warfarin 5 mg Oral Daily Continuous Infusions sodium chloride (IV) 75 mL/hr at 11/06/14 1237 PRN Medications acetaminophen OR acetaminophen, lip moisturizer, magnesium sulfate OR magnesium sul fate OR magnesium sulfate OR magnesium sulfate, nystatin, nystatin, ondansetron OR ondansetron, oxyCODONE-acetaminophen, phosphorus OR sodium phosphate IVPB 15 mmol O R sodium phosphate IVPB 30 mmol, potassium chloride OR potassium chloride OR potas sium chloride OBJECTIVE Vital Signs: BP 142/80 | Pulse 81 | Temp(Src) 98.6 F (37 C) (Oral) | Resp 18 | Ht 1.753 m (5' 9.02") | Wt 86.2 kg (190 lb 0.6 oz) | BMI 28.05 kg/m2 | SpO2 95% Patient Vitals for the past 24 hrs: BP Temp Temp src Pulse Resp SpO2 Weight 11/06/14 1111 142/80 mmHg 98.6 F (37 C) Oral 81 18 95 % - 11/06/14 0716 123/80 mmHg 98.4 F (36.9 C) Oral 80 17 96 % - 11/06/14 0305 134/81 mmHg 97.8 F (36.6 C) Oral 85 16 98 % 86.2 kg (190 lb 0.6 oz) 11/05/14 2250 127/79 mmHg 98.8 F (37.1 C) Oral 85 16 96 % - 11/05/14 1916 121/80 mmHg 98.8 F (37.1 C) Oral 90 16 99 % - 11/05/14 1600 132/76 mmHg 98.5 F (36.9 C) Oral 85 17 99 % 85.5 kg (188 lb 7.9 oz) 11/05/14 1500 120/74 mmHg - - - 16 - - Intake/Output Summary (Last 24 hours) at 11/06/14 1247 Last data filed at 11/06/14 0951 Gross per 24 hour Intake 4388.4 ml Output 425 ml Net 3963.4 ml Physical Exam Constitutional: He is well-developed, well-nourished, and in no distress. No distress. HENT: Head: Normocephalic and atraumatic. Eyes: EOM are normal. Pupils are equal, round, and reactive to light. No scleral icterus. Cardiovascular: Normal rate and regular rhythm. Pulmonary/Chest: Effort normal and breath sounds normal. Abdominal: Soft. Bowel sounds are normal. He exhibits no distension. There is no tenderness . Musculoskeletal: He exhibits edema. He exhibits no tenderness. Skin: He is not diaphoretic. Venous statis on lower extremities, bilateral Psychiatric: Mood and affect normal. Nursing note and vitals reviewed. DATA Recent Labs Lab 11/06/14 0552 11/05/14 0413 11/04/14 1800 WBC 7.43 9.26 10.25 RBC 2.78* 3.17* 3.13* HGB 11.2* 12.9* 13.1* HCT 33.1* 38.5* 37.8* MCV 119.3* 121.4* 120.8* MCH 40.5* 40.9* 41.7* MCHC 34.0 33.7 34.5 RDW 67.4* 70.0* 70.0* PLT 169 152 175 MPV 8.9 8.3 8.5 DIFFTYPE AUTOMATED MANUAL AUTOMATED Recent Labs Lab 11/06/14 0552 11/05/14 0413 11/04/14 1800 NA 136 137 140 K 3.6 4.1 4.1 CL 108 108 106 CO2 24 22* 23 BUN 18 25 24 CREATININE 1.07 1.99* 2.90* PROT -- -- 6.0* BILITOT -- -- 0.4 ALT -- -- 18 AST -- -- 34 GLUF 106* 100* 117* Recent Labs Lab 11/05/14 1659 11/05/14 0807 11/05/14 0413 CKTOTAL 299 258 300 TROPONINI 0.022 0.023 0.027 CKMBINDEX 0.6 0.6 0.6 Recent Labs Lab 11/06/14 0552 11/05/14 0413 PHOS 2.1* 4.0 Recent Labs Lab 11/06/1452 11/05/14 1659 11/05/14 0413 MG 1.6* 2.0 1.4* Invalid input(s): ABG No results for input(s): CALCIUM in the last 168 hours. X-ray Chest 1 View 11/05/2014 1. Mild progression of interstitial edema favored, otherwise stable exam, with COPD X-ray Chest 1 View 11/04/2014 1. Suggestion of flattening of the hemidiaphragms may represent radiographic e vidence of emphysematous change/COPD, correlate clinically. 2. No evidence of acute infiltr ate. 3. Blunting of the left costophrenic angle may represent a minimal effusion or pleural scarring. Ultrasound Carotid Bilateral 11/05/2014 1. Calcified plaque in the right common carotid artery and left internal carot id artery. 2. No significant carotid stenosis bilaterally. 3. Antegrade flow in both vertebr al arteries. Validated velocity measurements with angiographic measurements and velocity cr iteria are extrapolated from diameter data as defined by the Society of Radiologists in Ultr asound Consensus Conference Radiology 2003; 229;340-346. RADIA Electronically signed by Leticia Elizondo MD on Nov 05 2014 7:16AM Referring Provider Line: [phone] ID: [id number] Ultrasound Lower Extremity Venous Doppler Bilateral 11/05/2014 Extensive clot burden, positive for deep venous thrombosis from the right commo n femoral vein through to the popliteal vein Critical result. Discussed with nurse via tele phone. Echo Cardiac Adult Complete 11/05/2014 1. Left ventricular systolic function is hyperdynamic with an estimated EF of > 70%. 2. There is a trivial pericardial effusion present. PROBLEM LIST Principal Problem: Syncope and collapse Active Problems: LOC (loss of consciousness) Dehydration ELVIA (acute kidney injury) ([facility]) Dvt femoral (deep venous thrombosis) ([facility]) ASSESSMENT & PLAN 1. Syncope and collapse with dehydration secondary to being out in the heat without adequat e hydration and approximately 6 plus margaritas. The patient was fairly dehydrated with hypo tension. He was fluid resuscitated with excellent results with an essential normal carotid u ltrasound. Chest x-ray does not show evidence of pneumonia. Will stop IV antibiotic. The pat ient is taking adequate p.o.'s. We will saline lock IV. The patient is also on appropriate v itamins for elevated MCV most likely secondary to alcohol intake. Will switch thiamine and f olate over to p.o. Echocardiogram also appears normal. 2. Tobacco and alcohol abuse. Will have case management give the patient a list of possible rehabilitation facilities He will also receive a nicotine patch. 3. DVT of the right lower extremity. The patient was placed on heparin drip November 05, 2014. W e will switch heparin to Lovenox subcutaneously and Coumadin starting today also, goal betwe en 2 and 3. Uncertain as to the etiology of the DVT. Most likely little, if no, ambulation. The patient most likely can be discharged on subcutaneous Lovenox and Coumadin with Coumadin Clinic ordered for the patient. Case management has been notified. Disposition: Code Status: Full Code Michelle Barton MD 11/06/2014 12:47 PM onversion [place] saction, Provider Unknown - 11/06/2014 12:34 PM PDTFormatting of this note might be differen t from the original. Therapy Progress Note by Berenice De Los Santos PT at 11/06/14 8334 Author: Berenice De Los Santos PT Service: (none) Author Type: Physical Therapist Filed: 11/06/14 7871 Date of Service: 11/06/14 1234 Status: Signed Heating Systems Installer: Berenice De Los Santos, PT (Physical Therapist) 11/06/14 1100 PT Last Visit PT Received On 11/06/14 Reason for Treatment Deconditioning Requires PT Follow Up Yes Follow up PT Only? No Assistance Required 1 person Hematology Supervisor Needed No Other Comments Comments Pt mobilizing well however presents w/forward flexion notably at C/S. Pt able to e xtend spine to more upright position but reverys to flexion quickly.Pt reports prior injury falling on ice and causing 'whiplash' leading to this forward flexed posture.PT encouraged u pright ambulation and sitting in chair w/head upright and small towel toll behind neck.PT al so educated pt to stretch neck while laying supine w/small towel roll on posterior neck. Pt agreeable to frequent ambulation throughout the day. Cognition Overall Cognitive Status WFL Orientation Level Oriented Bed Mobility Supine to Sit Supervision Scooting Supervision Transfers Sit to/from Stand Standby assist (from bed; uncontrolled into chair) Mobility Ambulation Assistance Standby assist;Verbal instruction Maximal Ambulation Distance (feet) 120 Total Ambulation Distance (feet) 280 Distance limited by? Therapist/staff discretion;Patient's ability (postural modifications throughout) Pattern Decreased sienna;Forward flexed (C/S flexion) Assistive Device Walker front wheeled Balance Balance (appropriate balance but requires FWW;forward flexion) Activity Tolerance Activity Tolerance Patient limited by fatigue Safety Devices Safety Devices in Place Not applicable Plan Treatment/Interventions Continue per Primary PT POC Progress Progressing toward goals Recommendation Recommendations OP PT PT Ready for Discharge Yes Recommendation Comments Pt safe to return home upon dc but should benefit from frequent mob ilization and c/s exercises. onver love Garcia Provider Unknown - 11/05/2014 7:12 PM PDT Case Management by FABIANA Goldsmith at 11/05/141911 Author: FABIANA Goldsmith Service: (none) Author Type: Order Department Supervisor Filed: 11/05/141914 Date of Service: 11/05/141911 Status: Signed Heating Systems Installer: FABIANA Goldsmith (Order Department Supervisor) 11/05/141909 Discharge Planning Evaluation Admitting Diagnosis syncope & collapse Readmission No Living Arrangements Spouse/significant other (Marnie Payne [phone]) Type of Residence Private residence House type House-1 story Independent with ADL's Yes Independent with Mobility No-comment (uses a walker) Home Care Services No Caregiver after Discharge Yes Relationship to Patient spouse Mental Status Oriented Prior functional status Pt reports he is worried he might slip in the shower. He had not d riven X3-4 mos. Power of Outpatient Admitting Clerk No Anticipated Discharge Plan Post Acute Care Needs Other (comment) (pt would like contact information for public transportation for disabled people in [place] on) Resources Transportation issues Yes Name of Pharmacy [facility] Met with pt and his parents to discuss discharge planning, Pt is a 59 y.o., male Patient's PCP is: LOVELY PAULA Pt is currently participating in PT 2x/wk for BLE strengthening. He is not participating i n any other o/p medical services. Pt has not fallen recently. Pt does not use home O2 or C PAP. Pt's parents report he is going to start taking coumadin. Patient's [place] Coverage concerns: none disclosed Medication coverage/concerns: Community resources utilized / needed: public transportation Assistance in transportation: spouse, parents Identification of any specific education / training: Barriers to Discharge / Alternative housing needed: none identified at this time Anticipated DCP: home w/ parents to transport. Benji Gandhi [facility] Transaction, Provider Unknown - 11/05/2014 3:25 PM PDT Progress Notes by Mary Carmen Quesada RN at 11/05/14 1525 Author: Mary Carmen Quesada RN Service: (none) Author Type: Registered Nurse Filed: 11/05/14 1525 Date of Service: 11/05/141524 Status: Signed Heating Systems Installer: Mary Carmen Quesada RN (Registered Nurse) Pt transferred to [facility] on[facility] love Transaction, Provider Unknown - 11/05/2014 3:16 PM PDT Progress Notes by Mary Carmen Quesada RN at 11/05/14 1516 Author: Mary Carmen Quesada RN Service: (none) Author Type: Registered Nurse Filed: 11/05/141516 Date of Service: 11/05/146 Status: Signed Heating Systems Installer: Mary Carmen Quesada RN (Registered Nurse) Report given to Kelechi FRANK, states understands without further questions. Pt to be transferr ed to [id number] Transaction, Provider Unknown - 11/05/2014 2:40 PM PDT Therapy Progress Note by Jovan Antonio, PT at 11/05/14 1440 Author: Jovan Antonio PT Service: Physical Medicine and Rehab Author Type: Physical Therapist Filed: 11/05/141814 Date of Service: 11/05/141439 Status: Signed Heating Systems Installer: Jovan Antonio PT (Physical Therapist) 11/05/14 1440 PT Last Visit PT Received On 11/05/14 Reason for Treatment Other (comment) (admitted for hypotension and syncopal episode) Requires PT Follow Up Awaiting tx order Follow up PT Only? No PT Eval/Reassessment Date 11/05/14 Assistance Required 1 person;2 person (for lines) Hematology Supervisor Needed No Home Environment Type of Home Home one story Home Exterior Layout 1-3 steps Home Interior Layout Lives on main level with bedroom/bathroom Home Equipment Walker front wheeled Prior Function Level of [place] Modified independent with functional mobility;Independent with ADLs; Independent with IADLs Lives With Spouse Employment Retired for disability Comments Spouse also retired and available to assist per pt report RUE Assessment RUE Assessment WFL LUE Assessment LUE Assessment WFL RLE Assessment RLE Assessment WFL LLE Assessment LLE Assessment WFL Cognition Overall Cognitive Status WFL Orientation Level Oriented Sensation Light Touch Deficit apparent RLE Deficit Moderate deficit LLE Deficit Moderate deficit Additional Comments Reports numbness at fingertips bilaterally. Unable to identify light to uch distal B LE Vision-Basic Assessment Current Vision Wears glasses (for distance) Assessment of Patient Status Assessment of Patient Status Decreased functional mobility;Decreased endurance;Decreased s ensation Prognosis Should progress with skilled therapy intervention Safety Devices Safety Devices in Place Not applicable (pt in w/c to be transferred to medical floor) Precautions Other Precautions fall risk Activity Tolerance Endurance Fair Sitting Balance Sits without support for > 30 sec Plan Treatment/Interventions Gait training;Balance training;Assist d/c plannning Care Duration (# of days) 5 # of days Recommendation Recommendations OP PT;Prior Setting Recommendation Comments Pt reports that he already participates in outpatient PT. Reports t hat he has a hx of 5-6 falls within the last year. Recommend that he continues with posture, balance, and gait training on uneven surfaces. 11/05/14 1440 PT Last Visit PT Received On 11/05/14 Reason for Treatment Other (comment) (admitted for hypotension and syncopal episode) Requires PT Follow Up Awaiting tx order Follow up PT Only? No PT Eval/Reassessment Date 11/05/14 Assistance Required 1 person;2 person (for lines) Hematology Supervisor Needed No Precautions Other Precautions fall risk Other Comments Comments Pt is 59 yo M admitted for bradycardia and syncopal episode. Has significant PMH o f ETOH abuse, anxiety, psoriasis, arthritis, and L knee surgery. He reports no current pain but reports that his legs feel full and heavy. Pt reports that he has had some falls since u sing a walker, mainly on uneven surfaces (slope of driveway, step onto porch). However, pt is poor historian and his baseline level of function is unclear, as well as how long he has been using walker. VS at rest: 82, 120/74, 100% on RA. Pt uses FWW for ambulation using 3 po int gait. Demonstrates consistent forward flexion in trunk and head in sitting and standing. Able to hold head upright with verbal cuing. Pt in w/c at end of session to be transferred to medical floor. VS post activity: 83, 112/76 Cognition Overall Cognitive Status WFL Orientation Level Oriented Bed Mobility Supine to Sit Min assist (1 LE OOB) Transfers Sit to/from Stand Modified independent;Standby assist Mobility Ambulation Assistance Minimal assist (CGA) Maximal Ambulation Distance (feet) 125 Total Ambulation Distance (feet) 125 Distance limited by? Therapist/staff discretion Pattern Right swing foot doesn't pass stance foot;Left swing foot doesn't pass stance foot; Forward flexed Assistive Device Walker front wheeled Activity Tolerance Activity Tolerance Patient tolerated treatment without report of fatigue Nurse Made Aware yes Safety Devices Safety Devices in Place Not applicable (pt in w/c to be transferred to medical floor) Plan Treatment/Interventions Gait training;Balance training;Assist d/c plannning Care Duration (# of days) 5 # of days Recommendation Recommendations OP PT;Prior Setting Recommendation Comments Pt reports that he already participates in outpatient PT. Reports t hat he has a hx of 5-6 falls within the last year. Recommend that he continues with posture, balance, and gait training on uneven surfaces. Genna Jimenez ARNP - 11/05/2014 8:25 AM PDTFormatting of this note might be different f rom the original. Progress Notes by DURAN Juárez at 11/05/14824 Author: DURAN Juárez Service: Assistant Wrestling Coach Author Type: Assistant Wrestling Coach Filed: 11/05/1443 Date of Service: 11/05/14824 Status: Signed Heating Systems Installer: DURAN Juárez (Nurse Practitioner) [facility] Service: Assistant Wrestling Coach Progress Note Date of Admission: 11/04/2014 Requesting Physician: Dr. Velazquez, Emergency Department Indication for ICU Admission: hypotension History Obtained From: patient CHIEF COMPLAINT: Syncope and collapse HISTORY OF PRESENT ILLNESS The patient is a 59 y.o. male with PMHx of psoriatic arthritis, presented to [facility] after collapsing while watching a baseball game outdoors. Pt had been drinking margaritas (5 -6 8 ounce drinks), reportedly nearly collapsed when trying to get out of his seat. His fami ly decided to take him home. He walked to his car with some assistance, stayed awake throug hout the drive home and collapsed when he got home. EMS was called at that time. Never los t a pulse, no CPR needed. He denies CP, SOB, ART. He has had some chills recently but no ot her constitutional symptoms. At [facility] patient was found to be hypotensive with STT wave changes. Started on dop amine. Transferred to [facility] for further management. ICU Timeline: 11/04/14: admitted to ICU with hypotension and tachycardia. Fluid volume resuscitation fina nued. Carotid US neg. ECG, CE, ECHO ordered. Syncope workup. Overnight Events: No issues Past Medical History Diagnosis Date Alcohol abuse per patient Anxiety Arthritis High blood pressure Psoriasis Arthritis associated with another disorder Past Surgical History Procedure Laterality Date Knee cartilage surgery Left No Known Allergies Prescriptions prior to admission Medication Sig Dispense Refill Acetaminophen (TYLENOL PO) Take by mouth 2 (two) times daily. CLONAZEPAM PO Take by mouth 3 (three) times daily. gabapentin (NEURONTIN) 300 MG capsule Take 1 capsule by mouth 2 (two) times daily. 60 c apsule 3 IBUPROFEN PO Take by mouth 3 (three) times daily. LISINOPRIL PO Take by mouth 2 (two) times daily. Oxycodone-Acetaminophen (PERCOCET PO) Take by mouth. No family history on file. History Smoking status Current Every Day Smoker -- 1.50 packs/day Smokeless tobacco Not on file History Alcohol Use Yes PHYSICAL EXAM Vital Signs: BP 126/84 | Pulse 77 | Temp(Src) 98.4 F (36.9 C) (Oral) | Resp 12 | Ht 1.753 m (5' 9.02 ") | Wt 82.5 kg (181 lb 14.1 oz) | BMI 26.85 kg/m2 | SpO2 98% Temp: [98 F (36.7 C)-99.8 F (37.7 C)] 98.4 F (36.9 C) (11/06 819) BP: (62-130)/(36-96) 126/84 mmHg (11/06 819) Heart Rate: [56-117] 77 (11/06 819) Resp: [4-22] 12 (11/06 819) SpO2: [90 %-100 %] 98 % (11/06 819) Height: [175.3 cm (5' 9")-175.3 cm (5' 9.02")] 175.3 cm (5' 9.02") (11/04 1699) Weight: [82.5 kg (181 lb 14.1 oz)] 82.5 kg (181 lb 14.1 oz) (11/04 1699) BMI (Calculated): [26.9] 26.9 (11/04 1699) General appearance: alert, appears stated age and cooperative Head: Normocephalic, without obvious abnormality, atraumatic Throat: lips, mucosa, and tongue dry; poor dentition but gums normal Neck: no adenopathy, no carotid bruit, no JVD, supple, symmetrical, trachea midline and thy roid not enlarged, symmetric, no tenderness/mass/nodules Lungs: clear to auscultation bilaterally Heart: regular rate and rhythm, S1, S2 normal, no murmur, click, rub or gallop Abdomen: soft, non-tender; bowel sounds normal; no masses, no organomegaly Musculoskeletal: There is no redness, warmth, or swelling of the joints. Full range of mo tion noted. Motor strength is 5 out of 5 all extremities bilaterally. Tone is normal. Extremities: Lower extremities with venous stasis Pulses: 2+ and symmetric Skin: Dry scaly psoriatic lesions on his thighs. LE with venous stasis. DATA Recent Labs Lab 11/05/1441211/04/14 1800 WBC 9.26 10.25 HGB 12.9* 13.1* HCT 38.5* 37.8* PLT 152 175 Recent Labs Lab 11/05/1441211/04/14 1800 NA 137 140 K 4.1 4.1 CL 108 106 CO2 22* 23 BUN 25 24 CREATININE 1.99* 2.90* PROT -- 6.0* BILITOT -- 0.4 ALT -- 18 AST -- 34 Recent Labs Lab 11/04/14 1800 APTT 28 INR 1.1 Recent Labs Lab 11/05/1441211/05/14 0025 CKTOTAL 300 338 TROPONINI 0.027 0.026 CKMBINDEX 0.6 0.7 U/A: Lab Results Component Value Date CLARITYU CLEAR 11/04/2014 LEUKOCYTESUR NEGATIVE 11/04/2014 NITRITE NEGATIVE 11/04/2014 UROBILINOGEN 0.2 11/04/2014 PHUR 6.5 11/04/2014 BLOODU SMALL* 11/04/2014 KETONES NEGATIVE 11/04/2014 BILIRUBINUR NEGATIVE 11/04/2014 GLUCOSEU NEGATIVE 11/04/2014 PROBLEM LIST Principal Problem: Syncope and collapse Active Problems: LOC (loss of consciousness) Dehydration ELVIA (acute kidney injury) ([facility]) ASSESSMENT & PLAN Neuro: Syncope: workup includes telemetry, 12 lead ECG, and ECHO ordered. Carotid duplex: no flow limiting stenosis. May simply be r/t dehydration. Unclear etiology. CV: R/O IA. Trend enzymes. Hypotension likely secondary to volume depletion. Volume lo ad. ECHO currently at bedside. Pulm: No obvious issues. Currently on RA. CXR ordered. Renal: ELVIA. Unclear what his baseline is. Will need to monitor. Continue IVF for now. Monitor urine output. Will dc pathak. GI: No issues. Nutrition: will start diet. May advance as tolerated. Heme: No evidence of bleeding. Endo: SSI as needed. Prophylaxis: Aspirations precautions, DVT prophylaxis, GI prophylaxis. Musculoskeletal: uses a walker at baseline and is on [employer] disability. PT evaluation. ID: Pt started on levaquin will stop not etiology of his hypotension. Probably can stop. Procalcitonin normal. CXR pnd. Disposition: I have spoken with Dr. Barton and she has graciously accepted the care of th is patient out to the acute car e floor. Code Status: Full Code Primary Care Physician: LOVELY PAULA *Please bill 30 minutes of critical care time spent evaluating the patient, reviewing the d barby and formulating a plan exclusive of all other procedures. DURAN Juárez 11/05/2014 onversion Transaction, Provider Unknown - 11/04/2014 6:07 PM PDTFormatting of this note might be diff erent from the original. Progress Notes by Dion Lassiter RPH at 11/04/141806 Author: Dion Lassiter RPH Service: (none) Author Type: Pharmacist Filed: 11/04/141806 Date of Service: 11/04/141806 Status: Signed Heating Systems Installer: Dion Lassiter RPH (Pharmacist) Clinical Pharmacy Note: Renal Monitoring Khai Payne 59 y.o. male Ht Readings from Last 1 Encounters: 11/04/14 1.753 m (5' 9.02") Wt Readings from Last 1 Encounters: 11/04/14 82.5 kg (181 lb 14.1 oz) No results found for: CREATININE Creatinine clearance cannot be calculated (Patient has no serum creatinine result on file.) Pharmacy dosing for renal function per Dr. Bolaños. Currently, there are no medications needing to be adjusted. Pharmacy will continue to monit or for changes in medication orders and in renal function and adjust accordingly. Dion Lassiter RPh 11/04/2014 6:07 PM docume nted in this encounter H&P Notes Terrence Bolaños MD - 11/04/2014 5:03 PM PDT H&P by Terrence Bolaños MD at 11/04/141702 Author: Terrence Bolaños MD Service: Assistant Wrestling Coach Author Type: Assistant Wrestling Coach Filed: 11/04/142044 Date of Service: 11/04/141702 Status: Signed Heating Systems Installer: Terrence Bolaños MD (Assistant Wrestling Coach) [facility] Service: Assistant Wrestling Coach Admission History & Physical Date of Admission: 11/04/2014 Requesting Physician: Dr. Velazquez, Emergency Department Indication for ICU Admission: hypotension History Obtained From: patient CHIEF COMPLAINT: Syncope and collapse HISTORY OF PRESENT ILLNESS The patient is a 59 y.o. male with PMHx of psoriatic arthritis presented to [facility] a fter collapsing while watching a baseball game outdoors. Pt had been drinking margaritas (5- 6 8 ounce drinks), reportedly nearly collapsed when trying to get out of his seat. His famil y decided to take him home. He walked to his car with some assistance, stayed awake through out the drive home and collapsed when he got home. EMS was called at that time. Never lost a pulse, no CPR needed. He denies CP, SOB, ART. He has had some chills recently but no oth er constitutional symptoms. At [facility] patient was found to be hypotensive with STT wave changes. Started on dop amine. Transferred to [facility] for further management. REVIEW OF SYSTEMS Negative except for pertinent items noted in HPI. Past Medical History Diagnosis Date Alcohol abuse per patient Anxiety Arthritis High blood pressure Psoriasis Arthritis associated with another disorder Past Surgical History Procedure Laterality Date Knee cartilage surgery Left No Known Allergies Prescriptions prior to admission Medication Sig Dispense Refill Acetaminophen (TYLENOL PO) Take by mouth 2 (two) times daily. CLONAZEPAM PO Take by mouth 3 (three) times daily. gabapentin (NEURONTIN) 300 MG capsule Take 1 capsule by mouth 2 (two) times daily. 60 c apsule 3 IBUPROFEN PO Take by mouth 3 (three) times daily. LISINOPRIL PO Take by mouth 2 (two) times daily. Oxycodone-Acetaminophen (PERCOCET PO) Take by mouth. No family history on file. History Smoking status Current Every Day Smoker -- 1.50 packs/day Smokeless tobacco Not on file History Alcohol Use Yes PHYSICAL EXAM Vital Signs: BP 103/69 | Pulse 72 | Temp(Src) 98.3 F (36.8 C) (Oral) | Resp 16 | Ht 1.753 m (5' 9.02 ") | Wt 82.5 kg (181 lb 14.1 oz) | BMI 26.85 kg/m2 | SpO2 100% Temp: [98.3 F (36.8 C)-99.8 F (37.7 C)] 98.3 F (36.8 C) (11/04 1800) BP: (62-106)/(36-69) 103/69 mmHg (11/04 1899) Heart Rate: [72-117] 72 (11/04 1899) Resp: [8-19] 16 (11/04 1899) SpO2: [97 %-100 %] 100 % (11/04 1899) Height: [175.3 cm (5' 9")-175.3 cm (5' 9.02")] 175.3 cm (5' 9.02") (11/04 1699) Weight: [82.5 kg (181 lb 14.1 oz)] 82.5 kg (181 lb 14.1 oz) (11/04 1699) BMI (Calculated): [26.9] 26.9 (11/04 1699) General appearance: alert, appears stated age and cooperative Head: Normocephalic, without obvious abnormality, atraumatic Throat: lips, mucosa, and tongue dry; teeth and gums normal Neck: no adenopathy, no carotid bruit, no JVD, supple, symmetrical, trachea midline and thy roid not enlarged, symmetric, no tenderness/mass/nodules Lungs: clear to auscultation bilaterally Heart: regular rate and rhythm, S1, S2 normal, no murmur, click, rub or gallop Abdomen: soft, non-tender; bowel sounds normal; no masses, no organomegaly Musculoskeletal: There is no redness, warmth, or swelling of the joints. Full range of mo tion noted. Motor strength is 5 out of 5 all extremities bilaterally. Tone is normal. Extremities: Lower extremities with venous stasis Pulses: 2+ and symmetric Skin: Dry scaly psoriatic lesions on his thighs. LE with venous stasis. DATA CBC: Lab Results Component Value Date WBC 10.25 11/04/2014 RBC 3.13* 11/04/2014 HGB 13.1* 11/04/2014 HCT 37.8* 11/04/2014 MCV 120.8* 11/04/2014 MCH 41.7* 11/04/2014 MCHC 34.5 11/04/2014 RDW 70.0* 11/04/2014 PLT 175 11/04/2014 MPV 8.5 11/04/2014 DIFFTYPE AUTOMATED 11/04/2014 CMP: Lab Results Component Value Date NA 140 11/04/2014 K 4.1 11/04/2014 CL 106 11/04/2014 CO2 23 11/04/2014 ANIONGAP 15 11/04/2014 GLUF 117* 11/04/2014 BUN 24 11/04/2014 CREATININE 2.90* 11/04/2014 BCR 8 11/04/2014 CA 7.6* 11/04/2014 PROT 6.0* 11/04/2014 ALB 2.3* 11/04/2014 BILITOT 0.4 11/04/2014 ALP 111 11/04/2014 AST 34 11/04/2014 ALT 18 11/04/2014 EGFR 24* 11/04/2014 PT/INR: Lab Results Component Value Date INR 1.1 11/04/2014 PTT: Lab Results Component Value Date APTT 28 11/04/2014 [APTT} Troponin: No results found for: TROPONINI CPK: No results found for: CKTOTAL CKMB: No results found for: CKMB U/A: Lab Results Component Value Date CLARITYU CLEAR 11/04/2014 LEUKOCYTESUR NEGATIVE 11/04/2014 NITRITE NEGATIVE 11/04/2014 UROBILINOGEN 0.2 11/04/2014 PHUR 6.5 11/04/2014 BLOODU SMALL* 11/04/2014 KETONES NEGATIVE 11/04/2014 BILIRUBINUR NEGATIVE 11/04/2014 GLUCOSEU NEGATIVE 11/04/2014 PROBLEM LIST Principal Problem: Syncope and collapse Active Problems: LOC (loss of consciousness) Dehydration ELVIA (acute kidney injury) ([facility]) ASSESSMENT & PLAN Neuro: Syncope. Will need work up. Unclear etiology. Carotid duplex. CV: R/O IA. Trend enzymes. Hypotension likely secondary to volume depletion. Volume lo ad. Wean pressors as able. ECHO ordered. Pulm: No obvious issues. Currently on RA. CXR ordered. Renal: ELVIA. Unclear what his baseline is. Will need to monitor. Continue IVF for now. Monitor urine output. GI: No issues. NPO for now. May advance as tolerated. Heme: No evidence of bleeding. Endo: SSI as needed. Prophylaxis: Aspirations precautions, DVT prophylaxis, GI prophylaxis ID: Pt started on levaquin on suspicion of infectious etiology of his hypotension. Probabl y can stop. Procalcitonin normal. CXR pnd. Disposition: ICU observation Code Status: Full Code Primary Care Physician: LOVELY PAULA *Please bill 45 minutes of critical care time spent evaluating the patient, reviewing the d barby and formulating a plan exclusive of all other procedures. Terrence Bolaños MD 11/04/2014 documented in this en counter Plan of Treatment Not on filedocumented as of this encounter Procedures + +--------+ + + + | Procedure Name | Priori | Date/Time | Associated Diagnosis | Comments | | | ty | | | | + +--------+ + + + | EXTERNAL LAB: CBC | Routin | 11/07/2014 | | Results for this | | | e | 3:15 AM | | procedure are in the | | | | PDT | | results section. | + +--------+ + + + | PROTIME INR | Routin | 11/07/2014 | | Results for this | | | e | 3:15 AM | | procedure are in the | | | | PDT | | results section. | + +--------+ + + + | PHOSPHORUS | Routin | 11/07/2014 | | Results for this | | | e | 3:15 AM | | procedure are in the | | | | PDT | | results section. | + +--------+ + + + | MAGNESIUM | Routin | 11/07/2014 | | Results for this | | | e | 3:15 AM | | procedure are in the | | | | PDT | | results section. | + +--------+ + + + | BASIC METABOLIC | Routin | 11/07/2014 | | Results for this | | PANEL | e | 3:15 AM | | procedure are in the | | | | PDT | | results section. | + +--------+ + + + | PHOSPHORUS | Routin | 11/06/2014 | | Results for this | | | e | 5:20 PM | | procedure are in the | | | | PDT | | results section. | + +--------+ + + + | MAGNESIUM | Routin | 11/06/2014 | | Results for this | | | e | 5:20 PM | | procedure are in the | | | | PDT | | results section. | + +--------+ + + + | COMPREHENSIVE | Routin | 11/06/2014 | | Results for this | | METABOLIC PANEL | e | 5:20 PM | | procedure are in the | | | | PDT | | results section. | + +--------+ + + + | EXTERNAL LAB: CBC | Routin | 11/06/2014 | | Results for this | | | e | 5:52 AM | | procedure are in the | | | | PDT | | results section. | + +--------+ + + + | PTT | Routin | 11/06/2014 | | Results for this | | | e | 5:52 AM | | procedure are in the | | | | PDT | | results section. | + +--------+ + + + | PHOSPHORUS | Routin | 11/06/2014 | | Results for this | | | e | 5:52 AM | | procedure are in the | | | | PDT | | results section. | + +--------+ + + + | MAGNESIUM | Routin | 11/06/2014 | | Results for this | | | e | 5:52 AM | | procedure are in the | | | | PDT | | results section. | + +--------+ + + + | BASIC METABOLIC | Routin | 11/06/2014 | | Results for this | | PANEL | e | 5:52 AM | | procedure are in the | | | | PDT | | results section. | + +--------+ + + + | PTT | Routin | 11/05/2014 | | Results for this | | | e | 11:10 PM | | procedure are in the | | | | PDT | | results section. | + +--------+ + + + | TROPONIN I | Routin | 11/05/2014 | | Results for this | | | e | 4:59 PM | | procedure are in the | | | | PDT | | results section. | + +--------+ + + + | CK-MB | Routin | 11/05/2014 | | Results for this | | | e | 4:59 PM | | procedure are in the | | | | PDT | | results section. | + +--------+ + + + | PTT | Routin | 11/05/2014 | | Results for this | | | e | 4:59 PM | | procedure are in the | | | | PDT | | results section. | + +--------+ + + + | MAGNESIUM | Routin | 11/05/2014 | | Results for this | | | e | 4:59 PM | | procedure are in the | | | | PDT | | results section. | + +--------+ + + + | CK TOTAL | Routin | 11/05/2014 | | Results for this | | | e | 4:59 PM | | procedure are in the | | | | PDT | | results section. | + +--------+ + + + | PTT | Routin | 11/05/2014 | | Results for this | | | e | 11:33 AM | | procedure are in the | | | | PDT | | results section. | + +--------+ + + + | PROTIME INR | Routin | 11/05/2014 | | Results for this | | | e | 11:33 AM | | procedure are in the | | | | PDT | | results section. | + +--------+ + + + | VAS LOWER EXTREMITY | Routin | 11/05/2014 | | Results for this | | VENOUS BILATERAL | e | 10:38 AM | | procedure are in the | | | | PDT | | results section. | + +--------+ + + + | ECHO COMPLETE | Routin | 11/05/2014 | | Results for this | | | e | 8:48 AM | | procedure are in the | | | | PDT | | results section. | + +--------+ + + + | TROPONIN I | Routin | 11/05/2014 | | Results for this | | | e | 8:07 AM | | procedure are in the | | | | PDT | | results section. | + +--------+ + + + | CK-MB | Routin | 11/05/2014 | | Results for this | | | e | 8:07 AM | | procedure are in the | | | | PDT | | results section. | + +--------+ + + + | LACTIC ACID | Routin | 11/05/2014 | | Results for this | | | e | 8:07 AM | | procedure are in the | | | | PDT | | results section. | + +--------+ + + + | CK TOTAL | Routin | 11/05/2014 | | Results for this | | | e | 8:07 AM | | procedure are in the | | | | PDT | | results section. | + +--------+ + + + | XR CHEST 1 VIEW | Routin | 11/05/2014 | | Results for this | | | e | 5:41 AM | | procedure are in the | | | | PDT | | results section. | + +--------+ + + + | EXTERNAL LAB: CBC | Routin | 11/05/2014 | | Results for this | | | e | 4:13 AM | | procedure are in the | | | | PDT | | results section. | + +--------+ + + + | T3, TOTAL AND FREE | Routin | 11/05/2014 | | Results for this | | | e | 4:13 AM | | procedure are in the | | | | PDT | | results section. | + +--------+ + + + | LIPID PANEL | Routin | 11/05/2014 | | Results for this | | | e | 4:13 AM | | procedure are in the | | | | PDT | | results section. | + +--------+ + + + | PROCALCITONIN, SERUM | Routin | 11/05/2014 | | Results for this | | | e | 4:13 AM | | procedure are in the | | | | PDT | | results section. | + +--------+ + + + | TROPONIN I | Routin | 11/05/2014 | | Results for this | | | e | 4:13 AM | | procedure are in the | | | | PDT | | results section. | + +--------+ + + + | CK-MB | Routin | 11/05/2014 | | Results for this | | | e | 4:13 AM | | procedure are in the | | | | PDT | | results section. | + +--------+ + + + | TSH | Routin | 11/05/2014 | | Results for this | | | e | 4:13 AM | | procedure are in the | | | | PDT | | results section. | + +--------+ + + + | T4, FREE | Routin | 11/05/2014 | | Results for this | | | e | 4:13 AM | | procedure are in the | | | | PDT | | results section. | + +--------+ + + + | PHOSPHORUS | Routin | 11/05/2014 | | Results for this | | | e | 4:13 AM | | procedure are in the | | | | PDT | | results section. | + +--------+ + + + | B TYPE NATRIURETIC | Routin | 11/05/2014 | | Results for this | | PEPTIDE | e | 4:13 AM | | procedure are in the | | | | PDT | | results section. | + +--------+ + + + | MAGNESIUM | Routin | 11/05/2014 | | Results for this | | | e | 4:13 AM | | procedure are in the | | | | PDT | | results section. | + +--------+ + + + | HEMOGLOBIN A1C | Routin | 11/05/2014 | | Results for this | | | e | 4:13 AM | | procedure are in the | | | | PDT | | results section. | + +--------+ + + + | HEMOGLOBIN A1C | Routin | 11/05/2014 | | Results for this | | | e | 4:13 AM | | procedure are in the | | | | PDT | | results section. | + +--------+ + + + | CK TOTAL | Routin | 11/05/2014 | | Results for this | | | e | 4:13 AM | | procedure are in the | | | | PDT | | results section. | + +--------+ + + + | BASIC METABOLIC | Routin | 11/05/2014 | | Results for this | | PANEL | e | 4:13 AM | | procedure are in the | | | | PDT | | results section. | + +--------+ + + + | TROPONIN I | Routin | 11/05/2014 | | Results for this | | | e | 12:25 AM | | procedure are in the | | | | PDT | | results section. | + +--------+ + + + | CK-MB | Routin | 11/05/2014 | | Results for this | | | e | 12:25 AM | | procedure are in the | | | | PDT | | results section. | + +--------+ + + + | CK TOTAL | Routin | 11/05/2014 | | Results for this | | | e | 12:25 AM | | procedure are in the | | | | PDT | | results section. | + +--------+ + + + | VAS CAROTID DUPLEX | Routin | 11/04/2014 | | Results for this | | BILATERAL | e | 11:36 PM | | procedure are in the | | | | PDT | | results section. | + +--------+ + + + | XR CHEST 1 VIEW | Routin | 11/04/2014 | | Results for this | | | e | 9:22 PM | | procedure are in the | | | | PDT | | results section. | + +--------+ + + + | CULTURE, BLOOD | Timed | 11/04/2014 | | Results for this | | | | 7:14 PM | | procedure are in the | | | | PDT | | results section. | + +--------+ + + + | CULTURE, BLOOD, 2ND | Timed | 11/04/2014 | | Results for this | | SPECIMEN (NON-ORD) | | 7:00 PM | | procedure are in the | | | | PDT | | results section. | + +--------+ + + + | CULTURE, URINE | Timed | 11/04/2014 | | Results for this | | | | 6:43 PM | | procedure are in the | | | | PDT | | results section. | + +--------+ + + + | EXTERNAL LAB: CBC | Routin | 11/04/2014 | | Results for this | | | e | 6:00 PM | | procedure are in the | | | | PDT | | results section. | + +--------+ + + + | PROCALCITONIN, SERUM | Routin | 11/04/2014 | | Results for this | | | e | 6:00 PM | | procedure are in the | | | | PDT | | results section. | + +--------+ + + + | PTT | Routin | 11/04/2014 | | Results for this | | | e | 6:00 PM | | procedure are in the | | | | PDT | | results section. | + +--------+ + + + | PROTIME INR | Routin | 11/04/2014 | | Results for this | | | e | 6:00 PM | | procedure are in the | | | | PDT | | results section. | + +--------+ + + + | ALCOHOL | Routin | 11/04/2014 | | Results for this | | | e | 6:00 PM | | procedure are in the | | | | PDT | | results section. | + +--------+ + + + | HEPATIC FUNCTION | Routin | 11/04/2014 | | Results for this | | PANEL | e | 6:00 PM | | procedure are in the | | | | PDT | | results section. | + +--------+ + + + | BASIC METABOLIC | Routin | 11/04/2014 | | Results for this | | PANEL | e | 6:00 PM | | procedure are in the | | | | PDT | | results section. | + +--------+ + + + | MRSA NAAT | Routin | 11/04/2014 | | Results for this | | | e | 5:28 PM | | procedure are in the | | | | PDT | | results section. | + +--------+ + + + | DRUGS OF ABUSE | Routin | 11/04/2014 | | Results for this | | SCREEN, URINE (H) | e | 5:28 PM | | procedure are in the | | | | PDT | | results section. | + +--------+ + + + | URINALYSIS WITH | Routin | 11/04/2014 | | Results for this | | MICROSCOPIC IF | e | 5:28 PM | | procedure are in the | | INDICATED | | PDT | | results section. | + +--------+ + + + | URINALYSIS, | Routin | 11/04/2014 | | Results for this | | MICROSCOPIC ONLY | e | 5:28 PM | | procedure are in the | | | | PDT | | results section. | + +--------+ + + + documented in this encounter Results Protime INR (11/07/2014 3:15 AM PDT) + + + + + + | Component | Value | Ref Range | Performed | Pathologist | | | | | At | Signature | + + + + + + | INR | 1.0Comment: REFERENCE | | EXTERNAL | | | | RANGE:0.9 - 1.2 | | LAB | | | | NON-ANTICOAGULATED2.0 | | | | | | - 3.0 ALL OTHER | | | | | | THERAPEUTIC | | | | | | INDICATIONS2.5 - 3.5 | | | | | | MECHANICAL HEART VALVES, | | | | | | RECURRENT OR SYSTEMIC | | | | | | EMBOLISMTesting | | | | | | performed at [facility];[address] | | | | | | [address];[place], [place] | | | | | | [address] | | | | + + + + + + + + | Specimen | + + | Blood specimen | | (specimen) | + + + +---------+ + + | Performing | Address | City/State/Zipcode | Phone Number | | Organization | | | | + +---------+ + + | EXTERNAL LAB | | | | + +---------+ + + External Lab: CBC (11/07/2014 3:15 AM PDT) + + +---- + + + | Component | Value | Ref Range | Performed | Pathologist | | | | | At | Signature | + + +---- + + + | WBC | 6.32Comment: Testing | 3.8 0 - 11.00 | EXTERNAL | | | | performed at [facility], [address] | K[address] | LAB | | | | [address], | | | | | | [place] [address] | | | | + + +---- + + + | Non- | 2.86 (L)Comment: Testing | 4.2 0 - 5.70 | EXTERNAL | | | Red Blood | performed at [facility], [address] | [address] | LAB | | | Cells | [address], | | | | | Counted | [place] [address] | | | | + + +---- + + + | Hemoglobin | 11.7 (L)Comment: Testing | 13. 2 - 17.0 | EXTERNAL | | | | performed at [facility], [address] | g/d L | LAB | | | | [address], | | | | | | [place] [address] | | | | + + +---- + + + | Hematocrit, | 34.1 (L)Comment: Testing | 39. 0 - 50.0 % | EXTERNAL | | | POC | performed at [facility], [address] | | LAB | | | | [address], | | | | | | [place] [address] | | | | + + +---- + + + | MCV | 119.4 (H)Comment: | 80. 0 - 100.0 fl | EXTERNAL | | | | Testing performed at | | LAB | | | | [facility], [address] | | | | | | [place] | | | | | | [address] | | | | + + +---- + + + | MCH | 40.8 (H)Comment: Testing | 27. 0 - 34.0 pg | EXTERNAL | | | | performed at [facility], [address] | | LAB | | | | [address], | | | | | | [place] [address] | | | | + + +---- + + + | MCHC | 34.2Comment: Testing | 32. 0 - 35.5 | EXTERNAL | | | | performed at [facility], [address] | g/d L | LAB | | | | [address], | | | | | | [place] [address] | | | | + + +---- + + + | RDW-CV | 66.9 (H)Comment: Testing | 37 - 53 fl | EXTERNAL | | | | performed at [facility], [address] | | LAB | | | | [address], | | | | | | [place] [address] | | | | + + +---- + + + | Platelet | 191Comment: Testing | 150 - 400 K/uL | EXTERNAL | | | Count | performed at [facility], [address] | | LAB | | | Plasma | [address], | | | | | | [place] [address] | | | | + + +---- + + + | MPV | 8.2Comment: Testing | fl | EXTERNAL | | | | performed at [facility], [address] | | LAB | | | | [address], | | | | | | [place] [address] | | | | + + +---- + + + | Differentia | AUTOMATEDComment: | | EXTERNAL | | | l Type | Testing performed at | | LAB | | | | [facility], [address] | | | | | | [place] | | | | | | [address] | | | | + + +---- + + + | % Segmented | 59.94Comment: Testing | % | EXTERNAL | | | | performed at [facility], [address] | | LAB | | | Neutrophils | [address], | | | | | | [place] [address] | | | | + + +---- + + + | % | 25.58Comment: Testing | % | EXTERNAL | | | Lymphocytes | performed at [facility], [address] | | LAB | | | | [address], | | | | | | [place] [address] | | | | + + +---- + + + | % Monocytes | 9.82Comment: Testing | % | EXTERNAL | | | | performed at [facility], [address] | | LAB | | | | [address], | | | | | | [place] [address] | | | | + + +---- + + + | % | 3.25Comment: Testing | % | EXTERNAL | | | Eosinophils | performed at [facility], [address] | | LAB | | | | [address], | | | | | | [place] [address] | | | | + + +---- + + + | % Basophils | 1.41Comment: Testing | % | EXTERNAL | | | | performed at [facility], [address] | | LAB | | | | [address], | | | | | | [place] [address] | | | | + + +---- + + + | Absolute | 3.79Comment: Testing | 1.9 0 - 7.40 | EXTERNAL | | | Segmented | performed at [facility], [address] | K/[address] L | LAB | | | Neutrophils | [address], | | | | | | [place] [address] | | | | + + +---- + + + | Absolute | 1.62Comment: Testing | 1.0 0 - 3.90 | EXTERNAL | | | Lymphocytes | performed at [facility], [address] | K/[address] L | LAB | | | | [address], | | | | | | [place] [address] | | | | + + +---- + + + | Absolute | 0.62Comment: Testing | 0.0 0 - 0.80 | EXTERNAL | | | Monocytes | performed at [facility], [address] | K/[address] L | LAB | | | | [address], | | | | | | [place] [address] | | | | + + +---- + + + | Absolute | 0.21Comment: Testing | 0.0 0 - 0.50 | EXTERNAL | | | Eosinophils | performed at [facility], [address] | K/[address] L | LAB | | | | [address], | | | | | | [place] [address] | | | | + + +---- + + + | Absolute | 0.09Comment: Testing | 0.0 0 - 0.10 | EXTERNAL | | | Basophils | performed at [facility], [address] | K/[address] L | LAB | | | | [address], | | | | | | [place] [address] | | | | + + +---- + + + | RBC | 3+Comment: | | EXTERNAL | | | Morphology | ANISO3+MACRONORMAL PLT | | LAB | | | | MORPHTesting performed | | | | | | at [facility], [address] | | | | | | [facility], | | | | | | [place] [address] | | | | | |Testing performed at [facility], [address] [facility], [place] [address] | | | | | | | | | | + + +---- + + + + + | Specimen | + + | Blood specimen | | (specimen) | + + + +---------+ + + | Performing | Address | City/State/Zipcode | Phone Number | | Organization | | | | + +---------+ + + | EXTERNAL LAB | | | | + +---------+ + + Phosphorus (11/07/2014 3:15 AM PDT) + + + + + + | Component | Value | Ref Range | Performed | Pathologist | | | | | At | Signature | + + + + + + | PHOSPHORUS | 2.7Comment: Testing | 2.3 - 4.8 mg/dL | EXTERNAL | | | | performed at [facility], [address] | | LAB | | | | [address], | | | | | | [place] [address] | | | | + + + + + + + + | Specimen | + + | Blood specimen | | (specimen) | + + + +---------+ + + | Performing | Address | City/State/Zipcode | Phone Number | | Organization | | | | + +---------+ + + | EXTERNAL LAB | | | | + +---------+ + + Magnesium (11/07/2014 3:15 AM PDT) + + + + + + | Component | Value | Ref Range | Performed | Pathologist | | | | | At | Signature | + + + + + + | Magnesium | 1.8Comment: Testing | 1.7 - 2.4 mg/dL | EXTERNAL | | | | performed at [facility], [address] | | LAB | | | | [address], | | | | | | [place] [address] | | | | + + + + + + + + | Specimen | + + | Blood specimen | | (specimen) | + + + +---------+ + + | Performing | Address | City/State/Zipcode | Phone Number | | Organization | | | | + +---------+ + + | EXTERNAL LAB | | | | + +---------+ + + Basic Metabolic Panel (11/07/2014 3:15 AM PDT) + + + + + + | Component | Value | Ref Range | Performed | Pathologist | | | | | At | Signature | + + + + + + | Na | 137Comment: Testing | 135 - 143 | EXTERNAL | | | | performed at [facility], [address] | mmol/L | LAB | | | | [address], | | | | | | [place] [address] | | | | + + + + + + | K | 3.9Comment: Testing | 3.5 - 4.9 | EXTERNAL | | | | performed at [facility], [address] | mmol/L | LAB | | | | [address], | | | | | | [place] [address] | | | | + + + + + + | Cl | 109Comment: Testing | 99 - 109 mmol/L | EXTERNAL | | | | performed at [facility], [address] | | LAB | | | | [address], | | | | | | [place] [address] | | | | + + + + + + | CO2 | 23Comment: Testing | 23 - 32 mmol/L | EXTERNAL | | | | performed at [facility], [address] | | LAB | | | | [address], | | | | | | [place] [address] | | | | + + + + + + | Anion Gap | 9Comment: Testing | 5 - 20 mmol/L | EXTERNAL | | | | performed at [facility], [address] | | LAB | | | | [address], | | | | | | [place] [address] | | | | + + + + + + | Glucose, | 91Comment: Testing | 65 - 99 mg/dL | EXTERNAL | | | Fasting | performed at [facility], [address] | | LAB | | | | [address], | | | | | | [place] [address] | | | | + + + + + + | BUN | 12Comment: Testing | 8 - 25 mg/dL | EXTERNAL | | | | performed at [facility], [address] | | LAB | | | [address], | | | | | | [place] [address] | | | | + + + + + + | Creatinine | 0.72Comment: Testing | 0.70 - 1.30 | EXTERNAL | | | | performed at [facility], [address] | mg/dL | LAB | | | | [address], | | | | | | [place] [address] | | | | + + + + + + | BUN/Creatin | 17Comment: Testing | | EXTERNAL | | | ine Ratio | performed at [facility], [address] | | LAB | | | | [address], | | | | | | [place] [address] | | | | + + + + + + | Calcium | 7.9 (L)Comment: Testing | 8.5 - 10.5 | EXTERNAL | | | | performed at [facility], [address] | mg/dL | LAB | | | | [address] [facility], | | | | | | [place] [address] | | | | + + + + + + | Estimated | >60Comment: GFR <60: | mL/min/1.73m2 | EXTERNAL | | | GFR | CHRONIC KIDNEY DISEASE, | | LAB | | | | IF FOUND OVER A 3 MONTH | | | | | | PERIOD.GFR <15: KIDNEY | | | | | | FAILURE.FOR | | | | | | AMERICANS, MULTIPLY THE | | | | | | CALCULATED GFR BY | | | | | | 1.210.Testing performed | | | | | | at [facility], [address] | | | | | | [facility], | | | | | | [place] [address] | | | | + + + + + + + + | Specimen | + + | Blood specimen | | (specimen) | + + + +---------+ + + | Performing | Address | City/State/Zipcode | Phone Number | | Organization | | | | + +---------+ + + | EXTERNAL LAB | | | | + +---------+ + + Phosphorus (11/06/2014 5:20 PM PDT) + + + + + + | Component | Value | Ref Range | Performed | Pathologist | | | | | At | Signature | + + + + + + | PHOSPHORUS | 1.8 (L)Comment: Testing | 2.3 - 4.8 mg/dL | EXTERNAL | | | | performed at [facility], [address] | | LAB | | | | [address], | | | | | | [place] [address] | | | | + + + + + + + + | Specimen | + + | Blood specimen | | (specimen) | + + + +---------+ + + | Performing | Address | City/State/Zipcode | Phone Number | | Organization | | | | + +---------+ + + | EXTERNAL LAB | | | | + +---------+ + + Magnesium (11/06/2014 5:20 PM PDT) + + + + + + | Component | Value | Ref Range | Performed | Pathologist | | | | | At | Signature | + + + + + + | Magnesium | 1.9Comment: Testing | 1.7 - 2.4 mg/dL | EXTERNAL | | | | performed at [facility], [address] | | LAB | | | | [address], | | | | | | [place] [address] | | | | + + + + + + + + | Specimen | + + | Blood specimen | | (specimen) | + + + +---------+ + + | Performing | Address | City/State/Zipcode | Phone Number | | Organization | | | | + +---------+ + + | EXTERNAL LAB | | | | + +---------+ + + Comprehensive Metabolic Panel (11/06/2014 5:20 PM PDT) + + + + + + | Component | Value | Ref Range | Performed | Pathologist | | | | | At | Signature | + + + + + + | Na | 141Comment: Testing | 135 - 143 | EXTERNAL | | | | performed at [facility];[address] | mmol/L | LAB | | | | [address];[place] | | | | | | [address] | | | | + + + + + + | K | 4.0Comment: Testing | 3.5 - 4.9 | EXTERNAL | | | | performed at [facility];[address] | mmol/L | LAB | | | | [address];[place] | | | | | | [address] | | | | + + + + + + | Cl | 110 (H)Comment: Testing | 99 - 109 mmol/L | EXTERNAL | | | | performed at [facility];[address] | | LAB | | | | [address];[place] | | | | | | [address] | | | | + + + + + + | CO2 | 22 (L)Comment: Testing | 23 - 32 mmol/L | EXTERNAL | | | | performed at [facility];[address] | | LAB | | | | [address];[place] | | | | | | [address] | | | | + + + + + + | Anion Gap | 12Comment: Testing | 5 - 20 mmol/L | EXTERNAL | | | | performed at [facility];[address] | | LAB | | | | [address];[place] | | | | | | [address] | | | | + + + + + + | Glucose, | 114 (H)Comment: Testing | 65 - 99 mg/dL | EXTERNAL | | | Fasting | performed at [facility];[address] | | LAB | | | | [address];[place] | | | | | | [address] | | | | + + + + + + | BUN | 14Comment: Testing | 8 - 25 mg/dL | EXTERNAL | | | | performed at [facility];[address] | | LAB | | | | [address];[place] | | | | | | [address] | | | | + + + + + + | Creatinine | 0.98Comment: Testing | 0.70 - 1.30 | EXTERNAL | | | | performed at [facility];[address] | mg/dL | LAB | | | | [address];[place] | | | | | | [address] | | | | + + + + + + | BUN/Creatin | 14Comment: Testing | | EXTERNAL | | | ine Ratio | performed at [facility];[address] | | LAB | | | | [address];[place] | | | | | | [address] | | | | + + + + + + | Calcium | 7.8 (L)Comment: Testing | 8.5 - 10.5 | EXTERNAL | | | | performed at [facility];[address] | mg/dL | LAB | | | | [address];[place] | | | | | | [address] | | | | + + + + + + | Protein, | 5.7 (L)Comment: Testing | 6.3 - 8.2 g/dL | EXTERNAL | | | Total | performed at [facility];[address] | | LAB | | | | [address];[place] | | | | | | [address] | | | | + + + + + + | Albumin | 2.1 (L)Comment: Testing | 3.3 - 4.8 g/dL | EXTERNAL | | | | performed at [facility];[address] | | LAB | | | | [address];[place] | | | | | | [address] | | | | + + + + + + | Globulin | 3.6Comment: Testing | 1.3 - 4.9 g/dL | EXTERNAL | | | | performed at [facility];[address] | | LAB | | | | [address];[place] | | | | | | [address] | | | | + + + + + + | A/G Ratio | 0.6 (L)Comment: Testing | 1.0 - 2.4 | EXTERNAL | | | | performed at [facility];[address] | | LAB | | | | [address];[place] | | | | | | [address] | | | | + + + + + + | Bilirubin | 0.2Comment: Testing | 0.1 - 1.5 mg/dL | EXTERNAL | | | Total | performed at [facility];[address] | | LAB | | | | [address];[place] | | | | | | [address] | | | | + + + + + + | ALP, | 92Comment: Testing | 35 - 115 U/L | EXTERNAL | | | External | performed at [facility];[address] | | LAB | | | | [address];[place] | | | | | | [address] | | | | + + + + + + | AST | 26Comment: Testing | 10 - 45 U/L | EXTERNAL | | | | performed at [facility];[address] | | LAB | | | | [address];[place] | | | | | | [address] | | | | + + + + + + | ALT | 15Comment: Testing | 10 - 65 U/L | EXTERNAL | | | | performed at [facility];[address] | | LAB | | | | [address];[place] | | | | | | [address] | | | | + + + + + + | Estimated | >60Comment: GFR <60: | mL/min/1.73m2 | EXTERNAL | | | GFR | CHRONIC KIDNEY DISEASE, | | LAB | | | | IF FOUND OVER A 3 MONTH | | | | | | PERIOD.GFR <15: KIDNEY | | | | | | FAILURE.FOR | | | | | | AMERICANS, MULTIPLY THE | | | | | | CALCULATED GFR BY | | | | | | 1.210.Testing performed | | | | | | at [facility];[address];[place] [address] | | | | + + + + + + + + | Specimen | + + | Blood specimen | | (specimen) | + + + +---------+ + + | Performing | Address | City/State/Zipcode | Phone Number | | Organization | | | | + +---------+ + + | EXTERNAL LAB | | | | + +---------+ + + PTT (11/06/2014 5:52 AM PDT) + + + + + + | Component | Value | Ref Range | Performed | Pathologist | | | | | At | Signature | + + + + + + | aPTT, | 50 (H)Comment: Testing | 23 - 32 seconds | EXTERNAL | | | Patient | performed at [facility];[address] | | LAB | | | | [address];[place], [place] | | | | | | [address] | | | | + + + + + + + + | Specimen | + + | Blood specimen | | (specimen) | + + + +---------+ + + | Performing | Address | City/State/Zipcode | Phone Number | | Organization | | | | + +---------+ + + | EXTERNAL LAB | | | | + +---------+ + + External Lab: [facility] (11/06/2014 5:52 AM PDT) + + +---- + + + | Component | Value | Ref Range | Performed | Pathologist | | | | | At | Signature | + + +---- + + + | WBC | 7.43Comment: Testing | 3.8 0 - 11.00 | EXTERNAL | | | | performed at [facility], [address] | [address] | LAB | | | | [address], | | | | | | [place] [address] | | | | + + +---- + + + | Non- | 2.78 (L)Comment: Testing | 4.2 0 - 5.70 | EXTERNAL | | | Red Blood | performed at [facility], [address] | [address] | LAB | | | Cells | [address], | | | | | Counted | [place] [address] | | | | + + +---- + + + | Hemoglobin | 11.2 (L)Comment: Testing | 13. 2 - 17.0 | EXTERNAL | | | | performed at [facility], [address] | g/d L | LAB | | | | [address], | | | | | | [place] [address] | | | | + + +---- + + + | Hematocrit, | 33.1 (L)Comment: Testing | 39. 0 - 50.0 % | EXTERNAL | | | POC | performed at [facility], [address] | | LAB | | | | [address], | | | | | | [place] [address] | | | | + + +---- + + + | MCV | 119.3 (H)Comment: | 80. 0 - 100.0 fl | EXTERNAL | | | | Testing performed at | | LAB | | | | [facility], [address] [facility] | | | | | | [place] | | | | | | [address] | | | | + + +---- + + + | MCH | 40.5 (H)Comment: Testing | 27. 0 - 34.0 pg | EXTERNAL | | | | performed at [facility], [address] | | LAB | | | | [address], | | | | | | [place] [address] | | | | + + +---- + + + | MCHC | 34.0Comment: Testing | 32. 0 - 35.5 | EXTERNAL | | | | performed at [facility], [address] | g/d L | LAB | | | | [address], | | | | | | [place] [address] | | | | + + +---- + + + | RDW-CV | 67.4 (H)Comment: Testing | 37 - 53 fl | EXTERNAL | | | | performed at [facility], [address] | | LAB | | | | [address], | | | | | | [place] [address] | | | | + + +---- + + + | Platelet | 169Comment: Testing | 150 - 400 K/uL | EXTERNAL | | | Count | performed at [facility], [address] | | LAB | | | Plasma | [address], | | | | | | [place] [address] | | | | + + +---- + + + | MPV | 8.9Comment: Testing | fl | EXTERNAL | | | | performed at [facility], [address] | | LAB | | | | [address], | | | | | | [place] [address] | | | | + + +---- + + + | Differentia | AUTOMATEDComment: | | EXTERNAL | | | l Type | Testing performed at | | LAB | | | | [facility], [address] | | | | | | [place] | | | | | | [address] | | | | + + +---- + + + | % Segmented | 58.36Comment: Testing | % | EXTERNAL | | | | performed at [facility], [address] | | LAB | | | Neutrophils | [address], | | | | | | [place] [address] | | | | + + +---- + + + | % | 28.33Comment: Testing | % | EXTERNAL | | | Lymphocytes | performed at [facility], [address] | | LAB | | | | [address], | | | | | | [place] [address] | | | | + + +---- + + + | % Monocytes | 8.15Comment: Testing | % | EXTERNAL | | | | performed at [facility], [address] | | LAB | | | | [address], | | | | | | [place] [address] | | | | + + +---- + + + | % | 2.76Comment: Testing | % | EXTERNAL | | | Eosinophils | performed at [facility], [address] | | LAB | | | | [address], | | | | | | [place] [address] | | | | + + +---- + + + | % Basophils | 2.40Comment: Testing | % | EXTERNAL | | | | performed at [facility], [address] | | LAB | | | | [address], | | | | | | [place] [address] | | | | + + +---- + + + | Absolute | 4.34Comment: Testing | 1.9 0 - 7.40 | EXTERNAL | | | Segmented | performed at [facility], [address] | [address] | LAB | | | Neutrophils | [address], | | | | | | [place] [address] | | | | + + +---- + + + | Absolute | 2.11Comment: Testing | 1.0 0 - 3.90 | EXTERNAL | | | Lymphocytes | performed at [facility], [address] | K[address] | LAB | | | | [address], | | | | | | [place] [address] | | | | + + +---- + + + | Absolute | 0.61Comment: Testing | 0.0 0 - 0.80 | EXTERNAL | | | Monocytes | performed at [facility], [address] | K[address] | LAB | | | | [address], | | | | | | [place] [address] | | | | + + +---- + + + | Absolute | 0.21Comment: Testing | 0.0 0 - 0.50 | EXTERNAL | | | Eosinophils | performed at [facility], [address] | K/u [address] | LAB | | | | [address], | | | | | | [place] [address] | | | | + + +---- + + + | Absolute | 0.18 (H)Comment: Testing | 0.0 0 - 0.10 | EXTERNAL | | | Basophils | performed at [facility], [address] | [address] | LAB | | | | [address], | | | | | | [place] [address] | | | | + + +---- + + + | RBC | 3+Comment: | | EXTERNAL | | | Morphology | ANISO3+MACRONORMAL PLT | | LAB | | | | MORPHTesting performed | | | | | | at [facility], [address] | | | | | | [facility], | | | | | | [place] [address] | | | | | |Testing performed at [facility], [address] [facility], [place] [address] | | | | | | | | | | + + +---- + + + + + | Specimen | + + | Blood specimen | | (specimen) | + + + +---------+ + + | Performing | Address | City/State/Zipcode | Phone Number | | Organization | | | | + +---------+ + + | EXTERNAL LAB | | | | + +---------+ + + Phosphorus (11/06/2014 5:52 AM PDT) + + + + + + | Component | Value | Ref Range | Performed | Pathologist | | | | | At | Signature | + + + + + + | PHOSPHORUS | 2.1 (L)Comment: Testing | 2.3 - 4.8 mg/dL | EXTERNAL | | | | performed at [facility], [address] | | LAB | | | | [address], | | | | | | [place] [address] | | | | + + + + + + + + | Specimen | + + | Blood specimen | | (specimen) | + + + +---------+ + + | Performing | Address | City/State/Zipcode | Phone Number | | Organization | | | | + +---------+ + + | EXTERNAL LAB | | | | + +---------+ + + Magnesium (11/06/2014 5:52 AM PDT) + + + + + + | Component | Value | Ref Range | Performed | Pathologist | | | | | At | Signature | + + + + + + | Magnesium | 1.6 (L)Comment: Testing | 1.7 - 2.4 mg/dL | EXTERNAL | | | | performed at [facility], [address] | | LAB | | | | [address], | | | | | | [place] [address] | | | | + + + + + + + + | Specimen | + + | Blood specimen | | (specimen) | + + + +---------+ + + | Performing | Address | City/State/Zipcode | Phone Number | | Organization | | | | + +---------+ + + | EXTERNAL LAB | | | | + +---------+ + + Basic Metabolic Panel (11/06/2014 5:52 AM PDT) + + + + + + | Component | Value | Ref Range | Performed | Pathologist | | | | | At | Signature | + + + + + + | Na | 136Comment: Testing | 135 - 143 | EXTERNAL | | | | performed at [facility], [address] | mmol/L | LAB | | | | [address], | | | | | | [place] [address] | | | | + + + + + + | K | 3.6Comment: Testing | 3.5 - 4.9 | EXTERNAL | | | | performed at [facility], [address] | mmol/L | LAB | | | | [address], | | | | | | [place] [address] | | | | + + + + + + | Cl | 108Comment: Testing | 99 - 109 mmol/L | EXTERNAL | | | | performed at [facility], [address] | | LAB | | | | [address], | | | | | | [place] [address] | | | | + + + + + + | CO2 | 24Comment: Testing | 23 - 32 mmol/L | EXTERNAL | | | | performed at [facility], [address] | | LAB | | | | [address], | | | | | | [place] [address] | | | | + + + + + + | Anion Gap | 8Comment: Testing | 5 - 20 mmol/L | EXTERNAL | | | | performed at [facility], [address] | | LAB | | | | [address], | | | | | | [place] [address] | | | | + + + + + + | Glucose, | 106 (H)Comment: Testing | 65 - 99 mg/dL | EXTERNAL | | | Fasting | performed at [facility], [address] | | LAB | | | | [address], | | | | | | [place] [address] | | | | + + + + + + | BUN | 18Comment: Testing | 8 - 25 mg/dL | EXTERNAL | | | | performed at [facility], [address] | | LAB | | | | [address], | | | | | | [place] [address] | | | | + + + + + + | Creatinine | 1.07Comment: Testing | 0.70 - 1.30 | EXTERNAL | | | | performed at [facility], [address] | mg/dL | LAB | | | | [address], | | | | | | [place] [address] | | | | + + + + + + | BUN/Creatin | 17Comment: Testing | | EXTERNAL | | | ine Ratio | performed at [facility], [address] | | LAB | | | | [address], | | | | | | [place] [address] | | | | + + + + + + | Calcium | 7.6 (L)Comment: Testing | 8.5 - 10.5 | EXTERNAL | | | | performed at [facility], [address] | mg/dL | LAB | | | | [address], | | | | | | [place] [address] | | | | + + + + + + | Estimated | >60Comment: GFR <60: | mL/min/1.73m2 | EXTERNAL | | | GFR | CHRONIC KIDNEY DISEASE, | | LAB | | | | IF FOUND OVER A 3 MONTH | | | | | | PERIOD.GFR <15: KIDNEY | | | | | | FAILURE.FOR | | | | | | AMERICANS, MULTIPLY THE | | | | | | CALCULATED GFR BY | | | | | | 1.210.Testing performed | | | | | | at [facility], [address] | | | | | | [address], | | | | | | [place] [address] | | | | + + + + + + + + | Specimen | + + | Blood specimen | | (specimen) | + + + +---------+ + + | Performing | Address | City/State/Zipcode | Phone Number | | Organization | | | | + +---------+ + + | EXTERNAL LAB | | | | + +---------+ + + PTT (11/05/2014 11:10 PM PDT) + + + + + + | Component | Value | Ref Range | Performed | Pathologist | | | | | At | Signature | + + + + + + | aPTT, | 82 ()Comment: RESULT | 23 - 32 seconds | EXTERNAL | | | Patient | READ BACK BY:ROSELINE Platt | EVGENY | | | | [place]/AnshulP ON AT | | | | | | 2342, VAPTesting | | | | | | performed at [facility];[address] | | | | | | [address];[place] | | | | | | [address] | | | | + + + + + + + + | Specimen | + + | Blood specimen | | (specimen) | + + + +---------+ + + | Performing | Address | City/State/Zipcode | Phone Number | | Organization | | | | + +---------+ + + | EXTERNAL LAB | | | | + +---------+ + + CK-MB (11/05/2014 4:59 PM PDT) + + + + + -+ | Component | Value | Ref Range | Performed | Pathologist | | | | | At | Signature | + + + + + -+ | CK-MB | 1.9Comment: Testing | 0.5 - 3.6 ng/mL | EXTERNAL | | | | performed at [facility];[address] | | LAB | | | | [address];[place], [place] | | | | | | [address] | | | | + + + + + -+ | CK-MB Index | 0.6Comment: CK INDEX | | EXTERNAL | | | | INTERPRETATION: | | LAB | | | | MMB ng/mL | | | | | | | | | | | |CK INDEX INTERPRETATION: | | | | | | MMB ng/mL | | | | | | | | | | + + + + + -+ + + | Specimen | + + | | + + + +---------+ + + | Performing | Address | City/State/Zipcode | Phone Number | | Organization | | | | + +---------+ + + | EXTERNAL LAB | | | | + +---------+ + + Troponin I (11/05/2014 4:59 PM PDT) + + + + + + | Component | Value | Ref Range | Performed | Pathologist | | | | | At | Signature | + + + + + + | Troponin I, | 0.022Comment: 0.00 to | 0.00 - 0.10 | EXTERNAL | | | Qual | 0.10 CONSISTENT WITH | ng/mL | LAB | | | | NORMAL POPULATION0.11 to | | | | | | 0.60 CONSISTENT WITH | | | | | | INCREASED RISK FOR | | | | | | ADVERSE OUTCOMES> 0.60 | | | | | | CONSISTENT | | | | | | WITH WHO CRITERIA FOR | | | | | | ACUTE IA Testing | | | | | | performed at [facility] | | | | | | [address];[place], [place] | | | | | | [address] | | | | + + + + + + + + | Specimen | + + | Blood specimen | | (specimen) | + + + +---------+ + + | Performing | Address | City/State/Zipcode | Phone Number | | Organization | | | | + +---------+ + + | EXTERNAL LAB | | | | + +---------+ + + PTT (11/05/2014 4:59 PM PDT) + + + + + + | Component | Value | Ref Range | Performed | Pathologist | | | | | At | Signature | + + + + + + | aPTT, | 125 ()Comment: RESULT | 23 - 32 seconds | EXTERNAL | | | Patient | READ BACK BY:LIANA 6RP AT | | LAB | | | | [address] | | | | | | [id number] | | | | | | performed at [facility];[address] | | | | [address];[place], [place] | | | | | | [address] | | | | + + + + + + + + | Specimen | + + | Blood specimen | | (specimen) | + + + +---------+ + + | Performing | Address | City/State/Zipcode | Phone Number | | Organization | | | | + +---------+ + + | EXTERNAL LAB | | | | + +---------+ + + Magnesium (11/05/2014 4:59 PM PDT) + + + + + + | Component | Value | Ref Range | Performed | Pathologist | | | | | At | Signature | + + + + + + | Magnesium | 2.0Comment: Testing | 1.7 - 2.4 mg/dL | EXTERNAL | | | | performed at [facility];[address] | | LAB | | | | [address];[place], [place] | | | | | | [address] | | | | + + + + + + + + | Specimen | + + | | + + + +---------+ + + | Performing | Address | City/State/Zipcode | Phone Number | | Organization | | | | + +---------+ + + | EXTERNAL LAB | | | | + +---------+ + + CK Total (11/05/2014 4:59 PM PDT) + + + + + + | Component | Value | Ref Range | Performed | Pathologist | | | | | At | Signature | + + + + + + | CK, Total | 299Comment: Testing | 55 - 400 U/L | EXTERNAL | | | | performed at [facility];[address] | | LAB | | | | [address];[place] | | | | | | [address] | | | | + + + + + + + + | Specimen | + + | Blood specimen | | (specimen) | + + + +---------+ + + | Performing | Address | City/State/Zipcode | Phone Number | | Organization | | | | + +---------+ + + | EXTERNAL LAB | | | | + +---------+ + + PTT (11/05/2014 11:33 AM PDT) + + + + + + | Component | Value | Ref Range | Performed | Pathologist | | | | | At | Signature | + + + + + + | aPTT, | 32Comment: Testing | 23 - 32 seconds | EXTERNAL | | | Patient | performed at [facility] | | LAB | | | | [address];[place], [place] | | | | | | [address] | | | | + + + + + + + + | Specimen | + + | Blood specimen | | (specimen) | + + + +---------+ + + | Performing | Address | City/State/Zipcode | Phone Number | | Organization | | | | + +---------+ + + | EXTERNAL LAB | | | | + +---------+ + + Protime INR (11/05/2014 11:33 AM PDT) + + + + + + | Component | Value | Ref Range | Performed | Pathologist | | | | | At | Signature | + + + + + + | INR | 1.1Comment: REFERENCE | | EXTERNAL | | | | RANGE:0.9 - 1.2 | | LAB | | | | NON-ANTICOAGULATED2.0 | | | | | | - 3.0 ALL OTHER | | | | | | THERAPEUTIC | | | | | | INDICATIONS2.5 - 3.5 | | | | | | MECHANICAL HEART VALVES, | | | | | | RECURRENT OR SYSTEMIC | | | | | | EMBOLISMTesting | | | | | | performed at [facility];[address] | | | | | | [address] [facility];[place], [place] | | | | | | [address] | | | | + + + + + + + + | Specimen | + + | Blood specimen | | (specimen) | + + + +---------+ + + | Performing | Address | City/State/Zipcode | Phone Number | | Organization | | | | + +---------+ + + | EXTERNAL LAB | | | | + +---------+ + + VAS Lower Extremity Venous Bilateral (11/05/2014 10:38 AM PDT) + + | Specimen | + + | | + + + + + | Impressions | Performed At | + + + | Extensive clot burden, positive for deep venous thrombosis from the | | | right common femoral vein through to the popliteal vein Critical | | | result. Discussed with nurse via telephone. | | + + + + + + | Narrative | Performed At | + + + | HISTORY: 59 -year-old male with pain and swelling TECHNIQUE: | | | Ultrasound of the bilateral lower extremity deep venous systems. No | | | prior similar study available for comparison. This is a true | | | duplex examination with generation and interrogation of Doppler | | | spectral analysis, color flow and investigation waveforms. Where | | | investigated, these findings were unremarkable and supportive of the | | | conclusions of the attached report. FINDINGS: Positive for | | | thrombus in the right common femoral vein, extends to the popliteal | | | vein, seen on images 2 through 8. Extending from the femoral vein also | | | Left lower extremity, without thrombus. Duplex examination | | | demonstrating normal color flow, Doppler spectral analysis as expected | | | for the venous structures here. Incidental findings none | | + + + + + | Procedure Note | + + | Carlos, Rad Conversion - 01/21/2019 6:29 AM PDT HISTORY: 59 -year-old male with pain | | and swelling TECHNIQUE: Ultrasound of the bilateral lower extremity deep venous systems. | | No prior similar study available for comparison. This is a true duplex examination | | with generation and interrogation of Doppler spectral analysis, color flow and | | investigation waveforms. Where investigated, these findings were unremarkable and | | supportive of the conclusions of the attached report. FINDINGS: Positive for thrombus in | | the right common femoral vein, extends to the popliteal vein, seen on images 2 through | | 8. Extending from the femoral vein also Left lower extremity, without thrombus. Duplex | | examination demonstrating normal color flow, Doppler spectral analysis as expected for | | the venous structures here. Incidental findings none IMPRESSION: Extensive clot burden, | | positive for deep venous thrombosis from the right common femoral vein through to the | | popliteal vein Critical result. Discussed with nurse via telephone. Electronically | | signed by Garrick Nance MD on 11/05/2014 11:05 AM | | | |Incidental findings none | | | |IMPRESSION: | |Extensive clot burden, positive for deep venous thrombosis from the right common femoral ve in through to the popliteal vein | | | |Critical result. Discussed with nurse via telephone. | | | | | + + ECHO Complete (11/05/2014 8:48 AM PDT) + + | Specimen | + + | | + + + + + | Impressions | Performed At | + + + | 1. Left ventricular systolic function is hyperdynamic with an | | | estimated EF of >70%. 2. There is a trivial pericardial effusion | | | present. | | + + + + + + | Narrative | Performed At | + + + | Patient Name: KHAI PAYNE Date of : 1955 | | | Performing Physician: Robbin Main MD, | | | FACC, FACP, FASNC | | | | | | INDICATIONS syncope wma CONCLUSIONS | | | 1. Left ventricular systolic function is hyperdynamic with an | | | estimated EF of >70%. 2. There is a trivial pericardial effusion | | | present. FINDINGS -------- ECG rhythm: Sinus rhythm. Study: A | | | 2-dimensional transthoracic echocardiogram with m-mode, spectral and | | | color flow Doppler was perfomed. Study: This was a technically | | | adequate study. Left Ventricle: Left ventricular systolic function is | | | hyperdynamic with an estimated EF of >70%. Left Ventricle: The left | | | ventricle cavity size is normal. Left Ventricle: There is mild | | | concentric left ventricular hypertrophy. Left Ventricle: The | | | diastolic filling pattern is normal for the age of the patient. Right | | | Ventricle: The right ventricle is mildly enlarged measuring between | | | 3.4 - 3.7 cm. Left Atrium: The left atrial size is normal. Right | | | Atrium: The right atrial size is normal. Aortic Valve: Aortic valve | | | is trileaflet and is mildly thickened. Aortic Valve: There is no | | | evidence of aortic regurgitation. Aortic Valve: There is no evidence | | | of aortic stenosis. Mitral Valve: The mitral valve is normal. Mitral | | | Valve: No mitral regurgitation. Mitral Valve: Mild mitral annular | | | calcification present. Tricuspid Valve: The tricuspid valve appears | | | structurally normal. Tricuspid Valve: The poor TR signal prevents | | | accurate estimation of pulmonary pressures. Pulmonic Valve: The | | | pulmonic valve was not well visualized. Pericardium: There is a | | | trivial pericardial effusion present. IVC/Hepatic Veins: The IVC is | | | normal size (1.5-2.5cm) and collapses >50% with sniff, consistent with | | | central venous pressures of 5-10mmHg. MEASUREMENTS | | | Ao asc: 3.65 cm IVC: 2.19 cm LA Diam: 3.57 cm LA Major: | | | 5.20 cm EDV(Teich): 67.95 ml IVSd: 1.10 cm LVIDd: 3.95 | | | cm LVPWd: 1.15 cm LVOT Diam: 1.90 cm %FS: 39.44 % | | | EF(Teich): 70.57 % ESV(Teich): 19.99 ml IVSs: 1.11 cm | | | LVIDs: 2.39 cm LVPWs: 1.46 cm SV(Teich): 47.95 ml RA | | | Major: 4.78 cm RVIDd: 3.52 cm LVEF MOD A2C: 65.44 % SV MOD | | | A2C: 41.73 ml LVEF MOD A4C: 71.48 % SV MOD A4C: 56.23 ml | | | EF Biplane: 69.84 % LVEDV MOD BP: 71.94 ml LVESV MOD BP: | | | 21.69 ml LVEDV MOD A2C: 63.77 ml LVLd A2C: 8.03 cm LVEDV MOD | | | A4C: 78.65 ml LVLd A4C: 8.36 cm LVESV MOD A2C: 22.04 ml | | | LVLs A2C: 6.28 cm LVESV MOD A4C: 22.42 ml LVLs A4C: 6.32 cm | | | CO Biplane: 3.86 l/min HR: 76.95 BPM R-R: 779.70 ms | | | LAESV(A-L): 40.09 ml LAESV Index (A-L): 20.24 ml/m2 LAAs A2C: | | | 17.34 cm2 LAESV A-L A2C: 47.08 ml LAESV MOD A2C: 45.86 ml | | | LALs A2C: 5.42 cm LAAs A4C: 13.53 cm2 LAESV A-L A4C: 31.42 | | | ml LAESV MOD A4C: 28.69 ml LALs A4C: 4.97 cm Ao Diam: 3.57 | | | cm AV Cusp: 1.83 cm LA Diam: 3.74 cm LA/Ao: 1.04 D-E | | | Excursion: 2.32 cm E-F Daggett: 0.05 m/s EPSS: 0.17 cm HR: | | | 76.05 BPM AV maxP.47 mmHg AV meanP.19 mmHg AV | | | Vmax: 1.53 m/s AV Vmean: 1.05 m/s AV VTI: 34.60 cm TALYA | | | Vmax: 2.08 cm2 TALYA (VTI): 1.98 cm2 LVCI Dopp: 2.79 l/minm2 | | | LVCO Dopp: 5.53 l/min HR: 80.65 BPM LVOT maxP.04 mmHg | | | LVOT meanP.95 mmHg LVSI Dopp: 34.63 ml/m2 LVSV Dopp: | | | 68.56 ml LVOT Vmax: 1.12 m/s LVOT Vmean: 0.81 m/s LVOT VTI: | | | 24.02 cm MCO: 439.44 ms MV A [place]ane: 0.63 m/s MV DecT: | | | 133.27 ms MV E [place]: 1.02 m/s MV E/A Ratio: 1.61 MV PHT: | | | 40.00 ms MVA By PHT: 5.49 cm2 MV A Dur: 103.80 ms IVRT: | | | 83.04 ms Septal e': 0.09 m/s Septal E/e': 11.21 Lateral e': | | | 0.11 m/s Lateral E/e': 8.54 P Vein D: 0.51 m/s P Vein S/D | | | Ratio: 1.35 P Vein S: 0.70 m/s HR: 75.72 BPM PV maxPG: | | | 3.36 mmHg PV meanP.89 mmHg PV Vmax: 0.91 m/s PV Vmean: | | | 0.67 m/s PV VTI: 20.21 cm RAP: 10 mmHg TV A Berhane: 0.41 m/s | | | TV Dec Daggett: 5.99 m/s2 TV Dec Time: 100.12 ms TV E [place]: | | | 0.60 m/s TV E/A Ratio: 1.46 Medic Technician: CATHY Authenticated by: | | | Robbin Main MD, FACC, FACP, FASWV Report Date/Time: 11-05-2014 | | | 16:23:42 | | + + + + + | Procedure Note | + + | Dwayne Gonzalez Conversion - 01/21/2019 6:29 AM PDT Patient Name: Annette PAYNE of | | : 1955 Performing Physician: Robbin Main MD, FACC, | | FACP, | | FASNC INDICATIONS--------- | | --syncope wma CONCLUSIONS 1. Left ventricular systolic function is | | hyperdynamic with an estimated EF of >70%.2. There is a trivial pericardial effusion | | present. FINDINGS--------ECG rhythm: Sinus rhythm.Study: A 2-dimensional transthoracic | | echocardiogram with m-mode, spectral and color flow Doppler was perfomed.Study: This was | | a technically adequate study.Left Ventricle: Left ventricular systolic function is | | hyperdynamic with an estimated EF of >70%.Left Ventricle: The left ventricle cavity size | | is normal.Left Ventricle: There is mild concentric left ventricular hypertrophy.Left | | Ventricle: The diastolic filling pattern is normal for the age of the patient.Right | | Ventricle: The right ventricle is mildly enlarged measuring between 3.4 - 3.7 cm.Left | | Atrium: The left atrial size is normal.Right Atrium: The right atrial size is | | normal.Aortic Valve: Aortic valve is trileaflet and is mildly thickened.Aortic Valve: | | There is no evidence of aortic regurgitation.Aortic Valve: There is no evidence of | | aortic stenosis.Mitral Valve: The mitral valve is normal.Mitral Valve: No mitral | | regurgitation.Mitral Valve: Mild mitral annular calcification present.Tricuspid Valve: | | The tricuspid valve appears structurally normal.Tricuspid Valve: The poor TR signal | | prevents accurate estimation of pulmonary pressures.Pulmonic Valve: The pulmonic valve | | was not well visualized.Pericardium: There is a trivial pericardial effusion | | present.IVC/Hepatic Veins: The IVC is normal size (1.5-2.5cm) and collapses >50% with | | sniff, consistent with central venous pressures of 5-10mmHg. MEASUREMENTS Ao | | asc: 3.65 cmIVC: 2.19 cmLA Diam: 3.57 cmLA Major: 5.20 cmEDV(Teich): 67.95 | | mlIVSd: 1.10 cmLVIDd: 3.95 cmLVPWd: 1.15 cmLVOT Diam: 1.90 cm%FS: 39.44 | | %EF(Teich): 70.57 %ESV(Teich): 19.99 mlIVSs: 1.11 cmLVIDs: 2.39 cmLVPWs: 1.46 | | cmSV(Teich): 47.95 mlRA Major: 4.78 cmRVIDd: 3.52 cmLVEF MOD A2C: 65.44 %SV MOD | | A2C: 41.73 mlLVEF MOD A4C: 71.48 %SV MOD A4C: 56.23 mlEF Biplane: 69.84 %LVEDV | | MOD BP: 71.94 mlLVESV MOD BP: 21.69 mlLVEDV MOD A2C: 63.77 mlLVLd A2C: 8.03 | | cmLVEDV MOD A4C: 78.65 mlLVLd A4C: 8.36 cmLVESV MOD A2C: 22.04 mlLVLs A2C: 6.28 | | cmLVESV MOD A4C: 22.42 mlLVLs A4C: 6.32 cmCO Biplane: 3.86 l/minHR: 76.95 | | BPMR-R: 779.70 msLAESV(A-L): 40.09 mlLAESV Index (A-L): 20.24 ml/m2LAAs A2C: | | 17.34 [id number] A-L A2C: 47.08 mlLAESV MOD A2C: 45.86 mlLALs A2C: 5.42 cmLAAs A4C: | | 13.53 [id number] A-L A4C: 31.42 mlLAESV MOD A4C: 28.69 mlLALs A4C: 4.97 cmAo Diam: | | 3.57 cmAV Cusp: 1.83 cmLA Diam: 3.74 cmLA/Ao: 1.04D-E Excursion: 2.32 cmE-F | | Daggett: 0.05 m/sEPSS: 0.17 cmHR: 76.05 BPMAV maxP.47 mmHgAV meanP.19 | | mmHgAV Vmax: 1.53 m/Dae Vmean: 1.05 m/Dae VTI: 34.60 cmAVA Vmax: 2.08 cm2AVA | | (VTI): 1.98 [id number] Dopp: 2.79 l/[id number] Dopp: 5.53 l/minHR: 80.65 BPMLVOT | | maxP.04 mmHgLVOT meanP.95 mmHgLVSI Dopp: 34.63 ml/m2LVSV Dopp: 68.56 | | mlLVOT Vmax: 1.12 m/sLVOT Vmean: 0.81 m/sLVOT VTI: 24.02 cmMCO: 439.44 msMV A | | Berhane: 0.63 m/sMV DecT: 133.27 msMV E [place]: 1.02 m/sMV E/A Ratio: 1.61MV PHT: | | 40.00 msMVA By PHT: 5.49 cm2MV A Dur: 103.80 msIVRT: 83.04 msSeptal e': 0.09 | | m/sSeptal E/e': 11.21Lateral e': 0.11 m/sLateral E/e': 8.54P Vein D: 0.51 m/sP | | Vein S/D Ratio: 1.35P Vein S: 0.70 m/sHR: 75.72 BPMPV maxP.36 mmHgPV meanPG: | | 1.89 mmHgPV Vmax: 0.91 m/sPV Vmean: 0.67 m/sPV VTI: 20.21 cmRAP: 10 mmHgTV A | | Berhane: 0.41 m/sTV Dec Daggett: 5.99 m/s2TV Dec Time: 100.12 msTV E Berhane: 0.60 m/sTV | | E/A Ratio: 1.46 Medic Technician: GDAuthenticated by: Robbin Main MD, FACC, FACP, | | FASNCReport Date/Time: 11-05-2014 16:23:42 IMPRESSION: 1. Left ventricular systolic | | function is hyperdynamic with an estimated EF of >70%.2. There is a trivial pericardial | | effusion present. | |LVPWd: 1.15 cm | |LVOT Diam: 1.90 cm | |%FS: 39.44 % | |EF(Teich): 70.57 % | |ESV(Teich): 19.99 ml | |IVSs: 1.11 cm | |LVIDs: 2.39 cm | |LVPWs: 1.46 cm | |SV(Teich): 47.95 ml | |RA Major: 4.78 cm | |RVIDd: 3.52 cm | |LVEF MOD A2C: 65.44 % | |SV MOD A2C: 41.73 ml | |LVEF MOD A4C: 71.48 % | |SV MOD A4C: 56.23 ml | |EF Biplane: 69.84 % | |LVEDV MOD BP: 71.94 ml | |LVESV MOD BP: 21.69 ml | |LVEDV MOD A2C: 63.77 ml | |LVLd A2C: 8.03 cm | |LVEDV MOD A4C: 78.65 ml | |LVLd A4C: 8.36 cm | |LVESV MOD A2C: 22.04 ml | |LVLs A2C: 6.28 cm | |LVESV MOD A4C: 22.42 ml | |LVLs A4C: 6.32 cm | |CO Biplane: 3.86 l/min | |HR: 76.95 BPM | |R-R: 779.70 ms | |LAESV(A-L): 40.09 ml | |LAESV Index (A-L): 20.24 ml/m2 | |LAAs A2C: 17.34 cm2 | |LAESV A-L A2C: 47.08 ml | |LAESV MOD A2C: 45.86 ml | |LALs A2C: 5.42 cm | |LAAs A4C: 13.53 cm2 | |LAESV A-L A4C: 31.42 ml | |LAESV MOD A4C: 28.69 ml | |LALs A4C: 4.97 cm | |Ao Diam: 3.57 cm | |AV Cusp: 1.83 cm | |LA Diam: 3.74 cm | |LA/Ao: 1.04 | |D-E Excursion: 2.32 cm | |E-F Daggett: 0.05 m/s | |EPSS: 0.17 cm | |HR: 76.05 BPM | |AV maxP.47 mmHg | |AV meanP.19 mmHg | |AV Vmax: 1.53 m/s | |AV Vmean: 1.05 m/s | |AV VTI: 34.60 cm | |TALYA Vmax: 2.08 cm2 | |TALYA (VTI): 1.98 cm2 | |LVCI Dopp: 2.79 l/minm2 | |LVCO Dopp: 5.53 l/min | |HR: 80.65 BPM | |LVOT maxP.04 mmHg | |LVOT meanP.95 mmHg | |LVSI Dopp: 34.63 ml/m2 | |LVSV Dopp: 68.56 ml | |LVOT Vmax: 1.12 m/s | |LVOT Vmean: 0.81 m/s | |LVOT VTI: 24.02 cm | |MCO: 439.44 ms | |MV A Berhane: 0.63 m/s | |MV DecT: 133.27 ms | |MV E Berhane: 1.02 m/s | |MV E/A Ratio: 1.61 | |MV PHT: 40.00 ms | |MVA By PHT: 5.49 cm2 | |MV A Dur: 103.80 ms | |IVRT: 83.04 ms | |Septal e': 0.09 m/s | |Septal E/e': 11.21 | |Lateral e': 0.11 m/s | |Lateral E/e': 8.54 | |P Vein D: 0.51 m/s | |P Vein S/D Ratio: 1.35 | |P Vein S: 0.70 m/s | |HR: 75.72 BPM | |PV maxP.36 mmHg | |PV meanP.89 mmHg | |PV Vmax: 0.91 m/s | |PV Vmean: 0.67 m/s | |PV VTI: 20.21 cm | |RAP: 10 mmHg | |TV A Berhane: 0.41 m/s | |TV Dec Daggett: 5.99 m/s2 | |TV Dec Time: 100.12 ms | |TV E Berhane: 0.60 m/s | |TV E/A Ratio: 1.46 | | | |Medic Technician: GD | |Authenticated by: Robbin Main MD, FACC, FACP, FASWV | |Report Date/Time: 11-05-2014 16:23:42 | | | |IMPRESSION: | |1. Left ventricular systolic function is hyperdynamic with an estimated EF of >70%. | |2. There is a trivial pericardial effusion present. | + + CK-MB (11/05/2014 8:07 AM PDT) + + + + + -+ | Component | Value | Ref Range | Performed | Pathologist | | | | | At | Signature | + + + + + -+ | CK-MB | 1.5Comment: Testing | 0.5 - 3.6 ng/mL | EXTERNAL | | | | performed at [facility];[address] | | LAB | | | | [address] [facility];[place], [place] | | | | | | [address] | | | | + + + + + -+ | CK-MB Index | 0.6Comment: CK INDEX | | EXTERNAL | | | | INTERPRETATION: | | LAB | | | | MMB ng/mL | | | | | | | | | | | |CK INDEX INTERPRETATION: | | | | | | MMB ng/mL | | | | | | | | | | + + + + + -+ + + | Specimen | + + | | + + + +---------+ + + | Performing | Address | City/State/Zipcode | Phone Number | | Organization | | | | + +---------+ + + | EXTERNAL LAB | | | | + +---------+ + + Troponin I (11/05/2014 8:07 AM PDT) + + + + + + | Component | Value | Ref Range | Performed | Pathologist | | | | | At | Signature | + + + + + + | Troponin I, | 0.023Comment: 0.00 to | 0.00 - 0.10 | EXTERNAL | | | Qual | 0.10 CONSISTENT WITH | ng/mL | LAB | | | | NORMAL POPULATION0.11 to | | | | | | 0.60 CONSISTENT WITH | | | | | | INCREASED RISK FOR | | | | | | ADVERSE OUTCOMES> 0.60 | | | | | | CONSISTENT | | | | | | WITH WHO CRITERIA FOR | | | | | | ACUTE IA Testing | | | | | | performed at [facility];[address] | | | | | | [address];[place], [place] | | | | | | [address] | | | | + + + + + + + + | Specimen | + + | Blood specimen | | (specimen) | + + + +---------+ + + | Performing | Address | City/State/Zipcode | Phone Number | | Organization | | | | + +---------+ + + | EXTERNAL LAB | | | | + +---------+ + + Lactic Acid (11/05/2014 8:07 AM PDT) + + + + + + | Component | Value | Ref Range | Performed | Pathologist | | | | | At | Signature | + + + + + + | Lactate | 0.9Comment: Testing | 0.4 - 2.0 | EXTERNAL | | | | performed at [facility];[address] | mmol/L | LAB | | | | [address];[place], [place] | | | | | | [address] | | | | + + + + + + + + | Specimen | + + | Blood specimen | | (specimen) | + + + +---------+ + + | Performing | Address | City/State/Zipcode | Phone Number | | Organization | | | | + +---------+ + + | EXTERNAL LAB | | | | + +---------+ + + CK Total (11/05/2014 8:07 AM PDT) + + + + + + | Component | Value | Ref Range | Performed | Pathologist | | | | | At | Signature | + + + + + + | CK, Total | 258Comment: SLT | 55 - 400 U/L | EXTERNAL | | | | HEMOLYSISTesting | | LAB | | | | performed at [facility];[address] | | | | | | [address];[place] | | | | | | [address] | | | | + + + + + + + + | Specimen | + + | Blood specimen | | (specimen) | + + + +---------+ + + | Performing | Address | City/State/Zipcode | Phone Number | | Organization | | | | + +---------+ + + | EXTERNAL LAB | | | | + +---------+ + + XR Chest 1 Vw (11/05/2014 5:41 AM PDT) + + | Specimen | + + | | + + + + + | Impressions | Performed At | + + + | 1. Mild progression of interstitial edema favored, otherwise | | | stable exam, with COPD | | + + + + + + | Narrative | Performed At | + + + | HISTORY: 59-year-old male, possible infection TECHNIQUE: 1. | | | AP upright portable view radiographic examination of the chest. | | | Obtained 05 November. 4:37 Prior study for review : November 04 FINDINGS: | | | Stable mediastinum, mild hilar vascular fullness and left | | | ventricular megaly-unchanged Hyperinflation with some element of | | | proximal disease and probable interstitial edema, slight blunting of | | | the costophrenic angle on the left. Stable, disease is not severe, but | | | interstitial edema may have progressed slightly Stable skeleton | | | | | + + + + + | Procedure Note | + + | Carlos, Rad Conversion - 01/21/2019 6:29 AM PDT HISTORY: 59-year-old male, possible | | infection TECHNIQUE: 1. AP upright portable view radiographic examination of the chest. | | Obtained 05 November. 4:37Prior study for review : November 04 FINDINGS: Stable mediastinum, | | mild hilar vascular fullness and left ventricular megaly-unchanged Hyperinflation with | | some element of proximal disease and probable interstitial edema, slight blunting of the | | costophrenic angle on the left. Stable, disease is not severe, but interstitial edema | | may have progressed slightly Stable skeleton IMPRESSION: 1. Mild progression of | | interstitial edema favored, otherwise stable exam, with COPD | |Stable mediastinum, mild hilar vascular fullness and left ventricular megaly-unchanged | | | |Hyperinflation with some element of proximal disease and probable interstitial edema, sligh t blunting of the costophrenic angle on the left. Stable, disease is not severe, but interst itial edema may have progressed slightly | | | |Stable skeleton | | | |IMPRESSION: | | | |1. Mild progression of interstitial edema favored, otherwise stable exam, with COPD | | | | | | | | | + + T3, Total and Free (11/05/2014 4:13 AM PDT) + + + + + + | Component | Value | Ref Range | Performed | Pathologist | | | | | At | Signature | + + + + + + | T3, Free | 2.7Comment: Testing | 2.3 - 4.2 pg/mL | EXTERNAL | | | | performed at [facility], [address] | | LAB | | | | [address] | | | | | | [place] [address] | | | | + + + + + + | T3, Total | 145Comment: Testing | 80 - 200 ng/dL | EXTERNAL | | | | performed at [facility], [address] | | LAB | | | | [address] | | | | | | [place] [address] | | | | + + + + + + + + | Specimen | + + | | + + + +---------+ + + | Performing | Address | City/State/Zipcode | Phone Number | | Organization | | | | + +---------+ + + | EXTERNAL LAB | | | | + +---------+ + + Procalcitonin (11/05/2014 4:13 AM PDT) + + + + + + | Component | Value | Ref Range | Performed | Pathologist | | | | | At | Signature | + + + + + + | Source | PLASMAComment: Testing | | EXTERNAL | | | | performed at [facility] | | LAB | | | | [facility];[place], [place] | | | | | | [address] | | | | + + + + + + | PROCALCITON | 0.11Comment: | ng/mL | EXTERNAL | | | IN | INTERPRETIVE | | LAB | | | | INFORMATION: | | | | | | PROCALCITONIN PCT <= | | | | | | 0.5 ng/mL: Low risk | | | | | | for progression to | | | | | | severe systemic | | | | | | bacterial infection | | | | | | (severe sepsis/septic | | | | | | shock). Does not | | | | | | exclude an infection, | | | | | | because localized | | | | | | infections may be | | | | | | associated with such low | | | | | | levels. If PCT is | | | | | | measured very early | | | | | | after bacterial | | | | | | challenge (usually <6 | | | | | | hours), results may | | | | | | still be low and | | | | | | should re-assess PCT | | | | | | 6-24 hours later. PCT | | | | | | >0.5 and <= 2 ng/mL: | | | | | | Moderate risk for | | | | | | progression to severe | | | | | | systemic infection | | | | | | (severe sepsis/septic | | | | | | shock). Other | | | | | | conditions are known | | | | | | to elevate PCT, patient | | | | | | should be closely | | | | | | monitored both | | | | | | clinically and by | | | | | | re-assessing PCT | | | | | | within 6-24 hours. PCT > | | | | | | 2 ng/mL: High | | | | | | likelihood for | | | | | | progression to severe | | | | | | systemic bacterial | | | | | | infection (severe | | | | | | sepsis/septic shock). | | | | | | PCT >= 10 ng/mL: | | | | | | High likelihood of | | | | | | severe sepsis or septic | | | | | | shock.Testing performed | | | | | | at [facility];[address] [place] [address] | | | | | | Blvd;[place] [address] | | | | + + + + + + + + | Specimen | + + | | + + + +---------+ + + | Performing | Address | City/State/Zipcode | Phone Number | | Organization | | | | + +---------+ + + | EXTERNAL LAB | | | | + +---------+ + + CK-MB (11/05/2014 4:13 AM PDT) + + + + + -+ | Component | Value | Ref Range | Performed | Pathologist | | | | | At | Signature | + + + + + -+ | CK-MB | 1.9Comment: Testing | 0.5 - 3.6 ng/mL | EXTERNAL | | | | performed at [facility];[address] | | LAB | | | | [address];[place], [place] | | | | | | [address] | | | | + + + + + -+ | CK-MB Index | 0.6Comment: CK INDEX | | EXTERNAL | | | | INTERPRETATION: | | LAB | | | | MMB ng/mL | | | | | | | | | | | |CK INDEX INTERPRETATION: | | | | | | MMB ng/mL | | | | | | | | | | + + + + + -+ + + | Specimen | + + | Blood specimen | | (specimen) | + + + +---------+ + + | Performing | Address | City/State/Zipcode | Phone Number | | Organization | | | | + +---------+ + + | EXTERNAL LAB | | | | + +---------+ + + Troponin I (11/05/2014 4:13 AM PDT) + + + + + + | Component | Value | Ref Range | Performed | Pathologist | | | | | At | Signature | + + + + + + | Troponin I, | 0.027Comment: 0.00 to | 0.00 - 0.10 | EXTERNAL | | | Qual | 0.10 CONSISTENT WITH | ng/mL | LAB | | | | NORMAL POPULATION0.11 to | | | | | | 0.60 CONSISTENT WITH | | | | | | INCREASED RISK FOR | | | | | | ADVERSE OUTCOMES> 0.60 | | | | | | CONSISTENT | | | | | | WITH WHO CRITERIA FOR | | | | | | ACUTE IA Testing | | | | | | performed at [facility];[address] | | | | | | [address] [facility];[place], [place] | | | | | | [address] | | | | + + + + + + + + | Specimen | + + | Blood specimen | | (specimen) | + + + +---------+ + + | Performing | Address | City/State/Zipcode | Phone Number | | Organization | | | | + +---------+ + + | EXTERNAL LAB | | | | + +---------+ + + External Lab: CBC (11/05/2014 4:13 AM PDT) + + + + + + | Component | Value | Ref Range | Performed | Pathologist | | | | | At | Signature | + + + + + + | WBC | 9.26Comment: Testing | 3.80 - 11.00 | EXTERNAL | | | | performed at [facility];[address] | K/uL | LAB | | | | [address];[place] | | | | | | [address] | | | | + + + + + + | Non- | 3.17 (L)Comment: Testing | 4.20 - 5.70 | EXTERNAL | | | Red Blood | performed at [facility];[address] | M/uL | LAB | | | Cells | [address];[place] | | | | | Counted | [id number] | | | | + + + + + + | Hemoglobin | 12.9 (L)Comment: Testing | 13.2 - 17.0 | EXTERNAL | | | | performed at [facility];[address] | g/dL | LAB | | | | [address];[place] | | | | | | [address] | | | | + + + + + + | Hematocrit, | 38.5 (L)Comment: Testing | 39.0 - 50.0 % | EXTERNAL | | | POC | performed at [facility];[address] | | LAB | | | | [address];[place] | | | | | | [address] | | | | + + + + + + | MCV | 121.4 (H)Comment: | 80.0 - 100.0 fl | EXTERNAL | | | | Testing performed at | | LAB | | | | [facility];[address] | | | [address];[place] [address] | | | | + + + + + + | MCH | 40.9 (H)Comment: Testing | 27.0 - 34.0 pg | EXTERNAL | | | | performed at [facility];[address] | | LAB | | | | [address];[place] | | | | | | [address] | | | | + + + + + + | MCHC | 33.7Comment: Testing | 32.0 - 35.5 | EXTERNAL | | | | performed at [facility];[address] | g/dL | LAB | | | | [address];[place] | | | | | | [address] | | | | + + + + + + | RDW-CV | 70.0 (H)Comment: Testing | 37 - 53 fl | EXTERNAL | | | | performed at [facility];[address] | | LAB | | | | [address];[place] | | | | | | [address] | | | | + + + + + + | Platelet | 152Comment: Testing | 150 - 400 K/uL | EXTERNAL | | | Count | performed at [facility];[address] | | LAB | | | Plasma | [address];[place] | | | | | | [address] | | | | + + + + + + | MPV | 8.3Comment: Testing | fl | EXTERNAL | | | | performed at [facility];[address] | | LAB | | | | [address];[place] | | | | | | [address] | | | | + + + + + + | Differentia | MANUALComment: Testing | | EXTERNAL | | | l Type | performed at [facility];[address] | | LAB | | | | [address];[place] | | | | | | [address] | | | | + + + + + + | Segmented | 67Comment: Testing | % | EXTERNAL | | | Neutrophils | performed at [facility];[address] | | LAB | | | Manual | [address];[place] | | | | | | [address] | | | | + + + + + + | Lymphocytes | 26Comment: Testing | % | EXTERNAL | | | Manual | performed at [facility];[address] | | LAB | | | | [address];[place] | | | | | | [address] | | | | + + + + + + | Monocytes | 3Comment: Testing | % | EXTERNAL | | | Manual | performed at [facility];[address] | | LAB | | | | [address];[place] | | | | | | [address] | | | | + + + + + + | Eosinophils | 4Comment: Testing | % | EXTERNAL | | | Manual | performed at [facility];[address] | | LAB | | | | [address];[place] | | | | | | [address] | | | | + + + + + + | Absolute | 6.20Comment: Testing | 1.90 - 7.40 | EXTERNAL | | | Neutrophils | performed at [facility];[address] | K/uL | LAB | | | | [address];[place] | | | | | | [address] | | | | + + + + + + | Absolute | 2.41Comment: Testing | 1.00 - 3.90 | EXTERNAL | | | Lymphocytes | performed at [facility];[address] | K/uL | LAB | | | | [address];[place] | | | | | | [address] | | | | + + + + + + | Absolute | 0.28Comment: Testing | 0.00 - 0.80 | EXTERNAL | | | Monocytes | performed at [facility];[address] | K/uL | LAB | | | | [address];[place] | | | | | | [address] | | | | + + + + + + | Absolute | 0.37Comment: Testing | 0.00 - 0.50 | EXTERNAL | | | Eosinophils | performed at [facility];[address] | K/uL | LAB | | | | [address];[place] | | | | | | [address] | | | | + + + + + + | RBC | 3+Comment: | | EXTERNAL | | | Morphology | MACRO2+ANISO2+POIKNORMAL | | LAB | | | | PLT MORPHTesting | | | | | | performed at [facility];[address] | | | | | | [address];[place], [place] | | | | | | [address] | | | | | |POIK | | | | | |NORMAL PLT MORPH | | | | | |Testing performed at [facility];[address];[place] [address] | | | | | | | | | | + + + + + + + + | Specimen | + + | Blood specimen | | (specimen) | + + + +---------+ + + | Performing | Address | City/State/Zipcode | Phone Number | | Organization | | | | + +---------+ + + | EXTERNAL LAB | | | | + +---------+ + + TSH (11/05/2014 4:13 AM PDT) + + + + + + | Component | Value | Ref Range | Performed | Pathologist | | | | | At | Signature | + + + + + + | TSH | 0.36 (L)Comment: Testing | 0.45 - 5.10 | EXTERNAL | | | | performed at [facility];[address] | uIU/mL | LAB | | | | [address];[place], [place] | | | | | | [address] | | | | + + + + + + + + | Specimen | + + | Blood specimen | | (specimen) | + + + +---------+ + + | Performing | Address | City/State/Zipcode | Phone Number | | Organization | | | | + +---------+ + + | EXTERNAL LAB | | | | + +---------+ + + T4, Free (11/05/2014 4:13 AM PDT) + + + + + + | Component | Value | Ref Range | Performed | Pathologist | | | | | At | Signature | + + + + + + | FREE T4 | 0.9Comment: Testing | 0.7 - 1.5 ng/dL | EXTERNAL | | | (REF) | performed at [facility], [address] | | LAB | | | | [address], | | | | | | [place] [address] | | | | + + + + + + + + | Specimen | + + | Blood specimen | | (specimen) | + + + +---------+ + + | Performing | Address | City/State/Zipcode | Phone Number | | Organization | | | | + +---------+ + + | EXTERNAL LAB | | | | + +---------+ + + Phosphorus (11/05/2014 4:13 AM PDT) + + + + + + | Component | Value | Ref Range | Performed | Pathologist | | | | | At | Signature | + + + + + + | PHOSPHORUS | 4.0Comment: Testing | 2.3 - 4.8 mg/dL | EXTERNAL | | | | performed at [facility], [address] | | LAB | | | | [address], | | | | | | [place] [address] | | | | + + + + + + + + | Specimen | + + | Blood specimen | | (specimen) | + + + +---------+ + + | Performing | Address | City/State/Zipcode | Phone Number | | Organization | | | | + +---------+ + + | EXTERNAL LAB | | | | + +---------+ + + B Type Natriuretic Peptide (11/05/2014 4:13 AM PDT) + + + + + + | Component | Value | Ref Range | Performed | Pathologist | | | | | At | Signature | + + + + + + | BNP | 483 (H)Comment: Testing | 0 - 100 pg/mL | EXTERNAL | | | | performed at [facility];[address] | | LAB | | | | [address] [facility];[place], [place] | | | | | | [address] | | | | + + + + + + + + | Specimen | + + | Blood specimen | | (specimen) | + + + +---------+ + + | Performing | Address | City/State/Zipcode | Phone Number | | Organization | | | | + +---------+ + + | EXTERNAL LAB | | | | + +---------+ + + Magnesium (11/05/2014 4:13 AM PDT) + + + + + + | Component | Value | Ref Range | Performed | Pathologist | | | | | At | Signature | + + + + + + | Magnesium | 1.4 (L)Comment: Testing | 1.7 - 2.4 mg/dL | EXTERNAL | | | | performed at [facility], [address] | | LAB | | | | [address], | | | | | | [place] [address] | | | | + + + + + + + + | Specimen | + + | Blood specimen | | (specimen) | + + + +---------+ + + | Performing | Address | City/State/Zipcode | Phone Number | | Organization | | | | + +---------+ + + | EXTERNAL LAB | | | | + +---------+ + + Hemoglobin A1C (11/05/2014 4:13 AM PDT) + + + + + + | Component | Value | Ref Range | Performed | Pathologist | | | | | At | Signature | + + + + + + | Hemoglobin | 5.0Comment: The [place] | 4.0 - 6.0 % | EXTERNAL | | | A1c | Diabetes Association | | LAB | | | | considers a hemoglobin | | | | | | A1c result of <7.0% to | | | | | | be the goal of diabetic | | | | | | therapy. When results | | | | | | are consistently >8.0%, | | | | | | the ADA suggests | | | | | | reevaluation of the | | | | | | treatment regimen. The | | | | | | testing method used is | | | | | | certified traceable to | | | | | | the Diabetes Control and | | | | | | Complications Trial | | | | | | reference method.Testing | | | | | | performed at [facility], [address] | | [address], | | | | | | [place] [address] | | | | + + + + + + | Glycohemogl | 97Comment: The ADA | mg/dL | EXTERNAL | | | obin | considers an eAG result | | LAB | | | (GHb),Total | of LT 154 mg/dL to be | | | | | | the goal of diabetic | | | | | | therapy. Estimated | | | | | | Average Glucose | | | | | | calculated from | | | | | | hemoglobin A1c by use of | | | | | | the ADA recommended | | | | | | formula.Testing | | | | | | performed at [facility], [address] | | | | | | [address], | | | | | | [place] [address] | | | | + + + + + + + + | Specimen | + + | Blood specimen | | (specimen) | + + + +---------+ + + | Performing | Address | City/State/Zipcode | Phone Number | | Organization | | | | + +---------+ + + | EXTERNAL LAB | | | | + +---------+ + + Hemoglobin A1C (11/05/2014 4:13 AM PDT) + + + + + + | Component | Value | Ref Range | Performed | Pathologist | | | | | At | Signature | + + + + + + | Hemoglobin | 5.0Comment: The [place] | 4.0 - 6.0 % | EXTERNAL | | | A1c | Diabetes Association | | LAB | | | | considers a hemoglobin | | | | | | A1c result of <7.0% to | | | | | | be the goal of diabetic | | | | | | therapy. When results | | | | | | are consistently >8.0%, | | | | | | the ADA suggests | | | | | | reevaluation of the | | | | | | treatment regimen. The | | | | | | testing method used is | | | | | | certified traceable to | | | | | | the Diabetes Control and | | | | | | Complications Trial | | | | | | reference method.Testing | | | | | | performed at [facility], [address], | | | | | | [place] [address] | | | | + + + + + + | Glycohemogl | 97Comment: The ADA | mg/dL | EXTERNAL | | | obin | considers an eAG result | | LAB | | | (GHb),Total | of LT 154 mg/dL to be | | | | | | the goal of diabetic | | | | | | therapy. Estimated | | | | | | Average Glucose | | | | | | calculated from | | | | | | hemoglobin A1c by use of | | | | | | the ADA recommended | | | | | | formula.Testing | | | | | | performed at [facility], [address] | | | | | | [address], | | | | | | [place] [address] | | | | + + + + + + + + | Specimen | + + | Blood specimen | | (specimen) | + + + +---------+ + + | Performing | Address | City/State/Zipcode | Phone Number | | Organization | | | | + +---------+ + + | EXTERNAL LAB | | | | + +---------+ + + CK Total (11/05/2014 4:13 AM PDT) + + + + + + | Component | Value | Ref Range | Performed | Pathologist | | | | | At | Signature | + + + + + + | CK, Total | 300Comment: Testing | 55 - 400 U/L | EXTERNAL | | | | performed at [facility];[address] | | LAB | | | | [address];[place] | | | | | | [address] | | | | + + + + + + + + | Specimen | + + | Blood specimen | | (specimen) | + + + +---------+ + + | Performing | Address | City/State/Zipcode | Phone Number | | Organization | | | | + +---------+ + + | EXTERNAL LAB | | | | + +---------+ + + Lipid Panel (11/05/2014 4:13 AM PDT) + + + + + + | Component | Value | Ref Range | Performed | Pathologist | | | | | At | Signature | + + + + + + | Cholesterol | 96Comment: Testing | mg/dL | EXTERNAL | | | | performed at [facility], [address] | | LAB | | | | [address], | | | | | | [place] [address] | | | | + + + + + + | Triglycerid | 101Comment: Testing | mg/dL | EXTERNAL | | | es | performed at [facility], [address] | | LAB | | | | [address], | | | | | | [place] [address] | | | | + + + + + + | HDL | 24 (L)Comment: Testing | mg/dL | EXTERNAL | | | | performed at [facility], [address] | | LAB | | | | [address], | | | | | | [place] [address] | | | | + + + + + + | LDL, | 52Comment: Testing | mg/dL | EXTERNAL | | | Calculated | performed at [facility], [address] | | LAB | | | | [address], | | | | | | [place] [address] | | | | + + + + + + + + | Specimen | + + | Blood specimen | | (specimen) | + + + +---------+ + + | Performing | Address | City/State/Zipcode | Phone Number | | Organization | | | | + +---------+ + + | EXTERNAL LAB | | | | + +---------+ + + Basic Metabolic Panel (11/05/2014 4:13 AM PDT) + + + + + + | Component | Value | Ref Range | Performed | Pathologist | | | | | At | Signature | + + + + + + | Na | 137Comment: Testing | 135 - 143 | EXTERNAL | | | | performed at [facility], [address] | mmol/L | LAB | | | | [address], | | | | | | [place] [address] | | | | + + + + + + | K | 4.1Comment: Testing | 3.5 - 4.9 | EXTERNAL | | | | performed at [facility], [address] | mmol/L | LAB | | | | [address], | | | | | | [place] [address] | | | | + + + + + + | Cl | 108Comment: Testing | 99 - 109 mmol/L | EXTERNAL | | | | performed at [facility], [address] | | LAB | | | | [address], | | | | | | [place] [address] | | | | + + + + + + | CO2 | 22 (L)Comment: Testing | 23 - 32 mmol/L | EXTERNAL | | | | performed at [facility], [address] | | LAB | | | | [address], | | | | | | [place] [address] | | | | + + + + + + | Anion Gap | 11Comment: Testing | 5 - 20 mmol/L | EXTERNAL | | | | performed at [facility], [address] | | LAB | | | | [address], | | | | | | [place] [address] | | | | + + + + + + | Glucose, | 100 (H)Comment: Testing | 65 - 99 mg/dL | EXTERNAL | | | Fasting | performed at [facility], [address] | | LAB | | | | [address], | | | | | | [place] [address] | | | | + + + + + + | BUN | 25Comment: Testing | 8 - 25 mg/dL | EXTERNAL | | | | performed at [facility], [address] | | LAB | | | | [address], | | | | | | [place] [address] | | | | + + + + + + | Creatinine | 1.99 (H)Comment: Testing | 0.70 - 1.30 | EXTERNAL | | | | performed at [facility], [address] | mg/dL | LAB | | | | [address], | | | | | | [place] [place] [address] | | | | + + + + + + | BUN/Creatin | 13Comment: Testing | | EXTERNAL | | | ine Ratio | performed at [facility], [address] | | LAB | | | | [address], | | | | | | [place] [address] | | | | + + + + + + | Calcium | 7.6 (L)Comment: Testing | 8.5 - 10.5 | EXTERNAL | | | | performed at [facility], [address] | mg/dL | LAB | | | | [address], | | | | | | [place] [address] | | | | + + + + + + | Estimated | 37 (L)Comment: GFR <60: | mL/min/1.73m2 | EXTERNAL | | | GFR | CHRONIC KIDNEY DISEASE, | | LAB | | | | IF FOUND OVER A 3 MONTH | | | | | | PERIOD.GFR <15: KIDNEY | | | | | | FAILURE.FOR | | | | | | AMERICANS, MULTIPLY THE | | | | | | CALCULATED GFR BY | | | | | | 1.210.Testing performed | | | | | | at [facility], [address] | | | | | | [address], | | | | | | [place] [address] | | | | + + + + + + + + | Specimen | + + | Blood specimen | | (specimen) | + + + +---------+ + + | Performing | Address | City/State/Zipcode | Phone Number | | Organization | | | | + +---------+ + + | EXTERNAL LAB | | | | + +---------+ + + CK-MB (11/05/2014 12:25 AM PDT) + + + + + -+ | Component | Value | Ref Range | Performed | Pathologist | | | | | At | Signature | + + + + + -+ | CK-MB | 2.5Comment: Testing | 0.5 - 3.6 ng/mL | EXTERNAL | | | | performed at [facility];[address] | | LAB | | | | [address] [facility];[place], [place] | | | | | | [address] | | | | + + + + + -+ | CK-MB Index | 0.7Comment: CK INDEX | | EXTERNAL | | | | INTERPRETATION: | | LAB | | | | MMB ng/mL | | | | | | | | | | | |CK INDEX INTERPRETATION: | | | | | | MMB ng/mL | | | | | | | | | | + + + + + -+ + + | Specimen | + + | | + + + +---------+ + + | Performing | Address | City/State/Zipcode | Phone Number | | Organization | | | | + +---------+ + + | EXTERNAL LAB | | | | + +---------+ + + Troponin I (11/05/2014 12:25 AM PDT) + + + + + + | Component | Value | Ref Range | Performed | Pathologist | | | | | At | Signature | + + + + + + | Troponin I, | 0.026Comment: 0.00 to | 0.00 - 0.10 | EXTERNAL | | | Qual | 0.10 CONSISTENT WITH | ng/mL | LAB | | | | NORMAL POPULATION0.11 to | | | | | | 0.60 CONSISTENT WITH | | | | | | INCREASED RISK FOR | | | | | | ADVERSE OUTCOMES> 0.60 | | | | | | CONSISTENT | | | | | | WITH WHO CRITERIA FOR | | | | | | ACUTE IA Testing | | | | | | performed at [facility] | | | | | | [address] [facility];[place], [place] | | | | | | [address] | | | | + + + + + + + + | Specimen | + + | Blood specimen | | (specimen) | + + + +---------+ + + | Performing | Address | City/State/Zipcode | Phone Number | | Organization | | | | + +---------+ + + | EXTERNAL LAB | | | | + +---------+ + + CK Total (11/05/2014 12:25 AM PDT) + + + + + + | Component | Value | Ref Range | Performed | Pathologist | | | | | At | Signature | + + + + + + | CK, Total | 338Comment: Testing | 55 - 400 U/L | EXTERNAL | | | | performed at [facility];[address] | | LAB | | | | [address];[place], [place] | | | | | | [address] | | | | + + + + + + + + | Specimen | + + | Blood specimen | | (specimen) | + + + +---------+ + + | Performing | Address | City/State/Zipcode | Phone Number | | Organization | | | | + +---------+ + + | EXTERNAL LAB | | | | + +---------+ + + VAS Carotid Duplex Bilateral (11/04/2014 11:36 PM PDT) + + | Specimen | + + | | + + + + + | Impressions | Performed At | + + + | 1. Calcified plaque in the right common carotid artery and left | | | internal carotid artery. 2. No significant carotid stenosis | | | bilaterally. 3. Antegrade flow in both vertebral arteries. | | | Validated velocity measurements with angiographic measurements and | | | velocity criteria are extrapolated from diameter data as defined by | | | the Society of Radiologists in Ultrasound Consensus Conference | | | Radiology 2003; 229;340-346. RADIA Electronically signed by | | | Shane Elizondo MD on Nov 05 2014 7:16AM Referring Provider Line: | | | [phone] ID: [id number] | | + + + + + + | Narrative | Performed At | + + + | EXAM: CAROTID DOPPLER ULTRASOUND EXAM DATE: 11/04/2014 11:37 PM. | | | CLINICAL HISTORY: Syncope. COMPARISON: None. TECHNIQUE: | | | Real-time sonographic vascular imaging was performed by the | | | supervisor welding equipment repairer through the carotid arterial system with a linear | | | transducer utilizing color-flow, Doppler flow and spectral analysis. | | | Multiple patient admitting representative static images were saved for review. | | | FINDINGS: Calcified plaque is seen in the right common carotid artery | | | and left internal carotid artery. Right distal internal carotid artery | | | could not be visualized. No significant carotid stenosis is seen | | | bilaterally. Antegrade flow is seen in both vertebral arteries. | | | Right: CCA Proximal: PSV 57 cm/sec, EDV 17 cm/sec. CCA Distal: PSV | | | 52 cm/sec, EDV 12 cm/sec. ICA Proximal: PSV 53 cm/sec, EDV 20 cm/sec. | | | ICA Mid: PSV 39 cm/sec, EDV 11 cm/sec. ECA Proximal: PSV 41 cm/sec, | | | EDV 7 cm/sec. Vertebral Proximal: PSV 34 cm/sec, EDV 14 cm/sec. | | | ICA/CCA Ratio: 1.0, 1.7. CCA Plaque: Calcified. Vertebral Artery | | | Flow: Antegrade. Left: CCA Proximal: PSV 61 cm/sec, EDV 19 | | | cm/sec. CCA Distal: PSV 37 cm/sec, EDV 10 cm/sec. ICA Proximal: PSV | | | 33 cm/sec/ EDV 13 cm/sec. ICA Mid: PSV 56 cm/sec, EDV 25 cm/sec. ICA | | | Distal: PSV 67 cm/sec, EDV 33 cm/sec. ECA Proximal: PSV 37 cm/sec, | | | EDV 8 cm/sec. Vertebral Proximal: PSV 32 cm/sec, EDV 15 cm/sec. | | | ICA/CCA Ratio: 1.8, 3.3. ICA Plaque: Calcified. Vertebral Artery | | | Flow: Antegrade. Other: None. | | + + + + + | Procedure Note | + + | Carlos, Rad Conversion - 01/21/2019 6:29 AM PDT EXAM:CAROTID DOPPLER ULTRASOUND EXAM | | DATE: 11/04/2014 11:37 PM. CLINICAL HISTORY: Syncope. COMPARISON: None. TECHNIQUE: | | Real-time sonographic vascular imaging was performed by the supervisor welding equipment repairer through the | | carotid arterial system with a linear transducer utilizing color-flow, Doppler flow and | | spectral analysis. Multiple patient admitting representative static images were saved for review. | | FINDINGS: Calcified plaque is seen in the right common carotid artery and left internal | | carotid artery. Right distal internal carotid artery could not be visualized. No | | significant carotid stenosis is seen bilaterally. Antegrade flow is seen in both | | vertebral arteries. Right:CCA Proximal: PSV 57 cm/sec, EDV 17 cm/sec.CCA Distal: PSV 52 | | cm/sec, EDV 12 cm/sec.ICA Proximal: PSV 53 cm/sec, EDV 20 cm/sec.ICA Mid: PSV 39 cm/sec, | | EDV 11 cm/sec.ECA Proximal: PSV 41 cm/sec, EDV 7 cm/sec.Vertebral Proximal: PSV 34 | | cm/sec, EDV 14 cm/sec. ICA/CCA Ratio: 1.0, 1.7. CCA Plaque: Calcified.Vertebral Artery | | Flow: Antegrade. Left:CCA Proximal: PSV 61 cm/sec, EDV 19 cm/sec.CCA Distal: PSV 37 | | cm/sec, EDV 10 cm/sec.ICA Proximal: PSV 33 cm/sec/ EDV 13 cm/sec.ICA Mid: PSV 56 cm/sec, | | EDV 25 cm/sec.ICA Distal: PSV 67 cm/sec, EDV 33 cm/sec.ECA Proximal: PSV 37 cm/sec, EDV | | 8 cm/sec.Vertebral Proximal: PSV 32 cm/sec, EDV 15 cm/sec. ICA/CCA Ratio: 1.8, 3.3. ICA | | Plaque: Calcified.Vertebral Artery Flow: Antegrade. Other: None. IMPRESSION: 1. | | Calcified plaque in the right common carotid artery and left internal carotid artery.2. | | No significant carotid stenosis bilaterally.3. Antegrade flow in both vertebral | | arteries. Validated velocity measurements with angiographic measurements and velocity | | criteria are extrapolated from diameter data as defined by the Society of Radiologists | | in Ultrasound Consensus Conference Radiology 2003; 229;340-346. RADIA Electronically | | signed by Shane Elizondo MD on Nov 05 2014 7:16AM Referring Provider Line: | | [phone] ID: [id number] | |ICA/CCA Ratio: 1.0, 1.7. | | | |CCA Plaque: Calcified. | |Vertebral Artery Flow: Antegrade. | | | |Left: | |CCA Proximal: PSV 61 cm/sec, EDV 19 cm/sec. | |CCA Distal: PSV 37 cm/sec, EDV 10 cm/sec. | |ICA Proximal: PSV 33 cm/sec/ EDV 13 cm/sec. | |ICA Mid: PSV 56 cm/sec, EDV 25 cm/sec. | |ICA Distal: PSV 67 cm/sec, EDV 33 cm/sec. | |ECA Proximal: PSV 37 cm/sec, EDV 8 cm/sec. | |Vertebral Proximal: PSV 32 cm/sec, EDV 15 cm/sec. | | | |ICA/CCA Ratio: 1.8, 3.3. | | | |ICA Plaque: Calcified. | |Vertebral Artery Flow: Antegrade. | | | |Other: None. | | | |IMPRESSION: | | | |1. Calcified plaque in the right common carotid artery and left internal carotid artery. | |2. No significant carotid stenosis bilaterally. | |3. Antegrade flow in both vertebral arteries. | | | |Validated velocity measurements with angiographic measurements and velocity criteria are ex trapolated from diameter data as defined by the Society of Radiologists in Ultrasound Consen kel Conference Radiology 2003; 229;340-346. | | | |RADIA | | | | Electronically signed by Shane Elizondo MD on Nov 05 2014 7:16AM Referring Provider Line: [phone] ID: [id number] | + + XR Chest 1 Vw (11/04/2014 9:22 PM PDT) + + | Specimen | + + | | + + + + + | Impressions | Performed At | + + + | 1. Suggestion of flattening of the hemidiaphragms may represent | | | radiographic evidence of emphysematous change/COPD, correlate | | | clinically. 2. No evidence of acute infiltrate. 3. Blunting of | | | the left costophrenic angle may represent a minimal effusion or | | | pleural scarring. | | + + + + + + | Narrative | Performed At | + + + | KHAI PAYNE XR CHEST 1 VIEW 11/04/2014 9:22 PM HISTORY: | | | 59 years. Male. Syncope TECHNIQUE: XR CHEST 1 VIEW. AP | | | portable view the chest 27/06/09. Total of 3 images obtained. | | | COMPARISON: None. FINDINGS: Cardiac size is normal. Flattening | | | of the hemidiaphragms suggesting some hyperinflation. There is | | | blunting of the left costophrenic angle. No segmental infiltrate, | | | pneumothorax, significant effusion, pulmonary nodule or mass, hilar or | | | mediastinal adenopathy. | | + + + + + | Procedure Note | + + | Carlos, Rad Conversion - 01/21/2019 6:29 AM PDT KHAI PAYNEXR CHEST 1 | | VIEW11/04/2014 9:22 PM HISTORY:59 years. Male. Syncope TECHNIQUE:XR CHEST 1 VIEW. AP | | portable view the chest 27/06/09. Total of 3 images obtained. COMPARISON:None. | | FINDINGS:Cardiac size is normal. Flattening of the hemidiaphragms suggesting some | | hyperinflation. There is blunting of the left costophrenic angle. No segmental | | infiltrate, pneumothorax, significant effusion, pulmonary nodule or mass, hilar or | | mediastinal adenopathy. IMPRESSION: 1. Suggestion of flattening of the hemidiaphragms | | may represent radiographic evidence of emphysematous change/COPD, correlate | | clinically.2. No evidence of acute infiltrate.3. Blunting of the left costophrenic | | angle may represent a minimal effusion or pleural scarring. | |None. | | | |FINDINGS: | |Cardiac size is normal. Flattening of the hemidiaphragms suggesting some hyperinflation. Th ere is blunting of the left costophrenic angle. No segmental infiltrate, pneumothorax, signi ficant effusion, pulmonary nodule or mass, hilar or mediastinal | |adenopathy. | | | |IMPRESSION: | |1. Suggestion of flattening of the hemidiaphragms may represent radiographic evidence of e mphysematous change/COPD, correlate clinically. | |2. No evidence of acute infiltrate. | |3. Blunting of the left costophrenic angle may represent a minimal effusion or pleural sca rring. | | | | | | | | | + + Culture, Blood (11/04/2014 7:14 PM PDT) + + | Specimen | + + | Blood specimen | | (specimen) | + + + + + | Narrative | Performed At | + + + | Specimen Description BLOOD CULTURE | EXTERNAL LAB | | NO GROWTH | | | Testing performed at [facility], [address] | | | [place] [address] | | + + + + +---------+ + + | Performing | Address | City/State/Zipcode | Phone Number | | Organization | | | | + +---------+ + + | EXTERNAL LAB | | | | + +---------+ + + Culture, Blood, 2nd Specimen (11/04/2014 7:00 PM PDT) + + | Specimen | + + | Blood specimen | | (specimen) | + + + + + | Narrative | Performed At | + + + | Specimen Description BLOOD, PERIPHERAL DRAW | EXTERNAL LAB | | CULTURE NO GROWTH | | | Testing performed at [facility], | | | [address] [place] [address] | | + + + + +---------+ + + | Performing | Address | City/State/Zipcode | Phone Number | | Organization | | | | + +---------+ + + | EXTERNAL LAB | | | | + +---------+ + + Culture, Urine (11/04/2014 6:43 PM PDT) + + | Specimen | + + | Urine specimen | | (specimen) | + + + + + | Narrative | Performed At | + + + | Specimen Description CATHETERIZED URINE | EXTERNAL LAB | | CULTURE NO GROWTH | | | Testing performed at [facility], | | | [address] [place] [address] | | + + + + +---------+ + + | Performing | Address | City/State/Zipcode | Phone Number | | Organization | | | | + +---------+ + + | EXTERNAL LAB | | | | + +---------+ + + Procalcitonin (11/04/2014 6:00 PM PDT) + + + + + + | Component | Value | Ref Range | Performed | Pathologist | | | | | At | Signature | + + + + + + | Source | PLASMAComment: Testing | | EXTERNAL | | | | performed at [facility] | | LAB | | | | [address];[place] | | | | | | [address] | | | | + + + + + + | PROCALCITON | 0.11Comment: | ng/mL | EXTERNAL | | | IN | INTERPRETIVE | | LAB | | | | INFORMATION: | | | | | | PROCALCITONIN PCT <= | | | | | | 0.5 ng/mL: Low risk | | | | | | for progression to | | | | | | severe systemic | | | | | | bacterial infection | | | | | | (severe sepsis/septic | | | | | | shock). Does not | | | | | | exclude an infection, | | | | | | because localized | | | | | | infections may be | | | | | | associated with such low | | | | | | levels. If PCT is | | | | | | measured very early | | | | | | after bacterial | | | | | | challenge (usually <6 | | | | | | hours), results may | | | | | | still be low and | | | | | | should re-assess PCT | | | | | | 6-24 hours later. PCT | | | | | | >0.5 and <= 2 ng/mL: | | | | | | Moderate risk for | | | | | | progression to severe | | | | | | systemic infection | | | | | | (severe sepsis/septic | | | | | | shock). Other | | | | | | conditions are known | | | | | | to elevate PCT, patient | | | | | | should be closely | | | | | | monitored both | | | | | | clinically and by | | | | | | re-assessing PCT | | | | | | within 6-24 hours. PCT > | | | | | | 2 ng/mL: High | | | | | | likelihood for | | | | | | progression to severe | | | | | | systemic bacterial | | | | | | infection (severe | | | | | | sepsis/septic shock). | | | | | | PCT >= 10 ng/mL: | | | | | | High likelihood of | | | | | | severe sepsis or septic | | | | | | shock.Testing performed | | | | | | at [facility];[address];[place] [address] | | | | + + + + + + + + | Specimen | + + | | + + + +---------+ + + | Performing | Address | City/State/Zipcode | Phone Number | | Organization | | | | + +---------+ + + | EXTERNAL LAB | | | | + +---------+ + + PTT (11/04/2014 6:00 PM PDT) + + + + + + | Component | Value | Ref Range | Performed | Pathologist | | | | | At | Signature | + + + + + + | aPTT, | 28Comment: Testing | 23 - 32 seconds | EXTERNAL | | | Patient | performed at [facility];[address] | | LAB | | | [address];[place], [place] | | | | | | [address] | | | | + + + + + + + + | Specimen | + + | Blood specimen | | (specimen) | + + + +---------+ + + | Performing | Address | City/State/Zipcode | Phone Number | | Organization | | | | + +---------+ + + | EXTERNAL LAB | | | | + +---------+ + + Protime INR (11/04/2014 6:00 PM PDT) + + + + + + | Component | Value | Ref Range | Performed | Pathologist | | | | | At | Signature | + + + + + + | INR | 1.1Comment: REFERENCE | | EXTERNAL | | | | RANGE:0.9 - 1.2 | | LAB | | | | NON-ANTICOAGULATED2.0 | | | | | | - 3.0 ALL OTHER | | | | | | THERAPEUTIC | | | | | | INDICATIONS2.5 - 3.5 | | | | | | MECHANICAL HEART VALVES, | | | | | | RECURRENT OR SYSTEMIC | | | | | | EMBOLISMTesting | | | | | | performed at [facility];[address] | | | | | | [address] [facility];[place], [place] | | | | | | [address] | | | | + + + + + + + + | Specimen | + + | Blood specimen | | (specimen) | + + + +---------+ + + | Performing | Address | City/State/Zipcode | Phone Number | | Organization | | | | + +---------+ + + | EXTERNAL LAB | | | | + +---------+ + + External Lab: CBC (11/04/2014 6:00 PM PDT) + + + + + + | Component | Value | Ref Range | Performed | Pathologist | | | | | At | Signature | + + + + + + | WBC | 10.25Comment: Testing | 3.80 - 11.00 | EXTERNAL | | | | performed at [facility];[address] | K/uL | LAB | | | | [address];[place] | | | | | | [address] | | | | + + + + + + | Non- | 3.13 (L)Comment: Testing | 4.20 - 5.70 | EXTERNAL | | | Red Blood | performed at [facility];[address] | M/uL | LAB | | | Cells | [address];[place] | | | | | Counted | [id number] | | | | + + + + + + | Hemoglobin | 13.1 (L)Comment: Testing | 13.2 - 17.0 | EXTERNAL | | | | performed at [facility];[address] | g/dL | LAB | | | | [address];[place] | | | | | | [address] | | | | + + + + + + | Hematocrit, | 37.8 (L)Comment: Testing | 39.0 - 50.0 % | EXTERNAL | | | POC | performed at [facility];[address] | | LAB | | | | [address];[place] | | | | | | [address] | | | | + + + + + + | MCV | 120.8 (H)Comment: | 80.0 - 100.0 fl | EXTERNAL | | | | Testing performed at | | LAB | | | | [facility];[address];[place] [address] | | | | + + + + + + | MCH | 41.7 (H)Comment: Testing | 27.0 - 34.0 pg | EXTERNAL | | | | performed at [facility];[address] | | LAB | | | | [address];[place] | | | | | | [address] | | | | + + + + + + | MCHC | 34.5Comment: Testing | 32.0 - 35.5 | EXTERNAL | | | | performed at [facility];[address] | g/dL | LAB | | | | [address];[place] | | | | | | [address] | | | | + + + + + + | RDW-CV | 70.0 (H)Comment: Testing | 37 - 53 fl | EXTERNAL | | | | performed at [facility];[address] | | LAB | | | | [address];[place] | | | | | | [address] | | | | + + + + + + | Platelet | 175Comment: Testing | 150 - 400 K/uL | EXTERNAL | | | Count | performed at [facility];[address] | | LAB | | | Plasma | [address];[place] | | | | | | [address] | | | | + + + + + + | MPV | 8.5Comment: Testing | fl | EXTERNAL | | | | performed at [facility];[address] | | LAB | | | | [address];[place] | | | | | | [address] | | | | + + + + + + | Differentia | AUTOMATEDComment: | | EXTERNAL | | | l Type | Testing performed at | | LAB | | | | [facility];[address];[place] [address] | | | | + + + + + + | % Segmented | 82.55Comment: Testing | % | EXTERNAL | | | | performed at [facility];[address] | | LAB | | | Neutrophils | [address];[place] | | | | | | [address] | | | | + + + + + + | % | 9.73Comment: Testing | % | EXTERNAL | | | Lymphocytes | performed at [facility];[address] | | LAB | | | | [address];[place] | | | | | | [address] | | | | + + + + + + | % Monocytes | 6.79Comment: Testing | % | EXTERNAL | | | | performed at [facility];[address] | | LAB | | | | [address];[place] | | | | | | [address] | | | | + + + + + + | % | 0.33Comment: Testing | % | EXTERNAL | | | Eosinophils | performed at [facility];[address] | | LAB | | | | [address];[place] | | | | | | [address] | | | | + + + + + + | % Basophils | 0.60Comment: Testing | % | EXTERNAL | | | | performed at [facility];[address] | | LAB | | | | [address];[place] | | | | | | [address] | | | | + + + + + + | Absolute | 8.46 (H)Comment: Testing | 1.90 - 7.40 | EXTERNAL | | | Segmented | performed at [facility];[address] | K/uL | LAB | | | Neutrophils | [address];[place] | | | | | | [address] | | | | + + + + + + | Absolute | 1.00Comment: Testing | 1.00 - 3.90 | EXTERNAL | | | Lymphocytes | performed at [facility];[address] | K/uL | LAB | | | | [address];[place] | | | | | | [address] | | | | + + + + + + | Absolute | 0.70Comment: Testing | 0.00 - 0.80 | EXTERNAL | | | Monocytes | performed at [facility];[address] | K/uL | LAB | | | | [address];[place] | | | | | | [address] | | | | + + + + + + | Absolute | 0.03Comment: Testing | 0.00 - 0.50 | EXTERNAL | | | Eosinophils | performed at [facility];[address] | K/uL | LAB | | | | [address];[place] | | | | | | [address] | | | | + + + + + + | Absolute | 0.06Comment: Testing | 0.00 - 0.10 | EXTERNAL | | | Basophils | performed at [facility];[address] | K/uL | LAB | | | | [address];[place] | | | | | | [address] | | | | + + + + + + | RBC | 3+Comment: | | EXTERNAL | | | Morphology | ANISO4+MACRO1+POIKTestin | | LAB | | | | g performed at [facility];[address] | | | | | | [address];[place] | | | | | | [address] | | | | | |1+ | | | | | |POIK | | | | | |Testing performed at [facility];[address];[place] [address] | | | | | | | | | | + + + + + + + + | Specimen | + + | | + + + +---------+ + + | Performing | Address | City/State/Zipcode | Phone Number | | Organization | | | | + +---------+ + + | EXTERNAL LAB | | | | + +---------+ + + Ethanol (11/04/2014 6:00 PM PDT) + + + + + + | Component | Value | Ref Range | Performed | Pathologist | | | | | At | Signature | + + + + + + | Ethyl | <10Comment: Testing | mg/dL | EXTERNAL | | | Alcohol | performed at [facility];[address] | | LAB | | | | [address];[place], [place] | | | | | | [address] | | | | + + + + + + + + | Specimen | + + | Blood specimen | | (specimen) | + + + +---------+ + + | Performing | Address | City/State/Zipcode | Phone Number | | Organization | | | | + +---------+ + + | EXTERNAL LAB | | | | + +---------+ + + Hepatic Function Panel (11/04/2014 6:00 PM PDT) + + + + + + | Component | Value | Ref Range | Performed | Pathologist | | | | | At | Signature | + + + + + + | Protein, | 6.0 (L)Comment: Testing | 6.3 - 8.2 g/dL | EXTERNAL | | | Total | performed at [facility];[address] | | LAB | | | | [address];[place] | | | | | | [address] | | | | + + + + + + | Albumin | 2.3 (L)Comment: Testing | 3.3 - 4.8 g/dL | EXTERNAL | | | | performed at [facility];[address] | | LAB | | | | [address];[place] | | | | | | [address] | | | | + + + + + + | Bilirubin | 0.4Comment: Testing | 0.1 - 1.5 mg/dL | EXTERNAL | | | Total | performed at [facility];[address] | | LAB | | | | [address];[place] | | | | | | [address] | | | | + + + + + + | Bilirubin | 0.2Comment: Testing | 0.0 - 0.3 mg/dL | EXTERNAL | | | Direct | performed at [facility] [place];[address] | | LAB | | | | [address];[place] | | | | | | [id number] | | | | + + + + + + | ALP, | 111Comment: Testing | 35 - 115 U/L | EXTERNAL | | | External | performed at [facility] [place] | | LAB | | | | [address];[place] | | | | | | [id number] | | | | + + + + + + | AST | 34Comment: Testing | 10 - 45 U/L | EXTERNAL | | | | performed at [facility] [place];[address] | | LAB | | | | [address];[place] | | | | | | [id number] | | | | + + + + + + | ALT | 18Comment: Testing | 10 - 65 U/L | EXTERNAL | | | | performed at [facility] [place];[address] | | LAB | | | | [address];[place], [place] | | | | | | [address] | | | | + + + + + + + + | Specimen | + + | | + + + +---------+ + + | Performing | Address | City/State/Zipcode | Phone Number | | Organization | | | | + +---------+ + + | EXTERNAL LAB | | | | + +---------+ + + Basic Metabolic Panel (11/04/2014 6:00 PM PDT) + + + + + + | Component | Value | Ref Range | Performed | Pathologist | | | | | At | Signature | + + + + + + | Na | 140Comment: Testing | 135 - 143 | EXTERNAL | | | | performed at [facility];888 | mmol/L | LAB | | | | [address];[place] | | | | | | [address] | | | | + + + + + + | K | 4.1Comment: Testing | 3.5 - 4.9 | EXTERNAL | | | | performed at [facility];888 | mmol/L | LAB | | | | [address];[place] | | | | | | [address] | | | | + + + + + + | Cl | 106Comment: Testing | 99 - 109 mmol/L | EXTERNAL | | | | performed at [facility];888 | | LAB | | | | [address];[place] | | | | | | [address] | | | | + + + + + + | CO2 | 23Comment: Testing | 23 - 32 mmol/L | EXTERNAL | | | | performed at [facility];888 | | LAB | | | | [address];[place] | | | | | | [address] | | | | + + + + + + | Anion Gap | 15Comment: Testing | 5 - 20 mmol/L | EXTERNAL | | | | performed at [facility];888 | | LAB | | | | [address];[place] | | | | | | [address] | | | | + + + + + + | Glucose, | 117 (H)Comment: Testing | 65 - 99 mg/dL | EXTERNAL | | | Fasting | performed at [facility];888 | | LAB | | | | [address];[place] | | | | | | [address] | | | | + + + + + + | BUN | 24Comment: Testing | 8 - 25 mg/dL | EXTERNAL | | | | performed at [facility];888 | | LAB | | | | [address];[place] | | | | | | [address] | | | | + + + + + + | Creatinine | 2.90 (H)Comment: Testing | 0.70 - 1.30 | EXTERNAL | | | | performed at [facility];888 | mg/dL | LAB | | | | [address];[place] | | | | | | [address] | | | | + + + + + + | BUN/Creatin | 8Comment: Testing | | EXTERNAL | | | ine Ratio | performed at [facility];888 | | LAB | | | | [address];[place] | | | | | | [address] | | | | + + + + + + | Calcium | 7.6 (L)Comment: Testing | 8.5 - 10.5 | EXTERNAL | | | | performed at [facility];888 | mg/dL | LAB | | | | [address];[place], [place] | | | | | | [address] | | | | + + + + + + | Estimated | 24 (L)Comment: GFR <60: | mL/min/1.73m2 | EXTERNAL | | | GFR | CHRONIC KIDNEY DISEASE, | | LAB | | | | IF FOUND OVER A 3 MONTH | | | | | | PERIOD.GFR <15: KIDNEY | | | | | | FAILURE.FOR | | | | | | AMERICANS, MULTIPLY THE | | | | | | CALCULATED GFR BY | | | | | | 1.210.Testing performed | | | | | | at [facility];[address] [place] [address] | | | | | | Blvd;[place] [address] | | | | + + + + + + + + | Specimen | + + | | + + + +---------+ + + | Performing | Address | City/State/Zipcode | Phone Number | | Organization | | | | + +---------+ + + | EXTERNAL LAB | | | | + +---------+ + + Drugs Of ABuse Screen, Urine (H) (11/04/2014 5:28 PM PDT) + + + + + + | Component | Value | Ref Range | Performed | Pathologist | | | | | At | Signature | + + + + + + | Methampheta | NEGATIVEComment: | | EXTERNAL | | | mine/ | Positive cutoff for | | LAB | | | Amphetamine | AMP = 1000 ng/mLTesting | | | | | Screen, | performed at [facility];88 | | | | | UA, POC | [facility];[place], [place] | | | | | | [address] | | | | + + + + + + | Barbiturate | NEGATIVEComment: | | EXTERNAL | | | s Screen, | Positive cutoff for | | LAB | | | Urine | MEGAN = 200 ng/mLTesting | | | | | | performed at [facility];[address] | | | | | | [address];[place] | | | | | | [address] | | | | + + + + + + | Benzodiazep | NEGATIVEComment: | | EXTERNAL | | | donald | Positive cutoff for | | LAB | | | Screen, | BENZO = 200 ng/mLTesting | | | | | Urine | performed at [facility];888 | | | | | | [address];[place] | | | | | | [address] | | | | + + + + + + | Cocaine | NEGATIVEComment: | | EXTERNAL | | | | Positive cutoff for | | LAB | | | | JOURDAN = 300 ng/mLTesting | | | | | | performed at [facility];888 | | | | | | [address];[place] | | | | | | [address] | | | | + + + + + + | Methadone | NEGATIVEComment: | | EXTERNAL | | | | Positive cutoff for | | LAB | | | | MTD = 300 ng/mLTesting | | | | | | performed at [facility];8 | | | | | | [address];[place] | | | | | | [address] | | | | + + + + + + | Opiates | POSITIVE (A)Comment: | | EXTERNAL | | | | Positive cutoff for | | LAB | | | | OPI = 300 ng/mLTesting | | | | | | performed at [facility];888 | | | | | | [address];[place] | | | | | | [address] | | | | + + + + + + | PCP | NEGATIVEComment: | | EXTERNAL | | | | Positive cutoff for PCP | | LAB | | | | = 25 ng/mLTesting | | | | | | performed at [facility];888 | | | | | | [address];[place] | | | | | | [address] | | | | + + + + + + | Cannabinoid | NEGATIVEComment: | | EXTERNAL | | | s Screen, | Positive cutoff for THC | | LAB | | | Serum | = 50 ng/mLThe above are | | | | | | unconfirmed screening | | | | | | results. These results | | | | | | are to be used only for | | | | | | medical | | | | | | (i.e.,treatment) | | | | | | purposes. Unconfirmed | | | | | | screening results must | | | | | | not be used for | | | | | | non-medical purposes | | | | | | (e.g., employment | | | | | | testing, legal | | | | | | testing).Testing | | | | | | performed at [facility] | | | | | | [facility];[place], [place] | | | | | | [address] | | | | + + + + + + + + | Specimen | + + | | + + + +---------+ + + | Performing | Address | City/State/Zipcode | Phone Number | | Organization | | | | + +---------+ + + | EXTERNAL LAB | | | | + +---------+ + + Urinalysis, Microscopic Only (11/04/2014 5:28 PM PDT) + + + + + + | Component | Value | Ref Range | Performed | Pathologist | | | | | At | Signature | + + + + + + | WBC, UA | 1-5Comment: Testing | 0 - 5 /hpf | EXTERNAL | | | | performed at [facility];888 | | LAB | | | | [address];[place] | | | | | | [address] | | | | + + + + + + | RBC, UA | 1-5Comment: Testing | 0 - 2 /hpf | EXTERNAL | | | | performed at [facility];[address] | | LAB | | | | [address];[place] | | | | | | [address] | | | | + + + + + + | Epithelial | 1-5Comment: Testing | /lpf | EXTERNAL | | | Cells | performed at [facility];[address] | | LAB | | | | [address];[place] | | | | | | [address] | | | | + + + + + + | Bacteria, | TRACE (A)Comment: | | EXTERNAL | | | UA | Testing performed at | | LAB | | | | [facility];[address];[place] [address] | | | | + + + + + + | Urinalysis | LESS THAN 10 ML | | EXTERNAL | | | Comments | SPECIMENComment: Testing | | LAB | | | | performed at [facility];[address] | | | | | | [address];[place] | | | | | | [address] | | | | + + + + + + + + | Specimen | + + | | + + + +---------+ + + | Performing | Address | City/State/Zipcode | Phone Number | | Organization | | | | + +---------+ + + | EXTERNAL LAB | | | | + +---------+ + + Urinalysis with Microscopic if Indicated (11/04/2014 5:28 PM PDT) + + + + + + | Component | Value | Ref Range | Performed | Pathologist | | | | | At | Signature | + + + + + + | Color | YELLOWComment: Testing | | EXTERNAL | | | | performed at [facility];888 | | LAB | | | | [address];[place] | | | | | | [address] | | | | + + + + + + | Clarity, | CLEARComment: Testing | | EXTERNAL | | | Urine | performed at [facility];[address] | | LAB | | | | [address];[place] | | | | | | [address] | | | | + + + + + + | Specific | 1.015Comment: Testing | 1.001 - 1.035 | EXTERNAL | | | [place], | performed at [facility];[address] | | LAB | | | Urine | [address];[place] | | | | | | [address] | | | | + + + + + + | Leukocyte | NEGATIVEComment: Testing | | EXTERNAL | | | Esterase, | performed at [facility];888 | | LAB | | | Urine | [address];[place] | | | | | | [address] | | | | + + + + + + | Nitrite, | NEGATIVEComment: Testing | | EXTERNAL | | | Urine | performed at [facility];[address] | | LAB | | | | [address];[place] | | | | | | [address] | | | | + + + + + + | Urobilinoge | 0.2Comment: Testing | mg/dL | EXTERNAL | | | n, Urine | performed at [facility];[address] | | LAB | | | | [address];[place] | | | | | | [address] | | | | + + + + + + | Protein, | 100 (A)Comment: Testing | mg/dL | EXTERNAL | | | Urine | performed at [facility];888 | | LAB | | | | [address];[place] | | | | | | [address] | | | | + + + + + + | pH, Urine | 6.5Comment: Testing | 4.6 - 8.0 | EXTERNAL | | | | performed at [facility];[address] | | LAB | | | | [address];[place] | | | | | | [address] | | | | + + + + + + | Blood, | SMALL (A)Comment: | | EXTERNAL | | | Urine | Testing performed at | | LAB | | | | [facility];[address];[place] [address] | | | | + + + + + + | Ketones | NEGATIVEComment: Testing | mg/dL | EXTERNAL | | | | performed at [facility];[address] | | LAB | | | | [address];[place] | | | | | | [address] | | | | + + + + + + | Bilirubin, | NEGATIVEComment: Testing | | EXTERNAL | | | Urine | performed at [facility];[address] | | LAB | | | | [address];[place] | | | | | | [address] | | | | + + + + + + | Glucose, | NEGATIVEComment: Testing | mg/dL | EXTERNAL | | | Urine | performed at [facility];[address] | | LAB | | | | [address];[place] | | | | | | [address] | | | | + + + + + + + + | Specimen | + + | Urine specimen | | (specimen) | + + + +---------+ + + | Performing | Address | City/State/Zipcode | Phone Number | | Organization | | | | + +---------+ + + | EXTERNAL LAB | | | | + +---------+ + + MRSA NAAT (11/04/2014 5:28 PM PDT) + + | Specimen | + + | | + + + + + | Narrative | Performed At | + + + | SOURCE NARES(NOSE) | EXTERNAL LAB | | Testing performed at [facility];[address] [place] [address];[place] [address] MRSA PCR | | | NEGATIVE Testing performed at | | | [address];[place] [address] | | + + + + +---------+ + + | Performing | Address | City/State/Zipcode | Phone Number | | Organization | | | | + +---------+ + + | EXTERNAL LAB | | | | + +---------+ + + documented in this encounter Visit Diagnoses + + | Diagnosis | + + | Dehydration | + + documented in this encounter
--- OUTSIDE RECORDS SUMMARY | ~2020-03-14 | XMS | Encounter Summary ---
Demographics + + + | Address | [address] | | | [place] [address] | + + + | Home Phone | | + + + | Preferred Language | Unknown | + + + | Marital Status | | + + + | Confucianist Affiliation | 1013 | + + + | Race | White | + + + | Ethnic Group | Not or | + + + Author + + + | Author | [facility] | | | and [place] | + + + | Organization | [facility] | | | and [...] Team Providers + +------+ + | Care Global Product Manager Name | Role | Phone | + +------+ + PCP | Unavailable | + +------+ + Encounter Details +--------+ + + + + | Date | Type | Department | Care Team | Description | +--------+ + + + + | 06/20/ | Hospital | C GENERIC IP | Conversion | Pain | | 2014 | Encounter | CONVERSION [address] | Transaction, | | | | | [address] | Provider Unknown | | | | | [place], [place] | [phone] | | | | | [address] | | | | | | [phone] | | | +--------+ + + + [...] + +--------+ + + + | MRI LUMBAR SPINE W | Routin | 05/01/2014 | | Results for this | | WO CONTRAST | e | 6:21 AM | | procedure are in the | | | | PST | | results section. | + +--------+ + + + documented in this encounter Results MRI Lumbar Spine w wo Contrast (05/01/2014 6:21 AM PST) + + | Specimen | + + | | + + + + + | Narrative | Performed At | + + + | This is a non-reportable procedure without a radiologist report and | | | is used for image storage only | | + + + + + | Procedure Note | + + | Dwayne Gonzalez - 01/21/2019 6:29 AM PDT This is a non-reportable procedure | | without a radiologist report and isused for image storage only | + + documented in this encounter Visit Diagnoses + + | Diagnosis | + + | Pain Generalized pain | + + documented in this encounter"
--- OUTSIDE RECORDS SUMMARY | ~2020-03-14 | XMS | Encounter Summary ---
Demographics + + + | Address | [address] | | | [place] [address] | + + + | Home Phone | | + + + | Preferred Language | Unknown | + + + | Marital Status | | + + + | Uatsdin Affiliation | PRO | + + + | Race | White | + + + | Ethnic Group | Not or | + + + Author + + + | Author | [facility] | + + + | Organization | [facility] | + + + | Address | Unknown | + + + | Phone | Unavailable | + + + Support + + + + + | Name | Relationship | Address | Phone | + + + + + | Marnie Payne | ECON | [address] | | | | | [place] | | | | | [address] | | + + + + + Care Team Providers + +------+ + | Care It Help Desk Manager Name | Role | Phone | + +------+ + | Tod Rivas MD | PCP | | + +------+ + Encounter Details +--------+------+ + + + | Date | Type | Department | Care Team | Description | +--------+------+ + + + | 02/20/ | Lab | Laboratory at [facility] | | Psoriasis; | | 2014 | | [address] | | Arthritis | | | | [address] [facility] | | | | | | [place], [address] [place] [address] | | | | | | [place], [place] | | | | | | [address] | | | | | | [phone] | | | +--------+------+ + + + Social History + + + +--------+------+ | Tobacco Use | Types | Packs/Day | Years | Date | | | | | Used | | + + + +--------+------+ | Current Every Day | Cigarettes | 1 | | | | Smoker | | | | | + + + +--------+------+ + + +---------+ + | Alcohol Use | Drinks/Week | oz/Week | Comments | + + +---------+ + | Not Asked | 0 Standard drinks | 0.0 | | | | or equivalent | | | + + +---------+ + + + + | Sex Assigned at [...] | + +--------+ + + + | C-REACTIVE PROTEIN | Routin | 02/20/2015 | Psoriasis | Results for this | | | e | 12:42 PM | Arthritis | procedure are in the | | | | PDT | | results section. | + +--------+ + + + | SEDIMENTATION RATE | Routin | 02/20/2015 | Psoriasis | Results for this | | | e | 12:42 PM | Arthritis | procedure are in the | | | | PDT | | results section. | + +--------+ + + + documented in this encounter Results C-REACTIVE PROTEIN (02/20/2015 12:42 PM PDT) + +-------+ + + + | Component | Value | Ref Range | Performed | Pathologist | | | | | At | Signature | + +-------+ + + + | C-REACTIVE | <2.9 | <10.0 mg/L | [facility] | | | PROTEIN | | | LABORATORY | | | | | | SERVICES, | | | | | | CORE | | + +-------+ + + + + + | Specimen | + + | Blood - Blood | | (substance) | + + + + + | Narrative | Performed At | + + + | New method, new reference range and new reporting units as of | [facility] | | 11/09/2013. | LABORATORY | | | [place] | + + + + + + + + | Performing | Address | City/State/Zipcode | Phone Number | | Organization | | | | + + + + + | [facility] | [address] | [place] [address] | | | SERVICES, [place] | [address] | | | + + + + + SEDIMENTATION RATE (02/20/2015 12:42 PM PDT) + +-------+ + + + | Component | Value | Ref Range | Performed | Pathologist | | | | | At | Signature | + +-------+ + + + | SEDIMENTATI | 5 | 0 - 20 mm/hr | [facility] | | | ON RATE | | | LABORATORY | | | | | | SERVICES, | | | | | | CORE | | + +-------+ + + + + + | Specimen | + + | Blood - Blood | | (substance) | + + + + + + + | Performing | Address | City/State/Zipcode | Phone Number | | Organization | | | | + + + + + | [facility] | [address] | [place] [address] | | | SERVICES, CORE | [address] | | | + + + + + documented in this encounter Visit Diagnoses + + | Diagnosis | + + | Psoriasis Other psoriasis | + + | Arthritis Arthropathy, unspecified, site unspecified | + + documented in this encounter"
--- OUTSIDE RECORDS SUMMARY | ~2020-03-14 | XMS | Encounter Summary ---
Demographics + + + | Address | [address] | | | [place] [address] | + + + | Home Phone | | + + + | Preferred Language | Unknown | + + + | Marital Status | | + + + | Judaism Affiliation | PRO | + + + | Race | White | + + + | Ethnic Group | Not or | + + + Author + + + | Author | [facility] | + + + | Organization | [facility] | + + + | Address | Unknown | + + + | Phone | Unavailable | + + + Support + + + + + | Name | Relationship | Address | Phone | + + + + + | Marnie Payne | ECON | [address] | | | | | [place] | | | | | [address] | | + + + + + Care Team Providers + +------+ + | Care Residence Manager Name | Role | Phone | + +------+ + | Tod Rivas MD | PCP | | + +------+ + Encounter Details +--------+ + + + + | Date | Type | Department | Care Team | Description | +--------+ + + + + | 02/20/ | Hospital | Diagnostic | | | | 2014 | Encounter | Radiology at [facility] | | | | | | [address] | | | | | | [address] [facility] | | | | | | [address], [address] | | | | | | [place], [place] | | | | | | [address] | | | | | | [phone] | | | +--------+ + + + + Social History + + [...] + + documented as of this encounter Medications at Time of Discharge + + + +---------+ + + | Medication | Sig | Dispensed | Refills | Start | End Date | | | | | | Date | | + + + +---------+ + + | acitretin 25 mg | Please have pt get | 0 | 0 | 05/05/20 | | | Oral Capsule | RX for acitretin | | | 08 | | | | through primary or | | | | | | | pt can schedule f/u | | | | | | | appt with Dr. Vuong | | | | | | | for refill | | | | | + + + +---------+ + + | clonazePAM 2 mg | Take 2 mg by mouth | | 0 | | | | oral tablet | every six hours as | | | | | | | needed. | | | | | + + + +---------+ + + | cyanocobalamin | Take 1,000 mcg by | | 0 | | | | 1,000 mcg oral | mouth once daily. | | | | | | tablet | | | | | | + + + +---------+ + + | folic acid 1 mg | Take 1 mg by mouth | | 0 | | | | oral tablet | once daily. | | | | | + + + +---------+ + + | lisinopril 20 mg | Take 20 mg by mouth | | 0 | | | | oral tablet | once daily. | | | | | + + + +---------+ + + | OXYCODONE HCL | Take 1 tablet by | | 0 | | | | (OXYCONTIN ORAL) | mouth every six | | | | | | | hours as needed. | | | | | + + + +---------+ + + | rivaroxaban 10 mg | Take 10 mg by mouth | | 0 | | | | oral tablet | once daily. | | | | | + + + +---------+ + + | TRIAMCINOLONE | apply a thin film to | 1 lb | 1 | 06/12/19 | | | ACETONIDE 0.1 % | the affected skin | jar | | 07 | | | OINTMENT | areas by topical | | | | | | | route 2 timesper day | | | | | + + + +---------+ + + documented as of this encounter Plan of Treatment Not on filedocumented as of this encounter Procedures + +--------+ + + + | Procedure Name | Priori | Date/Time | Associated Diagnosis | Comments | | | ty | | | | + +--------+ + + + | X-RAY KNEE 2 VIEWS | Routin | 02/20/2015 | Psoriasis | Results for this | | BILATERAL | e | 12:34 PM | Arthritis | procedure are in the | | | | PDT | | results section. | + +--------+ + + + documented in this encounter Results X-RAY KNEE 2 VIEWS BILATERAL (02/20/2015 12:34 PM PDT) + + + + + + | Component | Value | Ref Range | Performed | Pathologist | | | | | At | Signature | + + + + + + | KNEE 2 | STUDY: KNEE 2 VIEWS | | | | | VIEWS | BILATERAL 02/20/15 | | | | | BILATERAL | 12:34:00 HISTORY: Assess | | | | | | for osteoarthritis. | | | | | | COMPARISON: None. | | | | | | FINDINGS:Right knee: | | | | | | Mild tricompartmental | | | | | | degenerative spurring is | | | | | | noted, without | | | | | | jointspace narrowing. | | | | | | No erosion, fracture, | | | | | | malalignment, or osseous | | | | | | destruction isobserved. | | | | | | There is a trace | | | | | | joint effusion. A 4 by | | | | | | 8mm intra-articular | | | | | | bodyprojects posterior | | | | | | to the joint space. Left | | | | | | knee: There is moderate | | | | | | medial compartment | | | | | | narrowing with | | | | | | mildtricompartment | | | | | | spurring. A trace | | | | | | joint effusion is noted. | | | | | | Genu varus ispresent. | | | | | | No fracture, erosion, | | | | | | or other osseous | | | | | | destruction is observed. | | | | | | IMPRESSION: Right knee: | | | | | | Mild tricompartmental | | | | | | degenerative spurring. | | | | | | Small | | | | | | posteriorintra-articular | | | | | | body. Trace joint | | | | | | effusion. Left knee: | | | | | | Moderate medial | | | | | | compartment degenerative | | | | | | joint disease | | | | | | withtricompartmental | | | | | | spurring. Trace joint | | | | | | effusion. Attending | | | | | | Radiologists: AYESHA VALADEZ, | | | | | | MDAuthor: AYESHA VALADEZ MD | | | | | | I have personally | | | | | | viewed this | | | | | | procedure/exam, reviewed | | | | | | this report, and | | | | | | madechanges to it where | | | | | | appropriate. | | | | | | Final/Electronically | | | | | | signed / AYESHA RORY | | | | | | 02/20/2015 12:46 PM | | | | + + + + + + + + | Specimen | + + | | + + + +---------+ + + | Performing | Address | City/State/Zipcode | Phone Number | | Organization | | | | + +---------+ + + | [facility] DEPARTMENT OF | | | | | RADIOLOGY | | | | + +---------+ + + documented in this encounter Visit Diagnoses + + | Diagnosis | + + | Psoriasis Other psoriasis | + + | Arthritis Arthropathy, unspecified, site unspecified | + + documented in this encounter"
--- OUTSIDE RECORDS SUMMARY | ~2020-03-14 | XMS | Encounter Summary ---
Demographics + + + | Address | [address] | | | [place] [address] | + + + | Home Phone | | + + + | Preferred Language | Unknown | + + + | Marital Status | | + + + | Mosque Affiliation | 1013 | + + + | Race | White | + + + | Ethnic Group | Not or | + + + Author + + + | Author | [facility] | | | and [place] | + + + | Organization | [facility] | | | and [...] Team Providers + +------+ + | Care Junior Marketing Associate Name | Role | Phone | + +------+ + PCP | Unavailable | + +------+ + Encounter Details +--------+ + + + + | Date | Type | Department | Care Team | Description | +--------+ + + + + | 07/18/ | Hospital | [facility] | Conversion | | | 2015 | Encounter | [facility] | Transaction, | | | | | [address] | Provider Unknown | | | | | [place], [place] | | | | | | [address] | (Fax) | | | | | [phone] | | | +--------+ + + + [...]
--- OUTSIDE RECORDS SUMMARY | ~2020-03-14 | XMS | Encounter Summary ---
Demographics + + + | Address | [address] | | | [place] [address] | + + + | Home Phone | | + + + | Preferred Language | Unknown | + + + | Marital Status | | + + + | Amish Affiliation | PRO | + + + | Race | White | + + + | Ethnic Group | Not or | + + + Author + + + | Author | [facility] | + + + | Organization | [facility] | + + + | Address | Unknown | + + + | Phone | Unavailable | + + + Support + + + + + | Name | Relationship | Address | Phone | + + + + + | Marnie Payne | ECON | [address] | | | | | [place] | | | | | [address] | | + + + + + Care Team Providers + +------+ + | Care Sales Operations Coordinator Name | Role | Phone | + +------+ + | Julio Cesar Davis MD | PCP | | + +------+ + Reason for Visit +--------+--------+ + | Reason | Onset | Comments | | | Date | | +--------+--------+ + | Other | 08/04/ | | | | 2007 | | +--------+--------+ + Encounter Details +--------+ + + + + | Date | Type | Department | Care Team | Description | +--------+ + + + + | 08/04/ | Telephone | Dermatology | Ashia Vuong, | Other | | 2006 | | Medical at [facility] [address] | MD | | | | | [facility] | | | | | | for Health and | | | | | | [facility], [address], | | | | | | 16 Floor | | | | | | [place], [place] | | | | | | [address] | | | | | | [phone] | | | +--------+ + + + [...] + + documented as of this encounter Miscellaneous Notes Telephone Encounter - Saba Sheffield - 08/04/2006 2:21 PM PSTPatient updated me on the workers comp case. Seeing a playground equipment erector in [place]. He wants to keep us updated. Dr. Saba Sheffield [facility] Department of Dermatology Resident Physician elephone Encounter - Lorri Clarke - 08/04/2006 8:45 AM PSTPt is calling to speak with Dr Yohannes guerrero letter she sent out for his workers comp claim. Thanks documented in this encoun ter Plan of Treatment Not on filedocumented as of this encounter Visit Diagnoses Not on filedocumented in this encounter"
--- OUTSIDE RECORDS SUMMARY | ~2020-03-14 | XMS | Encounter Summary ---
Demographics + + + | Address | [address] | | | [place] [address] | + + + | Home Phone | | + + + | Preferred Language | Unknown | + + + | Marital Status | | + + + | Gnosticist Affiliation | PRO | + + + | Race | White | + + + | Ethnic Group | Not or | + + + Author + + + | Author | [facility] | + + + | Organization | [facility] | + + + | Address | Unknown | + + + | Phone | Unavailable | + + + Support + + + + + | Name | Relationship | Address | Phone | + + + + + | Marnie Payne | ECON | [address] | | | | | [place] | | | | | [address] | | + + + + + Care Team Providers + +------+ + | Care Press Tender Star Signal Name | Role | Phone | + [...] | | | | | Stacirosmarline | [address] | | | | | | s of both | [address] | | | | | | hips ([facility]) | [address] | | | | | | Procedures | [place], [place] | | | | | | CONSULT TO | [address] | | | | | | ORTHOPEDICS | Phone: | | | | | | AND | [phone] | | | | | | REHABILITATI | Fax: | | | | | | ON | [phone] | | +--------+--------+ + + + + Encounter Details +--------+ + + + + | Date | Type | Department | Care Team | Description | +--------+ + + + + | 02/22/ | Telephone | Rheumatology at | [place], | | | 2014 | | Physicians [facility] | MD Mar[address] | | | | | [address] | [address] [facility] | | | | | Loop Physician's | [place], [place] | | | | | Sean, [address] Floor | [address] | | | | | [place], [place] | [phone] | | | | | [address] | | | | | | [phone] | | | +--------+ + + + [...] this encounter Miscellaneous Notes Telephone Encounter - Sofia Smith MA - 02/22/2015 3:10 PM PDT Consult to orthopedics and rehab faxed To [phone]. From: María Hamilton MD Sent: February 1:27 PM To: Chasity Hubbard Message: ----- Message from María Hamilton MD sent at 02/22/2015 1:27 PM PDT ----- Please fax this request for ortho consult to: [address] [id number] elephone Encounter - D María catherine MD - 02/22/2015 1:21 PM PDTReceived note from office staff that the pat ient had called confused about his imaging results and what to do next. I had called the pat ient with his x ray results that showed degenerative arthritis without evidence of changes s een with psoriatic arthritis. His pelvis x ray did show the bilateral osteonecrosis of the f emoral heads, for which he was referred to ortho. His ESR and CRP were normal. The patient w anted to be referred to ortho closer to [place]. He said that [facility] was closer a nd asked for a referral there. I confirmed it was in [place], [place]: [address] [address] Will fax referral to ortho there. documented in thi s encounter Plan of Treatment Not on filedocumented as of this encounter Visit Diagnoses + + | Diagnosis | + + | Osteonecrosis of both hips (HCC) - Primary | + + documented in this encounter"
--- OUTSIDE RECORDS SUMMARY | ~2020-03-14 | XMS | Encounter Summary ---
Demographics + + + | Address | [address] | | | [place] [address] | + + + | Home Phone | | + + + | Preferred Language | Unknown | + + + | Marital Status | | + + + | Baptist Affiliation | PRO | + + + | Race | White | + + + | Ethnic Group | Not or | + + + Author + + + | Author | [facility] | + + + | Organization | [facility] | + + + | Address | Unknown | + + + | Phone | Unavailable | + + + Support + + + + + | Name | Relationship | Address | Phone | + + + + + | Marnie Payne | ECON | [address] | | | | | [place] | | | | | [address] | | + + + + + Care Team Providers + +------+ + | Care Fleet Coordinator Name | Role | Phone | + +------+ + | Julio Cesar Davis MD | PCP | | + +------+ + Reason for Visit +--------+--------+ + | Reason | Onset | Comments | | | Date | | +--------+--------+ + | Other | 06/29/ | additional info he would like for you to add with work | | | 2006 | release papers | +--------+--------+ + Encounter Details +--------+ + + + + | Date | Type | Department | Care Team | Description | +--------+ + + + + | 06/29/ | Telephone | Dermatology | Ashia Vuong, | Other (additional | | 2006 | | Medical at [facility] [address] | MD | info he would like | | | | [facility] | | for you to add with | | | | for Health and | | work release papers) | | | | [facility], [address], | | | | | | 16th Floor | | | | | | [place], [place] | | | | | | [address] | | | | | | [phone] | | | +--------+ + + + [...] Notes Telephone Encounter - Saba Sheffield - 07/02/2006 5:49 PM PSTNumber busy. Will try again tomorrow. Dr. Saba Sheffield [facility] Department of Dermatology Resident Physician elephone Encounter - Ashia Vuong - 07/01/2006 5:35 PM PSTLinda, I will call this pt. Theresa elephone Encounte r - Elyssa Ocampo Lpn - 07/01/2006 9:12 AM PSTLeft message for patient to call back.Electro nically signed by Elyssa Ocampo Lpn at 07/01/2006 9:12 AM PSTTelephone Encounter - Elyssa Aguirre Lp - 06/30/2006 4:08 PM PSTTelephone line is busy. elephone Encounter - Saba Sheffield - 06/30/2006 3 :00 PM PSTPlease call patient back and inform him that his porter bath, casi Mendoza ill have to write the letter regarding the aluminum toxicity. Dr. Saba Sheffield [facility] Department of Dermatology Resident Physician elephone Encounter - Heath Horta - 06/29/2006 2:25 PM PSTPt calling about the same issue, pls give him a ca ll back regarding making sure that a letter states that he is unable to go back to work and why. elephone Encounter - Heath Vásquez - 06/29/2006 9:17 AM PSTPt called, would like if you could please add a note to the work release papers stating your opinion on how pt shouldn't go back to work due to the aluminum poisioning so that he can possibly get retraining. Pls fax all paperwork. If you have any questions, pt can be reached at home. documented in this encounter Plan of Treatment Not on filedocumented as of this encounter Visit Diagnoses Not on filedocumented in this encounter"
--- OUTSIDE RECORDS SUMMARY | ~2020-03-14 | XMS | Encounter Summary ---
Demographics + + + | Address | [address] | | | [place] [address] | + + + | Home Phone | | + + + | Preferred Language | Unknown | + + + | Marital Status | | + + + | Sabianism Affiliation | PRO | + + + | Race | White | + + + | Ethnic Group | Not or | + + + Author + + + | Author | [facility] | + + + | Organization | [facility] | + + + | Address | Unknown | + + + | Phone | Unavailable | + + + Support + + + + + | Name | Relationship | Address | Phone | + + + + + | Marnie Payne | ECON | [address] | | | | | [place] | | | | | [address] | | + + + + + Care Team Providers + +------+ + | Care Key Carrier Name | Role | Phone | + [...] | | | | | | Sean, [address] [place] [address] | | | | | | [place], [place] | | | | | | [address] | | | | | | [phone] | | | +--------+------+ + + + [...] | + + + + + | [facility] | [address] | [place] [address] | | | SERVICES, DANYELLE | [address] [...] | + + + + + | [facility] | [address] | [place] [address] | | | SERVICES, CORE | [address] | | | + + + + + documented in this encounter Visit Diagnoses + + | Diagnosis | + + | Psoriasis Other psoriasis | + + | Arthritis Arthropathy, unspecified, site unspecified | + + documented in this encounter"
--- OUTSIDE RECORDS SUMMARY | ~2020-03-14 | XMS | Encounter Summary ---
Demographics + + + | Address | [address] | | | [place] [address] | + + + | Home Phone | | + + + | Preferred Language | Unknown | + + + | Marital Status | | + + + | Christianity Affiliation | 1013 | + + + | Race | White | + + + | Ethnic Group | Not or | + + + Author + + + | Author | [facility] | | | and [place] | + + + | Organization | [facility] | | | [...] Team Providers + +------+ + | Care Catastrophe Claims Supervisor Name | Role | Phone | + +------+ + PCP | Unavailable | + +------+ + Encounter Details +--------+ + + + + | Date | Type | Department | Care Team | Description | +--------+ + + + + | 06/16/ | Hospital | [facility] | Conversion | Pain | | 2015 | Encounter | CONVERSION DEP [address] | Transaction, | | | | | [address] | Provider Unknown | | | | | [place], [place] | | | | | | [address] | (Fax) | | | | | [phone] | | | +--------+ + + + [...]
--- OUTSIDE RECORDS SUMMARY | ~2020-03-14 | XMS | Encounter Summary ---
Demographics + + + | Address | [address] | | | [place] [address] | + + + | Home Phone | | + + + | Preferred Language | Unknown | + + + | Marital Status | | + + + | Islam Affiliation | PRO | + + + [...] [place] | | | | | [address] | | + + + + + Care Team Providers + +------+ + | Care Senior It Specialist Name | Role | Phone | [...] | | | | | Stacirosmarline | [address] | | | | | | s of both | [address] | | | | | | hips ([facility]) | [address] | | | | | | Procedures | [place], [place] | | | | | | CONSULT TO | [address] | | | | | | ORTHOPEDICS | Phone: | | | | | | AND | [phone] | | | | | | REHABILITATI | Fax: | | | | | | ON | [phone] | | +--------+--------+ + + + + Encounter Details +--------+ + + + + | Date | Type | Department | Care Team | Description | +--------+ + + + + | 02/22/ | Telephone | Rheumatology at | [place], | | | 2014 | | Physicians Sean | MD [address] | | | | | [address] | [address] [facility] | | | | | Loop Physician's | [place], [place] | | | | | Sean, [address] Floor | [address] | | | | | [place], [place] | [phone] | | | | | [address] | | | | | | [phone] | | | +--------+ + + + [...] Consult to orthopedics and rehab faxed To [phone]. From: María Hamilton MD Sent: February 1:27 PM To: Chasity Hubbard Message: ----- Message from María Hamilton MD sent at 02/22/2015 1:27 PM PDT ----- Please fax this request for ortho consult to: [address] [phone] elephone Encounter - D María catherine MD [...] to be referred to ortho closer to [place]. He said that [facility] was closer a nd asked for a referral there. I confirmed it was in [place], [place]: [address] [address] Will fax referral to ortho there. documented in thi s encounter Plan of Treatment Not on filedocumented as of this encounter Visit Diagnoses + + | Diagnosis | + + | Osteonecrosis of both hips (HCC) - Primary | + + documented in this encounter"
--- OUTSIDE RECORDS SUMMARY | ~2020-03-14 | XMS | Encounter Summary ---
Demographics + + + | Address | [address] | | | [place] [address] | + + + | Home Phone [...] + + + | Author | [facility] | + + + | Organization | [facility] | + + + | Address | Unknown | + + + | Phone | Unavailable | + + + Support + + + + + | Name | Relationship | Address | Phone | + + + + + | Marnie Payne | ECON | [address] | | | | | [place] | | | | | [address] | | + + + + + Care Team Providers + +------+ + | Care Analytical Data Miner Name | Role | Phone | + [...] [facility] | | | | | | [address] | | | | | | Loop Physician's | | | | | | [address], [address] | | | | | | [place], [place] | | | | | | [address] | | | | | | [phone] | | | +--------+ + + + [...] + +--------+ + + + | X-RAY HAND 1 VIEWS | Routin | 02/20/2015 | Psoriasis | Results for this | | BILATERAL | e | 12:34 PM | Arthritis | procedure are in the | | | | PDT | | results section. | + +--------+ + + + documented in this encounter Results X-RAY HAND 1 VIEWS BILATERAL (02/20/2015 12:34 [...] | | + +---------+ + + | [facility] DEPARTMENT OF | | | | | RADIOLOGY | | | | + +---------+ + + documented in this encounter Visit Diagnoses + + | Diagnosis | + + | Psoriasis Other psoriasis | + + | Arthritis Arthropathy, unspecified, site unspecified | + + documented in this encounter"
--- OUTSIDE RECORDS SUMMARY | ~2020-03-14 | XMS | Encounter Summary ---
Demographics + + + | Address | [address] | | | [place] [address] | + + + | Home Phone | | + + + | Preferred Language | Unknown | + + + | Marital Status | | + + + | Adventism Affiliation | PRO | + + + | Race | White | + + + | Ethnic Group | Not or | + + + Author + + + | Author | [facility] | + + + | Organization | [facility] | + + + | Address | Unknown | + + + | Phone | Unavailable | + + + Support + + + + + | Name | Relationship | Address | Phone | + + + + + | Marnie Payne | ECON | [address] | | | | | [place] | | | | | [address] | | + + + + + Care Team Providers + +------+ + | Care Rn Internal Medicine Name | Role | Phone | + +------+ + | Julio Cesar Davis MD | PCP | | + +------+ + Reason for Visit + +--------+ + | Reason | Onset | Comments | | | Date | | + +--------+ + | Medication requested | 06/11/ | | | | 2006 | | + +--------+ + Encounter Details +--------+ + + + + | Date | Type | Department | Care Team | Description | +--------+ + + + + | 06/11/ | Telephone | Dermatology | Ashia Vuong, | Medication requested | | 2006 | | Medical at [facility] [address] | | | | | | [facility] | | | | | | for Health and | | | | | | [facility], [address], | | | | | | [address]th Floor | | | | | | [place], [place] | | | | | | [address] | | | | | | [phone] | | | +--------+ + + + [...] this encounter Miscellaneous Notes Telephone Encounter - Heath Horta - 06/11/2006 11:37 AM PSTpts called asking for a r efill of triamcinolone 0.1% cream she states pt ran out of med yesterday. pharmacy verified in EPIC do cumented in this encounter Plan of Treatment Not on filedocumented as of this encounter Visit Diagnoses Not on filedocumented in this encounter"
--- OUTSIDE RECORDS SUMMARY | ~2020-03-14 | XMS | Encounter Summary ---
Demographics + + + | Address | [address] | | | [place] [address] | + + + | Home Phone | | + + + | Preferred Language | Unknown | + + + | Marital Status | | + + + | Congregational Affiliation | PRO | + + + | Race | White | + + + | Ethnic Group | Not or | + + + Author + + + | Author | [facility] | + + + | Organization | [facility] | + + + | Address | Unknown | + + + | Phone | Unavailable | + + + Support + + + + + | Name | Relationship | Address | Phone | + + + + + | Marnie Payne | ECON | [address] | | | | | [place] | | | | | [address] | | + + + + + Care Team Providers + +------+ + | Care Attacher Name | Role | Phone | + +------+ + | Julio Cesar Davis MD | PCP | | + +------+ + Reason for Visit + +--------+ + | Reason | Onset | Comments | | | Date | | + +--------+ + | Refill Request | 06/26/ | | | | 2006 | | + +--------+ + Encounter Details +--------+--------+ + + + | Date | Type | Department | Care Team | Description | +--------+--------+ + + + | 06/26/ | Refill | Dermatology | Ashia Vuong, | Refill Request | | 2006 | | Medical at [facility] [address] | MD | | | | | [facility] | | | | | | for Health and | | | | | | Healing, [address], | | | | | | [address]th Floor | | | | | | [place], [place] | | | | | | [address] | | | | | | [phone] | | | +--------+--------+ + + + [...] this encounter Miscellaneous Notes Telephone Encounter - Cherelle Auguste Cma - 06/26/2006 1:59 PM PSTCalled number provided from the pharmacy. The insurance company informed me that they only deal with prior auths throu gh the pharmacy and not the doctor's office. Called and informed pharmacy that they need to call to get the prior auth taken care of.Electronically signed by Cherelle Auguste Cma at 2006 1:59 PM PSTTelephone Encounter - Gay Dee Leticia - 06/26/2006 11:14 AM PSTPA requested via f ax Triamcinolone Oint. Routed to [place] inbox * phcy verified in epic document ed in this encounter Plan of Treatment Not on filedocumented as of this encounter Visit Diagnoses Not on filedocumented in this encounter"
--- OUTSIDE RECORDS SUMMARY | ~2020-03-14 | XMS | Encounter Summary ---
Demographics + + + | Address | [address] | | | [place] [address] | + + + | Home Phone | | + + + | Preferred Language | Unknown | + + + | Marital Status | | + + + | Presybeterian Affiliation | PRO | + + + [...] [place] | | | | | [address] | | + + + + + Care Team Providers + +------+ + | Care Medical Record Administrator Name | Role | Phone | [...] | | 2005 | | Medical at [facility] [address] | MD | Similar Disorders; | | | | [facility] | | Erythroderma | | | | for Health and | | | | | | Healing, Building [address], | | | | | | 16th Floor | | | | | | [place], [place] | | | | | | [address] | | | | | | [phone] | | | +--------+ + + + [...] | + +---------+ + + + | JOSSY # | 0.1 | <0.2 | [facility] [...] | + + + + + | [facility] DEPARTMENT OF | [address] | [place] [address] | | | PATHOLOGY | [address] | | | + + + + + | [facility] DEPARTMENT OF | [address] | [place] [address] | | | PATHOLOGY | [address] [...] Performed At | + + + | [id number] Estimated GFR > 60 mL/min/1.73 sq m if non- | [facility] | | [id number] Estimated GFR > 60 mL/min/1.73 sq m [...] | + + + + + | [facility] DEPARTMENT OF | [address] | [place] [address] | | | PATHOLOGY | [address] | | | + + + + + | [facility] DEPARTMENT OF | [address] | [place] [address] | | | PATHOLOGY | [address] | | | + + + + + MAGNESIUM, PLASMA (06/03/2006 11:48 AM PST) + +-------+ + + + | Component | Value | Ref Range | Performed | Pathologist | | | | | At | Signature | + +-------+ + + + | MAGNESIUM,P | 2.3 | 1.8 - 2.5 mg/dL | [facility] | | | LASMA | | | DEPARTMENT | | | | | | OF | | | | | | PATHOLOGY | | + +-------+ + + + + + | Specimen | + + | | + + + + + | Narrative | Performed At | + + + | [id number] Estimated GFR > 60 mL/min/1.73 sq m if non- | [facility] | | [id number] Estimated GFR > 60 mL/min/1.73 sq m [...] | + + + + + | [facility] DEPARTMENT OF | [address] | [place] [address] | | | PATHOLOGY | [address] | | | + + + + + | [facility] DEPARTMENT OF | [facility] | [place] [address] | | | PATHOLOGY | [address] [...] Performed At | + + + | [id number] Estimated GFR > 60 mL/min/1.73 sq m if non- | [facility] | | [id number] Estimated GFR > 60 mL/min/1.73 sq m [...] | + + + + + | [facility] DEPARTMENT OF | [address] | [place] [address] | | | PATHOLOGY | [address] | | | + + + + + | [facility] DEPARTMENT OF | [facility] | [place] [address] | | | PATHOLOGY | [address] [...] Performed At | + + + | [id number] Estimated GFR > 60 mL/min/1.73 sq m if non- | [facility] | | [id number] Estimated GFR > 60 mL/min/1.73 sq m [...] | + + + + + | [facility] DEPARTMENT OF | [address] | [place] [address] | | | PATHOLOGY | [address] | | | + + + + + | [facility] DEPARTMENT OF | [address] | [place] [address] | | | PATHOLOGY | [address] [...] | + + + + + | [facility] | [address] | [place] [address] | | | PATHOLOGY | [address] | | | + + + + + | [facility] | [address] | [place] [address] | | | PATHOLOGY | [address] [...] | | AB | Test performed by [facility] | | | | | | [facility] | | | | | | Laboratories. | | | | + + + + + + + + | Specimen | + + | | + + + + + + + | Performing | Address | City/State/Zipcode | Phone Number | | Organization | | | | + + + + + | [facility] | [address] | [place] [address] | | | LABORATORY | | | [...] | | SURFACE | Test performed by [facility] | | | | | AG, SERUM | [facility] | | | | | | Laboratories. | | | | + + + + + + + + | Specimen | + + | | + + + + + + + | Performing | Address | City/State/Zipcode | Phone Number | | Organization | | | | + + + + + | [facility] | [address] | [place] [address] | | | LABORATORY | | | [...] | SURFACE AB | Test performed by [facility] | | | | | QUAL, SERUM | [facility] | | | | | | Laboratories. | | | | + + + + + + + + | Specimen | + + | | + + + + + + + | Performing | Address | City/State/Zipcode | Phone Number | | Organization | | | | + + + + + | [facility] | [address] | [place] [address] | | | LABORATORY | | | [...] | CORE AB, | Test performed by [place] | | | | | SERUM | [facility] | | | | | | Laboratories. | | | | + + + + + + + + | Specimen | + + | | + + + + + + + | Performing | Address | City/State/Zipcode | Phone Number | | Organization | | | | + + + + + | [facility] | [address] | [place] [address] | | | LABORATORY | | | [...] Performed At | + + + | [id number] Estimated GFR > 60 mL/min/1.73 sq m if non- | [facility] | | [id number] Estimated GFR > 60 mL/min/1.73 sq m [...] | + + + + + | [facility] DEPARTMENT OF | [address] | [place] [address] | | | PATHOLOGY | [address] | | | + + + + + | [facility] DEPARTMENT | [address] | [place] [address] | | | PATHOLOGY | [address] | | | + + + + + UREA NITROGEN, PLASMA (06/03/2006 11:48 AM PST) + +-------+ + + + | Component | Value | Ref Range | Performed | Pathologist | | | | | At | Signature | + +-------+ + + + | BUN, PLASMA | 9 | 6 - 20 mg/dL | [facility] | | | (LAB) | | | DEPARTMENT | | | | | | OF | | | | | | PATHOLOGY | | + +-------+ + + + + + | Specimen | + + | | + + + + + | Narrative | Performed At | + + + | [id number] Estimated GFR > 60 mL/min/1.73 sq m if non- | [facility] | | [id number] Estimated GFR > 60 mL/min/1.73 sq m [...] | + + + + + | [facility] DEPARTMENT OF | [address] | [place] [address] | | | PATHOLOGY | [address] | | | + + + + + | [facility] DEPARTMENT OF | [address] | [place] [address] | | | PATHOLOGY | [address] [...] Performed At | + + + | [id number] Estimated GFR > 60 mL/min/1.73 sq m if non- | [facility] | | [id number] Estimated GFR > 60 mL/min/1.73 sq m [...] | + + + + + | [facility] | [facility] | [place] [address] | | | PATHOLOGY | [address] | | | + + + + + | [facility] | [address] | [place] [address] | | | PATHOLOGY | [address] [...] Performed At | + + + | [id number] Estimated GFR > 60 mL/min/1.73 sq m if non- | [facility] | | [id number] Estimated GFR > 60 mL/min/1.73 sq m [...] + | [facility] DEPARTMENT OF | [address] | [place] [address] | | | PATHOLOGY | [address] | | | + + + + + | [facility] DEPARTMENT OF | [address] | [place] [address] | | | PATHOLOGY | [address] [...] Performed At | + + + | [id number] Estimated GFR > 60 mL/min/1.73 sq m if non- | [facility] | | [id number] Estimated GFR > 60 mL/min/1.73 sq m [...] | + + + + + | [facility] | [address] | [place] [address] | | | PATHOLOGY | [address] | | | + + + + + | [facility] | [address] | [place] [address] | | | PATHOLOGY | [address] | | | + + + + + documented in this encounter Visit Diagnoses + + | Diagnosis | + + | Other psoriasis | + + | Erythroderma Unspecified erythematous condition | + + documented in this encounter"
--- OUTSIDE RECORDS SUMMARY | ~2020-03-14 | XMS | Encounter Summary ---
Demographics + + + | Address | [address] | | | [place] [address] | + + + | Home Phone | | + + + | Preferred Language | Unknown | + + + | Marital Status | | + + + | Yarsanism Affiliation | PRO | + + + | Race | White | + + + | Ethnic Group | Not or | + + + Author + + + | Author | [facility] | + + + | Organization | [facility] | + + + | Address | Unknown | + + + | Phone | Unavailable | + + + Support + + + + + | Name | Relationship | Address | Phone | + + + + + | Marnie Payne | ECON | [address] | | | | | [place] | | | | | [address] | | + + + + + Care Team Providers + +------+ + | Care Peel Oven Tender Name | Role | Phone | + +------+ + | Julio Cesar Davis MD | PCP | | + +------+ + Reason for Visit + +--------+ + | Reason | Onset | Comments | | | Date | | + +--------+ + | Skin problem | 06/11/ | | | | 2006 | | + +--------+ + Encounter Details +--------+ + + + + | Date | Type | Department | Care Team | Description | +--------+ + + + + | 06/11/ | Telephone | Dermatology | Ashia Vuong, | Skin problem | | 2006 | | Medical at [facility] [address] | MD | | | | | [address] [facility] | | | | | | for Health and | | | | | | Healing, Building [address], | | | | | | 16th Floor | | | | | | [place], [place] | | | | | | [address] | | | | | | [phone] | | | +--------+ + + + [...] this encounter Miscellaneous Notes Telephone Encounter - Tita Rg - 06/11/2006 5:14 PM PSTcalled pt, he ran out of TAC oint yesterday, using only Vaseline. Skin red, but upon questioning not any moreso than past days. TAC was faxed to pharm this am. -Rec restart TAC oint, watch for fever/chills/ other systemic sx. Call if dev worsening sx. elephone Encounter - Phuong perez Pollokatharine - 06/11/2006 1:40 PM PSTpt called to report his skin has turned red, looks like sunburn. not sure if this is part of the healing process or not. pls call kaveh to advise. e rh documented in this encounte r Plan of Treatment Not on filedocumented as of this encounter Visit Diagnoses Not on filedocumented in this encounter"
--- OUTSIDE RECORDS SUMMARY | ~2020-03-14 | XMS | Encounter Summary ---
Demographics + + + | Address | [address] | | | [place] [address] | + + + | Home Phone [...] + + + | Author | [facility] | + + + | Organization | [facility] | + + + | Address | Unknown | + + + | Phone | Unavailable | + + + Support + + + + + | Name | Relationship | Address | Phone | + + + + + | Marnie Payne | ECON | [address] | | | | | [place] | | | | | [address] | | + + + + + Care Team Providers + +------+ + | Care Hot Tar Roofer Helper Name | Role | Phone | + +------+ + | Julio Cesar Davis MD | PCP | | + +------+ + Reason for Visit + +--------+ + | Reason | Onset | Comments | | | Date | | + +--------+ + | Skin problem | 06/23/ | | | | 2006 | | + +--------+ + Encounter Details +--------+ + + + + | Date | Type | Department | Care Team | Description | +--------+ + + + + | 06/23/ | Telephone | Dermatology | Ashia Vuong, | Skin problem | | 2006 | | Medical at [facility] [address] | MD | | | | | [facility] | | | | | | for Health and | | | | | | Healing, Building [address], | | | | | | 16th Floor | | | | | | [place], [place] | | | | | | [address] | | | | | | [phone] | | | +--------+ + + + [...] Notes Telephone Encounter - Tita Rg - 06/23/2006 1:43 PM PSTCalled pt, he reports pal ms of hands still red, but overall improving. He is on soriatane, using tac oint. Pt would like us to know he is faxing us work release papers. He would like to go back to work, but wants to avoid the "[email or web address] shop". Will pass on to Dr Vuong. elephone Encounter - Lorri Clarke - 06/23/2006 9:46 AM PSTPt is calling today re: r edness of his skin . Pt is using soritane bid. Pt has questions about the redness is it du e to him growing new skin. FYI- Pt is going to fax over papers that need filling out so he can continue getting his workers comp benefits. Okay to leave messages on patients answering machine Thanks documented in this encounter Plan of Treatment Not on filedocumented as of this encounter Visit Diagnoses Not on filedocumented in this encounter
--- OUTSIDE RECORDS SUMMARY | ~2020-03-14 | XMS | Encounter Summary ---
Demographics + + + | Address | [address] | | | [place] [address] | + + + | Home Phone | | + + + | Preferred Language | Unknown | + + + | Marital Status | | + + + | Bahai Affiliation | PRO | + + + | Race | White | + + + | Ethnic Group | Not or | + + + Author + + + | Author | [facility] | + + + | Organization | [facility] | + + + | Address | Unknown | + + + | Phone | Unavailable | + + + Support + + + + + | Name | Relationship | Address | Phone | + + + + + | Marnie Payne | ECON | [address] | | | | | [place] | | | | | [address] | | + + + + + Care Team Providers + +------+ + | Care Hourly Associate Name | Role | Phone | [...] at [facility] [address] | MD | | | | | [facility] | | | | | | for Health and | | | | | | Healing, [address], | | | | | | 16th Floor | | | | | | [place], [place] | | | | | | [address] | | | | | | [phone] | | | +--------+--------+ + + + [...] via f ax Triamcinolone Oint. Routed to SD inbox * phcy verified in epic document ed in this encounter Plan of Treatment Not on filedocumented as of this encounter Visit Diagnoses Not on filedocumented in this encounter"
--- OUTSIDE RECORDS SUMMARY | ~2020-03-14 | XMS | Encounter Summary ---
Demographics + + + | Address | [address] | | | [place] [address] | + + + | Home Phone [...] + + + | Author | [facility] | | | and [place] | + + + | Organization | [facility] | | | and [...] Team Providers + +------+ + | Care Melter Caster Name | Role | Phone | + [...] Provider Unknown | | | | | [place], [place] | [phone] | | | | | [address] | | | | | | [phone] | | | +--------+ + + + [...]
--- OUTSIDE RECORDS SUMMARY | ~2020-03-14 | XMS | Encounter Summary ---
Demographics + + + | Address | [address] | | | [place] [address] | + + + | Home Phone | | + + + | Preferred Language | Unknown | + + + | Marital Status | | + + + | Jewish Affiliation | PRO | + + + [...] [place] | | | | | [address] | | + + + + + Care Team Providers + +------+ + | Care Deli Manager Name | Role | Phone | [...] [facility] | | | | | | [address] | | | | | | [address] | | | | | | [address], [address] Floor | | | | | | [place], [place] | | | | | | [address] | | | | | | [phone] | | | +--------+ + + + [...] | | + +---------+ + + | [facility] DEPARTMENT OF | | | | | RADIOLOGY | | | | + +---------+ + + documented in this encounter Visit Diagnoses + + | Diagnosis | + + | Psoriasis Other psoriasis | + + | Arthritis Arthropathy, unspecified, site unspecified | + + documented in this encounter"
--- OUTSIDE RECORDS SUMMARY | ~2020-03-14 | XMS | Encounter Summary ---
Demographics + + + | Address | [address] | | | [place] [address] | + + + | Home Phone | | + + + | Preferred Language | Unknown | + + + | Marital Status | | + + + | Druze Affiliation | PRO | + + + [...] [place] | | | | | [address] | | + + + + + Care Team Providers + +------+ + | Care Emergency Operator Name | Role | Phone | [...] | | 2006 | | Medical at [facility] [address] | MD | info he would like | | | | [facility] | | for you to add with | | | | for Health and | | work release papers) | | | | [facility], [address], | | | | | | 16th Floor | | | | | | [place], [place] | | | | | | [address] | | | | | | [phone] | | | +--------+ + + + [...] Will try again tomorrow. Dr. Saba Sheffield [facility] Department of Dermatology Resident Physician [...] patient back and inform him that his cryptographer, casi Mendoza ill have to write the letter regarding the aluminum toxicity. Dr. Saba Sheffield [facility] Department of Dermatology Resident Physician [...]
--- OUTSIDE RECORDS SUMMARY | ~2020-03-14 | XMS | Encounter Summary ---
Demographics + + + | Address | [address] | | | [place] [address] | + + + | Home Phone | | + + + | Preferred Language | Unknown | + + + | Marital Status | | + + + | Druze Affiliation | PRO | + + + | Race | White | + + + | Ethnic Group | Not or | + + + Author + + + | Author | [facility] | + + + | Organization | [facility] | + + + | Address | Unknown | + + + | Phone | Unavailable | + + + Support + + + + + | Name | Relationship | Address | Phone | + + + + + | Marnie Payne | ECON | [address] | | | | | [place] | | | | | [address] | | + + + + + Care Team Providers + +------+ + | Care Senior Pricing Analyst Name | Role | Phone | + [...] | | | | | Osteonecrosi | [address] | [address] | | | | | s ([facility] | [address] | Evelia | | | | | Procedures | [address] | [place], [place] | | | | | CONSULT TO | [facility], [place] | [address] | | | | | ORTHOPEDICS | [address] | Phone: | | | | | AND | Phone: | [phone] | | | | | REHABILITATI | [phone] | Fax: | | | | | ON | Fax: | [phone] | | | | | | [phone] | | +--------+--------+ + + + + [...] | | | | FAMILY | Rd [place], | | | | | | MEDICINE | [place] | | | | | | [address] | [address] | | | | | | [address] | Phone: | | | | | | [place], | [phone] | | | | | | [place] [address] | Fax: | | | | | | Phone: | [phone] | | | | | | [phone] | | | | | | | Fax: | | | | | | | [phone] | | +--------+--------+ + + + + Encounter Details +--------+---------+ + + + | Date | Type | Department | Care Team | Description | +--------+---------+ + + + | 02/20/ | Office | Rheumatology at | [place], | Psoriasis (Primary | | 2014 | Visit | [address] | MD [address] | Dx); Arthritis; | | | | [address] | [address] | Osteonecrosis (HCC) | | | | [address] | Rd [place], [place] | | | | | [address], 4th Floor | [address] | | | | | [place], [place] | [phone] | | | | | [address] | | | | | | [phone] | | | +--------+---------+ + + + [...] care. DOMINICK MALHOTRA MD (ATUL) RHEUMATOLOGY FACULTY [address] [place] [address] María Carney MD - 02/20/2015 10:53 AM PDT RHEUMATOLOGY NEW PATIENT CONSULT This consultation was requested by: Tod Rivas MD [address] [address] fax: [phone] CC: Chief Complaint Patient presents with New [...] a history of dactylitis, plantar fasciitis, and Shar's tendon pain. The patient does have a [...] joint line tenderness, no effusion or warmth. Islip's tendon without pain at insertion site. MTP [...] history of skin psoriasis [facility]. The patient has a history of psoriasis throughout his life. He samira es any history of dactylitis, plantar fascittis, or Islip's tendon pain (enthesitis). 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 [...] d plan. MARÍA HAMILTON MD RHEUMATOLOGY AT [facility] [address] [facility] Mailcode: [address] [place] [address] documented in thi s encounter [...] [facility] | [address] | [place] [address] | | | SERVICES, CORE | [address] [...] | + + + + + | [facility] | [address] | [place] [address] | | | SERVICES, CORE | [address]STRO [...] | | | | | | and [id number]-ctaualo | | | | | | alignment [...] | + +---------+ + + | [facility] DEPARTMENT OF | | | | [...] | + +---------+ + + | [facility] DEPARTMENT OF | | | | [...] | + +---------+ + + | [facility] DEPARTMENT OF | | | | [...] | + +---------+ + + | [facility] DEPARTMENT OF | | | | [...]
--- OUTSIDE RECORDS SUMMARY | ~2020-03-14 | XMS | Encounter Summary ---
Demographics + + + | Address | [address] | | | [place] [address] | + + + | Home Phone [...] + + + | Author | [facility] | + + + | Organization | [facility] | + + + | Address | Unknown | + + + | Phone | Unavailable | + + + Support + + + + + | Name | Relationship | Address | Phone | + + + + + | Marnie Payne | ECON | [address] | | | | | [place] | | | | | [address] | | + + + + + Care Team Providers + +------+ + | Care Transformation Coach Name | Role | Phone | + [...] [facility] | | | | | | [address] | | | | | | [address] | | | | | | [address], [address] | | | | | | [place], [place] | | | | | | [address] | | | | | | [phone] | | | +--------+ + + + [...]
--- OUTSIDE RECORDS SUMMARY | ~2020-03-14 | XMS | Encounter Summary ---
Demographics + + + | Address | [address] | | | [place] [address] | + + + | Home Phone | | + + + | Preferred Language | Unknown | + + + | Marital Status | | + + + | Episcopalian Affiliation | 1013 | + + + | Race | White | + + + | Ethnic Group | Not or | + + + Author + + + | Author | [facility] | | | and [place] | + + + | Organization | [facility] | | | and [...] Team Providers + +------+ + | Care Manager Water Wastewater Name | Role | Phone | + [...] Provider Unknown | | | | | [place], [place] | | | | | | [address] | (Fax) | | | | | [phone] | | | +--------+ + + + [...]
--- OUTSIDE RECORDS SUMMARY | ~2020-03-14 | XMS | Encounter Summary ---
Demographics + + + | Address | [address] | | | [place] [address] | + + + | Home Phone | | + + + | Preferred Language | Unknown | + + + | Marital Status | | + + + | Orthodox Affiliation | PRO | + + + | Race | White | + + + | Ethnic Group | Not or | + + + Author + + + | Author | [facility] | + + + | Organization | [facility] | + + + | Address | Unknown | + + + | Phone | Unavailable | + + + Support + + + + + | Name | Relationship | Address | Phone | + + + + + | Marnie Payne | ECON | [address] | | | | | [place] | | | | | [address] | | + + + + + Care Team Providers + +------+ + | Care Player Piano Technician Name | Role | Phone | [...] [id number] | | | | | | [place], [place] | | | | | | [address] | | | | | | [phone] | | | +--------+ + + + [...] | | + +---------+ + + | [facility] DEPARTMENT OF | | | | | RADIOLOGY | | | | + +---------+ + + documented in this encounter Visit Diagnoses Not on filedocumented in this encounter"
--- OUTSIDE RECORDS SUMMARY | ~2020-03-14 | XMS | Encounter Summary ---
Demographics + + + | Address | [address] | | | [place] [address] | + + + | Home Phone [...] | Marnie Payne | ECON | [address] | | | | | [place] | | | | | [address] | | + + + + + Care Team Providers + +------+ + | Care Information Broker Name | Role | Phone | + +------+ + | Julio Cesar Davis MD | PCP | | + +------+ + Encounter Details +--------+ + + + + | Date | Type | Department | Care Team | Description | +--------+ + + + + | 06/12/ | Telephone | Dermatology | Ashia Vuong, | | | 2006 | | Medical at [facility] [address] | | | | | | [facility] | | | | | | for Health and | | | | | | [facility], [address], | | | | | | 16th Floor | | | | | | [place], [place] | | | | | | [address] | | | | | | [phone] | | | +--------+ + + + [...] Notes Telephone Encounter - Tita Rg - 06/12/2006 7:41 PM PSTCalled pharmacy, the prob carla was with pt's insurance. Problem has been resolved, pt has rx. Called pt, he picked up rx today, also on Soriatane. Doing a little better today. Tari johnson signed by Tita Rg at 06/12/2006 7:48 PM PSTTelephone Encounter - Leticia Horta - 06/12/2006 2:05 PM PSTpt states that pharmacy told him that he could not refill his T AC ointment until 06/15/06. Pt needs it now because of his outbreak. Pls advise pt. Pharmacy verified in EPIC do cumented in this encounter Plan of Treatment Not on filedocumented as of this encounter Visit Diagnoses Not on filedocumented in this encounter"
--- OUTSIDE RECORDS SUMMARY | ~2020-03-14 | XMS | Encounter Summary ---
Demographics + + + | Address | [address] | | | [place] [address] | + + + | Home Phone | | + + + | Preferred Language | Unknown | + + + | Marital Status | | + + + | Yarsanism Affiliation | PRO | + + + | Race | White | + + + | Ethnic Group | Not or | + + + Author + + + | Author | [facility] | + + + | Organization | [facility] | + + + | Address | Unknown | + + + | Phone | Unavailable | + + + Support + + + + + | Name | Relationship | Address | Phone | + + + + + | Marnie Payne | ECON | [address] | | | | | [place] | | | | | [address] | | + + + + + Care Team Providers + +------+ + | Care Placer Miner Name | Role | Phone | + +------+ + | Tod Rivas MD | PCP | | + +------+ + Reason for Visit +--------+--------+ + | Reason | Onset | Comments | | | Date | | +--------+--------+ + | Other | 09/15/ | GENE report | | | 2006 | | +--------+--------+ + Encounter Details +--------+ + + + + | Date | Type | Department | Care Team | Description | +--------+ + + + + | 09/15/ | Telephone | Dermatology | Ashia Vuong, | Other (GENE report ) | | 2006 | | Medical at [facility] [address] | MD | | | | | S [facility] | | | | | | for Health and | | | | | | [facility], [address], | | | | | | 16th Floor | | | | | | [place], [place] | | | | | | [address] | | | | | | [phone] | | | +--------+ + + + [...] Notes Telephone Encounter - Saba Sheffield - 09/22/2006 4:31 PM PDTPlease fax our records to workers comp Ananya fax= [phone] Saba Sheffield [facility] Department of Dermatology Resident Physician elephone Encounter - Saba Sheffield - 09/15/2006 4:07 PM PDTSpoke with khai and ananya gonzalez from [employer]. They need a copy of our notes. I am mailing out a release of info sheet to nuno davis and he is to mail back to us.. Ananya fax= [phone] Dr. Saba Sheffield [facility] Department of Dermatology Resident Physician elephone Encounter - Lorri Clarke - 09/15/2006 2:55 PM PDTPt is calling re: the finalizing of the GENE repo rt. Pt is calling to see when information will be sent to [employer] ext [phone] ask for Ananya Gonzalez . They're waiting for the last pieces of informa tion. Thanks documented in this encou nter Plan of Treatment Not on filedocumented as of this encounter Visit Diagnoses Not on filedocumented in this encounter"
--- OUTSIDE RECORDS SUMMARY | ~2020-03-14 | XMS | Encounter Summary ---
Demographics + + + | Address | [address] | | | [place] [address] | + + + | Home Phone | | + + + | Preferred Language | Unknown | + + + | Marital Status | | + + + | Methodist Affiliation | 1013 | + + + | Race | White | + + + | Ethnic Group | Not or | + + + Author + + + | Author | [facility] | | | and [place] | + + + | Organization | [facility] | | | [...] Team Providers + +------+ + | Care Expense Clerk Name | Role | Phone | + [...] Provider Unknown | | | | | [place], [place] | [phone] | | | | | [address] | | | | | | [phone] | | | +--------+ + + + [...]
--- OUTSIDE RECORDS SUMMARY | ~2020-03-14 | XMS | Encounter Summary ---
Demographics + + + | Address | [address] | | | [place] [address] | + + + | Home Phone | | + + + | Preferred Language | Unknown | + + + | Marital Status | | + + + | Holiness Affiliation | PRO | + + + | Race | White | + + + | Ethnic Group | Not or | + + + Author + + + | Author | [facility] | + + + | Organization | [facility] | + + + | Address | Unknown | + + + | Phone | Unavailable | + + + Support + + + + + | Name | Relationship | Address | Phone | + + + + + | Marnie Payne | ECON | [address] | | | | | [place] | | | | | [address] | | + + + + + Care Team Providers + +------+ + | Care Warranty Coordinator Name | Role | Phone | + +------+ + | Julio Cesar Davis MD | PCP | | + +------+ + Reason for Visit + +--------+ + | Reason | Onset | Comments | | | Date | | + +--------+ + | Refill Request | 10/10/ | | | | 2007 | | + +--------+ + Encounter Details +--------+--------+ + + + | Date | Type | Department | Care Team | Description | +--------+--------+ + + + | 10/10/ | Refill | Dermatology | Ashia Vuong, | Refill Request | | 2007 | | Medical at [facility] [address] | MD | | | | | S [facility] | | | | | | for Health and | | | | | | Healing, [address], | | | | | | 16th Floor | | | | | | [place], [place] | | | | | | [address] | | | | | | [phone] | | | +--------+--------+ + + + [...] this encounter Miscellaneous Notes Telephone Encounter - Eulalio Larry Md - 10/11/2007 2:[address] Sangita chavarria. Needs refill through PCP or schedule f/u.' Eulalio Larry MD Dermatology Resident elephone Encounter - Gay Kelly - 10/11/2007 11:16 AM PDTRx request recv'd via fax Drug: Soriatane 25mg cap Qty: 60 Sig: take 2 capsules by mouth once daily LF: 06/06/06 * pt phcy has been verified documented in this encounter Plan of Treatment Not on filedocumented as of this encounter Visit Diagnoses Not on filedocumented in this encounter"
--- OUTSIDE RECORDS SUMMARY | ~2020-03-14 | XMS | Encounter Summary ---
Demographics + + + | Address | [address] | | | [place] [address] | + + + | Home Phone [...] [place] | | | | | [address] | | + + + + + Care Team Providers + +------+ + | Care Metal Engraver Name | Role | Phone | + [...] | | 2005 | | Medical at [facility] 3[address] | MD | Similar Disorders; | | | | S [facility] | | Erythroderma | | | | for Health and | | | | | | Healing, [address], | | | | | | 16th Floor | | | | | | [place], [place] | | | | | | [address] | | | | | | [phone] | | | +--------+ + + + [...] | + + + + + | [facility] DEPARTMENT OF | [address] | [place] [address] | | | PATHOLOGY | [address] | | | + + + + + | [facility] DEPARTMENT OF | [address] | [place] [address] | | | PATHOLOGY | [address] [...] Performed At | + + + | [id number] Estimated GFR > 60 mL/min/1.73 sq m if non- | [facility] | | [id number] Estimated GFR > 60 mL/min/1.73 sq m [...] | + + + + + | [facility] DEPARTMENT OF | [address] | [place] [address] | | | PATHOLOGY | [address] | | | + + + + + | [facility] DEPARTMENT OF | [address] | [place] [address] | | | PATHOLOGY | [address] | | | + + + + + MAGNESIUM, PLASMA (06/03/2006 11:48 AM PST) + +-------+ + + + | Component | Value | Ref Range | Performed | Pathologist | | | | | At | Signature | + +-------+ + + + | MAGNESIUM,P | 2.3 | 1.8 - 2.5 mg/dL | [facility] | | | LASMA | | | DEPARTMENT | | | | | | OF | | | | | | PATHOLOGY | | + +-------+ + + + + + | Specimen | + + | | + + + + + | Narrative | Performed At | + + + | [id number] Estimated GFR > 60 mL/min/1.73 sq m if non- | [facility] | | [id number] Estimated GFR > 60 mL/min/1.73 sq m [...] | + + + + + | [facility] DEPARTMENT OF | [address] | [place] [address] | | | PATHOLOGY | [address] | | | + + + + + | [facility] DEPARTMENT OF | [facility] | [place] [address] | | | PATHOLOGY | [address] [...] Performed At | + + + | [id number] Estimated GFR > 60 mL/min/1.73 sq m if non- | [facility] | | [id number] Estimated GFR > 60 mL/min/1.73 sq m [...] | + + + + + | [facility] DEPARTMENT OF | [address] | [place] [address] | | | PATHOLOGY | [address] | | | + + + + + | [facility] DEPARTMENT OF | [facility] | [place] [address] | | | PATHOLOGY | [address] [...] Performed At | + + + | [id number] Estimated GFR > 60 mL/min/1.73 sq m if non- | [facility] | | [id number] Estimated GFR > 60 mL/min/1.73 sq m [...] | + + + + + | [facility] DEPARTMENT OF | [address] | [place] [address] | | | PATHOLOGY | [address] | | | + + + + + | [facility] DEPARTMENT OF | [address] | [place] [address] | | | PATHOLOGY | [address] [...] | + + + + + | [facility] | [address] | [place] [address] | | | PATHOLOGY | [address] | | | + + + + + | [facility] | [address] | [place] [address] | | | PATHOLOGY | [address] [...] | | | | | | [facility] | | | | | | Laboratories. | | | | + + + + + + + + | Specimen | + + | | + + + + + + + | Performing | Address | City/State/Zipcode | Phone Number | | Organization | | | | + + + + + | [facility] | [address] | [place] [address] | | | LABORATORY | | | [...] | + + + + + | [facility] | [address] | [place] [address] | | | LABORATORY | | | [...] | | | | QUAL, SERUM | [facility] | | | | | | Laboratories. | | | | + + + + + + + + | Specimen | + + | | + + + + + + + | Performing | Address | City/State/Zipcode | Phone Number | | Organization | | | | + + + + + | [facility] | [address] | [place] [address] | | | LABORATORY | | | [...] | CORE AB, | Test performed by [place] | | | | | SERUM | [facility] | | | | | | Laboratories. | | | | + + + + + + + + | Specimen | + + | | + + + + + + + | Performing | Address | City/State/Zipcode | Phone Number | | Organization | | | | + + + + + | [facility] | [address] | [place] [address] | | | LABORATORY | | | [...] Performed At | + + + | [id number] Estimated GFR > 60 mL/min/1.73 sq m if non- | [facility] | | [id number] Estimated GFR > 60 mL/min/1.73 sq m [...] | + + + + + | [facility] DEPARTMENT OF | [address] | [place] [address] | | | PATHOLOGY | [address] | | | + + + + + | [facility] DEPARTMENT | [address] | [place] [address] | | | PATHOLOGY | [address] | | | + + + + + UREA NITROGEN, PLASMA (06/03/2006 11:48 AM PST) + +-------+ + + + | Component | Value | Ref Range | Performed | Pathologist | | | | | At | Signature | + +-------+ + + + | BUN, PLASMA | 9 | 6 - 20 mg/dL | [facility] | | | (LAB) | | | DEPARTMENT | | | | | | OF | | | | | | PATHOLOGY | | + +-------+ + + + + + | Specimen | + + | | + + + + + | Narrative | Performed At | + + + | [id number] Estimated GFR > 60 mL/min/1.73 sq m if non- | [facility] | | [id number] Estimated GFR > 60 mL/min/1.73 sq m [...] | + + + + + | [facility] DEPARTMENT OF | [address] | [place] [address] | | | PATHOLOGY | [address] | | | + + + + + | [facility] DEPARTMENT OF | [address] | [place] [address] | | | PATHOLOGY | [address] [...] Performed At | + + + | [id number] Estimated GFR > 60 mL/min/1.73 sq m if non- | [facility] | | [id number] Estimated GFR > 60 mL/min/1.73 sq m [...] | + + + + + | [facility] | [facility] | [place] [address] | | | PATHOLOGY | [address] | | | + + + + + | [facility] | [address] | [place] [address] | | | PATHOLOGY | [address] [...] Performed At | + + + | [id number] Estimated GFR > 60 mL/min/1.73 sq m if non- | [facility] | | [id number] Estimated GFR > 60 mL/min/1.73 sq m [...] DEPARTMENT OF | [address] | [place] [address] | | | PATHOLOGY | [address] | | | + + + + + | [facility] DEPARTMENT OF | [address] | [place] [address] | | | PATHOLOGY | [address] [...] Performed At | + + + | [id number] Estimated GFR > 60 mL/min/1.73 sq m if non- | [facility] | | [id number] Estimated GFR > 60 mL/min/1.73 sq m [...] | + + + + + | [facility] | [address] | [place] [address] | | | PATHOLOGY | [address] | | | + + + + + | [facility] | [address] | [place] [address] | | | PATHOLOGY | [address] | | | + + + + + documented in this encounter Visit Diagnoses + + | Diagnosis | + + | Other psoriasis | + + | Erythroderma Unspecified erythematous condition | + + documented in this encounter"
--- OUTSIDE RECORDS SUMMARY | ~2020-03-14 | XMS | Encounter Summary ---
Demographics + + + | Address | [address] | | | [place] [address] | + + + | Home Phone | | + + + | Preferred Language | Unknown | + + + | Marital Status | | + + + | Adventist Affiliation | PRO | + + + [...] [place] | | | | | [address] | | + + + + + Care Team Providers + +------+ + | Care Bee Robber Name | Role | Phone | + +------+ + | Julio Cesar Davis MD | PCP | | + +------+ + Encounter Details +--------+ + + + + | Date | Type | Department | Care Team | Description | +--------+ + + + + | 06/12/ | Telephone | Dermatology | Ashia Vuong, | | | 2006 | | Medical at [facility] [address] | | | | | | S [facility] | | | | | | for Health and | | | | | | [facility], [address], | | | | | | 16th Floor | | | | | | [place], [place] | | | | | | [address] | | | | | | [phone] | | | +--------+ + + + [...]
--- OUTSIDE RECORDS SUMMARY | ~2020-03-14 | XMS | Encounter Summary ---
Demographics + + + | Address | [address] | | | [place] [address] | + + + | Home Phone | | + + + | Preferred Language | Unknown | + + + | Marital Status | | + + + | Zoroastrian Affiliation | 1013 | + + + | Race | White | + + + | Ethnic Group | Not or | + + + Author + + + | Author | [facility] | | | and [place] | + + + | Organization | [facility] | | | [...] Team Providers + +------+ + | Care Tape Control Skin Or Spar Mill Operator Name | Role | Phone | [...] Provider Unknown | | | | | [place], [place] | | | | | | [address] | (Fax) | | | | | [phone] | | | +--------+ + + + [...]
--- OUTSIDE RECORDS SUMMARY | ~2020-03-14 | XMS | Encounter Summary ---
Demographics + + + | Address | [address] | | | [place] [address] | + + + | Home Phone | | + + + | Preferred Language | Unknown | + + + | Marital Status | | + + + | Sikh Affiliation | PRO | + + + | Race | White | + + + | Ethnic Group | Not or | + + + Author + + + | Author | [facility] | + + + | Organization | [facility] | + + + | Address | Unknown | + + + | Phone | Unavailable | + + + Support + + + + + | Name | Relationship | Address | Phone | + + + + + | Marnie Payne | ECON | [address] | | | | | [place] | | | | | [address] | | + + + + + Care Team Providers + +------+ + | Care Canal Lock Tender Chief Operator Name | Role | Phone | [...] | | 2006 | | Medical at [facility] [address] | MD | | | | | S [facility] | | | | | | for Health and | | | | | | [facility], [address], | | | | | | 16 Floor | | | | | | [place], [place] | | | | | | [address] | | | | | | [phone] | | | +--------+ + + + [...] on the workers comp case. Seeing a audiovisual production specialist in [place]. He wants to keep us updated. Dr. Saba Sheffield [facility] Department of Dermatology Resident Physician elephone [...]
--- OUTSIDE RECORDS SUMMARY | ~2020-03-14 | XMS | Encounter Summary ---
Demographics + + + | Address | [address] | | | [place] [address] | + + + | Home Phone | | + + + | Preferred Language | Unknown | + + + | Marital Status | | + + + | Congregation Affiliation | PRO | + + + | Race | White | + + + | Ethnic Group | Not or | + + + Author + + + | Author | [facility] | + + + | Organization | [facility] | + + + | Address | Unknown | + + + | Phone | Unavailable | + + + Support + + + + + | Name | Relationship | Address | Phone | + + + + + | Marnie Payne | ECON | [address] | | | | | [place] | | | | | [address] | | + + + + + Care Team Providers + +------+ + | Care Central Office Inspector Name | Role | Phone | [...] [facility] | | | | | | [address] | | | | | | Loop Physician's | | | | | | [address], [address] Floor | | | | | | [place], [place] | | | | | | [address] | | | | | | [phone] | | | +--------+ + + + [...] | + +---------+ + + | [facility] DEPARTMENT OF | | | | | RADIOLOGY | | | | + +---------+ + + documented in this encounter Visit Diagnoses + + | Diagnosis | + + | Psoriasis Other psoriasis | + + | Arthritis Arthropathy, unspecified, site unspecified | + + documented in this encounter"
--- OUTSIDE RECORDS SUMMARY | ~2020-03-14 | XMS | Encounter Summary ---
Demographics + + + | Address | [address] | | | [place] [address] | + + + | Home Phone | | + + + | Preferred Language | Unknown | + + + | Marital Status | | + + + | Episcopal Affiliation | PRO | + + + [...] [place] | | | | | [address] | | + + + + + Care Team Providers + +------+ + | Care Air Conditioning Specialist Name | Role | Phone | + +------+ + | Julio Cesar Davis MD | PCP | | + +------+ + Reason for Visit +--------+--------+ + | Reason | Onset | Comments | | | Date | | +--------+--------+ + | Other | 07/28/ | | | | 2007 | | +--------+--------+ + Encounter Details +--------+ + + + + | Date | Type | Department | Care Team | Description | +--------+ + + + + | 07/28/ | Telephone | Dermatology | Ashia Vuong, | Other | | 2006 | | Medical at [facility] [address] | MD | | | | | S [facility] | | | | | | for Health and | | | | | | [facility], [address], | | | | | | 16 Floor | | | | | | [place], [place] | | | | | | [address] | | | | | | [phone] | | | +--------+ + + + [...] Notes Telephone Encounter - Saba Sheffield - 07/28/2006 3:58 PM PSTSpoke with patient. Albert granados is wondering how workmans comp works. Explained to patient that we just tell them what we see and the ultimate decision is in their hands regarding compenstation, etc. He request s i send the same letter i sent the [employer] shop to him. Routed letter to med recs Dr. Saba Sheffield [facility] Department of Dermatology Resident Physician elephone Encounter - Lorri Clarke - 07/28/2006 11:50 AM PSTPt is calling to speak with Dr Vuong or Dr Sam nye regarding skin condition. Workers comp is sending pt to see another doctor. Pt is maribeth wu for some insight on his condition??? Pt has an appt to see scallop cutter machine on August 05. If pt is out he's picking up the at 430pm it'll be ok to leave message and he'll try to call back. The hours of 11am-4pm ar e the best to reach the patient. Thanks documented in this encoun ter Plan of Treatment Not on filedocumented as of this encounter Visit Diagnoses Not on filedocumented in this encounter"
--- OUTSIDE RECORDS SUMMARY | ~2020-03-14 | XMS | Encounter Summary ---
Demographics + + + | Address | [address] | | | [place] [address] | + + + | Home Phone [...] [place] | | | | | [address] | | + + + + + Care Team Providers + +------+ + | Care Heel Cover Splitter Name | Role | Phone | + [...] | | 2006 | | Medical at [facility] [address] | MD | | | | | S [facility] | | | | | | for Health and | | | | | | [facility], [address], | | | | | | 16 Floor | | | | | | [place], [place] | | | | | | [address] | | | | | | [phone] | | | +--------+ + + + [...] this encounter Miscellaneous Notes Telephone Encounter - Sbaa Sheffield - 07/28/2006 3:58 PM PSTSpoke with patient. Albert granados is wondering how workmans comp works. Explained to patient that we just tell them what we see and the ultimate decision is in their hands regarding compenstation, etc. He request s i send the same letter i sent the [employer] shop to him. Routed letter to med recs Dr. Saba Sheffield [facility] Department of Dermatology Resident Physician elephone Encounter - Lorri Clarke - 07/28/2006 11:50 AM PSTPt is calling to speak with Dr Vuong or Dr Sam nye regarding skin condition. Workers comp is sending pt to see another doctor. Pt is maribeth wu for some insight on his condition??? Pt has an appt to see manager data warehouse on August 05. If pt is out [...]
--- OUTSIDE RECORDS SUMMARY | ~2020-03-14 | XMS | Encounter Summary ---
Demographics + + + | Address | [address] | | | [place] [address] | + + + | Home Phone | | + + + | Preferred Language | Unknown | + + + | Marital Status | | + + + | Anabaptist Affiliation | 1013 | + + + | Race | White | + + + | Ethnic Group | Not or | + + + Author + + + | Author | [facility] | | | and [place] | + + + | Organization | [facility] | | | [...] Team Providers + +------+ + | Care Cage Tender Name | Role | Phone | [...] Provider Unknown | | | | | [place], [place] | [phone] | | | | | [address] | | | | | | [phone] | | | +--------+ + + + [...]
--- OUTSIDE RECORDS SUMMARY | ~2020-03-14 | XMS | Clinical Summary ---
Demographics + + + | Address | [address] | | | [place] [address] | + + + | Home Phone | | + + + | Preferred Language | Unknown | + + + | Marital Status | | + + + | Taoism Affiliation | PRO | + + + [...] [place] | | | | | [address] | | + + + + + Care Team Providers + +------+ + | Care Try Out Person Name | Role | Phone | + +------+ + PCP | Unavailable | + +------+ + Source Comments JOAO is fully live on both [facility] Ambulatory and [facility] InPatient.[facility] Allergies No Known Allergies Medications [...] + + Plan of Treatment + + +-------+ + | Health Maintenance | Due Date | Last | Comments | | | | Done | | + + +-------+ + | Pneumococcal | | | | | vaccination (1 of 1 | 0 | | | | - PPSV23) | | | | + + +-------+ + | Influenza (Flu) | | | | | vaccination (#1) | 0 | | | + + +-------+ + Results Not on filefrom Last 3 [...] Worker | | | S COMP | [id number] | 2005-P | | | s Comp | | | OTHER | | resent | | | | + +--------+ +--------+ + +--------+ | MEDICARE | MEDICA | [id number] | 01/07/20 | [phone] | [address] | Medica | | | RE A & | | 15-Pre | 1 | [phone] | re | | | B | | sent | | [place] | | | | | | | | [address] | | + +--------+ +--------+ + +--------+ | [employer] | [employer] | [id number] | | | | Medica | | [...] Person | Self | [birth year] | | | | al/Fam | | 1956 | [phone] | [place] [address] | | | kim | | | 8 (Home) | | + +--------+ +--------+ + + | Khai Payne | Worker | Self | [birth year] | [address] | | | s Comp | | 1956 | [phone] | [place] [address] | | | | | | 8 ([place]) | | + +--------+ +--------+ + +
--- OUTSIDE RECORDS SUMMARY | ~2020-03-14 | XMS | Encounter Summary ---
Demographics + + + | Address | [address] | | | [place] [address] | + + + | Home Phone [...] [place] | | | | | [address] | | + + + + + Care Team Providers + +------+ + | Care Heating Fixture Tender Name | Role | Phone | [...] | | | | | Osteonecrosi | [address] | [address] | | | | | s ([facility]) | Jean Marie Tucker | Evelia | | | | | Procedures | [address] | [place], [place] | | | | | CONSULT TO | [facility] [place] | [address] | | | | | ORTHOPEDICS | [address] | Phone: | | | | | AND | Phone: | [phone] | | | | | REHABILITATI | [phone] | Fax: | | | | | ON | Fax: | [phone] | | | | | | [phone] | | +--------+--------+ + + + + [...] | | | | FAMILY | Rd [place], | | | | | | MEDICINE | [place] | | | | | | [address] | [address] | | | | | | [place] | Phone: | | | | | | [place], | [phone] | | | | | | [place] [address] | Fax: | | | | | | Phone: | [phone] | | | | | | [phone] | | | | | | | Fax: | | | | | | | [phone] | | +--------+--------+ + + + + Encounter Details +--------+---------+ + + + | Date | Type | Department | Care Team | Description | +--------+---------+ + + + | 02/20/ | Office | Rheumatology at | [facility], | Psoriasis (Primary | | 2014 | Visit | Physicians [facility] | MD María [address] | Dx); Arthritis; | | | | [address] | [address] | Osteonecrosis (HCC) | | | | [address] | [address] [place], [place] | | | | | Sean, [address] Floor | [address] | | | | | [place], [place] | [phone] | | | | | [address] | | | | | | [phone] | | | +--------+---------+ + + + [...] care. DOMINICK MALHOTRA MD (ATUL) RHEUMATOLOGY FACULTY [address] [place] [address] María Carney MD - 02/20/2015 10:53 AM PDT RHEUMATOLOGY NEW PATIENT CONSULT This consultation was requested by: Tod Rivas MD [address] [address] fax: [phone] CC: Chief Complaint Patient presents with New [...] joint line tenderness, no effusion or warmth. Mechanicville's tendon without pain at insertion site. MTP [...] history of skin psoriasis who [facility]. The patient has a history of psoriasis throughout his life. He samira es any history of dactylitis, plantar fascittis, or [place]'s tendon pain (enthesitis). 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 [...] MD RHEUMATOLOGY AT [facility] [address] Mailcode: [id number] [place] [address] documented in thi s encounter [...] [facility] | [address] | [place] [address] | | | SERVICES, CORE | PARK [...] | + + + + + | [facility] | [address] | [place] [address] | | | SERVICES, CORE | CASTRO [...] | | | | | | and [id number] | | | | | | alignment [...]
--- OUTSIDE RECORDS SUMMARY | ~2020-03-14 | XMS | Encounter Summary ---
Demographics + + + | Address | [address] | | | [place] [address] | + + + | Home Phone [...] [place] | | | | | [address] | | + + + + + Care Team Providers + +------+ + | Care Buddhist Monk Name | Role | Phone | + [...] | | 2006 | | Medical at [facility] [address] | MD | | | | | [address] [facility] | | | | | | for Health and | | | | | | Healing, [address], | | | | | | 16th Floor | | | | | | [place], [place] | | | | | | [address] | | | | | | [phone] | | | +--------+ + + + [...] to work, but wants to avoid the "[employer]". Will pass on to Dr Vuong. [...]
--- OUTSIDE RECORDS SUMMARY | ~2020-03-14 | XMS | Encounter Summary ---
Demographics + + + | Address | [address] | | | [place] [address] | + + + | Home Phone [...] + | Author | [facility] | | | and [place] | + + + | Organization | [facility] | | | [...] Providers + +------+ + | Care Dental Internship Name | Role | Phone | + [...] Provider Unknown | | | | | [place], [place] | | | | | | [address] | (Fax) | | | | | [phone] | | | +--------+ + + + [...]
--- OUTSIDE RECORDS SUMMARY | ~2020-03-14 | XMS | Clinical Summary ---
Demographics + + + | Address | [address] | | | [place] [address] | + + + | Home Phone | | + + + | Preferred Language | Unknown | + + + | Marital Status | | + + + | [employer] Affiliation | 1013 | + + + | Race | White | + + + | Ethnic Group | Not or | + + + Author + + + | Author | [facility] | | | and [place] | + + + | Organization | [facility] | | | and [...] Team Providers + +------+ + | Care Head Bookkeeper Name | Role | Phone | + [...] + + + Last Filed Vital Signs Not on file Plan of Treatment + + +-------+ + | Health Maintenance | Due Date | Last | Comments | | | | Done | | + + +-------+ + | Vaccine: | | | | | Dtap/Tdap/Td (1 - | 4 | | | | Tdap) | | | | + + +-------+ + | Vaccine: Zoster (1 | | | | | of 2) | 5 | | | + + +-------+ + | Vaccine: | | | | | Pneumococcal 65+ (1 | 0 | | | | of 1 - PPSV23) | | | | + + +-------+ + | Vaccine: Influenza | | | | | (#1) | 0 | | | + [...] +--------+ +---------+--------+ | MEDICARE | MEDICA | [id number] | 01/07/20 | [phone] | | Medica [...] Yfn | al/Fam | | 1956 | [phone] | [place] [address] | | | kim | | | 8 (Home) | | + +--------+ +--------+ + +"
--- OUTSIDE RECORDS SUMMARY | ~2020-03-14 | XMS | Encounter Summary ---
Demographics + + + | Address | [address] | | | [place] [address] | + + + | Home Phone | | + + + | Preferred Language | Unknown | + + + | Marital Status | | + + + | Adventist Affiliation | 1013 | + + + [...] Team Providers + +------+ + | Care Reconnaissance Crewmember Name | Role | Phone | + +------+ + PCP | Unavailable | + +------+ + Encounter Details +--------+ + + + + | Date | Type | Department | Care Team | Description | +--------+ + + + + | 11/04/ | Hospital | [facility] | Terrence Bolaños MD | Dehydration | | 2015 - | Encounter | [facility] | [address] | | | | | CARE FLOOR [address] | [place] [address] | | | 11/07/ | | [address] | [phone] | | | 2015 | | [place], [place] | | | | | | [address] | | | | | | [phone] | | | +--------+ + + + [...] 1713 Date of Service: 11/07/14741 Status: Signed Copyright Clerk: Saira Retana MD (Physician) Related Notes: Original Note by Saira Retana MD (Physician) filed at 11/07/14 0747 [facility] Service: Hospitalist Physician Discharge Summary Patient ID: Khai Payne 1955 59 y.o. Admit date: 11/04/2014 Discharge date: 11/07/2014 Admitting Physician: Terrence Bolaños MD Discharge Physician: Saira Retana MD Consultants: Treatment Team: Admitting Provider: Terrence Bolaños MD Primary Discharge Diagnoses: Syncope and collapse Secondary Discharge Diagnoses: Dehydration resolved ELVIA (acute kidney injury) (HCC) resolved Dvt femoral (deep venous thrombosis) ([facility]) HPI and Hospital Course: 59-year-old male with history of psoriatic arthritis who presented to [facility] after collapsing while watching a baseball game outside. The patient had been drinking 5 to 6 eight-ounce Margaritas and collapsed when he got out of the seat. He walked to his car and when he got home he collapsed again and was brought to the emergency department. He was hyp otensive requiring dopamine and transferred to [facility] intensive care unit. The patient was [...] Nov 05 2014 7:16AM Referring Provider Line: [phone] ID: [id number] Ultrasound Lower Extremity Venous Doppler [...] Invalid input(s): ABG Disposition: Home Follow up: [facility] [address] [place] [id number] On 11/07/2014 Appointment Time: 3:00 PM with [...] are the prescriptions that you need to picker packer. You may get the following medications from [...] summary. This entry has been created using [employer] Speech Recognition software and [employer]. The entry has been reviewed and there may still exist sound alike word errors. documented in th is encounter Progress Notes Conversion Transaction, Provider Unknown - 11/07/2014 9:13 AM PDTFormatting of this note m ight be different from the original. Case Management by FABIANA Amato at 11/07/14912 Author: FABIANA Amato Service: (none) Author Type: Ramp Boss Filed: 11/07/14 1203 Date of Service: 11/07/14912 Status: Addendum Copyright Clerk: FABIANA Amato (Ramp Boss) Related Notes: Original Note by FABIANA Amato (Ramp Boss) filed at 11/07/14 09 42 CM informed by Physician that Pt will dc today and that he will need an INR drawn this week . Appt with PCP changed to 11/08 @ 10:00 AM. Appt updated on AVS and Pt informed. Family to transport home. ETOH treatment resources in [facility] provided to Pt and family. 1200 Referral from RN for HH RN to continue with teaching on Lovenox and Coumadin at home. CM spoke with Pt and family who are in agreement. Referral faxed to [facility] in [facility]. onver love Transaction, Provider Unknown - 11/06/2014 6:27 PM PDT Nurse Progress Note by Amara Stratton RN at 11/06/141826 Author: Amara Stratton RN Service: (none) Author Type: Registered Nurse Filed: 11/06/141829 Date of Service: 11/06/141826 Status: Signed Copyright Clerk: Amara Stratton RN (Registered Nurse) Extensive visit [...] locations/Coumadin Clinics available. Pt requests f/u at [facility]. Pt stated next apt with Dr. Paula is November 14. Questions answered. Coumadin education b ooklet given to pt. onver love Transaction, Provider Unknown - 11/06/2014 4:45 PM PDT Nurse Progress Note by Kelechi Sweet RN at 11/06/141644 Author: Kelechi Sweet RN Service: (none) Author Type: Registered Nurse Filed: 11/06/141645 Date of Service: 11/06/141644 Status: Signed Copyright Clerk: Kelechi Sweet RN (Registered Nurse) Patient ambulated 500 [address] hallway with front wheel walker and standby assist. Patient tolerated procedure well. onver love Transaction, Provider Unknown - 11/06/2014 4:02 PM PDT Case Management by FABIANA Amato at 11/06/14 1602 Author: FABIANA Amato Service: (none) Author Type: Ramp Boss Filed: 11/06/141605 Date of Service: 11/06/14 160 Status: Signed Copyright Clerk: FABIANA Amato (Ramp Boss) PC to [facility] to make a referral [...] Notes by Michelle Barton MD at 11/06/14 2182 Author: Michelle Barton MD Service: Hospitalist Author Type: Physician Filed: 11/06/14 2903 Date of Service: 11/06/14 5420 Status: Signed Copyright Clerk: Michelle Barton MD (Physician) Related Notes: Original Note by Michelle Barton MD (Physician) filed at 11/06/14 3380 [facility] Service: Hospitalist Progress Note Hospital Day: LOS: 2 days SUBJECTIVE Per ICU mechanical oxidizer: "The patient is a 59 y.o. male with PMHx of psoriatic arthritis, prese nted to [facility] after collapsing while watching a baseball [...] recently but no other constitutional symptoms. At [facility] patient was found to be hypotensive with STT wave changes. Started on dop amine. Transferred to [facility] for further management. ICU Timeline: 11/04/14: [...] a DVT. Therefore, appreciate i ntensivist ICU SENIOR SALESFORCE DEVELOPER assisting with heparin orders. The patient has [...] Nov 05 2014 7:16AM Referring Provider Line: [phone] ID: [id number] Ultrasound Lower Extremity Venous Doppler [...] consciousness) Dehydration ELVIA (acute kidney injury) ([facility]) Dvt femoral (deep venous thrombosis) ([facility]) ASSESSMENT & PLAN 1. Syncope and collapse [...] Berenice De Los Santos PT at 11/06/14 8782 Author: Berenice De Los Santos PT Service: (none) Author Type: Physical Therapist Filed: 11/06/14 1892 Date of Service: 11/06/14 1234 Status: Signed Copyright Clerk: Berenice De Los Santos, PT (Physical Therapist) 11/06/14 1100 PT Last Visit PT Received On 11/06/14 Reason for Treatment Deconditioning Requires PT Follow Up Yes Follow up PT Only? No Assistance Required [address] Sweeper Operator Needed No Other Comments Comments Pt mobilizing [...] Author: FABIANA Goldsmith Service: (none) Author Type: Ramp Boss Filed: 11/05/141914 Date of Service: 11/05/141911 Status: Signed Copyright Clerk: FABIANA Goldsmith (Ramp Boss) 11/05/141909 Discharge Planning Evaluation Admitting Diagnosis syncope & collapse Readmission No Living Arrangements Spouse/significant other (Marnei Payne [phone]) Type of Residence Private residence House type House-1 story Independent with ADL's Yes Independent with Mobility No-comment (uses a walker) Home Care Services No Caregiver after Discharge Yes Relationship to Patient spouse Mental Status Oriented Prior functional status Pt reports he is worried he might slip in the shower. He had not d riven X3-4 mos. Power of Associate Media Planner No Anticipated Discharge Plan Post Acute Care [...] 1525 Date of Service: 11/05/141524 Status: Signed Copyright Clerk: Mary Carmen Quesada RN (Registered Nurse) Pt transferred to [facility] onver love Transaction, Provider Unknown - 11/05/2014 3:16 PM PDT Progress Notes by Mary Carmen Quesada RN at 11/05/14 1516 Author: Mary Carmen Quesada RN Service: (none) Author Type: Registered Nurse Filed: 11/05/141516 Date of Service: 11/05/146 Status: Signed Copyright Clerk: Mary Carmen Quesada RN (Registered Nurse) Report [...] 11/05/141814 Date of Service: 11/05/141439 Status: Signed Copyright Clerk: Jovan Antonio PT (Physical Therapist) 11/05/14 1440 PT Last Visit PT Received On 11/05/14 Reason for Treatment Other (comment) (admitted for hypotension and syncopal episode) Requires PT Follow Up Awaiting tx order Follow up PT Only? No PT Eval/Reassessment Date 11/05/14 Assistance Required 1 person;2 person (for lines) Street Sweeper Operator Needed No Home Environment Type of Home Home one story Home Exterior Layout 1-3 steps Home Interior Layout Lives on main level with bedroom/bathroom Home Equipment Walker front wheeled Prior Function Level of [place] Modified independent with functional mobility;Independent with ADLs; [...] Assistance Required 1 person;2 person (for lines) Street Sweeper Operator Needed No Precautions Other Precautions fall risk [...] Juárez at 11/05/14824 Author: DURAN Juárez Service: Musical Performer Author Type: Musical Performer Filed: 11/05/1443 Date of Service: 11/05/14824 Status: Signed Copyright Clerk: DURAN Juárez (Nurse Practitioner) [facility] Service: Musical Performer Progress Note Date of Admission: 11/04/2014 Requesting Physician: Dr. Velazquez, Emergency Department Indication for ICU Admission: hypotension History Obtained From: patient CHIEF COMPLAINT: Syncope and collapse HISTORY OF PRESENT ILLNESS The patient is a 59 y.o. male with PMHx of psoriatic arthritis, presented to [facility] after collapsing while watching a baseball [...] but no ot her constitutional symptoms. At [facility] patient was found to be hypotensive with STT wave changes. Started on dop amine. Transferred to [facility] for further management. ICU Timeline: 11/04/14: [...] consciousness) Dehydration ELVIA (acute kidney injury) ([facility]) ASSESSMENT & PLAN Neuro: Syncope: workup includes telemetry, 12 lead ECG, and ECHO ordered. Carotid duplex: no flow limiting stenosis. May simply be r/t dehydration. Unclear etiology. CV: R/O DE. Trend enzymes. Hypotension likely secondary to volume [...] 11/04/141806 Date of Service: 11/04/141806 Status: Signed Copyright Clerk: Dion Lassiter RPH (Pharmacist) Clinical Pharmacy Note: [...] at 11/04/141702 Author: Terrence Bolaños MD Service: Musical Performer Author Type: Musical Performer Filed: 11/04/142044 Date of Service: 11/04/141702 Status: Signed Copyright Clerk: Terrence Bolaños MD (Musical Performer) [facility] Service: Musical Performer Admission History & Physical Date of Admission: 11/04/2014 Requesting Physician: Dr. Velazquez, Emergency Department Indication for ICU Admission: hypotension History Obtained From: patient CHIEF COMPLAINT: Syncope and collapse HISTORY OF PRESENT ILLNESS The patient is a 59 y.o. male with PMHx of psoriatic arthritis presented to [facility] a fter collapsing while watching a [...] but no oth er constitutional symptoms. At [facility] patient was found to be hypotensive with STT wave changes. Started on dop amine. Transferred to [facility] for further management. REVIEW OF SYSTEMS [...] up. Unclear etiology. Carotid duplex. CV: R/O DE. Trend enzymes. Hypotension likely secondary to volume [...] | | | | | performed at [facility];[address] | | | | | | [address];[place], [place] | | | | | | [address] | | | | + + + [...] | | | | performed at [facility], [address] | K/u L | LAB | | | | [address], | | | | | | [place] [address] | | | | + + +---- + + + | Non- | 2.86 (L)Comment: Testing | 4.2 0 - 5.70 | EXTERNAL | | | Red Blood | performed at [facility], [address] | M/u L | LAB | | | Cells | [address], | | | | | Counted | [place] [address] | | | | + + +---- + + + | Hemoglobin | 11.7 (L)Comment: Testing | 13. 2 - 17.0 | EXTERNAL | | | | performed at [facility], [address] | g/d L | LAB | | | | [address], | | | | | | [place] [address] | | | | + + +---- + + + | Hematocrit, | 34.1 (L)Comment: Testing | 39. 0 - 50.0 % | EXTERNAL | | | POC | performed at [facility], [address] | | LAB | | | | [address], | | | | | | [place] [address] | | | | + + +---- + + + | MCV | 119.4 (H)Comment: | 80. 0 - 100.0 fl | EXTERNAL | | | | Testing performed at | | LAB | | | | [facility], [address] | | | | | | [place] | | | | | | [address] | | | | + + +---- + + + | MCH | 40.8 (H)Comment: Testing | 27. 0 - 34.0 pg | EXTERNAL | | | | performed at [facility], [address] | | LAB | | | | [address], | | | | | | [place] [address] | | | | + + +---- + + + | MCHC | 34.2Comment: Testing | 32. 0 - 35.5 | EXTERNAL | | | | performed at [facility], [address] | g/d L | LAB | | | | [address], | | | | | | [place] [address] | | | | + + +---- + + + | RDW-CV | 66.9 (H)Comment: Testing | 37 - 53 fl | EXTERNAL | | | | performed at [facility], [address] | | LAB | | | | [address], | | | | | | [place] [address] | | | | + + +---- + + + | Platelet | 191Comment: Testing | 150 - 400 K/uL | EXTERNAL | | | Count | performed at [facility], [address] | | LAB | | | Plasma | [address], | | | | | | [place] [address] | | | | + + +---- + + + | MPV | 8.2Comment: Testing | fl | EXTERNAL | | | | performed at [facility], [address] | | LAB | | | | [address], | | | | | | [place] [address] | | | | + + +---- + + + | Differentia | AUTOMATEDComment: | | EXTERNAL | | | l Type | Testing performed at | | LAB | | | | [facility], [address] | | | | | | [place] | | | | | | [address] | | | | + + +---- + + + | % Segmented | 59.94Comment: Testing | % | EXTERNAL | | | | performed at [facility], [address] | | LAB | | | Neutrophils | [address], | | | | | | [place] [address] | | | | + + +---- + + + | % | 25.58Comment: Testing | % | EXTERNAL | | | Lymphocytes | performed at [facility], [address] | | LAB | | | | [address], | | | | | | [place] [address] | | | | + + +---- + + + | % Monocytes | 9.82Comment: Testing | % | EXTERNAL | | | | performed at [facility], [address] | | LAB | | | | [address], | | | | | | [place] [address] | | | | + + +---- + + + | % | 3.25Comment: Testing | % | EXTERNAL | | | Eosinophils | performed at [facility], [address] | | LAB | | | | [address], | | | | | | [place] [address] | | | | + + +---- + + + | % Basophils | 1.41Comment: Testing | % | EXTERNAL | | | | performed at [facility], [address] | | LAB | | | | [address], | | | | | | [place] [address] | | | | + + +---- + + + | Absolute | 3.79Comment: Testing | 1.9 0 - 7.40 | EXTERNAL | | | Segmented | performed at [facility], [address] | K/u L | LAB | | | Neutrophils | [address], | | | | | | [place] [address] | | | | + + +---- + + + | Absolute | 1.62Comment: Testing | 1.0 0 - 3.90 | EXTERNAL | | | Lymphocytes | performed at [facility], [address] | K/u L | LAB | | | | [address], | | | | | | [place] [address] | | | | + + +---- + + + | Absolute | 0.62Comment: Testing | 0.0 0 - 0.80 | EXTERNAL | | | Monocytes | performed at [facility], [address] | K/u L | LAB | | | | [address], | | | | | | [place] [address] | | | | + + +---- + + + | Absolute | 0.21Comment: Testing | 0.0 0 - 0.50 | EXTERNAL | | | Eosinophils | performed at [facility], [address] | K/u L | LAB | | | | [address], | | | | | | [place] [address] | | | | + + +---- + + + | Absolute | 0.09Comment: Testing | 0.0 0 - 0.10 | EXTERNAL | | | Basophils | performed at [facility], [address] | K/u L | LAB | | | | [address], | | | | | | [place] [address] | | | | + + +---- + + + | RBC | 3+Comment: | | EXTERNAL | | | Morphology | ANISO3+MACRONORMAL PLT | | LAB | | | | MORPHTesting performed | | | | | | at [facility], [address] | | | | | | [address], | | | | | | [place] [address] | | | | | |Testing performed at [facility], [address] [facility], [place] [address] | | | | | | | [...] | | | | performed at [facility], [address] | | LAB | | | | [address], | | | | | | [place] [address] | | | | + + + [...] | | | | | [place] [address] | | | | + + + [...] | | | | | [place] [address] | | | | + + + + + + | K | 3.9Comment: Testing | 3.5 - 4.9 | EXTERNAL | | | | performed at [facility], [address] | mmol/L | LAB | | | | [address], | | | | | | [place] [address] | | | | + + + + + + | Cl | 109Comment: Testing | 99 - 109 mmol/L | EXTERNAL | | | | performed at [facility], [address] | | LAB | | | | [address], | | | | | | [place] [address] | | | | + + + + + + | CO2 | 23Comment: Testing | 23 - 32 mmol/L | EXTERNAL | | | | performed at [facility], [address] | | LAB | | | | [address], | | | | | | [place] [address] | | | | + + + + + + | Anion Gap | 9Comment: Testing | 5 - 20 mmol/L | EXTERNAL | | | | performed at [facility], [address] | | LAB | | | | [address], | | | | | | [place] [address] | | | | + + + + + + | Glucose, | 91Comment: Testing | 65 - 99 mg/dL | EXTERNAL | | | Fasting | performed at [facility], [address] | | LAB | | | | [address], | | | | | | [place] [address] | | | | + + + + + + | BUN | 12Comment: Testing | 8 - 25 mg/dL | EXTERNAL | | | | performed at [facility], [address] | | LAB | | | [address], | | | | | | [place] [address] | | | | + + + + + + | Creatinine | 0.72Comment: Testing | 0.70 - 1.30 | EXTERNAL | | | | performed at [facility], [address] | mg/dL | LAB | | | | [address], | | | | | | [place] [address] | | | | + + + + + + | BUN/Creatin | 17Comment: Testing | | EXTERNAL | | | ine Ratio | performed at [facility], [address] | | LAB | | | | [address], | | | | | | [place] [address] | | | | + + + + + + | Calcium | 7.9 (L)Comment: Testing | 8.5 - 10.5 | EXTERNAL | | | | performed at [facility], [address] | mg/dL | LAB | | | | [address] [facility], | | | | | | [place] [address] | | | | + + + [...] W | | | | | | [address] [facility], | | | | | | [place] [address] | | | | + + + [...] | | | | | [place] [address] | | | | + + + [...] | | | | performed at [facility], [address] | | LAB | | | | [address], | | | | | | [place] [address] | | | | + + + [...] EXTERNAL | | | | performed at [facility];[address] | mmol/L | LAB | | | | [address];[place] | | | | | | [address] | | | | + + + + + + | K | 4.0Comment: Testing | 3.5 - 4.9 | EXTERNAL | | | | performed at [facility];[address] | mmol/L | LAB | | | | [address];[place] | | | | | | [address] | | | | + + + + + + | Cl | 110 (H)Comment: Testing | 99 - 109 mmol/L | EXTERNAL | | | | performed at [facility];[address] | | LAB | | | | [address];[place] | | | | | | [address] | | | | + + + + + + | CO2 | 22 (L)Comment: Testing | 23 - 32 mmol/L | EXTERNAL | | | | performed at [facility];[address] | | LAB | | | | [address];[place] | | | | | | [address] | | | | + + + + + + | Anion Gap | 12Comment: Testing | 5 - 20 mmol/L | EXTERNAL | | | | performed at [facility];[address] | | LAB | | | | [address];[place] | | | | | | [address] | | | | + + + + + + | Glucose, | 114 (H)Comment: Testing | 65 - 99 mg/dL | EXTERNAL | | | Fasting | performed at [facility];[address] | | LAB | | | | [address];[place] | | | | | | [address] | | | | + + + + + + | BUN | 14Comment: Testing | 8 - 25 mg/dL | EXTERNAL | | | | performed at [facility];[address] | | LAB | | | | [address];[place] | | | | | | [address] | | | | + + + + + + | Creatinine | 0.98Comment: Testing | 0.70 - 1.30 | EXTERNAL | | | | performed at [facility];[address] | mg/dL | LAB | | | | [address];[place] | | | | | | [address] | | | | + + + + + + | BUN/Creatin | 14Comment: Testing | | EXTERNAL | | | ine Ratio | performed at [facility];[address] | | LAB | | | | [address];[place] | | | | | | [address] | | | | + + + + + + | Calcium | 7.8 (L)Comment: Testing | 8.5 - 10.5 | EXTERNAL | | | | performed at [facility];[address] | mg/dL | LAB | | | | [address];[place] | | | | | | [address] | | | | + + + + + + | Protein, | 5.7 (L)Comment: Testing | 6.3 - 8.2 g/dL | EXTERNAL | | | Total | performed at [facility];[address] | | LAB | | | | [address];[place] | | | | | | [address] | | | | + + + + + + | Albumin | 2.1 (L)Comment: Testing | 3.3 - 4.8 g/dL | EXTERNAL | | | | performed at [facility];[address] | | LAB | | | | [address];[place] | | | | | | [address] | | | | + + + + + + | Globulin | 3.6Comment: Testing | 1.3 - 4.9 g/dL | EXTERNAL | | | | performed at [facility];[address] | | LAB | | | | [address];[place] | | | | | | [address] | | | | + + + + + + | A/G Ratio | 0.6 (L)Comment: Testing | 1.0 - 2.4 | EXTERNAL | | | | performed at [facility];[address] | | LAB | | | | [address];[place] | | | | | | [address] | | | | + + + + + + | Bilirubin | 0.2Comment: Testing | 0.1 - 1.5 mg/dL | EXTERNAL | | | Total | performed at [facility];[address] | | LAB | | | | [address];[place] | | | | | | [address] | | | | + + + + + + | ALP, | 92Comment: Testing | 35 - 115 U/L | EXTERNAL | | | External | performed at [facility];[address] | | LAB | | | | [address];[place] | | | | | | [address] | | | | + + + + + + | AST | 26Comment: Testing | 10 - 45 U/L | EXTERNAL | | | | performed at [facility];[address] | | LAB | | | | [address];[place] | | | | | | [address] | | | | + + + + + + | ALT | 15Comment: Testing | 10 - 65 U/L | EXTERNAL | | | | performed at [facility];[address] | | LAB | | | | [address];[place] | | | | | | [address] | | | | + + + [...] | | | | | | at [facility];[address];[place] [address] | | | | + + + [...] | | | Patient | performed at [facility];[address] | | LAB | | | | [address];[place], [place] | | | | | | [address] | | | | + + + [...] | | | | performed at [facility], [address] | K/u L | LAB | | | | [address], | | | | | | [place] [address] | | | | + + +---- + + + | Non- | 2.78 (L)Comment: Testing | 4.2 0 - 5.70 | EXTERNAL | | | Red Blood | performed at [facility], [address] | M/u L | LAB | | | Cells | [address], | | | | | Counted | [place] [address] | | | | + + +---- + + + | Hemoglobin | 11.2 (L)Comment: Testing | 13. 2 - 17.0 | EXTERNAL | | | | performed at [facility], [address] | g/d L | LAB | | | | [address], | | | | | | [place] [address] | | | | + + +---- + + + | Hematocrit, | 33.1 (L)Comment: Testing | 39. 0 - 50.0 % | EXTERNAL | | | POC | performed at [facility], [address] | | LAB | | | | [address], | | | | | | [place] [address] | | | | + + +---- + + + | MCV | 119.3 (H)Comment: | 80. 0 - 100.0 fl | EXTERNAL | | | | Testing performed at | | LAB | | | | [facility], [address] | | | | | | [place] | | | | | | [address] | | | | + + +---- + + + | MCH | 40.5 (H)Comment: Testing | 27. 0 - 34.0 pg | EXTERNAL | | | | performed at [facility], [address] | | LAB | | | | [address], | | | | | | [place] [address] | | | | + + +---- + + + | MCHC | 34.0Comment: Testing | 32. 0 - 35.5 | EXTERNAL | | | | performed at [facility], [address] | g/d L | LAB | | | | [address], | | | | | | [place] [address] | | | | + + +---- + + + | RDW-CV | 67.4 (H)Comment: Testing | 37 - 53 fl | EXTERNAL | | | | performed at [facility], [address] | | LAB | | | | [address], | | | | | | [place] [address] | | | | + + +---- + + + | Platelet | 169Comment: Testing | 150 - 400 K/uL | EXTERNAL | | | Count | performed at [facility], [address] | | LAB | | | Plasma | [address], | | | | | | [place] [address] | | | | + + +---- + + + | MPV | 8.9Comment: Testing | fl | EXTERNAL | | | | performed at [facility], [address] | | LAB | | | | [address], | | | | | | [place] [address] | | | | + + +---- + + + | Differentia | AUTOMATEDComment: | | EXTERNAL | | | l Type | Testing performed at | | LAB | | | | [facility], [address] | | | | | | [place] | | | | | | [address] | | | | + + +---- + + + | % Segmented | 58.36Comment: Testing | % | EXTERNAL | | | | performed at [facility], [address] | | LAB | | | Neutrophils | [address], | | | | | | [place] [address] | | | | + + +---- + + + | % | 28.33Comment: Testing | % | EXTERNAL | | | Lymphocytes | performed at [facility], [address] | | LAB | | | | [address], | | | | | | [place] [address] | | | | + + +---- + + + | % Monocytes | 8.15Comment: Testing | % | EXTERNAL | | | | performed at [facility], [address] | | LAB | | | | [address], | | | | | | [place] [address] | | | | + + +---- + + + | % | 2.76Comment: Testing | % | EXTERNAL | | | Eosinophils | performed at [facility], [address] | | LAB | | | | [address], | | | | | | [place] [address] | | | | + + +---- + + + | % Basophils | 2.40Comment: Testing | % | EXTERNAL | | | | performed at [facility], [address] | | LAB | | | | [address], | | | | | | [place] [address] | | | | + + +---- + + + | Absolute | 4.34Comment: Testing | 1.9 0 - 7.40 | EXTERNAL | | | Segmented | performed at [facility], [address] | K/u L | LAB | | | Neutrophils | [address], | | | | | | [place] [address] | | | | + + +---- + + + | Absolute | 2.11Comment: Testing | 1.0 0 - 3.90 | EXTERNAL | | | Lymphocytes | performed at [facility], [address] | K/u L | LAB | | | | [address], | | | | | | [place] [address] | | | | + + +---- + + + | Absolute | 0.61Comment: Testing | 0.0 0 - 0.80 | EXTERNAL | | | Monocytes | performed at [facility], [address] | K/u L | LAB | | | | [address], | | | | | | [place] [address] | | | | + + +---- + + + | Absolute | 0.21Comment: Testing | 0.0 0 - 0.50 | EXTERNAL | | | Eosinophils | performed at [facility], [address] | K/u L | LAB | | | | [address], | | | | | | [place] [address] | | | | + + +---- + + + | Absolute | 0.18 (H)Comment: Testing | 0.0 0 - 0.10 | EXTERNAL | | | Basophils | performed at [facility], [address] | [address] | LAB | | | | [address], | | | | | | [place] [address] | | | | + + +---- + + + | RBC | 3+Comment: | | EXTERNAL | | | Morphology | ANISO3+MACRONORMAL PLT | | LAB | | | | MORPHTesting performed | | | | | | at [facility], [address] | | | | | | [facility], | | | | | | [place] [address] | | | | | |Testing performed at [facility], [address] [facility], [place] [address] | | | | | | | [...] | | | | | [place] [address] | | | | + + + [...] | | | | | [place] [address] | | | | + + + [...] | | | | | [place] [address] | | | | + + + + + + | K | 3.6Comment: Testing | 3.5 - 4.9 | EXTERNAL | | | | performed at [facility], [address] | mmol/L | LAB | | | | [address], | | | | | | [place] [address] | | | | + + + + + + | Cl | 108Comment: Testing | 99 - 109 mmol/L | EXTERNAL | | | | performed at [facility], [address] | | LAB | | | | [address], | | | | | | [place] [address] | | | | + + + + + + | CO2 | 24Comment: Testing | 23 - 32 mmol/L | EXTERNAL | | | | performed at [facility], [address] | | LAB | | | | [address], | | | | | | [place] [address] | | | | + + + + + + | Anion Gap | 8Comment: Testing | 5 - 20 mmol/L | EXTERNAL | | | | performed at [facility], [address] | | LAB | | | | [address], | | | | | | [place] [address] | | | | + + + + + + | Glucose, | 106 (H)Comment: Testing | 65 - 99 mg/dL | EXTERNAL | | | Fasting | performed at [facility], [address] | | LAB | | | | [address], | | | | | | [place] [address] | | | | + + + + + + | BUN | 18Comment: Testing | 8 - 25 mg/dL | EXTERNAL | | | | performed at [facility], [address] | | LAB | | | | [address], | | | | | | [place] [address] | | | | + + + + + + | Creatinine | 1.07Comment: Testing | 0.70 - 1.30 | EXTERNAL | | | | performed at [facility], [address] | mg/dL | LAB | | | | [address], | | | | | | [place] [address] | | | | + + + + + + | BUN/Creatin | 17Comment: Testing | | EXTERNAL | | | ine Ratio | performed at [facility], [address] | | LAB | | | | [address], | | | | | | [place] [address] | | | | + + + + + + | Calcium | 7.6 (L)Comment: Testing | 8.5 - 10.5 | EXTERNAL | | | | performed at [facility], [address] | mg/dL | LAB | | | | [address], | | | | | | [place] [address] | | | | + + + [...] | | | | | | at [facility], [address] | | | | | | [address], | | | | | | [place] [address] | | | | + + + [...] | | | | | performed at [facility];[address] | | | | | | [address];[place] | | | | | | [address] | | | | + + + [...] EXTERNAL | | | | performed at [facility];[address] | | LAB | | | | [address];[place], [place] | | | | | | [address] | | | | + + + [...] | | | | | | ACUTE DE Testing | | | | | | performed at [facility] | | | | | | [address];[place], [place] | | | | | | [address] | | | | + + + [...] ON | | | | | | [id number] | | | | | | performed at [facility];[address] | | | | | | [address];[place], [place] | | | | | | [address] | | | | + + + [...] EXTERNAL | | | | performed at [facility];[address] | | LAB | | | | [address];[place], [place] | | | | | | [address] | | | | + + + [...] EXTERNAL | | | | performed at [facility];[address] | | LAB | | | | [address];[place] | | | | | | [address] | | | | + + + [...] | | | Patient | performed at [facility] | | LAB | | | | [address];[place], [place] | | | | | | [address] | | | | + + + [...] | | | | | performed at [facility];[address] | | | | | | [address] [facility];[place], [place] | | | | | | [address] | | | | + + + [...] | | | Excursion: 2.32 cm E-F Som[place]: 0.05 m/s EPSS: 0.17 cm HR: | [...] 0.41 m/s | | | TV Dec [place]: 5.99 m/s2 TV Dec Time: 100.12 ms TV E Berhane: | | | 0.60 m/s TV E/A Ratio: 1.46 Community Nurse: CATHY Authenticated by: | | | Robbin Main MD, FACC, FACP, FASDE Report Date/Time: 11-05-2014 | | | 16:23:42 [...] (A-L): 20.24 ml/m2LAAs A2C: | | 17.34 [id number] A-L A2C: 47.08 mlLAESV MOD A2C: 45.86 mlLALs A2C: 5.42 cmLAAs A4C: | | 13.53 [id number] A-L A4C: 31.42 mlLAESV MOD A4C: 28.69 mlLALs A4C: 4.97 cmAo Diam: | | 3.57 cmAV Cusp: 1.83 cmLA Diam: 3.74 cmLA/Ao: 1.04D-E Excursion: 2.32 cmE-F | | Somervell: 0.05 m/sEPSS: 0.17 cmHR: 76.05 BPMAV maxP.47 mmHgAV meanP.19 | | mmHgAV Vmax: 1.53 m/Dae Vmean: 1.05 m/Dae VTI: 34.60 cmAVA Vmax: 2.08 cm2AVA | | (VTI): 1.98 jm8GPMR Dopp: 2.79 l/euhi6YSRW Dopp: 5.53 l/minHR: 80.65 BPMLVOT | | [...] A | | Berhane: 0.41 m/sTV Dec [place]: 5.99 m/s2TV Dec Time: 100.12 msTV E [place]: 0.60 m/sTV | | E/A Ratio: 1.46 Community Nurse: GDAuthenticated by: Robbin Main MD, FACC, FACP, [...] | |D-E Excursion: 2.32 cm | |E-F [place]: 0.05 m/s | |EPSS: 0.17 cm | [...] A Berhane: 0.41 m/s | |TV Dec Som[place]: 5.99 m/s2 | |TV Dec Time: 100.12 ms | |TV E [place]: 0.60 m/s | |TV E/A Ratio: 1.46 | | | |Community Nurse: GD | |Authenticated by: Robbin Main MD, FACC, FACP, FASDE | |Report Date/Time: 11-05-2014 16:23:42 | | [...] EXTERNAL | | | | performed at [facility];[address] | | LAB | | | | [address] [facility];[place], [place] | | | | | | [address] | | | | + + + [...] | | | | | | ACUTE DE Testing | | | | | | performed at [facility];[address] | | | | | | [address];[place], [place] | | | | | | [address] | | | | + + + [...] EXTERNAL | | | | performed at [facility];[address] | mmol/L | LAB | | | | [address];[place], [place] | | | | | | [address] | | | | + + + [...] LAB | | | | performed at [facility];[address] | | | | | | [address];[place] | | | | | | [address] | | | | + + + [...] | | | | | | [place] [address] | | | | + + + + + + | T3, Total | 145Comment: Testing | 80 - 200 ng/dL | EXTERNAL | | | | performed at [facility], [address] | | LAB | | | | [address] | | | | | | [place] [address] | | | | + + + [...] EXTERNAL | | | | performed at [facility] | | LAB | | | | [facility], [place] | | | | | | [address] | | | | + + + [...] | | | | | | at [facility];[address] [place] [address] | | | | | | Blvd;[place] [address] | | | | + + + [...] EXTERNAL | | | | performed at [facility];[address] | | LAB | | | | [address];[place], [place] | | | | | | [address] | | | | + + + [...] | | | | | | ACUTE DE Testing | | | | | | performed at [facility];[address] | | | | | | [address] [facility];[place], [place] | | | | | | [address] | | | | + + + [...] EXTERNAL | | | | performed at [facility];[address] | K/uL | LAB | | | | [address];[place] | | | | | | [address] | | | | + + + + + + | Non- | 3.17 (L)Comment: Testing | 4.20 - 5.70 | EXTERNAL | | | Red Blood | performed at [facility];[address] | M/uL | LAB | | | Cells | [address];[place] | | | | | Counted | [address] | | | | + + + + + + | Hemoglobin | 12.9 (L)Comment: Testing | 13.2 - 17.0 | EXTERNAL | | | | performed at [facility];[address] | g/dL | LAB | | | | [address];[place] | | | | | | [address] | | | | + + + + + + | Hematocrit, | 38.5 (L)Comment: Testing | 39.0 - 50.0 % | EXTERNAL | | | POC | performed at [facility];[address] | | LAB | | | | [address];[place] | | | | | | [address] | | | | + + + + + + | MCV | 121.4 (H)Comment: | 80.0 - 100.0 fl | EXTERNAL | | | | Testing performed at | | LAB | | | | [facility];[address] | | | | | | [address];[place] [address] | | | | + + + + + + | MCH | 40.9 (H)Comment: Testing | 27.0 - 34.0 pg | EXTERNAL | | | | performed at [facility];[address] | | LAB | | | | [address];[place] | | | | | | [address] | | | | + + + + + + | MCHC | 33.7Comment: Testing | 32.0 - 35.5 | EXTERNAL | | | | performed at [facility];[address] | g/dL | LAB | | | | [address];[place] | | | | | | [address] | | | | + + + + + + | RDW-CV | 70.0 (H)Comment: Testing | 37 - 53 fl | EXTERNAL | | | | performed at [facility];[address] | | LAB | | | | [address];[place] | | | | | | [address] | | | | + + + + + + | Platelet | 152Comment: Testing | 150 - 400 K/uL | EXTERNAL | | | Count | performed at [facility];[address] | | LAB | | | Plasma | [address];[place] | | | | | | [address] | | | | + + + + + + | MPV | 8.3Comment: Testing | fl | EXTERNAL | | | | performed at [facility];[address] | | LAB | | | | [address];[place] | | | | | | [address] | | | | + + + + + + | Differentia | MANUALComment: Testing | | EXTERNAL | | | l Type | performed at [facility];[address] | | LAB | | | | [address];[place] | | | | | | [address] | | | | + + + + + + | Segmented | 67Comment: Testing | % | EXTERNAL | | | Neutrophils | performed at [facility];[address] | | LAB | | | Manual | [address];[place] | | | | | | [address] | | | | + + + + + + | Lymphocytes | 26Comment: Testing | % | EXTERNAL | | | Manual | performed at [facility];[address] | | LAB | | | | [address];[place] | | | | | | [address] | | | | + + + + + + | Monocytes | 3Comment: Testing | % | EXTERNAL | | | Manual | performed at [facility];[address] | | LAB | | | | [address];[place] | | | | | | [address] | | | | + + + + + + | Eosinophils | 4Comment: Testing | % | EXTERNAL | | | Manual | performed at [facility];[address] | | LAB | | | | [address];[place] | | | | | | [address] | | | | + + + + + + | Absolute | 6.20Comment: Testing | 1.90 - 7.40 | EXTERNAL | | | Neutrophils | performed at [facility];[address] | K/uL | LAB | | | | [address];[place] | | | | | | [address] | | | | + + + + + + | Absolute | 2.41Comment: Testing | 1.00 - 3.90 | EXTERNAL | | | Lymphocytes | performed at [facility];[address] | K/uL | LAB | | | | [address];[place] | | | | | | [address] | | | | + + + + + + | Absolute | 0.28Comment: Testing | 0.00 - 0.80 | EXTERNAL | | | Monocytes | performed at [facility];[address] | K/uL | LAB | | | | [address];[place] | | | | | | [address] | | | | + + + + + + | Absolute | 0.37Comment: Testing | 0.00 - 0.50 | EXTERNAL | | | Eosinophils | performed at [facility];[address] | K/uL | LAB | | | | [address];[place] | | | | | | [address] | | | | + + + + + + | RBC | 3+Comment: | | EXTERNAL | | | Morphology | MACRO2+ANISO2+POIKNORMAL | | LAB | | | | PLT MORPHTesting | | | | | | performed at [facility];[address] | | | | | | [address];[place], [place] | | | | | | [address] | | | | | |POIK | | | | | |NORMAL PLT MORPH | | | | | |Testing performed at [facility];[address];[place] [address] | | | | | | | [...] EXTERNAL | | | | performed at [facility];[address] | uIU/mL | LAB | | | | [address];[place], [place] | | | | | | [address] | | | | + + + [...] | | | (REF) | performed at [facility], [address] | | LAB | | | | [address], | | | | | | [place] [address] | | | | + + + [...] | | | | performed at [facility], [address] | | LAB | | | | [address], | | | | | | [place] [address] | | | | + + + [...] EXTERNAL | | | | performed at [facility];[address] | | LAB | | | | [address] [facility];[place], [place] | | | | | | [address] | | | | + + + [...] | | | | | [place] [address] | | | | + + + [...] + + | Hemoglobin | 5.0Comment: The Macedonian | 4.0 - 6.0 % | EXTERNAL [...] | | | | | performed at [facility], [address] | | | | | [address], | | | | | | [place] [address] | | | | + + + [...] | | | | | performed at [facility], [address] | | | | | | [address], | | | | | | [place] [address] | | | | + + + [...] + + | Hemoglobin | 5.0Comment: The Macedonian | 4.0 - 6.0 % | EXTERNAL [...] | | | | | performed at [facility], [address] | | | | | [address], | | | | | | [place] [address] | | | | + + + [...] | | | | | performed at [facility], [address] | | | | | | [address], | | | | | | [place] [address] | | | | + + + [...] EXTERNAL | | | | performed at [facility];[address] | | LAB | | | | [address];[place] | | | | | | [address] | | | | + + + [...] | | | | | [place] [address] | | | | + + + + + + | Triglycerid | 101Comment: Testing | mg/dL | EXTERNAL | | | es | performed at [facility], [address] | | LAB | | | | [address], | | | | | | [place] [address] | | | | + + + + + + | HDL | 24 (L)Comment: Testing | mg/dL | EXTERNAL | | | | performed at [facility], [address] | | LAB | | | | [address], | | | | | | [place] [address] | | | | + + + + + + | LDL, | 52Comment: Testing | mg/dL | EXTERNAL | | | Calculated | performed at [facility], [address] | | LAB | | | | [address], | | | | | | [place] [address] | | | | + + + [...] | | | | | [place] [address] | | | | + + + + + + | K | 4.1Comment: Testing | 3.5 - 4.9 | EXTERNAL | | | | performed at [facility], [address] | mmol/L | LAB | | | | [address], | | | | | | [place] [address] | | | | + + + + + + | Cl | 108Comment: Testing | 99 - 109 mmol/L | EXTERNAL | | | | performed at [facility], [address] | | LAB | | | | [address], | | | | | | [place] [address] | | | | + + + + + + | CO2 | 22 (L)Comment: Testing | 23 - 32 mmol/L | EXTERNAL | | | | performed at [facility], [address] | | LAB | | | | [address], | | | | | | [place] [address] | | | | + + + + + + | Anion Gap | 11Comment: Testing | 5 - 20 mmol/L | EXTERNAL | | | | performed at [facility], [address] | | LAB | | | | [address], | | | | | | [place] [address] | | | | + + + + + + | Glucose, | 100 (H)Comment: Testing | 65 - 99 mg/dL | EXTERNAL | | | Fasting | performed at [facility], [address] | | LAB | | | | [address], | | | | | | [place] [address] | | | | + + + + + + | BUN | 25Comment: Testing | 8 - 25 mg/dL | EXTERNAL | | | | performed at [facility], [address] | | LAB | | | | [address], | | | | | | [place] [address] | | | | + + + + + + | Creatinine | 1.99 (H)Comment: Testing | 0.70 - 1.30 | EXTERNAL | | | | performed at [facility], [address] | mg/dL | LAB | | | | [address], | | | | | | [place] [address] | | | | + + + + + + | BUN/Creatin | 13Comment: Testing | | EXTERNAL | | | ine Ratio | performed at [facility], [address] | | LAB | | | | [address], | | | | | | [place] [address] | | | | + + + + + + | Calcium | 7.6 (L)Comment: Testing | 8.5 - 10.5 | EXTERNAL | | | | performed at [facility], [address] | mg/dL | LAB | | | | [address], | | | | | | [place] [address] | | | | + + + [...] | | | | | [place] [address] | | | | + + + [...] EXTERNAL | | | | performed at [facility];[address] | | LAB | | | | [facility];[place], [place] | | | | | | [address] | | | | + + + [...] | | | | | | ACUTE DE Testing | | | | | | performed at [facility] | | | | | | [facility];[place], [place] | | | | | | [address] | | | | + + + [...] EXTERNAL | | | | performed at [facility];[address] | | LAB | | | | [address];[place], [place] | | | | | | [address] | | | | + + + [...] 7:16AM Referring Provider Line: | | | [phone] ID: [id number] | | + + + + + + | Narrative | Performed At | + + + | EXAM: CAROTID DOPPLER ULTRASOUND EXAM DATE: 11/04/2014 11:37 PM. | | | CLINICAL HISTORY: Syncope. COMPARISON: None. TECHNIQUE: | | | Real-time sonographic vascular imaging was performed by the | | | investment advisor through the carotid arterial system with a linear | | | transducer utilizing color-flow, Doppler flow and spectral analysis. | | | Multiple bank representative static images were saved for review. [...] sonographic vascular imaging was performed by the investment advisor through the | | carotid arterial system with a linear transducer utilizing color-flow, Doppler flow and | | spectral analysis. Multiple bank representative static images were saved for review. [...] 2014 7:16AM Referring Provider Line: | | [phone] ID: [id number] | |ICA/CCA Ratio: 1.0, 1.7. [...] 05 2014 7:16AM Referring Provider Line: [phone] ID: [id number] | + + XR Chest [...] GROWTH | | | Testing performed at [facility], [address] | | | [place] [address] | | + + + + +---------+ [...] GROWTH | | | Testing performed at [facility], | | | [address] [place] [address] | | + + + + +---------+ [...] GROWTH | | | Testing performed at [facility], | | | [address] [place] [place] [address] | | + + + + +---------+ [...] EXTERNAL | | | | performed at [facility] | | LAB | | | | [address];[place] | | | | | | [address] | | | | + + + [...] | | | | | | at [facility];[address] | | | | | [address];[place] [address] | | | | + + + [...] | | | Patient | performed at [facility];[address] | | LAB | | | | [address];[place], [place] | | | | | | [address] | | | | + + + [...] | | | | | performed at [facility];[address] | | | | | | [facility] [facility];[place], [place] | | | | | | [address] | | | | + + + [...] EXTERNAL | | | | performed at [facility];[address] | K/uL | LAB | | | | [address];[place] | | | | | | [address] | | | | + + + + + + | Non- | 3.13 (L)Comment: Testing | 4.20 - 5.70 | EXTERNAL | | | Red Blood | performed at [facility];[address] | M/uL | LAB | | | Cells | [address];[place] | | | | | Counted | [address] | | | | + + + + + + | Hemoglobin | 13.1 (L)Comment: Testing | 13.2 - 17.0 | EXTERNAL | | | | performed at [facility];888 | g/dL | LAB | | | | [address];[place] | | | | | | [address] | | | | + + + + + + | Hematocrit, | 37.8 (L)Comment: Testing | 39.0 - 50.0 % | EXTERNAL | | | POC | performed at [facility];[address] | | LAB | | | | [address];[place] | | | | | | [address] | | | | + + + + + + | MCV | 120.8 (H)Comment: | 80.0 - 100.0 fl | EXTERNAL | | | | Testing performed at | | LAB | | | | [facility];[address];[place] [address] | | | | + + + + + + | MCH | 41.7 (H)Comment: Testing | 27.0 - 34.0 pg | EXTERNAL | | | | performed at [facility];[address] | | LAB | | | | [address];[place] | | | | | | [address] | | | | + + + + + + | MCHC | 34.5Comment: Testing | 32.0 - 35.5 | EXTERNAL | | | | performed at [facility];888 | g/dL | LAB | | | | [address];[place] | | | | | | [address] | | | | + + + + + + | RDW-CV | 70.0 (H)Comment: Testing | 37 - 53 fl | EXTERNAL | | | | performed at [facility];[address] | | LAB | | | | [address];[place] | | | | | | [address] | | | | + + + + + + | Platelet | 175Comment: Testing | 150 - 400 K/uL | EXTERNAL | | | Count | performed at [facility];[address] | | LAB | | | Plasma | [address];[place] | | | | | | [address] | | | | + + + + + + | MPV | 8.5Comment: Testing | fl | EXTERNAL | | | | performed at [facility];[address] | | LAB | | | | [address];[place] | | | | | | [address] | | | | + + + + + + | Differentia | AUTOMATEDComment: | | EXTERNAL | | | l Type | Testing performed at | | LAB | | | | [facility];[address];[place] [address] | | | | + + + + + + | % Segmented | 82.55Comment: Testing | % | EXTERNAL | | | | performed at [facility];[address] | | LAB | | | Neutrophils | [address];[place] | | | | | | [address] | | | | + + + + + + | % | 9.73Comment: Testing | % | EXTERNAL | | | Lymphocytes | performed at [facility];[address] | | LAB | | | | [address];[place] | | | | | | [address] | | | | + + + + + + | % Monocytes | 6.79Comment: Testing | % | EXTERNAL | | | | performed at [facility];[address] | | LAB | | | | [address];[place] | | | | | | [address] | | | | + + + + + + | % | 0.33Comment: Testing | % | EXTERNAL | | | Eosinophils | performed at [facility];[address] | | LAB | | | | [address];[place] | | | | | | [address] | | | | + + + + + + | % Basophils | 0.60Comment: Testing | % | EXTERNAL | | | | performed at [facility];[address] | | LAB | | | | [address];[place] | | | | | | [address] | | | | + + + + + + | Absolute | 8.46 (H)Comment: Testing | 1.90 - 7.40 | EXTERNAL | | | Segmented | performed at [facility];[address] | K/uL | LAB | | | Neutrophils | [address];[place] | | | | | | [address] | | | | + + + + + + | Absolute | 1.00Comment: Testing | 1.00 - 3.90 | EXTERNAL | | | Lymphocytes | performed at [facility];[address] | K/uL | LAB | | | | [address];[place] | | | | | | [address] | | | | + + + + + + | Absolute | 0.70Comment: Testing | 0.00 - 0.80 | EXTERNAL | | | Monocytes | performed at [facility];[address] | K/uL | LAB | | | | [address];[place] | | | | | | [address] | | | | + + + + + + | Absolute | 0.03Comment: Testing | 0.00 - 0.50 | EXTERNAL | | | Eosinophils | performed at [facility];[address] | K/uL | LAB | | | | [address];[place] | | | | | | [address] | | | | + + + + + + | Absolute | 0.06Comment: Testing | 0.00 - 0.10 | EXTERNAL | | | Basophils | performed at [facility];888 | K/uL | LAB | | | | Joel Ayon;[place] | | | | | | [address] | | | | + + + + + + | RBC | 3+Comment: | | EXTERNAL | | | Morphology | ANISO4+MACRO1+POIKTestin | | LAB | | | | g performed at [facility];888 | | | | | | Joel Ayon;[place] | | | | | | [address] | | | | | |1+ | | | | | |POIK | | | | | |Testing performed at [facility];[address];[place] [address] | | | | | | | [...] | | | Alcohol | performed at [facility];888 | | LAB | | | | [address] A[address];[place], [place] | | | | | | [address] | | | | + + + [...] | | | Total | performed at [facility];888 | | LAB | | | | [address];[place] | | | | | | [address] | | | | + + + + + + | Albumin | 2.3 (L)Comment: Testing | 3.3 - 4.8 g/dL | EXTERNAL | | | | performed at [facility];888 | | LAB | | | | [address];[place] | | | | | | [address] | | | | + + + + + + | Bilirubin | 0.4Comment: Testing | 0.1 - 1.5 mg/dL | EXTERNAL | | | Total | performed at [facility];888 | | LAB | | | | [address];[place] | | | | | | [address] | | | | + + + + + + | Bilirubin | 0.2Comment: Testing | 0.0 - 0.3 mg/dL | EXTERNAL | | | Direct | performed at [facility];888 | | LAB | | | | [address];[place] | | | | | | [address] | | | | + + + + + + | ALP, | 111Comment: Testing | 35 - 115 U/L | EXTERNAL | | | External | performed at [facility];888 | | LAB | | | | [address];[place] | | | | | | [address] | | | | + + + + + + | AST | 34Comment: Testing | 10 - 45 U/L | EXTERNAL | | | | performed at [facility];888 | | LAB | | | | [address];[place] | | | | | | [address] | | | | + + + + + + | ALT | 18Comment: Testing | 10 - 65 U/L | EXTERNAL | | | | performed at [facility];888 | | LAB | | | | [address];[place], [place] | | | | | | [address] | | | | + + + [...] EXTERNAL | | | | performed at [facility];888 | mmol/L | LAB | | | | [address];[place] | | | | | | [address] | | | | + + + + + + | K | 4.1Comment: Testing | 3.5 - 4.9 | EXTERNAL | | | | performed at [facility];888 | mmol/L | LAB | | | | [address];[place] | | | | | | [address] | | | | + + + + + + | Cl | 106Comment: Testing | 99 - 109 mmol/L | EXTERNAL | | | | performed at [facility];888 | | LAB | | | | [address];[place] | | | | | | [address] | | | | + + + + + + | CO2 | 23Comment: Testing | 23 - 32 mmol/L | EXTERNAL | | | | performed at [facility];888 | | LAB | | | | [address];[place] | | | | | | [address] | | | | + + + + + + | Anion Gap | 15Comment: Testing | 5 - 20 mmol/L | EXTERNAL | | | | performed at [facility];888 | | LAB | | | | [address];[place] | | | | | | [address] | | | | + + + + + + | Glucose, | 117 (H)Comment: Testing | 65 - 99 mg/dL | EXTERNAL | | | Fasting | performed at [facility];888 | | LAB | | | | [address];[place] | | | | | | [address] | | | | + + + + + + | BUN | 24Comment: Testing | 8 - 25 mg/dL | EXTERNAL | | | | performed at [facility];888 | | LAB | | | | [address];[place] | | | | | | [address] | | | | + + + + + + | Creatinine | 2.90 (H)Comment: Testing | 0.70 - 1.30 | EXTERNAL | | | | performed at [facility];888 | mg/dL | LAB | | | | [address];[place] | | | | | | [address] | | | | + + + + + + | BUN/Creatin | 8Comment: Testing | | EXTERNAL | | | ine Ratio | performed at [facility];888 | | LAB | | | | [address];[place] | | | | | | [address] | | | | + + + + + + | Calcium | 7.6 (L)Comment: Testing | 8.5 - 10.5 | EXTERNAL | | | | performed at [facility];888 | mg/dL | LAB | | | | [address];[place], [place] | | | | | | [address] | | | | + + + [...] | | | | | | at [facility];[address] [place] [address] | | | | | | Blvd;[place] [address] | | | | + + + [...] | | | Screen, | performed at [facility];88 | | | | | UA, POC | [facility];[place], [place] | | | | | | [address] | | | | + + + + + + | Barbiturate | NEGATIVEComment: | | EXTERNAL | | | s Screen, | Positive cutoff for | | LAB | | | Urine | MEGAN = 200 ng/mLTesting | | | | | | performed at [facility];888 | | | | | | [address];[place] | | | | | | [address] | | | | + + + + + + | Benzodiazep | NEGATIVEComment: | | EXTERNAL | | | donald | Positive cutoff for | | LAB | | | Screen, | BENZO = 200 ng/mLTesting | | | | | Urine | performed at [facility];888 | | | | | | [address];[place] | | | | | | [address] | | | | + + + + + + | Cocaine | NEGATIVEComment: | | EXTERNAL | | | | Positive cutoff for | | LAB | | | | JOURDAN = 300 ng/mLTesting | | | | | | performed at [facility];888 | | | | | | [address];[place] | | | | | | [address] | | | | + + + + + + | Methadone | NEGATIVEComment: | | EXTERNAL | | | | Positive cutoff for | | LAB | | | | MTD = 300 ng/mLTesting | | | | | | performed at [facility];8 | | | | | | [address];[place] | | | | | | [address] | | | | + + + + + + | Opiates | POSITIVE (A)Comment: | | EXTERNAL | | | | Positive cutoff for | | LAB | | | | OPI = 300 ng/mLTesting | | | | | | performed at [facility];888 | | | | | | [address];[place] | | | | | | [address] | | | | + + + + + + | PCP | NEGATIVEComment: | | EXTERNAL | | | | Positive cutoff for PCP | | LAB | | | | = 25 ng/mLTesting | | | | | | performed at [facility];888 | | | | | | [address];[place] | | | | | | [address] | | | | + + + [...] | | | | | performed at [facility] | | | | | | [facility];[place], [place] | | | | | | [address] | | | | + + + [...] EXTERNAL | | | | performed at [facility];888 | | LAB | | | | [address];[place] | | | | | | [address] | | | | + + + + + + | RBC, UA | 1-5Comment: Testing | 0 - 2 /hpf | EXTERNAL | | | | performed at [facility];888 | | LAB | | | | [address];[place] | | | | | | [address] | | | | + + + + + + | Epithelial | 1-5Comment: Testing | /lpf | EXTERNAL | | | Cells | performed at [facility];888 | | LAB | | | | [address];[place] | | | | | | [address] | | | | + + + + + + | Bacteria, | TRACE (A)Comment: | | EXTERNAL | | | UA | Testing performed at | | LAB | | | | [facility];[address] | | | | [address];[place] [address] | | | | + + + + + + | Urinalysis | LESS THAN 10 ML | | EXTERNAL | | | Comments | SPECIMENComment: Testing | | LAB | | | | performed at [facility];888 | | | | | | [address];[place] | | | | | | [address] | | | | + + + [...] EXTERNAL | | | | performed at [facility];888 | | LAB | | | | [address];[place] | | | | | | [address] | | | | + + + + + + | Clarity, | CLEARComment: Testing | | EXTERNAL | | | Urine | performed at [facility];888 | | LAB | | | | [address];[place] | | | | | | [address] | | | | + + + + + + | Specific | 1.015Comment: Testing | 1.001 - 1.035 | EXTERNAL | | | [place], | performed at [facility];888 | | LAB | | | Urine | [address];[place] | | | | | | [address] | | | | + + + + + + | Leukocyte | NEGATIVEComment: Testing | | EXTERNAL | | | Esterase, | performed at [facility];888 | | LAB | | | Urine | [address];[place] | | | | | | [address] | | | | + + + + + + | Nitrite, | NEGATIVEComment: Testing | | EXTERNAL | | | Urine | performed at [facility];888 | | LAB | | | | [address];[place] | | | | | | [address] | | | | + + + + + + | Urobilinoge | 0.2Comment: Testing | mg/dL | EXTERNAL | | | n, Urine | performed at [facility];888 | | LAB | | | | [address];[place] | | | | | | [address] | | | | + + + + + + | Protein, | 100 (A)Comment: Testing | mg/dL | EXTERNAL | | | Urine | performed at [facility];888 | | LAB | | | | [address];[place] | | | | | | [address] | | | | + + + + + + | pH, Urine | 6.5Comment: Testing | 4.6 - 8.0 | EXTERNAL | | | | performed at [facility];888 | | LAB | | | | [address];[place] | | | | | | [address] | | | | + + + + + + | Blood, | SMALL (A)Comment: | | EXTERNAL | | | Urine | Testing performed at | | LAB | | | | [facility];[address] | | | | [address];[place] [address] | | | | + + + + + + | Ketones | NEGATIVEComment: Testing | mg/dL | EXTERNAL | | | | performed at [facility];888 | | LAB | | | | [address];[place] | | | | | | [address] | | | | + + + + + + | Bilirubin, | NEGATIVEComment: Testing | | EXTERNAL | | | Urine | performed at [facility];888 | | LAB | | | | [address];[place] | | | | | | [address] | | | | + + + + + + | Glucose, | NEGATIVEComment: Testing | mg/dL | EXTERNAL | | | Urine | performed at [facility];888 | | LAB | | | | [address];[place] | | | | | | [address] | | | | + + + [...] EXTERNAL LAB | | Testing performed at [facility];[address] [place] [address];[place] [address] MRSA PCR | | | NEGATIVE Testing performed at | | | [address];[place] [address] | | + + + + +---------+ [...]
--- OUTSIDE RECORDS SUMMARY | ~2020-03-14 | XMS | Encounter Summary ---
Demographics + + + | Address | [address] | | | [place] [address] | + + + | Home Phone | | + + + | Preferred Language | Unknown | + + + | Marital Status | | + + + | Christianity Affiliation | PRO | + + + | Race | White | + + + | Ethnic Group | Not or | + + + Author + + + | Author | [facility] | + + + | Organization | [facility] | + + + | Address | Unknown | + + + | Phone | Unavailable | + + + Support + + + + + | Name | Relationship | Address | Phone | + + + + + | Marnie Payne | ECON | [address] | | | | | [place] | | | | | [address] | | + + + + + Care Team Providers + +------+ + | Care Sponge Buffer Name | Role | Phone | + [...] [facility] | | | | | | [address] | | | | | | [address] | | | | | | [address], [address] | | | | | | [place], [place] | | | | | | [address] | | | | | | [phone] | | | +--------+ + + + [...] | | | | | | and cty-kexwow-nobnuxn | | | | | | alignment [...] | | + +---------+ + + | [facility] DEPARTMENT OF | | | | | RADIOLOGY | | | | + +---------+ + + documented in this encounter Visit Diagnoses + + | Diagnosis | + + | Psoriasis Other psoriasis | + + | Arthritis Arthropathy, unspecified, site unspecified | + + documented in this encounter"
--- OUTSIDE RECORDS SUMMARY | ~2020-03-14 | XMS | Encounter Summary ---
Demographics + + + | Address | [address] | | | [place] [address] | + + + | Home Phone [...] [place] | | | | | [address] | | + + + + + Care Team Providers + +------+ + | Care Sand Buffer Name | Role | Phone | [...] [facility] | | | | | | [address] | | | | | | [address] | | | | | | [address], [address] | | | | | | [place], [place] | | | | | | [address] | | | | | | [phone] | | | +--------+ + + + [...]
--- OUTSIDE RECORDS SUMMARY | ~2020-03-14 | XMS | Encounter Summary ---
Demographics + + + | Address | [address] | | | [place] [address] | + + + | Home Phone | | + + + | Preferred Language | Unknown | + + + | Marital Status | | + + + | Pentecostal Affiliation | PRO | + + + [...] [place] | | | | | [address] | | + + + + + Care Team Providers + +------+ + | Care Director Of Event Sales Name | Role | Phone | + [...] [facility] | | | | | | [address] | | | | | | [address] [facility] | | | | | | [address], [address] | | | | | | [place], [place] | | | | | | [address] | | | | | | [phone] | | | +--------+ + + + [...] | | | | | | and zig-mfuzey-tmlwudw | | | | | | alignment [...] ERICA | | | | | | IGLL CAMPuthor: | | | | | | [...] | | + +---------+ + + | [facility] DEPARTMENT OF | | | | | RADIOLOGY | | | | + +---------+ + + documented in this encounter Visit Diagnoses + + | Diagnosis | + + | Psoriasis Other psoriasis | + + | Arthritis Arthropathy, unspecified, site unspecified | + + documented in this encounter"
--- OUTSIDE RECORDS SUMMARY | ~2020-03-14 | XMS | Clinical Summary ---
Demographics + + + | Address | [address] | | | [place] [address] | + + + | Home Phone | | + + + | Preferred Language | Unknown | + + + | Marital Status | | + + + | Mandaeism Affiliation | PRO | + + + [...] [place] | | | | | [address] | | + + + + + Care Team Providers + +------+ + | Care Bid Writer Name | Role | Phone | + +------+ + PCP | Unavailable | + +------+ + Source Comments JOAO is fully live on both [facility] and [facility] InPatient.[facility] Allergies No Known Allergies Medications + [...] + +--------+ | MEDICARE | MEDICA | [id number] | 01/07/20 | [phone] | [address] | Medica | | | RE A & | | 15-Pre | 1 | [address] | [address] | | | B | | sent | | [place] | | | | | | | | [address] | | + +--------+ +--------+ + +--------+ | SERVICE TECHNICIAN MEDICAID | SERVICE TECHNICIAN | [id number] | | | | Medica | | [...] | | al/Fam | | 1956 | [phone] | [place] [address] | | | kim | | | 8 (Home) | | + +--------+ +--------+ + + | Khai Payne | Worker | Self | 09/06/ | | [address] | | | s Comp | | 1956 | [phone] | [place] [address] | | | | | | 8 ([employer]) | | + +--------+ +--------+ + +
--- OUTSIDE RECORDS SUMMARY | ~2020-03-14 | XMS | Clinical Summary ---
Demographics + + + | Address | [address] | | | [place] [address] | + + + | Home Phone | | + + + | Preferred Language | Unknown | + + + | Marital Status | | + + + | Amish Affiliation | 1013 | + + + | Race | White | + + + | Ethnic Group | Not or | + + + Author + + + | Author | [facility] | | | and [place] | + + + | Organization | [facility] | | [...] Team Providers + +------+ + | Care Radiopharmacist Name | Role | Phone | + [...] +--------+ +---------+--------+ | MEDICARE | MEDICA | [id number] | 01/07/20 | [phone] | | Medica [...] Yfn | al/Fam | | 1956 | [phone] | [place] [address] | | | kim | | | 8 (Home) | | + +--------+ +--------+ + +"
--- OUTSIDE RECORDS SUMMARY | ~2020-03-14 | XMS | Encounter Summary ---
Demographics + + + | Address | [address] | | | [place] [address] | + + + | Home Phone [...] [place] | | | | | [address] | | + + + + + Care Team Providers + +------+ + | Care Grapple Operator Name | Role | Phone | [...] | | 2007 | | Medical at [facility] [address] | MD | | | | | [address] [facility] | | | | | | for Health and | | | | | | Healing, [address], | | | | | | [address]th Floor | | | | | | [place], [place] | | | | | | [address] | | | | | | [phone] | | | +--------+--------+ + + + [...]
--- OUTSIDE RECORDS SUMMARY | ~2020-03-14 | XMS | Encounter Summary ---
Demographics + + + | Address | [address] | | | [place] [address] | + + + | Home Phone [...] Marnie Payne | ECON | [address] | | | | | [place] | | | | | [address] | | + + + + + Care Team Providers + +------+ + | Care Director Of The Biophysics Facility Name | Role | Phone | + [...] 2006 | | Medical at [facility] [address] | MD | | | | | [address] [facility] | | | | | | for Health and | | | | | | [facility], [address], | | | | | | [address]th Floor | | | | | | [place], [place] | | | | | | [address] | | | | | | [phone] | | | +--------+ + + + [...] our records to workers comp Ananya fax= [phone] Saba Sheffield [facility] Department of Dermatology Resident Physician elephone Encounter - Saba Sheffield - 09/15/2006 4:07 PM PDTSpoke with khai and ananya gonzalez from [employer]. They need a copy of our notes. I am mailing out a release of info sheet to nuno davis and he is to mail back to us.. Ananya fax= [phone] Dr. Saba Sheffield [facility] Department of Dermatology Resident Physician elephone Encounter - Lorri Clarke - 09/15/2006 2:55 PM PDTPt is calling re: the finalizing of the GENE repo rt. Pt is calling to see when information will be sent to [employer] ext [phone] ask for Ananya Gonzalez . They're waiting for the last pieces of informa tion. Thanks documented in this encou nter Plan of Treatment Not on filedocumented as of this encounter Visit Diagnoses Not on filedocumented in this encounter"
--- OUTSIDE RECORDS SUMMARY | ~2020-03-14 | XMS | Encounter Summary ---
Demographics + + + | Address | [address] | | | [place] [address] | + + + | Home Phone [...] [place] | | | | | [address] | | + + + + + Care Team Providers + +------+ + | Care Mash Filter Press Operator Name | Role | Phone | [...] | | 2006 | | Medical at [facility] [address] | MD | | | | | [address] [facility] | | | | | | for Health and | | | | | | Healing, [address], | | | | | | [address]th Floor | | | | | | [place], [place] | | | | | | [address] | | | | | | [phone] | | | +--------+ + + + [...]
--- OUTSIDE RECORDS SUMMARY | ~2020-03-14 | XMS | Encounter Summary ---
Demographics + + + | Address | [address] | | | [place] [address] | + + + | Home Phone | | + + + | Preferred Language | Unknown | + + + | Marital Status | | + + + | Hoahaoism Affiliation | PRO | + + + | Race | White | + + + | Ethnic Group | Not or | + + + Author + + + | Author | [facility] | + + + | Organization | [facility] | + + + [...] [place] | | | | | [address] | | + + + + + Care Team Providers + +------+ + | Care Head Orthopedic Team Physician Name | Role | Phone | + [...] 2006 | | Medical at [facility] [address] | | | | | | [address] [facility] | | | | | | for Health and | | | | | | [facility], [address], | | | | | | [address]th Floor | | | | | | [place], [place] | | | | | | [address] | | | | | | [phone] | | | +--------+ + + + [...]
--- OUTSIDE RECORDS SUMMARY | ~2020-03-14 | XMS | Encounter Summary ---
Demographics + + + | Address | [address] | | | [place] [address] | + + + | Home Phone | | + + + | Preferred Language | Unknown | + + + | Marital Status | | + + + | Anabaptism Affiliation | 1013 | + + + | Race | White | + + + | Ethnic Group | Not or | + + + Author + + + | Author | [facility] | | | and [place] | + + + | Organization | [facility] | | | [...] Team Providers + +------+ + | Care New Car Driver Name | Role | Phone | + +------+ + PCP | Unavailable | + +------+ + Encounter Details +--------+ + + + + | Date | Type | Department | Care Team | Description | +--------+ + + + + | 07/18/ | Hospital | [facility] | Conversion | | | 2015 | Encounter | [facility] | Transaction, | | | | | [address] | Provider Unknown | | | | | [place], [place] | | | | | | [address] | (Fax) | | | | | [phone] | | | +--------+ + + + [...]
--- OUTSIDE RECORDS SUMMARY | ~2020-03-14 | XMS | Encounter Summary ---
Demographics + + + | Address | [address] | | | [place] [address] | + + + | Home Phone [...] [place] | | | | | [address] | | + + + + + Care Team Providers + +------+ + | Care Distributor Operator Name | Role | Phone | [...] | 06/03/ | Office | Dermatology | Ashia Vuong, | Other Psoriasis and | | 2005 | Visit | Medical at [facility] [address] | MD | Similar Disorders; | | | | [facility] | | Erythroderma | | | | for Health and | | | | | | Healing, Building [address], | | | | | | 16th Floor | | | | | | [place], [place] | | | | | | [address] | | | | | | [phone] | | | +--------+---------+ + + + [...] based on his baseline bloodwork and CXR. Filomena Conner Md - 06/03/2006 10:45 AM Jessica complaint: flaring erythrodermic psoriasis S: Kahi Payne is a 50 y.o. 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 [...] Performed At | + + + | [id number] Estimated GFR > 60 mL/min/1.73 sq m if non- | [facility] | | [id number] Estimated GFR > 60 mL/min/1.73 sq m [...] | + + + + + | [facility] | [address] | [place] [address] | | | PATHOLOGY | [address] | | | + + + + + | [facility] DEPARTMENT OF | [address] | [place], [place] [address] | | | PATHOLOGY | [address] | | | + + + + + MAGNESIUM, PLASMA (06/03/2006 11:48 AM PST) + +-------+ + + + | Component | Value | Ref Range | Performed | Pathologist | | | | | At | Signature | + +-------+ + + + | MAGNESIUM,P | 2.3 | 1.8 - 2.5 mg/dL | [facility] | | | LASMA | | | DEPARTMENT | | | | | | OF | | | | | | PATHOLOGY | | + +-------+ + + + + + | Specimen | + + | | + + + + + | Narrative | Performed At | + + + | [id number] Estimated GFR > 60 mL/min/1.73 sq m if non- | [facility] | | [id number] Estimated GFR > 60 mL/min/1.73 sq m [...] | + + + + + | [facility] | [address] [facility] | [place] [address] | | | PATHOLOGY | [address] | | | + + + + + | [facility] | [address] [facility] | [place] [address] | | | PATHOLOGY | [address] [...] Performed At | + + + | [id number] Estimated GFR > 60 mL/min/1.73 sq m if non- | [facility] | | [id number] Estimated GFR > 60 mL/min/1.73 sq m [...] | + + + + + | [facility] | [address] [facility] | [place] [address] | | | PATHOLOGY | [address] | | | + + + + + | [facility] | [address] [facility] | [place] [address] | | | PATHOLOGY | [address] [...] Performed At | + + + | [id number] Estimated GFR > 60 mL/min/1.73 sq m if non- | [facility] | | [id number] Estimated GFR > 60 mL/min/1.73 sq m [...] | + + + + + | [facility] | [facility] | [place] [address] | | | PATHOLOGY | [address] | | | + + + + + | [facility] | [facility] | [place] [address] | | | PATHOLOGY | [address] [...] | [address] | [place] [address] | | | PATHOLOGY | [address] | | | + + + + + | [facility] | [address] | [place] [address] | | | PATHOLOGY | [address] [...] | | AB | Test performed by [facility] | | | | | | [facility] | | | | | | [facility]. | | | | + + + + + + + + | Specimen | + + | | + + + + + + + | Performing | Address | City/State/Zipcode | Phone Number | | Organization | | | | + + + + + | [facility] | [address] | [place] [address] | | | LABORATORY | | | [...] [place] | | | | | [facility], [facility] | [facility] | | | | | | Laboratories. | | | | + + + + + + + + | Specimen | + + | | + + + + + + + | Performing | Address | City/State/Zipcode | Phone Number | | Organization | | | | + + + + + | [facility] | [address] | [place] [address] | | | LABORATORY | | | [...] | + + + + + | [facility] | [address] | [place] [address] | | | LABORATORY | | | [...] | CORE AB, | Test performed by [facility] | | | | | SERUM | [facility] | | | | | | Laboratories. | | | | + + + + + + + + | Specimen | + + | | + + + + + + + | Performing | Address | City/State/Zipcode | Phone Number | | Organization | | | | + + + + + | [facility] | [address] | [place] [address] | | | LABORATORY | | | [...] Performed At | + + + | [id number] Estimated GFR > 60 mL/min/1.73 sq m if non- | [facility] | | [id number] Estimated GFR > 60 mL/min/1.73 sq m [...] | + + + + + | [facility] | [facility] | [place] [address] | | | PATHOLOGY | [address] | | | + + + + + | [facility] | [facility] | [place] [address] | | | PATHOLOGY | [address] [...] Performed At | + + + | [id number] Estimated GFR > 60 mL/min/1.73 sq m if non- | [facility] | | [id number] Estimated GFR > 60 mL/min/1.73 sq m [...] + + + + | [facility] DEPARTMENT OF | [address] | [place] [address] | | | PATHOLOGY | [address] | | | + + + + + | [facility] DEPARTMENT OF | [address] | [place] [address] | | | PATHOLOGY | [address] [...] Performed At | + + + | [id number] Estimated GFR > 60 mL/min/1.73 sq m if non- | [facility] | | [id number] Estimated GFR > 60 mL/min/1.73 sq m [...] + + + + | [facility] DEPARTMENT | [address] [facility] | [place] [address] | | | PATHOLOGY | [address] | | | + + + + + | [facility] | [address] [place] [address] | [place] [address] | | | PATHOLOGY | [address] [...] Performed At | + + + | [id number] Estimated GFR > 60 mL/min/1.73 sq m if non- | [facility] | | [id number] Estimated GFR > 60 mL/min/1.73 sq m [...] | + + + + + | [facility] | [address] [facility] | [place] [address] | | | PATHOLOGY | [address] | | | + + + + + | [facility] | [address] [facility] | [place] [address] | | | PATHOLOGY | [address] [...] Performed At | + + + | [id number] Estimated GFR > 60 mL/min/1.73 sq m if non- | [facility] | | [id number] Estimated GFR > 60 mL/min/1.73 sq m [...] | + + + + + | [facility] | [address] [facility] | [place] [address] | | | PATHOLOGY | [address] | | | + + + + + | [facility] | [facility] | [place] [address] | | | PATHOLOGY | [address] | | | + + + + + documented in this encounter Visit Diagnoses + + | Diagnosis | + + | Other psoriasis | + + | Erythroderma Unspecified erythematous condition | + + documented in this encounter"
--- OUTSIDE RECORDS SUMMARY | ~2020-03-14 | XMS | Encounter Summary ---
Demographics + + + | Address | [address] | | | [place] [address] | + + + | Home Phone | | + + + | Preferred Language | Unknown | + + + | Marital Status | | + + + | Faith Affiliation | PRO | + + + | Race | White | + + + | Ethnic Group | Not or | + + + Author + + + | Author | [facility] | + + + | Organization | [facility] | + + + | Address | Unknown | + + + | Phone | Unavailable | + + + Support + + + + + | Name | Relationship | Address | Phone | + + + + + | Marnie Payne | ECON | [address] | | | | | [place] | | | | | [address] | | + + + + + Care Team Providers + +------+ + | Care Floor Framer Name | Role | Phone | + [...] | 2005 | Visit | Medical at [facility] [address] | MD | Similar Disorders; | | | | [facility] | | Erythroderma | | | | for Health and | | | | | | Healing, Building [address], | | | | | | 16th Floor | | | | | | [place], [place] | | | | | | [address] | | | | | | [phone] | | | +--------+---------+ + + + [...] AM Jessica complaint: flaring erythrodermic psoriasis S: Khai Payne [...] -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 [...] Performed At | + + + | [id number] Estimated GFR > 60 mL/min/1.73 sq m if non- | [facility] | | [id number] Estimated GFR > 60 mL/min/1.73 sq m [...] | + + + + + | [facility] | [address] | [place] [address] | | | PATHOLOGY | [address] | | | + + + + + | [facility] DEPARTMENT OF | [address] | [place], [place] [address] | | | PATHOLOGY | [address] | | | + + + + + MAGNESIUM, PLASMA (06/03/2006 11:48 AM PST) + +-------+ + + + | Component | Value | Ref Range | Performed | Pathologist | | | | | At | Signature | + +-------+ + + + | MAGNESIUM,P | 2.3 | 1.8 - 2.5 mg/dL | [facility] | | | LASMA | | | DEPARTMENT | | | | | | OF | | | | | | PATHOLOGY | | + +-------+ + + + + + | Specimen | + + | | + + + + + | Narrative | Performed At | + + + | [id number] Estimated GFR > 60 mL/min/1.73 sq m if non- | [facility] | | [id number] Estimated GFR > 60 mL/min/1.73 sq m [...] | + + + + + | [facility] | [address] [facility] | [place] [address] | | | PATHOLOGY | [address] | | | + + + + + | [facility] | [address] [facility] | [place] [address] | | | PATHOLOGY | [address] [...] Performed At | + + + | [id number] Estimated GFR > 60 mL/min/1.73 sq m if non- | [facility] | | [id number] Estimated GFR > 60 mL/min/1.73 sq m [...] | + + + + + | [facility] | [address] [facility] | [place] [address] | | | PATHOLOGY | [address] | | | + + + + + | [facility] | [address] [facility] | [place] [address] | | | PATHOLOGY | [address] [...] Performed At | + + + | [id number] Estimated GFR > 60 mL/min/1.73 sq m if non- | [facility] | | [id number] Estimated GFR > 60 mL/min/1.73 sq m [...] | + + + + + | [facility] | [facility] | [place] [address] | | | PATHOLOGY | [address] | | | + + + + + | [facility] | [facility] | [place] [address] | | | PATHOLOGY | [address] [...] | [address] | [place] [address] | | | PATHOLOGY | [address] | | | + + + + + | [facility] | [address] | [place] [address] | | | PATHOLOGY | [address] [...] | | AB | Test performed by [facility] | | | | | | [facility] | | | | | | [facility]. | | | | + + + + + + + + | Specimen | + + | | + + + + + + + | Performing | Address | City/State/Zipcode | Phone Number | | Organization | | | | + + + + + | [facility] | [address] | [place] [address] | | | LABORATORY | | | [...] | | | | [facility], [facility] | [facility] | | | | | | Laboratories. | | | | + + + + + + + + | Specimen | + + | | + + + + + + + | Performing | Address | City/State/Zipcode | Phone Number | | Organization | | | | + + + + + | [facility] | [address] | [place] [address] | | | LABORATORY | | | [...] | + + + + + | [facility] | [address] | [place] [address] | | | LABORATORY | | | [...] | CORE AB, | Test performed by [facility] | | | | | SERUM | [facility] | | | | | | Laboratories. | | | | + + + + + + + + | Specimen | + + | | + + + + + + + | Performing | Address | City/State/Zipcode | Phone Number | | Organization | | | | + + + + + | [facility] | [address] | [place] [address] | | | LABORATORY | | | [...] Performed At | + + + | [id number] Estimated GFR > 60 mL/min/1.73 sq m if non- | [facility] | | [id number] Estimated GFR > 60 mL/min/1.73 sq m [...] | + + + + + | [facility] | [facility] | [place] [address] | | | PATHOLOGY | [address] | | | + + + + + | [facility] | [facility] | [place] [address] | | | PATHOLOGY | [address] [...] Performed At | + + + | [id number] Estimated GFR > 60 mL/min/1.73 sq m if non- | [facility] | | [id number] Estimated GFR > 60 mL/min/1.73 sq m [...] + + + + | [facility] DEPARTMENT OF | [address] | [place] [address] | | | PATHOLOGY | [address] | | | + + + + + | [facility] DEPARTMENT OF | [address] | [place] [address] | | | PATHOLOGY | [address] [...] Performed At | + + + | [id number] Estimated GFR > 60 mL/min/1.73 sq m if non- | [facility] | | [id number] Estimated GFR > 60 mL/min/1.73 sq m [...] + + + + | [facility] DEPARTMENT | [address] [facility] | [place] [address] | | | PATHOLOGY | [address] | | | + + + + + | [facility] | [address] [place] [address] | [place] [address] | | | PATHOLOGY | [address] [...] Performed At | + + + | [id number] Estimated GFR > 60 mL/min/1.73 sq m if non- | [facility] | | [id number] Estimated GFR > 60 mL/min/1.73 sq m [...] | + + + + + | [facility] | [address] [facility] | [place] [address] | | | PATHOLOGY | [address] | | | + + + + + | [facility] | [address] [facility] [address] | [place] [address] | | | PATHOLOGY | [address] [...] Performed At | + + + | [id number] Estimated GFR > 60 mL/min/1.73 sq m if non- | [facility] | | [id number] Estimated GFR > 60 mL/min/1.73 sq m [...] | + + + + + | [facility] | [address] [facility] | [place] [address] | | | PATHOLOGY | [address] | | | + + + + + | [facility] | [facility] [facility] | [place] [address] | | | PATHOLOGY | [address] | | | + + + + + documented in this encounter Visit Diagnoses + + | Diagnosis | + + | Other psoriasis | + + | Erythroderma Unspecified erythematous condition | + + documented in this encounter"
[~2020-03-14 09:52] MED LIST changes: +BUSPIRONE HCL15 MG PO; +LACTULOSE20 GM/30 M PO
--- OUTSIDE RECORDS SUMMARY | 2020-03-14 09:56 | XMS ---
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 Care History Medical/Surgical 12/29/2017 [facility] Patient PCP, Dr. Lovely Rivas, is no longer rx\T\#39;ing any opiate/ opioids or benzodiazepines for patient. Substance Use/Overdose 12/29/2017 [facility] Patient PCP, Dr. Lovely Rivas, is no longer rx\T\#39;ing any opiate/ opioids or benzodiazepines for patient. 12/24/2017 [facility] PATIENT CAME TO ED FOR PAIN MEDS FOR BACK PAIN 12/22/17.\T\nbsp; STATED HE HAS RUN OUT OF PAIN MEDICATIONS.\T\nbsp; HE HAD FILLED SCRIPT FOR 185 OXYCODONE ON 12/05/17.\T\nbsp; PRIMARY CARE PHYSICIAN DR RIVAS WAS NOTIFIED.\T\nbsp; PLEASE USE CAUTION WITH PRESCRIBING ANY NARCOTICS WITHOUT CHECKING WITH PRIMARY CARE AT [phone]. E.D. VISIT COUNT (12 MO.) 5 JASON [place] TOTAL 5 NOTE: Visits indicate total known visits. 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 10/12/2019 12:54 [place] [place] TYPE: Emergency COMPLAINT: - COUGH DIAGNOSES: - Other fci (current) drug therapy - Cough - Nicotine dependence, unspecified, uncomplicated - Essential (primary) hypertension - Nicotine dependence, cigarettes, uncomplicated - Unspecified fall, initial encounter - Tobacco abuse counseling - Fracture of one rib, left side, initial encounter for closed 09/27/2019 15:12 [place] [place] TYPE: Emergency COMPLAINT: - BLOATING DIAGNOSES: - Other fci (current) drug therapy - Essential (primary) hypertension - Nicotine dependence, unspecified, uncomplicated - Abdominal distension (gaseous) 06/27/2019 16:44 [facility] [place] TYPE: Emergency COMPLAINT: - SWOLLEN EXTREMETIES DIAGNOSES: - Personal history of nicotine dependence - director product development (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
[2020-03-14] MEDS ORDERED: TRAZODONE HCL50 MG PO (14:41)
[2020-03-14] MEDS ORDERED: ULTRAM50 MG PO (14:42)
[2020-03-14] MEDS ORDERED: FUROSEMIDE80 MG PO (14:45)
[2020-03-14] MEDS ORDERED: SPIRONOLACTONE50 MG PO (14:45)
--- NOTE | 2020-03-14 15:00 | NUR ---
Report recieved from Jeannine FRANK in ER. Pt arrived to CCU via stretcher. LR running at 150 mls/hr. Morphine 4 mg given prior to transfer. Pt on 2 L NC, denies SOB, chest pain. Crackles heard in BLL of lungs. Abdomen appears distended, pt denies N/V, reports last BM was this morning. Psoriasis rash scattered over BUE/trunk/BLE, pt says it is not currently being treated. BP's have been soft, 90's/50's. Elevated HR, pt appears to be in sinus tach 100-120. BLE +2 pitting edema and red. Pt denies pain at this time.
--- NOTE | 2020-03-14 16:03 | NUR ---
PTS [id number], GULSHAN CALLED. PT STATES IT IS OK TO UPDATE GULSHAN. GULSHAN UPDATED AND STATES HER QUESTIONS HAVE BEEN ANSWERED. CALL FORWARDED INTO PTS ROOM SO PT CAN TALK WITH HIS IOIZPN-SL-YGI.
--- NOTE | 2020-03-14 17:00 | NUR ---
Pt receiving magnesium 2g IV and 40 meq potassium PO. Pt also received 5 mg midodrine for low BP's. 40 mg lasix IV also given. Pt calls appropriately to use urinal. Voided 200 mls of clear, trixie urine. Pt denies pain, sob, n/v at this time. Genna technical marketing engineer will be in room to do ECHO. Pt's sister visiting right now.
--- NOTE | 2020-03-14 18:50 | NUR ---
Pt up in bed eating dinner. Son Sae in room. Nicotine patch placed on right shoulder to help with nicotine withdrawals as pt is everyday smoker (1-1/2 pack per day). 20 g IV in RAC flushing well and still patent. Call light within reach.
--- NOTE | 2020-03-14 20:00 | NUR ---
RECEIVED REPORT AT 1900. SO FAR PT IS IN BED. NO NEW CONCERNS NOTED AT THIS TIME. HAVE NOT ASSESSED PT SO FAR.
--- NOTE | 2020-03-14 21:00 | NUR ---
ALL LOBES HAVE WHEEZING PRESENT, BILATERAL LOWER LEG EDEMA +2, LEGS ARE WEEPING AND BLEEDING. PT IS VERY WEAK, PT AAOX4 SO FAR, ABD IS VERY MUCH DISTENDED WITH ASCITIES. SCD'S TAKEN OFF DUE TO BLEEDING ON LEGS. BP'S A BIT SOFT. WILL CONTINUE TO MONITOR.
--- NOTE | 2020-03-14 23:00 | NUR ---
PT SO FAR HAS HAD A BM X1 AND URINE X1. NO NEW CONCERNS NOTED AT THIS TIME.
--- NOTE | 2020-03-15 | NUR ---
ALL LOBES HAVE WHEEZING PRESENT, EVERYTHING ELSE IS UNCHANGED WITH SECOND SHIFT ASSESSMENT. WILL CONTINUE TO MONITOR.
--- NOTE | 2020-03-15 02:00 | NUR ---
PT AT THIS TIME IS SLEEPING. BP'S SOFT OVERALL. WILL CONTINUE TO MONITOR.
--- NOTE | 2020-03-15 04:00 | NUR ---
PT AT THIS TIME IS DUE TO VOID. PT STATED THAT HE WILL VOID IN A LITTLE WHILE. PT STATED THAT HE HAS A CERTAIN MORNING ROUTINE IN REGARDS TO VOIDING AND BM'S. ALL LOBES STILL WHEEZING, NO CHANGES OVERALL NOTED IN THRID SHIFT ASSESSMENT. BP'S STILL SOFT, PT AFEBRILE, PT REMIANS ON 2L O2 NC. EDMEMA AND APEARANCE OF SKIN ON BILATERAL LOWER LEGS IS UNCHANGED. WOUND CONSULT NEEDED TODAY.
--- NOTE | 2020-03-15 06:18 | NUR ---
PT HAD ANOTHER LIQUID BM. PT APPEARS TO GET INCREASINGLY WEAKER. PT ALSO SEEMS TO BE MORE DROWSY. O2 WAS ALSO INCREASED TO 3L. MD FERNANDEZ IS AWARE OF ALL CHANGES. NEW ORDER FOR LACTULOSE DOSE AND FREQUENCY WAS RECEIVED.
--- NOTE | 2020-03-15 08:34 | NUR ---
PT ABLE TO ASSIST GETTING ON TO THE BED NICOLAS TO HAVE LARGE LIQUID BM. IRINA CARE DONE, CHANGED PT GOWN, EMOLIANT BARRIER CREAM APPLIED TO PT BILAT LEGS. PT ASSISTED TO DO ORAL CARE WITH MOUTHWASH AND ORAL SWABS. ORDERED PT BREAKFAST, PT STATES "I'M STARVING, AND I'M SO THIRSTY". PT GIVEN FRESH ICEWATER.
--- NOTE | 2020-03-15 09:15 | EKG ---
[facility] [address] [facility] [place] [address] Signed Poor data quality, interpretation may be adversely affected Sinus tachycardia with premature supraventricular complexes Rightward axis Low voltage QRS Cannot rule out Anteroseptal infarct , age undetermined Abnormal ECG When compared with ECG of 27-JUN-2019 17:02, Significant changes have occurred Confirmed by MELI FERNANDEZ MD ([id number]) on 03/15/2020 9:15:03 AM Electronically Signed By: MELI FERNANDEZ MD 03/15/20 0915 PATIENT NAME: ROBERTO MCINTOSH Electrocardiogram DATE OF : 53 PHYSICIAN: MELI FERNANDEZ MD REPORT #: [id number] REPORT IS CONFIDENTIAL AND NOT TO BE RELEASED WITHOUT AUTHORIZATION
--- NOTE | 2020-03-15 09:16 | EKG ---
[facility] [address] [facility] [place] [address] Signed Sinus tachycardia Rightward axis Low voltage QRS Cannot rule out Anterior infarct (cited on or before 14-MAR-2020) Abnormal ECG When compared with ECG of 14-MAR-2020 10:57, (Unconfirmed) premature supraventricular complexes are no longer present ST no longer depressed in Anterior leads Nonspecific T wave abnormality, improved in Anterolateral leads Confirmed by MELI FERNANDEZ MD ([id number]) on 03/15/2020 9:16:04 AM Electronically Signed By: MELI FERNANDEZ MD 03/15/20 0916 PATIENT NAME: ROBERTO MCINTOSH Electrocardiogram DATE OF : 53 PHYSICIAN: MELI FERNANDEZ MD REPORT #: [id number] REPORT IS CONFIDENTIAL AND NOT TO BE RELEASED WITHOUT AUTHORIZATION
--- NOTE | 2020-03-15 09:24 | NUR ---
PT ABLE TO EAT 25% OF BREAKFAST. PT IS THEN INCONTINENT OF MULTIPLE LOOSE STOOLS.
--- NOTE | 2020-03-15 09:39 | NUR ---
PT IS ALERT AND ORIENTED X4, PT REPORTS FATIGUE TODAY. PT IS SITTING UP IN BED EATING BREAKFAST. PT C/O GENERALIZED ACHES IN BILAT KNEES AND THIGHS. PT DENIES CHEST PAIN, NAUSEA, AND SOB. PT IS ABLE TO COMMUNICATE EASILY.
--- NOTE | 2020-03-15 09:57 | NUR ---
PT ABLE TO EAT 25% OF BREAKFAST. PT IS THEN INCONTINENT OF MULTIPLE LOOSE STOOLS.
--- NOTE | 2020-03-15 11:04 | NUR ---
PLACED BATRES CATH USING COUDE TIP DUE TO DIFFICULTY VISUALIZING MEATUS. 70 ML ELODIA URINE OUTPUT AFTER PLACEMENT. PT JOSE WELL, HOWEVER QUITE ANXIOUS DURING PLACEMENT.
--- NOTE | 2020-03-15 11:13 | NUR ---
PT GIVEN 50 MG PO ULTRAM FOR 8/10 GENERALIZED DISCOMFORT. PT ABLE TO SWALLOW PILLS EASILY.
--- NOTE | 2020-03-15 11:32 | NUR ---
O2 TITRATED TO 2L DOWN FROM 3L DUE TO PT SATS AT 97-99%.
--- NOTE | 2020-03-15 13:15 | NUR ---
MULTIPLE FAMILY MEMBERS IN AND OUT OF PT ROOM TO VISIT THIS AM. PT VERY HAPPY TO SEE THEM, BECOMES VERY ANXIOUS WHEN ALONE. PT'S SON MR.TRAVIS MCINTOSH IS POINT OF CONTACT TO UPDATE FAMILY, .
--- NOTE | 2020-03-15 13:35 | NUR ---
CONNECTED WITH PTS' FAMILY IN LOBBY. SON LILLIE IS PRESENT, LET HIM KNOW I WAS HEADED TO SEE PT. IN PTS' RM, PT SITTING UP IN BED, EATING LUNCH WITH TV ON. NOTICED PSORIASIS RASH PROMINANT ON PTS' R ARM. GAVE PT ENCOURAGEMENT, ALL HIS QUESTIONS ANSWERED. PT REQUESTED PRAYER, WILL CONTINUE TO FOLLOW
--- NOTE | 2020-03-15 14:05 | NUR ---
PT ONLY ABLE TO EAT APROXIMALTY 20% OF LUNCH. PT STATES "I ONLY ATE ABOUT 2 BITES EVENTHOUGH I THOUGHT I WAS STARVING".
--- NOTE | 2020-03-15 16:31 | NUR ---
O2 TITRATED DOWN TO 1L FROM 2L DUE TO PT SATS IN UPPER 90'S.
--- NOTE | 2020-03-15 16:35 | PATH ---
[facility] [address] [place], [place] [address] Signed ORDERING PHYSICIAN: Celio Avina MD PATIENT NAME: ROBERTO MCINTOSH GENDER: M : 1955 Prior History: No cases found. SPECIMEN(S): MOLECULAR PATHOLOGY RESULTS: SARS-CoV-2 Not Detected ADDITIONAL NOTES.: The Readfield Fusion SARS-CoV-2 Assay is a multiplex real-time PCR (RT-PCR) in vitro diagnostic test intended for the qualitative detection of RNA from SARS-CoV-2 from individuals who meet COVID-19 clinical and/or epidemiological criteria. In general, SARS-CoV-2 RNA can be detected during the acute phase of infection. Positive results indicate the presence of SARS-CoV-2 RNA. Clinical correlation with patient history and other diagnostic information is necessary to determine patient infection status. Positive results do not rule out bacterial infection or co-infection with other viruses. Negative results do not preclude SARS-CoV-2 infection and should not be used as the sole basis for patient management decisions. Negative results must be combined with other clinical observations, patient history, and epidemiological information. The Readfield Fusion SARS-CoV-2 Assay is not yet approved or cleared by the [place] FDA. When there are no FDA-approved or cleared tests available, and other criteria are met, FDA can make tests available under an emergency access mechanism called an Emergency Use Authorization (EUA). The EUA for this test is supported by the [place] of Health and Human Service's (HHS's) declaration that circumstances exist to justify the emergency use of in vitro diagnostics for the detection and/or diagnosis of the virus that causes COVID-19. This EUA will remain in effect for the duration of the COVID-19 declaration justifying emergency of IVDs, unless it is terminated or revoked by FDA, after which the test may no longer be used. The Readfield Fusion SARS-CoV-2 Assay is for use only under EUA PATIENT NAME: ROBERTO MCINTOSH PATHOLOGY DATE OF : 53 REPORT #: [id number] PHYSICIAN: NATALIE PATHOLOGY PCP: LOVELY PAULA MD REPORT IS CONFIDENTIAL AND NOT TO BE RELEASED WITHOUT AUTHORIZATION [facility] [address] [place], [place] [address] Signed in laboratories certified under the Clinical Laboratory Improvement Amendments of 1988 (CLIA) to perform high complexity tests. [facility] is certified under CLIA to perform high complexity clinical laboratory testing. PERFORMING LABORATORY.: Molecular testing was performed by [facility] [place] [address] ([facility] Coordinator: Binu Rowan D.O.; CLIA#: [id number]) Diagnostician: System Interface Pathologist Electronically Signed 03/15/2020 Copies: ~ PATIENT NAME: ROBERTO MCINTOSH PATHOLOGY DATE OF : 53 REPORT #: [id number] PHYSICIAN: NATALIE COLÓN PCP: LOVELY PAULA MD REPORT IS CONFIDENTIAL AND NOT TO BE RELEASED WITHOUT AUTHORIZATION
--- NOTE | 2020-03-15 18:15 | NUR ---
PT REPORTS NAUSEA AFTER EATING DINNER, 4 MG IV ZOFRAN GIVEN. EMISIS BAG IS WITHIN REACH. IV SITE IS INTACT, NO SWELLING OR REDNESS NOTED. CALL LIGHT IS WITHIN REACH.
--- NOTE | 2020-03-15 20:00 | NUR ---
PATIENT REPORTS FEELING ANXIOUS AND DIFFICULTY SLEEPING. PATIENT CONTINUES TO REPORT NAUSEA AFTER PRN ZOFRAN. CIWA 14, PRN ATIVAN GIVEN PER ORDERS. PATIENT REPOSITIONED IN BED. HIPS FLOATS. ARMS AND LEGS ELEVATED ON PILLOWS. BATRES DRAINING CONCERNTRATED URINE. EVENING CARES DONE. TV OFF AND LIGHTS DIMMED. PATIENT HAS CALL LIGHT IN REACH.
--- NOTE | 2020-03-15 21:15 | NUR ---
PATIENT HR ABOUT 105-110, WITH FREQUENT NONSUSTAINED 125-130'S. ONE 4 SECOND RUN OF SVT UP TO 167 BPM. PATIENT SLEEPING DURING THIS TIME. MD NOTIFIED. LABS FOR ADD ON MAG ORDERED FROM THIS MORNINGS LABS. ORDERED LOPRESSOR.
--- NOTE | 2020-03-15 21:38 | NUR ---
PATIENT CONTINUES TO APPEAR TO BE SLEEPING SOUNDLY. IV MEDS GIVEN PER ORDER, SITE WNL. ALLOWED PATIENT TO REST. CALL LIGHT IN REACH.
--- NOTE | 2020-03-15 23:00 | NUR ---
PATIENT CALLED. BRAND PLANNER ASSISTED PATIENT TO REPOSITION IN BED. PATIENT DENIED OTHER NEEDS. APPEARED TO BE SLEEPING WHEN RN ENTERED THE ROOM MINUTES LATER. ALLOWED PATIENT TO REST.
--- NOTE | 2020-03-16 00:30 | NUR ---
PATIENT'S HR INCREASED FROM 90'S TO 160'S. WHEN RN ENTERED ROOM PATIENT WAS ATTEMPTING TO TURN HIMSELF IN BED. ENCOURAGED PATIENT TO REST AND ALLOW STAFF TO ASSIST. HR QUICKLY RETURNED TO 100-110 RANGE. PATIENT DENIED FEELING ANY CHEST PAIN OR SOB. PATIENT REPOSITIONED IN BED. TURNED TO LEFT SIDE. ENCOURAGED PATIENT TO TRY TO SLEEP MORE. PATIENT WATCHING TV AND AGREES TO TRY TO SLEEP IN THE NEAR FUTURE.
--- NOTE | 2020-03-16 02:00 | NUR ---
PATIENT APPEARS TO BE SLEEPING SOUNDLY. UPPER AIRWAY WHEEZE HEARD. TOLERATING 1L NC WITH O2 SATS 95%. ALLOWED PATIENT TO REST. CALL LIGHT IN HAND.
--- NOTE | 2020-03-16 03:30 | NUR ---
SCHEDULED LOPRESSOR PROVIDED. PATIENT WAS SLEEPING SOUNDLY AND WOKE ONLY WHEN BLANKETS MOVED TO ALLOW FOR IV ACCESS. PATIENT REPORTS NOT BEING ABLE TO FIND HIS REMOTES, WHICH ARE IN HIS HAND. REMINDED PATIENT HIS CALL LIGHT IS ON THE BEDRAIL WELL IF HE NEEDS ASSISTANCE. PATIENT DENIED ANY NEEDS AT THIS TIME. BATRES DRAINING MINIMAL AMOUT DARK [place]ODIA URINE.
--- NOTE | 2020-03-16 04:54 | NUR ---
PATIENT INCONTINENT OF SMALL SOFT STOOL. NEW LINENS AND ATTENDS IN PLACE. PATIENT REPOSITIONED. REPORTS PAIN 6/10, GENERALIZED. PRN MEDS PROVIDED. WARM BLANKET PROVIDED. CALL LIGHT IN HAND.
--- NOTE | 2020-03-16 06:30 | NUR ---
PATIENT APPEARS TO BE SLEEPING SOUNDLY. VS STABLE. BATRES EMPTIED. ROOM CLEANED. CALL LIGHT IN REACH.
--- NOTE | 2020-03-16 08:10 | NUR ---
PT AWAKE AND ALERT THIS AM. IS ANXIOUS FOR BREAKFAST TO COME. VITALS ARE WNL.
--- NOTE | 2020-03-16 08:14 | NUR ---
pt on room air.
--- NOTE | 2020-03-16 10:00 | NUR ---
PATIENT WAS SLEEPING. WILL RETURN LATER.
--- NOTE | 2020-03-16 11:15 | NUR ---
RECEIVED CALL FROM PATRICK AT [facility], SHE STATES THEY HAVE BEEN SEEING HIM FOR NURSING, PT AND OT. SHE STATES THEY CAN CONTINUE IF RESUMED AT DISCHARGE. SHE STATES PATIENT IS ABLE TO GET UP ON OWN WITH WALKER IF HE WANTS AT HOME. SHE STATES HE IS VERY SELECTIVE IN HIS ABILITIES. STATES HE GETS UP TO GET ALCOHOL ON OWN BUT SOMETIMES STATES HE CAN'T GET UP FOR OTHER THINGS. SHE STATES HE IS HOME MOST OF THE DAY ALONE. DISCUSSED WE WILL SEND CHART NOTES AND RESUMPTION ORDERS IF PATIENT AGREES AT DISCHARGE.
--- NOTE | 2020-03-16 12:02 | NUR ---
CHECKED ON PT-KNOCKED ON DOOR SEVERAL TIMES AND CALLLED HIM BY NAME. COULD NOT WAKE. WILL CONTINUE TO FOLLOW
--- NOTE | 2020-03-16 12:10 | NUR ---
pt repositioned up in bed two person assist. pt is drowsy, wakes with verbal stimuli. pt refuses lunch today, states "i ate too much breakfast this morining". pt does take po water and ensure.
--- NOTE | 2020-03-16 14:20 | NUR ---
ASSISTED MONIKA ATKINSON WITH MILK BATH AND LINEN CHANGE. PATIENT INCONT OF STOOL. NEW GOWN AND BRIEF ON. LOTION ON ARMS AND LEGS. CATH CARE. SISTER AT BEDSIDE. CALL LIGHT IN REACH, NO OTHER NEEDS AT THIS TIME
--- NOTE | 2020-03-16 15:00 | NUR ---
SPOKE WITH PATIENT IN ROOM. DISCUSSED THAT HE IS VERY WEAK AND ASKED IF HE WOULD CONSIDER REHAB AT SNF AT DISCHARGE BEFORE RETURNING HOME. PATIENT WAS FORCEFUL IN HIS REFUSAL. STATES "I AM GOING HOME". ASKED WHO WOULD BE WITH HIM TO HELP, HE STATES "MY ". ASKED IF SHE WORKS AND HE STATES "YES". ASKED WHO WOULD BE THERE WHEN SHE IS AT WORK WE ARE CONCERNED HE WOULD NEED HELP AND COULD FALL. HE STATES "I'LL FIND SOMEONE, DON'T WORRY". ASKED IF HE IS OK WITH HOME HEALTH CONTINUING TO COME, HE IS AGREEABLE TO THIS. ASKED IF HE WOULD WORK WITH THERAPY HERE TO GET MOVING BEFORE DISCHARGE SO WE CAN HELP GET HIM A LITTLE STRONGER FIRST, HE IS AGREEABLE. STATES "I WILL DO WHAT I HAVE TOO, BUT I AM GOING HOME". STATES HIS WILL DRIVE HIM HOME. PATIENT DENIES QUESTIONS OR CONCERNS. STARTED WATCHING TV AND WOULDN'T ANSWER FURTHER QUESTIONS. DR FERNANDEZ UPDATED. SPOKE WITH PHYSICAL THERAPY AND DISCUSSED HE NEEDS TO BE UP AND ABLE TO TRANSFER TO CHAIR, GET TO BATHROOM. THEY WILL WORK WITH HIM.
--- NOTE | 2020-03-16 15:30 | NUR ---
pt in supine position for sloan care after incontinent stool. pt vomited, tried to hold it in mouth, and asipirated. quickly elevated head of bed, o2 sat low 80's. applied 2o via oxymask, pt sats elevated up to 90% or better within 8 minutes. encouraged pt to cough, pt sitting upright in bed, oral suction. called to update on pt status. Called RT to come evaluate pt. Pt did not loose conciousness.
--- NOTE | 2020-03-16 16:37 | NUR ---
pt talking on the phone with his parents at this time.
--- NOTE | 2020-03-16 20:15 | NUR ---
PATIENT DOWN TO CT AND BACK. TOLERATED MODERATELY WELL. PAIN WITH MOVEMENT. VS STABLE.
--- NOTE | 2020-03-16 21:00 | NUR ---
PATIENT HAVING FREQUENT SAMALL LOOSE STOOLS. BARRIER CREAM AND BARRIER WIPES BEING USED. FREQUENT ATTENDS CHANGES. PATIENT IS PAINFUL WITH MOVEMENT AND ANY TOUCHING OF SKIN. UNABLE TO RECEIVE MORE PRN PAIN MEDS AT THIS TIME. POSITIONED FOR COMFORT. IV SITE REENFORCED. FLUIDS PER ORDER. VS STABLE. BATRES CARE DONE.
--- NOTE | 2020-03-16 21:20 | NUR ---
PT TRANSFERRED VIA BED FROM CCU TO OUR FLOOR. PT IS ALERT AND COOPERATIVE. VSS. PT ON 2L O2 PER NC, IVF INFUSING ORDERED. ASSESSMENT COMPLETE. PT ENCOURAGED TO USE CALL LIGHT.
--- NOTE | 2020-03-16 21:41 | NUR ---
TO PTS ROOM TO OBTAIN A SAMPLE OF ASCITES FLUID. SAMPLE SENT TO LAB. PT PROVIDED WITH WARM BLANKET PER REQUEST. DENIES FURTHER NEEDS AT THIS TIME.
--- NOTE | 2020-03-16 21:50 | NUR ---
TAPE MAKER FOUND PT WITH LOWER EXTREMITIES UP TO WAIST OUT OF BED. PT STATES HE IS TRYING TO GO TO THE BATHROOM "WITHOUT BOTHERING" STAFF. NURSING STAFF ASSISTED PT BACK IN BED, BEDDING REPLACED LOOSE STOOL WAS ON FLOOR, BED AND GOWN. PT HAS THE URGE TO URINATE. REORIENTED PT TO HIS BATRES. BATRES DRAINING SMALL AMOUNTS OF URINE .
--- NOTE | 2020-03-16 22:50 | NUR ---
PT REQUESTS "SOMETHING TO HELP NICOTINE CRAVING". PT CONTINUES TO FIDGET WITH BATRES AND C/O URGE TO URINATE. PRN NICORETTE LOZENGE PROVIDED. BATRES CONTINUES TO DRAIN URINE.
--- NOTE | 2020-03-16 23:00 | NUR ---
NURSE YUNIER IN ROOM TO ATTEMPT NEW IV. PT COOPERATIVE. NEW IV SUCCESSFUL AND IVF REINSTATED.
--- NOTE | 2020-03-17 00:59 | NUR ---
PT CONTINUES TO FIDGET, ATTEMPTING TO GET OUT OF BED WITHOUT USING CALL LIGHT, SETTING OFF BED ALARM. PT CONTINUES TO NEED TO URINATE DESPITE BATRES DRAINING. CIWA 8+. 1MG PRN ATIVAN ADMINISTERED.
--- NOTE | 2020-03-17 01:25 | NUR ---
TRIED TO FLUSH IV CATHETER, UNABLE TO DO SO. UPON INSPECTION, IV CATHETER IS PULLED OUT AND KINKED. IV DC'D. CALL IN TO NURSE YUNIER TO ATTEMPT NEW IV PLACEMENT PER ULTRASOUND
--- NOTE | 2020-03-17 01:29 | NUR ---
PT CONTINUES TO FIDGET WITH LEGS AND ASK TO "GO TO THE BATHROOM". PT STATES HE IS AFRAID TO "WET HIS CLOTHES". REMINDED PT HE HAS A BATRES CATHETER. BATRES DRAINING URINE.
--- NOTE | 2020-03-17 01:35 | NUR ---
HEARD SOME NOISE COMING FROM PT'S ROOM. I WENT INTO CHECK ON HIM. HE SAID HE WAS GOING TO GET UP AND GO PEE. I INFORMED HIM THAT HE HAD A CATHETER . HE SAID "WELL IT AINT WORKING VERY FAST" I ASKED HIM TO CALL IF HE NEEDED ANYTHING ELSE.
--- NOTE | 2020-03-17 01:36 | NUR ---
PT CONTINUES TO PULL OFF BLANKETS AND TRY TO GET OUT OF BED TO "GO TO THE BATHROOM". 1MG PRN ATIVAN ADMINISTERED.
--- NOTE | 2020-03-17 01:37 | NUR ---
I HEARD WHAT SOUNDED LIKE SOMETHING DROPPED ON THE FLOOR, COMING FROM HIS ROOM. I WENT TO CHECK ON HIM. HIS CALL LIGHT WAS LAYING ON THE FLOOR. I GAVE IT BACK TO HIM AND ASKED IF HE NEEDED ANYTHING. HE SAID NO. BEDSIDE TABLE AND CALL LIGHT ON HIS LAP. HE NEEDS NOTHING MORE AT THIS TIME.
--- NOTE | 2020-03-17 02:45 | NUR ---
VITALS DONE PER RN. FRESH ICE WATER AND SODA PER PT REQUEST. TWO WARM BLANKETS ALSO GIVEN. BEDSIDE TABLE AND CALL LIGHT IN REACH. PT NEEDS NOTHING MORE AT THIS TIME.
--- NOTE | 2020-03-17 02:47 | NUR ---
CALL IN TO DR FERNANDEZ. PT CONTINUES TO BE RESTLESS, PULLING ON BATRES, TAKING NC OFF, ADJUSTING BED. NEW ORDER FOR PRN ATIVAN. SEE EMAR
--- NOTE | 2020-03-17 03:04 | NUR ---
BED ALARM WENT OFF. WHEN WE ( MONIKA PIKE AND I) ENTERED PT'S ROOM HE WAS TRYING TO GET OUT OF HIS BED TO GO TO THE BATHROOM. HE SAID HE FEELS LIKE HE NEEDS TO PEE. WE EXPLAINED TO HIM HE HAS A CATHETER. WE BOOSTED HIM UP IN BED. BEDSIDE TABLE AND CALL LIGHT IN REACH. BED ALARM SET. HE NEEDS NOTHING MORE AT THIS TIME.
--- NOTE | 2020-03-17 03:17 | NUR ---
PT HAD TRIED TO CLIMB OUT OF BED AGAIN. TREMORS VISIBLE, PT STATES "WHEN I REACH, EVERYTHING IS FARTHER AWAY THAN I THINK", PT REACHING FOR IMAGINARY OBJECTS ON BLANKET. 1MG PRN ATIVAN ADMINISTERED. THIS NURSE AT BEDSIDE WITH PT.
--- NOTE | 2020-03-17 04:17 | NUR ---
BED ALARM RINGING AGAIN. PT HAS LEGS OUT OF END OF BED. DIFFICULT TO REDIRECT. TREMORS INCREASING, VISUAL DISTURBANCES INCREASING, PT MUMBLING ABOUT TASKS AT HOME. CIWA 15. 1MG PRN ATIVAN ADMINISTERED. PT REMAINS AGITATED AND WANTS TO GET OUT OF BED. THIS NURSE IN ROOM 1:1 AT BEDSIDE.
--- NOTE | 2020-03-17 05:30 | NUR ---
PT ONCE AGAIN NEARLY OUT OF BED, "SMOKING" THE PULSEOXIMETER, REQUESTING BEER, REACHING FOR OBJECTS IN THE AIR, INCREASED TREMORS. 1MG PRN ATIVAN ADMINISTERED. CARE FOR PT HAS BEEN 1:1
--- NOTE | 2020-03-17 05:55 | NUR ---
CLINICAL TRANSFORMATION SPECIALIST 1:1 WITH PT FOR CONTINUED ATTEMPTS TO PUT LEGS OVER THE EDGE OF THE BED. PT CONTINUES TO STATE THAT HE WOULD LIKE TO STAND. CLINICAL TRANSFORMATION SPECIALIST REMINDED PT THAT HE IS NOT STRONG ENOUGH TO DO SO, PT ADAMANT. PT PICKING AT THINGS IN THE AIR IN FRONT OF HIM. STATES THERE ARE "CLOTHES WIRES" PRESENT. HOSPITAL LIBRARIAN TO ROOM TO SIT 1:1 WITH PT. CALL LIGHT IN [facility]. BED ALARM ACTIVE.
--- NOTE | 2020-03-17 06:16 | NUR ---
REFUELER THAT IS 1:1 WITH PT REPORTS THAT PT REMOVED IV ACCESS. PT QUICKLY WAS ABLE TO GET AHOLD OF IV TUBING AND REMOVE HIS IV.
--- NOTE | 2020-03-17 06:50 | NUR ---
BLIND SLAT STAPLING MACHINE OPERATOR 1:1 WITH PT AFTER NEW IV PLACED. PT CONTINUES ATTEMPTS TO GET OUT OF BED. PT BECOMING INCREASINGLY ANGRY WITH REMINDERS TO STAY IN BED. PT STATES "QUIT FG TELLING ME WHAT TO DO." BED ALARM ACTIVE. CRATE MAKER TO ROOM FOR 1:1.
--- NOTE | 2020-03-17 07:41 | NUR ---
0720: Report received from Amanda FRANK. Pt appears resting in his bed at this time with the MOVIE MACHINE OPERATOR at the bedside as a 1:1.
--- NOTE | 2020-03-17 08:15 | NUR ---
CIWA 15, PT MEDICATED ORDERED, SEE EMAR.
--- NOTE | 2020-03-17 08:37 | NUR ---
PT'S CIWA WAS 15 AND HE WAS MEDICATED ORDERED. HE WAS GIVEN A BED BATH AND IS UPSET AND YELLING AT STAFF. HE REMAINS CONFUSED AND IS UNABLE TO STATE DATE, PLACE OR TIME CORRECTLY. URINE OUTPUT OVER NIGHT WAS POOR AND IT IS [place] IN COLOR. MD TO BE UPDATED, CHARGE NURSE AWARE. WILL CONTINUE TO MONITOR. SEE ASSESSMENT.
--- NOTE | 2020-03-17 09:05 | NUR ---
PT AGGITATED, FIDGETING IN BED. CIWA SCORE 21, DIFFICUL TOT ASSESS PT IS NOT FOLLOWING COMMANDS, GIVEN 1MG ATIVAN. WILL CONTINUE HOURLY CIWA ASSESSMENT. DISCUSSED PT WORSENING CONDITION WITH DR. FERNANDEZ, PLAN TO TRANSFER PT TO CCU.
--- NOTE | 2020-03-17 10:10 | NUR ---
PT RESTING INBED. 1:1 SITTER AT BEDSIDE. PT AGITATED, RESTLESS, HALLUCINATING, CIWA SCORE 27, GIVEN 1MG IV ATIVAN. MONIKA BERMEO OBTAINING REPORT FROM MONIKA MURILLO FOR TRANSFER TO CCU.
--- NOTE | 2020-03-17 10:15 | NUR ---
PT TRANSFERRED TO CCU AT THIS TIME. THIS RN RECIEVED REPORT FROM JOSHUA RN'S. PT HAS A CURRENT CIWA SCORE OF 27 AT THIS TIME.
--- NOTE | 2020-03-17 10:26 | NUR ---
1020: Report given to Kelsey FRANK and the pt was transfered to CCU as ordered.
--- NOTE | 2020-03-17 10:56 | NUR ---
PT HAVING AUDITORY, TACTILE AND VISUAL HALLUCINATIONS AT THIS TIME. PT LAUGHING, YELLING OUT TO "WALKER", MOTIONING THAT HE IS EATING SOMETHING AND ALSO THINKING THAT IT IS WAR TIME. BACK NOW APPEARS TO BE RESTING WITH THE OCCASIONAL NOISE IF DREAMING. PT DOES SQUIRM HE APPEARS TO BE RESTING AT THIS TIME.
--- NOTE | 2020-03-17 11:09 | NUR ---
THIS RN PROVIDED PT WITH 1MG OF ATIVAN AT THIS TIME. PT IN AND OUT OF A CIWA OF 27. IN TO SEE PT. PER MD TO KEEP HEAD OF BED UP DUE TO ASPIRATION RISK. HEAD OF BED UP 30 DEGREES AT THIS TIME
--- NOTE | 2020-03-17 12:15 | NUR ---
THIS RN IN PTS ROOM TO GIVE PT ANOTHER 1MG OF ATIVAN FOR A CIWA OF 27. PTS SISTER AT BEDSIDE AND SEEMS TO BE CALMER FOR LONGER BUT STILL HAS MULTIPLE BOUTS OF HALLCINAITONS.
--- NOTE | 2020-03-17 12:56 | NUR ---
THIS RN IN TO CHECK ON PT. PTS SISTER STILL AT BEDSIDE AT THIS TIME. PTS SISTER SEEMS TO BE A CALMING PRESENCE TO THE PT. PT HAS A CIWA OF 16 AT THIS TIME. THIS RN WILL MONITOR PT TO SEE IF ATIVAN IS NEEDED SOON. PT SEEMS TO COME AND GO ON HIS CIWA SCORES EVERY 10-20MINS
--- NOTE | 2020-03-17 14:13 | NUR ---
THIS RN IN PTS ROOM WITH , PTS SON LILLIE, AND PTS SISTER TARAH. PTS FAMILY HAS DECSIDED FOR PT TO GO ON COMFORT CARE. PT TO REMAIN IN CARE WHILE GOING THROUGH DETOX.
--- NOTE | 2020-03-17 14:56 | NUR ---
THIS RN IN PTS ROOM TO GIVE PT FENTANYL PATCH AND TO GIVE 1 MG OF ATIVAN. THIS RN DISCUSSED WITH FAMILY ABOUT GOING FORWARD WHAT COMFORT CARE WILL LOOK LIKE. PTS FAMILY (SON AND SISTER) STATED UNDERSTANDING OF WHAT GOING FORWARD LOOKS LIKE- DOSING MORPHINE AND ATIVAN.
--- NOTE | 2020-03-17 15:45 | NUR ---
THIS RN IN PTS ROOM TO CHECK ON PT AND FAMILY. PT APPEARS TO BE RESTING AT THIS TIME COMFORTABLY. PTS FAMILY AT BESIDE INCLUDE PTS SON, PTS SISTER AND PTS . FAMILY REQUESTED THAT THIS RN REPOSITION PT A BIT MORE TO THE CENTER OF THE BED. THIS RN ABLE TO DO THIS. PT WAKES UP UPON MOVEMENT WITH NO COMPLAINT AND ABLE TO OPEN EYES AND SMILE AT FAMILY.
--- NOTE | 2020-03-17 16:12 | NUR ---
THIS RN IN TO CHECK ON PT TO EVALUATE HOW THE MORPHIE THAT WAS GIVEN IS WORKING. PT APPEARS TO BE COMFORTABLE, PTS SISTER STATES THAT PT APPEARS MUCH MORE COMFORTABLE WITH 10MG OF MORPHINE. THIS RN REPOSTIONED PT TO MORE CENTER OF THE BED, PT LEANING TOWARDS HIS RIGHT SIDE.
--- NOTE | 2020-03-17 16:45 | NUR ---
THIS RN IN ROOM WITH VLAD FRANK AND CYNTHIA SAXENA TO TURN PT AND CLEAN HIM UP. PT HAD A SMEAR OF A BOWEL MOVEMENT. PT YELLED OUT WHEN TURNED TO EACH SIDE BUT ABLE TO CALM HIMSELF WHEN LAID BACK ON HIS BACK.
--- NOTE | 2020-03-17 17:04 | NUR ---
WITH MARIA INES FRANK, THIS RN PROVIDED PT WITH ANOTHER 8MG OF IV MORPHINE DUE TO PT BECOMING MORE AGITATED, PER FAMILY THEY THOUGHT THE PT WAS IN PAIN.
--- NOTE | 2020-03-17 17:05 | NUR ---
CCU MONIKA ATKINSON ALERTED ME THAT PT HAD BEEN PLACED ON COMFORT CARE. THE FAMILY WAS REQUESTING MY PRESENCE. WHEN I ARRIVED, PTS' SON LILLIE AND YNES HIS AND SIS TARAH WERE WITH PT. PT WAS UNRESPONSIVE, HOWEVER WHEN I SPOKE TO HIM HE TRIED TO RAISE HIS HEAD AND OPEN HIS EYES. I AM KNOWN TO THE PT AND FAMILY. FAMILY REQUESTED PRAYER AND I FELT THEY NEEDED TO BE PREPARED FOR END OF LIFE DECISIONS BEFORE THAT MOMENT, GUIDED THEM WITH MAKING DECISIONS, HAD MONIKA BERMEO ADD TO PT'S CHART. PARENTS ARRIVED, OTHER FAMILY LET THEM HAVE A MOMENT. OFFERED PRAYER WITH THEM, PLACED PRAYER QUILT ON PT AND GAVE BLESSING. WILL CONTINUE TO FOLLOW
--- NOTE | 2020-03-17 19:32 | NUR ---
this rn in pt sroom to check on pt. pts sister shaheed in room and plans to stay the night. pt appears to be resting at this time and pts sister states that she doesn't feel he needs any meds at this time.
--- NOTE | 2020-03-17 20:15 | NUR ---
REPORT RECEIVED FROM JEAN-CLAUDE FRANK. PT IN BED RESING RESP EVEN AND UNLABORED. SISTER AT BEDSIDE.
--- NOTE | 2020-03-17 21:45 | NUR ---
IN TO CHECK ON PT, PT APPEARS CALM AND COMFORTABLE. SISTER AT [facility].
--- NOTE | 2020-03-17 22:05 | NUR ---
received call from pt's who states that she "wants to have a 1:1 with nuno at 10am." offered to let her speak to family who is at pt's bedside. she declines, just asks for consumer loan underwriter to convey message. consumer loan underwriter to room, spoke to shaheed, pt's sister. she denies questions, concerns. relayed message regarding pt's she states understanding. pillow and blanket provided as pt's sister plans to spend the night. further needs denied at this time. white board updated. call light in reach.
--- NOTE | 2020-03-17 23:47 | NUR ---
PT HAS BEGUN TO SEEM MORE AGITATED, MOANING OUT AND THRASHING ARMS IN BED. 10MG SL MORPHINE GIVEN AND PT REPOSITIONED.
--- NOTE | 2020-03-18 00:30 | NUR ---
IN TO CHECK ON PT AFTER MORPHINE GIVEN, PT MORE CALM AND RESTING COMFORTABLY.
--- NOTE | 2020-03-18 03:30 | NUR ---
PT CONTINUES TO REST COMFORTABLY. SISTER REMAINS AT BEDSIDE.
--- NOTE | 2020-03-18 05:51 | NUR ---
IN TO CHECK ON PT. SISTER STATES PT HAS BEEN RESTING COMFORTABLY BUT IN THE LAST FEW MINUTES HAS BEGUN TO MOVE HANDS AND FEET AND GRIMACING. PT REPOSITIONED, ATTENDS CHECKED AND DRY. PT WAS PREMEDICATED WITH 10MG SL MORPHINE, AND WITH THE ACTIVITY HE BECOMES MORE AWAKE, ATTEMPTING TO ROLL HIMSELF OVER AND STATING "IM GETTING UP". PT REMINDED HE IS IN BED AND TOO WEAK TO GET UP. SETTLED DOWN WITH BLANKETS FOR CALMING, SISTER AT BEDSIDE AND WILL REEVALUATE.
--- NOTE | 2020-03-18 07:55 | NUR ---
THIS RN RECEIVED REPORT FROM MADDY. THIS RN CHECKED ON PT AND PTS SISTER. PTS SISTER STATES THAT PT IS DOING WELL AT THIS TIME. THIS RN DISCUSSED WITH HER THAT SHE WILL CHECK ON THE FREQUENTLY AND THAT SHE CAN PUT ON THE CALL LIGHT IF SHE FEELS THE PT NEEDS TO BE DOSED. THIS RN ALSO ORDERED PTS SISTER A CARE CART AT THIS TIME.
--- NOTE | 2020-03-18 09:30 | NUR ---
THIS RN IN ROOM TO CHECK ON PT AND FAMILY. PT SISTER AND HER DAUGHTER IN ROOM AT THIS TIME. BOTH ASKING APPROPRIATE QUESTIONS OF WHAT IS TO COME NEXT IN THE DYING PROCESS. THEY ALSO INFORMED THIS RN THAT PTS WILL BE IN AROUND 10 TO HAVE HER 1-ON-1 TIME WITH THE PT. PTS FAMILY DENEIES THE DESIRE TO HAVE THIS RN DOSE PT WITH PAIN MEDS AT THIS TIME
--- NOTE | 2020-03-18 09:36 | NUR ---
CALLED JEREMIAS FROM CASE MANAGMENT TO SEE IF WE COULD SWITCH PATIENT TO TRANSITIONAL CARE UPON DR. FERNANDEZ'S REQUEST. SHE SAID DUE TO INSURANCE, SHE WILL HAVE TO GET AUTHORIZATION FROM INSURANCE COMPANY ON THURSDAY.
--- NOTE | 2020-03-18 13:58 | NUR ---
M/S MONIKA BERMEO CALLED ME IN TO CARE FOR PT'S FAMILY. GAVE REASSURANCE, AND HAD THEM DIALOG WITH ME REGARDING FAMILY HISTORY AND THEY BEGAN TO LAUGH THEY REMEMBERED EVENTS AND TIMES SPENT TOGETHER. OFFERED PRAYER FOR [facility] AND [facility], ANSWERED ALL QUESTIONS ASKED. PT OCCASIONALLY WILL OPEN EYES BRIEFLY, FAMILY ALLL FREE TO TALK TO PT AND EXPRESS LOVE AND PERMISSION TO GO. PARENTS ARRIVED, FAMILY STEPPED OUT TO GIVE PARENTS TIME WITH PT. WILL CONTINUE TO FOLLOW
--- NOTE | 2020-03-18 15:17 | NUR ---
THIS RN IN PTS ROOM TO CHECK ON PT. PTS FAMILY STATES THAT PTS BREATHING HAS GOTTEN MORE SHALLOW AND SLOWER, THIS RN NOTICED THIS WELL. PT APPEARS TO BE RESTING COMFORTABLY AND PTS FAMILY DENIES THE DESIRE TO HAVE PT DOSED WITH MORE PAIN MEDS
--- NOTE | 2020-03-18 18:43 | NUR ---
THIS RN IN ROOM WITH ADAM RN TO REPOSITION PT PER PTS FAMILY REQUEST. PTS FAMILY DENY PAIN MEDS AT THIS TIME. PT APPEARS TO BE COMFORTABLE
--- NOTE | 2020-03-18 20:04 | NUR ---
REPORT RECEIVED FROM JEAN-CLAUDE FRANK. IN TO CHECK ON PT. PT RESTING WITH EYES CLOSED, SISTER AND OTHER FAMILY AT BEDSIDE. SISTER REPORTS PT HAS BEEN RESTFUL, QUIET AND COMFORTABLE LOOKING.
--- NOTE | 2020-03-18 23:07 | NUR ---
ATROPINE DROPS GIVEN, PT SEEMS TENSE NOW AND IS MOVING ARMS AND LEGS, 10MG SL MORPHINE GIVEN. FAMILY LEAVING FOR THE NIGHT, SISTER WILL BE STAYING.
--- NOTE | 2020-03-19 01:27 | NUR ---
PT RESTING IN BED WITH EYES CLOSED. FAMILY AROUND BEDSIDE AND RESTING ON COUCH. PT CONTINUES TO HAVE GURGLING BREATHING. FAMILY STATES THEY BELIEVE PT IS COMFORTABLE AT THIS TIME. DENY NEED FOR PRNS CURRENTLY. CALL LIGHT IN REACH.
--- NOTE | 2020-03-19 03:45 | NUR ---
IN TO CHECK ON PT AND FAMILY. FAMILY REPORTS PT HAS REMAINED RESTFUL AND CALM
--- NOTE | 2020-03-19 05:15 | NUR ---
FAMILY OUT TO REPORT TO RN THAT THEY BELIEVE THE PT HAS PASSED, IN TO SEE PT, NO RESP NOTED AND NO PALPABLE PULSE FELT. DR FERNANDEZ NOTIFIED, STATES HE IS ON HIS WAY
--- NOTE | 2020-03-19 07:51 | NUR ---
CALLED BACK FROM TISSUE BACK FROM [facility], PATIENT OK TO BE RELEASED. PATIENT NO DONOR QUALIFIED OR REGISTERED
--- NOTE | 2020-03-19 09:38 | NUR ---
CONTACTED BY M/S RN PRESTON THAT PT HAS PASSED AND FAMILY IS REQUESTING ME. I ARRIVED, FAMILY PRESENT, TEARFUL BUT COMPOSED. GAVE COMFORT AND GUIDED FAMILY TO NEXT STEPS. PIONEER CORTEZ WILL BE CONTACTED WITH CREMATION. FAMILY ALSO REQUESTED PT REMAIN UNTIL HIS PARENTS ARRIVE. FAMILY STEPPED OUT TO ALLOW PARENTS TO HAVE A MOMENT. FAMILY ALL VERY GRACIOUS TOWARDS [facility] STAFF FOR THE CARE GIVEN. BELONGINGS TAKEN WITH FAMILY, INSTRUCTED SON LILLIE TO CONTACT AT HIS CONVIENCE, HE ACKNOWLEDGED. HAD PRAYER WITH FAMILY AT THEIR REQUEST BEFORE THEY ALL LEFT TOGETHER. EXTENDED COMFORT, CONDOLENCES AND BLESSING THEY LEFT. ASSISTED WITH CARE AND REMOVAL OF PT WITH APPROPRIATE PAPERWORK
== END 2020-03-19 09:00 | DRG 441 ==
LOC: ED 09:52 → CCU 14:19 → MS 03-16 21:37 → CCU 03-17 10:20 → MS 03-17 18:23
PROVIDERS: ADMIT Internal Medicine; ATTEND Internal Medicine
DX: K72.90 Hepatic failure, unspecified without coma (principal); K76.7 Hepatorenal syndrome; K76.6 Portal hypertension; F10.231 Alcohol dependence with withdrawal delirium; D68.9 Coagulation defect, unspecified; I47.1 Supraventricular tachycardia; Z20.828 Contact with and (suspected) exposure to other viral communicable diseases; K70.31 Alcoholic cirrhosis of liver with ascites; Z51.5 Encounter for palliative care; I10 Essential (primary) hypertension; F17.200 Nicotine dependence, unspecified, uncomplicated; M48.061 Spinal stenosis, lumbar region without neurogenic claudication; L40.50 Arthropathic psoriasis, unspecified; G89.4 Chronic pain syndrome; F41.1 Generalized anxiety disorder; F32.9 Major depressive disorder, single episode, unspecified; Z86.718 Personal history of other venous thrombosis and embolism; Z91.14 Patient's other noncompliance with medication regimen
CPT/HCPCS: 36415; 51701; 71046; 74176; 80053; 81001; 82140; 82570; 83615; 83690; 83735; 83880; 84157; 84300; 84484; 85025; 85610; 89051; 93005; 93010; 93306; 97162; 97165; 99285-25; 99406; C9803; G0480; J0696; J1940; J2060; J2270; J2405; J3411; J3475; J3480; J7030; J7120; J7121